=== PATIENT | male | born 1955 | race Caucasian/White ===

== ENCOUNTER → 2016-09-10 | Outpatient (CLI) | payer OTHER ==
--- NOTE | 2016-09-10 23:00 | CT ---
EXAMINATION TYPE: CT abdomen pelvis w con DATE OF EXAM: 09/10/2016 1:20 PM COMPARISON: NONE HISTORY: ventral hernia hernia per order and patient. CT DLP: 1697 mGycm, Automated Exposure Control for Dose Reduction was Utilized. CONTRAST: CT scan of the abdomen and pelvis is performed with oral and with IV Contrast, patient injected with 100 mL of Omnipaque 240. FINDINGS: LUNG BASES: A few scattered blebs or cysts are identified in both bases. Coronary artery calcificatio n is seen which is noted marker for coronary artery disease. LIVER/GB: No significant abnormality is appreciated. PANCREAS: No significant abnormality is seen. SPLEEN: Splenomegaly is present measuring 14.6 cm on long axis on coronal image 63. ADRENALS: No significant abnormality is seen. KIDNEYS: There is 8 mm calculus lower pole level left kidney on coronal image 51. There is additional smaller 4 mm calculus mid pole level left kidney on coronal image 59. There is cortical scarring pos teriorly mid pole level left kidney on axial image 33. There is 3 mm nonobstructing calculus in right kidney upper to mid pole level on coronal image 63. Th ere is exophytic 2.3 cm simple appearing cyst laterally mid pole level right kidney on coronal image 56. There is symmetric cortical medullary uptake and excretion from both kidneys. There are subcentimeter low dense lesions bilaterally too small to further characterize but presumed benign. BOWEL: Small hiatal hernia is present. The oral contrast reaches level of the splenic flexure. There is no suspicious small or large bowel dilatation identified. Appendix is felt within normal limits fr om posterior aspect of cecum. PROSTATE/SEMINAL VESICLES: No gross abnormality seen. LYMPH NODES: No greater than 1cm abdominal or pelvic lymph nodes are appreciated. OSSEOUS STRUCTURES: Mild multilevel spurring in the spine is present. Mild to moderate symmetric axia l joint space loss in both hip joints is felt present. OTHER: There is mild to moderate calcified atherosclerotic change of aorta and pelvic branch vessels. There is aneurysm measuring up to 3.0 cm in diameter on axial image 41. IMPRESSION: 1. No suspicious fat or bowel containing ventral wall hernia identified. 2. Splenomegaly is noted which may warrant further clinical workup. 3. Nonobstructing bilateral renal calculi noted. 4. Small focal 3.0 cm infrarenal abdominal aortic aneurysm noted. Consider annual imaging monitoring or surveillance.
== END | disposition home or self-care (01) ==
LOC: RADCTMAIN 12:50
PROVIDERS: ATTEND Surgery
DX: I71.4 Abdominal aortic aneurysm, without rupture (principal); R16.1 Splenomegaly, not elsewhere classified; N20.0 Calculus of kidney
CPT/HCPCS: 74177; Q9967

== ENCOUNTER 2019-01-22 06:53 | Inpatient (IN) | payer MEDICARE, OTHER ==
[2019-01-22] MEDS ORDERED: IPRATROPIUM-ALBUTEROL 3 ML NEB INHALATION STA (07:07)
[2019-01-22] MEDS ORDERED: methylPREDNISolone SOD SUCCI 125 MG/2 ML VIAL IV STA (07:07)
[2019-01-22] MEDS ORDERED: SODIUM CHLORIDE 0.9% 1,000 ML IV STA ×2 (07:07)
--- NOTE | 2019-01-22 07:10 | ED ---
SOB HPI <Grant Ramirez - Last Filed: 01/22/19 09:13> - General Source: patient, family, RN notes reviewed, old records reviewed Mode of arrival: ambulatory Limitations: no limitations <Kanwal Jorge - Last Filed: 01/22/19 09:25> - General Chief Complaint: Shortness of Breath Stated Complaint: SOB Time Seen by Provider: 01/22/19 07:02 - History of Present Illness Initial Comments: 63-year-old male presents minutes from today with progressive shortness of breath for the past 3 days. He reports that today he did start to have some chest heaviness. Patient states that he does have a history of hypertension but did not take his blood pressure medicines this morning. Patient has had no fevers or chills. Patient is a former smoker. 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 He reports he had a chemical stress test many years ago. Patient reports that his chest pain seemed to be worse with walking. (Kanwal Jorge) - Related Data Home Medications Medication Instructions Recorded Confirmed Atorvastatin [Lipitor] 20 mg PO HS 01/22/19 01/22/19 Clopidogrel Bisulfate [Plavix] 75 mg PO DAILY 01/22/19 01/22/19 Ergocalciferol (Vitamin D2) 50,000 unit PO SANTOS 01/22/19 01/22/19 [Drisdol] Etanercept [Enbrel] 25 mg SQ SUWE 01/22/19 01/22/19 Ferrous Sulfate [Feosol] 325 mg PO TID 01/22/19 01/22/19 Folic Acid 1 mg PO DAILY 01/22/19 01/22/19 Hydrocodone/Acetaminophen [[place] 1 tab PO Q6H PRN 01/22/19 01/22/19 10-325] Labetalol HCl [Trandate] 300 mg PO BID 01/22/19 01/22/19 Losartan Potassium [Cozaar] 100 mg PO DAILY 01/22/19 01/22/19 Meclizine [Antivert] 25 mg PO AC-TID PRN 01/22/19 01/22/19 Methotrexate 25mg/Ml 25 mg SQ SANTOS 01/22/19 01/22/19 amLODIPine [Norvasc] 10 mg PO DAILY 01/22/19 01/22/19 traZODone HCL 150 mg PO HS 01/22/19 01/22/19 Allergies Allergy/AdvReac Type Severity Reaction Status Date / Time epinephrine Allergy Unknown Verified 01/22/19 08:15 Review of Systems ROS Other: All systems not noted in ROS Statement are negative. <Grant Ramirez - Last Filed: 01/22/19 09:13> ROS Other: All systems not noted in ROS Statement are negative. <Kanwal Jorge - Last Filed: 01/22/19 09:25> ROS Statement: Those systems with pertinent positive or pertinent negative responses have been documented in the HPI. Past Medical History Past Medical History: COPD, Hypertension History of Any Multi-Drug Resistant Organisms: None Reported Past Surgical History: Hernia Repair Additional Past Surgical History / Comment(s): kidney stone, sleep apnea Past Psychological History: No Psychological Hx Reported Smoking Status: Former smoker Past Alcohol Use History: Occasional Past Drug Use History: None Reported <Kanwal Jorge - Last Filed: 01/22/19 09:25> General Exam Limitations: no limitations General appearance: alert, in no apparent distress Head exam: Present: atraumatic, normocephalic, normal inspection Eye exam: Present: normal appearance, PERRL, EOMI. Absent: scleral icterus, conjunctival injection, periorbital swelling ENT exam: Present: normal exam, mucous membranes moist Neck exam: Present: normal inspection Respiratory exam: Present: decreased breath sounds. Absent: normal lung sounds bilaterally, respiratory distress, wheezes, rales, rhonchi, stridor Cardiovascular Exam: Present: regular rate, normal rhythm, normal heart sounds. Absent: systolic murmur, diastolic murmur, rubs, gallop, clicks GI/Abdominal exam: Present: soft, normal bowel sounds. Absent: distended, tenderness, guarding, rebound, rigid Extremities exam: Present: normal inspection, full ROM, normal capillary refill. Absent: tenderness, pedal edema, joint swelling, calf tenderness Back exam: Present: normal inspection Neurological exam: Present: alert, oriented X3, CN II-XII intact Psychiatric exam: Present: normal affect Skin exam: Present: warm, dry, intact, normal color. Absent: rash <Kanwal Jorge - Last Filed: 01/22/19 09:25> - General Exam Comments Initial Comments: 63-year-old male. No distress. (Kanwal Jorge) Course <JamesGrant - Last Filed: 01/22/19 09:13> Vital Signs 01/22/19 01/22/19 01/22/19 06:56 07:16 07:27 Temperature 97.6 F Pulse Rate 111 H 109 H Respiratory 26 H 18 13 Rate Blood Pressure 209/133 O2 Sat by Pulse 96 Oximetry 01/22/19 01/22/19 01/22/19 07:40 07:41 07:51 Temperature Pulse Rate 109 H 108 H 110 H Respiratory 14 Rate Blood Pressure 197/145 O2 Sat by Pulse 95 Oximetry 01/22/19 01/22/19 08:00 08:20 Temperature Pulse Rate 105 H 101 H Respiratory 20 17 Rate Blood Pressure 191/115 201/140 O2 Sat by Pulse 97 Oximetry - Reevaluation(s) Reevaluation #1: 01/22/19 09:13 PA supervision: I proceeded a [id number] evaluation the patient he does demonstrate shortness of breath with right lower lobe rhonchi. X-ray shows evidence of a right lower lobe infiltrate. I did discuss case with patient and with Dr. Birch the patient will be admitted with cardiology consultation. (Grant Ramirez) Medical Decision Making - Lab Data Result diagrams: 01/22/19 07:56 01/22/19 07:56 <JamesGrant - Last Filed: 01/22/19 09:13> - Lab Data Result diagrams: 01/22/19 07:56 01/22/19 07:56 - Radiology Data Radiology results: report reviewed <Kanwal Jorge - Last Filed: 01/22/19 09:25> - Medical Decision Making 63-year-old male presents today with 3 days of progressing shortness of breath and 1 day of chest pain. Chest is worse walking. At this time Patient had a cardiac pulmonary workup. Had diminished lung sounds. Was given breathing treatments and Solu-Medrol. Does have improvement of symptoms. Patient chest x-ray shows evidence of right-sided pneumonia or possibly a fluid overload state. BNP is mildly elevated 4000. He has no significant peripheral edema this time. Patient has an elevated troponin 0.082. We'll put the Patient on heparin. Given aspirin and ED. Discussed the Patient will be admitted at this time for pneumonia and concerns for an STEMI. We'll consult cardiology. Patient and family were informed of all of her results. (Kanwal Jorge) - Lab Data Lab Results 01/22/19 01/22/19 01/22/19 Range/Units 07:56 07:56 07:56 WBC 13.6 H (3.8-10.6) k/uL RBC 4.93 (4.30-5.90) m/uL Hgb 14.6 (13.0-17.5) gm/dL Hct 41.7 (39.0-53.0) % MCV 84.6 (80.0-100.0) fL MCH 29.6 (25.0-35.0) pg MCHC 35.0 (31.0-37.0) g/dL RDW 13.7 (11.5-15.5) % Plt Count 266 (150-450) k/uL Neutrophils % 81 % Lymphocytes % 9 % Monocytes % 6 % Eosinophils % 1 % Basophils % 1 % Neutrophils # 10.9 H (1.3-7.7) k/uL Lymphocytes # 1.3 (1.0-4.8) k/uL Monocytes # 0.8 (0-1.0) k/uL Eosinophils # 0.1 (0-0.7) k/uL Basophils # 0.1 (0-0.2) k/uL PT (9.0-12.0) sec INR (<1.2) APTT (22.0-30.0) sec Sodium 139 (137-145) mmol/L Potassium 4.1 (3.5-5.1) mmol/L Chloride 105 (98-107) mmol/L Carbon Dioxide 22 (22-30) mmol/L Anion Gap 12 mmol/L BUN 16 (9-20) mg/dL Creatinine 0.84 (0.66-1.25) mg/dL Est GFR (CKD-EPI)AfAm >90 (>60 ml/min/1.73 sqM) Est GFR (CKD-EPI)NonAf >90 (>60 ml/min/1.73 sqM) Glucose 167 H (74-99) mg/dL Calcium 9.2 (8.4-10.2) mg/dL Magnesium 1.8 (1.6-2.3) mg/dL Total Bilirubin 1.1 (0.2-1.3) mg/dL AST 23 (17-59) U/L ALT 32 (21-72) U/L Alkaline Phosphatase 74 (38-126) U/L Troponin I (0.000-0.034) ng/mL NT-Pro-B Natriuret Pep 4990 pg/mL Total Protein 6.7 (6.3-8.2) g/dL Albumin 3.9 (3.5-5.0) g/dL 01/22/19 01/22/19 Range/Units 07:56 07:56 WBC (3.8-10.6) k/uL RBC (4.30-5.90) m/uL Hgb (13.0-17.5) gm/dL Hct (39.0-53.0) % MCV (80.0-100.0) fL MCH (25.0-35.0) pg MCHC (31.0-37.0) g/dL RDW (11.5-15.5) % Plt Count (150-450) k/uL Neutrophils % % Lymphocytes % % Monocytes % % Eosinophils % % Basophils % % Neutrophils # (1.3-7.7) k/uL Lymphocytes # (1.0-4.8) k/uL Monocytes # (0-1.0) k/uL Eosinophils # (0-0.7) k/uL Basophils # (0-0.2) k/uL PT 10.2 (9.0-12.0) sec INR 0.9 (<1.2) APTT 25.0 (22.0-30.0) sec Sodium (137-145) mmol/L Potassium (3.5-5.1) mmol/L Chloride (98-107) mmol/L Carbon Dioxide (22-30) mmol/L Anion Gap mmol/L BUN (9-20) mg/dL Creatinine (0.66-1.25) mg/dL Est GFR (CKD-EPI)AfAm (>60 ml/min/1.73 sqM) Est GFR (CKD-EPI)NonAf (>60 ml/min/1.73 sqM) Glucose (74-99) mg/dL Calcium (8.4-10.2) mg/dL Magnesium (1.6-2.3) mg/dL Total Bilirubin (0.2-1.3) mg/dL AST (17-59) U/L ALT (21-72) U/L Alkaline Phosphatase (38-126) U/L Troponin I 0.082 H* (0.000-0.034) ng/mL NT-Pro-B Natriuret Pep pg/mL Total Protein (6.3-8.2) g/dL Albumin (3.5-5.0) g/dL 01/22/19 07:37 EKG shows sinus tachycardia with occasional PVCs moderate voltage pressure for LVH. 2 of them really consider lateral ischemia. Abnormal EKG noted. Ventricular rate of 10 9 bpm. Pupils 180 ms. QRS duration is 74 ms. QT QTc is 374/503 ms. (Kanwal Jorge) - Radiology Data Right infrahilar opacities concerning for developing pneumonia although could represent confluent edema there is mild fluid overload with pulmonary vascular prominence throughout. (Kanwal Jorge) Disposition <Grant Ramirez - Last Filed: 01/22/19 09:13> Is patient prescribed a controlled substance at d/c from ED?: No Time of Disposition: 09:25 <Kanwal Jorge - Last Filed: 01/22/19 09:25> Clinical Impression: Pneumonia, NSTEMI (non-ST elevated myocardial infarction) Disposition: ADMITTED IP TO THIS HOSP Condition: Stable Referrals: Jono Snider MD [Primary Care Provider] - 1-2 days
[2019-01-22 08:18] LABS: Basophils # (A) 0.1 k/uL (0-0.2); Basophils % (A) 1 %; Eosinophils # (A) 0.1 k/uL (0-0.7); Eosinophils % (A) 1 %; HCT 41.7 % (39.0-53.0); HGB 14.6 gm/dL (13.0-17.5); Lymphocytes # (A) 1.3 k/uL (1.0-4.8); Lymphocytes % (A) 9 %; MCH 29.6 pg (25.0-35.0); MCV 84.6 fL (80.0-100.0); Mean Platelet Volume 8.5; Monocytes # (A) 0.8 k/uL (0-1.0); Monocytes % (A) 6 %; Neutrophils # (A) 10.9 k/uL (1.3-7.7); Neutrophils % (A) 81 %; Platelet Count 266 k/uL (150-450); RBC 4.93 m/uL (4.30-5.90); RDW 13.7 % (11.5-15.5); WBC 13.6 k/uL (3.8-10.6)
[2019-01-22] MEDS ORDERED: LABETALOL 5 MG/ML VIAL MDV IVP STA (08:19)
[2019-01-22] MEDS ORDERED: amLODIPine 10 MG TAB PO STA (08:22)
[2019-01-22] MEDS ORDERED: SPIRONOLACTONE 25 MG TAB PO STA (08:22)
[2019-01-22] MEDS ORDERED: LABETALOL 200 MG TAB PO STA (08:22)
--- NOTE | 2019-01-22 08:27 | XR ---
EXAMINATION TYPE: XR chest 2V DATE OF EXAM: 01/22/2019 COMPARISON: None HISTORY: Shortness of breath for one day TECHNIQUE: Frontal and lateral views of the chest are obtained. FINDINGS: Confluent right infrahilar opacity is present as well as mild pulmonary vascular prominenc e and left basilar subsegmental atelectasis as platelike near the costophrenic angle. Flattening of t he diaphragms on the lateral view represents underlying COPD. Cardiomediastinal silhouette is upper l imits of normal. Pleural reaction is seen at the lung bases without sizable pleural effusion or pneum othorax. Mild degenerative changes of the spine. IMPRESSION: Right infrahilar opacity is concerning for developing pneumonia although could represent confluent edema as there is mild fluid overload with pulmonary vascular prominence throughout.
[2019-01-22 08:28] LABS: ALT 32 U/L (21-72); AST 23 U/L (17-59); African American GFR (CKD) >90 (>60 ml/min/1.73 sqM); Albumin 3.9 g/dL (3.5-5.0); Alkaline Phosphatase 74 U/L (38-126); Anion Gap 12 mmol/L; Blood Urea Nitrogen 16 mg/dL (9-20); Calcium 9.2 mg/dL (8.4-10.2); Carbon Dioxide 22 mmol/L (22-30); Chloride 105 mmol/L (98-107); Glucose 167 mg/dL (74-99); Magnesium 1.8 mg/dL (1.6-2.3); Potassium 4.1 mmol/L (3.5-5.1); Sodium 139 mmol/L (137-145); Total Bilirubin 1.1 mg/dL (0.2-1.3); Total Protein 6.7 g/dL (6.3-8.2)
[2019-01-22 08:34] LABS: INR 0.9 (<1.2); Prothrombin Time 10.2 sec (9.0-12.0)
[2019-01-22] MEDS ORDERED: NITROGLYCERIN SL TABS 0.4 MG TAB SUBLINGUAL PRN (09:04)
[2019-01-22] MEDS ORDERED: HEPARIN SODIUM,PORCINE 5,000 UNIT/ML 1 ML VIAL IV ONE (09:04)
[2019-01-22] MEDS ORDERED: ASPIRIN 81 MG PO STA (09:04)
[2019-01-22] MEDS ORDERED: PNEUMONIA PROTOCOL UTILIZED 1 EACH MISC PO PRN (09:26)
[2019-01-22] MEDS ORDERED: AZITHROMYCIN 500 MG in SODIUM CHLORIDE 0.9% 250 ML IVPB STA (09:26)
[2019-01-22] MEDS ORDERED: IPRATROPIUM-ALBUTEROL 3 ML NEB INHALATION PRN (09:26)
[2019-01-22] MEDS ORDERED: CLOPIDOGREL 75 MG TAB PO SCH (12:00)
--- NOTE | 2019-01-22 12:12 | P.CRDCN ---
History of Present Illness Consult date: 01/22/19 History of present illness: This is a 63 old gentleman with history of hypertension and also previous TIA and also smoking history, comes to the hospital with complaints of increasing shortness of breath for the last several days but more so over the last 24 hours. Patient has been coughing. Denied any chest pain. No external fever or chills. He chest x-ray on admission showed evidence of possible pneumonia and also vascular congestion suggestive of CHF. His EKG showed sinus rhythm with a evidence of left ventricle hypertrophy with a diffuse ST-T abnormalities. Troponin was mildly elevated and BNP is elevated. Her clinical examination, patient does have some JVD and rales in the lungs and pictures is suggestive of moderate congestive heart failure. Concomitant pneumonia cannot be excluded. I will state with IV diuretics along with JEFF inhibitor and beta kleber. We'll also get an echocardiogram. His troponin is abnormal and non-STEMI cannot be ex cluded. We'll wait for the rest of the troponins. We'll also treat him with nitrates and aspirin. Patient is already on heparin Review of Systems As per the chart Past Medical History Past Medical History: COPD, CVA/TIA, Hyperlipidemia, Hypertension, Rheumatoid Arthritis (RA) Additional Past Medical History / Comment(s): TIA in 2005, vertigo, falls, vitamin D deficiency,. History of Any Multi-Drug Resistant Organisms: None Reported Past Surgical History: Adenoidectomy, Hernia Repair, Tonsillectomy Additional Past Surgical History / Comment(s): Open kidney stone extraction, prostate biopsy and TURP, ventral hernia repair with mesh, UVPPP, colonoscopy, R knee arthroscopy, bilateral cataract removal/lens implants. Past Anesthesia/Blood Transfusion Reactions: No Reported Reaction Additional Past Anesthesia/Blood Transfusion Reaction / Comment(s): Clausterphobia Smoking Status: Former smoker - Past Family History Mother Family Medical History: CVA/TIA, Hyperlipidemia, Hypertension, Osteoarthritis (OA) Father Additional Family Medical History / Comment(s): Castleman disease-overgrowth of cells in lymphnodes Medications and Allergies Home Medications Medication Instructions Recorded Confirmed Type Atorvastatin [Lipitor] 20 mg PO HS 01/22/19 01/22/19 History Clopidogrel Bisulfate [Plavix] 75 mg PO DAILY 01/22/19 01/22/19 History Ergocalciferol (Vitamin D2) 50,000 unit PO SANTOS 01/22/19 01/22/19 History [Drisdol] Etanercept [Enbrel] 25 mg SQ SUWE 01/22/19 01/22/19 History Ferrous Sulfate [Feosol] 325 mg PO TID 01/22/19 01/22/19 History Folic Acid 1 mg PO DAILY 01/22/19 01/22/19 History Hydrocodone/Acetaminophen [[place] 1 tab PO Q6H PRN 01/22/19 01/22/19 History 10-325] Labetalol HCl [Trandate] 300 mg PO BID 01/22/19 01/22/19 History Losartan Potassium [Cozaar] 100 mg PO DAILY 01/22/19 01/22/19 History Meclizine [Antivert] 25 mg PO AC-TID PRN 01/22/19 01/22/19 History Methotrexate 25mg/Ml 25 mg SQ SANTOS 01/22/19 01/22/19 History amLODIPine [Norvasc] 10 mg PO DAILY 01/22/19 01/22/19 History traZODone HCL 150 mg PO HS 01/22/19 01/22/19 History Allergies Allergy/AdvReac Type Severity Reaction Status Date / Time epinephrine Allergy Unknown Verified 01/22/19 08:15 Physical Exam Vitals: Vital Signs Temp Pulse Pulse Resp BP BP Pulse Ox 01/22/19 11:48 98.4 F 100 16 154/109 96 01/22/19 10:30 99 20 169/120 95 01/22/19 10:00 98 24 166/117 96 01/22/19 09:30 93 12 166/120 94 L 01/22/19 09:00 102 H 20 176/127 95 01/22/19 08:30 102 H 13 193/138 95 01/22/19 08:20 101 H 17 201/140 01/22/19 08:00 105 H 20 191/115 97 01/22/19 07:51 110 H 01/22/19 07:41 108 H 01/22/19 07:40 109 H 14 197/145 95 01/22/19 07:27 109 H 13 01/22/19 07:16 18 01/22/19 06:56 97.6 F 111 H 26 H 209/133 96 Intake and Output 09/25/19 09/26/19 09/26/19 22:59 06:59 14:59 Other: Weight 95.254 kg GENERAL EXAM: Patient is alert and oriented and appears to be in mild distress HEENT: Normocephalic. Normal reaction of pupils, equal size, normal range of extraocular motion. No erythema or exudates in the throat. NECK: No masses, no nuchal rigidity. CHEST: No chest wall deformity. LUNGS: Bilateral rales HEART: S1 and S2 normal with no audible mumurs or gallops. Regular rhythm, femorals equal on both sides.. ABDOMEN: No hepatosplenomegaly, normal bowel sounds, no guarding or rigidity. SKIN: No rashes CENTRAL NERVOUS SYSTEM: No focal deficits. EXTREMITIES: No cyanosis, clubbing or edema. Results 01/22/19 07:56 01/22/19 07:56 Cardiac Enzymes 01/22/19 01/22/19 Range/Units 07:56 07:56 AST 23 (17-59) U/L Troponin I 0.082 H* (0.000-0.034) ng/mL Coagulation 01/22/19 Range/Units 07:56 PT 10.2 (9.0-12.0) sec APTT 25.0 (22.0-30.0) sec CBC 01/22/19 Range/Units 07:56 WBC 13.6 H (3.8-10.6) k/uL RBC 4.93 (4.30-5.90) m/uL Hgb 14.6 (13.0-17.5) gm/dL Hct 41.7 (39.0-53.0) % Plt Count 266 (150-450) k/uL Comprehensive Metabolic Panel 01/22/19 Range/Units 07:56 Sodium 139 (137-145) mmol/L Potassium 4.1 (3.5-5.1) mmol/L Chloride 105 (98-107) mmol/L Carbon Dioxide 22 (22-30) mmol/L BUN 16 (9-20) mg/dL Creatinine 0.84 (0.66-1.25) mg/dL Glucose 167 H (74-99) mg/dL Calcium 9.2 (8.4-10.2) mg/dL AST 23 (17-59) U/L ALT 32 (21-72) U/L Alkaline Phosphatase 74 (38-126) U/L Total Protein 6.7 (6.3-8.2) g/dL Albumin 3.9 (3.5-5.0) g/dL Current Medications Generic Name Dose Route Start Last Admin Trade Name Freq PRN Reason Stop Dose Admin Albuterol/Ipratropium 3 ml 01/22/19 09:26 Duoneb 0.5 Mg-3 Mg/3 Ml Soln INHALATION RT-Q4H PRN shortness of breath Amlodipine Besylate 10 mg 01/23/19 09:00 Norvasc PO DAILY [facility] Aspirin 325 mg 01/23/19 09:00 Aspirin PO DAILY [facility] Atorvastatin Calcium 20 mg 01/22/19 21:00 Lipitor PO HS [facility] Azithromycin 500 mg 01/23/19 09:00 Zithromax PO DAILY [facility] Clopidogrel Bisulfate 75 mg 01/22/19 12:00 Plavix PO DAILY [facility] Furosemide 40 mg 01/22/19 12:15 Lasix IV Q12HR [facility] Sodium Chloride 1,000 mls @ 100 mls/hr 01/22/19 07:07 01/22/19 08:32 Saline 0.9% IV 01/22/19 17:06 100 mls/hr .Q10H STA Administration Heparin Sodium/Sodium Chloride 250 mls @ 10.002 mls/hr 01/22/19 09:15 25,000 unit/ Sodium Chloride IV .Q24H [facility] Protocol 10.5 UNITS/KG/HR Ceftriaxone Sodium 1 gm/ 50 mls @ 100 mls/hr 01/23/19 09:00 Sodium Chloride IVPB 01/26/19 09:01 Q24HR [facility] Labetalol HCl 300 mg 01/22/19 21:00 Trandate PO BID [facility] Losartan Potassium 100 mg 01/22/19 12:00 Cozaar PO DAILY [facility] Miscellaneous Information 1 each 01/22/19 09:26 Pneumonia Protocol Utilized PO ONCE PRN Per Protocol Nitroglycerin 0.4 mg 01/22/19 09:04 Nitrostat SUBLINGUAL Q5M PRN Chest Pain Spironolactone 25 mg 01/22/19 12:15 Aldactone PO DAILY [facility] Intake and Output 01/21/19 01/22/19 01/22/19 22:59 06:59 14:59 Other: Weight 95.254 kg 01/22/19 07:56 01/22/19 07:56 EKG Interpretations (text) Sinus rhythm with a left ventricle hypertrophy and PVCs. Assessment and Plan (1) Acute congestive heart failure Current Visit: Yes Status: Acute Code(s): I50.9 - HEART FAILURE, UNSPECIFIED SNOMED Code(s): 21110358 (2) NSTEMI (non-ST elevated myocardial infarction) Current Visit: Yes Status: Acute Code(s): I21.4 - NON-ST ELEVATION (NSTEMI) MYOCARDIAL INFARCTION SNOMED Code(s): 88579358 (3) Pneumonia Current Visit: Yes Status: Acute Code(s): J18.9 - PNEUMONIA, UNSPECIFIED ORGANISM SNOMED Code(s): 799319545 (4) Essential hypertension Current Visit: Yes Status: Acute Code(s): I10 - ESSENTIAL (PRIMARY) HYPERTENSION SNOMED Code(s): 12472018 (5) History of CVA (cerebrovascular accident) Current Visit: Yes Status: Acute Code(s): Z86.73 - PRSNL HX OF TIA (TIA), AND CEREB INFRC W/O RESID DEFICITS SNOMED Code(s): 398166080 Plan: I'll treated with IV Lasix and Aldactone. We'll continue with amlodipine, labetalol and also losartan for blood pressure control. Her LAD, nitrates. Patient is on heparin and Plavix. Echocardiogram will be done. Antibiotics to be continued. Further recommendations depend upon clinical course
[2019-01-22] MEDS ORDERED: FUROSEMIDE 10 MG/ML 4 ML VIAL IV SCH (12:15)
[2019-01-22] MEDS: LOSARTAN 50 MG TAB PO SCH (12:30)
[2019-01-22] MEDS: SPIRONOLACTONE 25 MG TAB PO SCH (12:30)
[2019-01-22] MEDS: HEPARIN SOD,PORK IN 0.45% NACL 25,000 UNIT in 0.45% NACL 1 250ML.BAG IV SCH (12:53)
[2019-01-22 13:53] LABS: Appearance,Urine Clear (Clear); Bilirubin,Urine Negative (Negative); Blood,Urine Negative (Negative); Color,Urine Light Yellow; Glucose,Urine (UA) 1+ (Negative); Ketones,Urine Negative (Negative); Leukocyte Esterase,Urine Negative (Negative); Nitrite,Urine Negative (Negative); Protein,Urine Negative (Negative); Urobilinogen,Urine <2.0 mg/dL (<2.0)
[2019-01-22] MEDS ORDERED: CARVEDILOL 3.125 MG TAB PO SCH (17:30)
--- NOTE | 2019-01-22 19:10 | P.HPIM ---
History of Present Illness H&P Date: 01/22/19 Chief Complaint: Shortness of breath History of presenting complaint: This is a pleasant [address] begum. Chronic stable medical conditions include hyperlipidemia, hypertension, rheumatoid arthritis COPD. For about 2 weeks patient is becoming increasingly short of breath. No edema no cough no fever no chills. Normally uses 2 or 3 pillows at night. Appetite has been fair. No bowel movements. No sputum production. Patient is felt to have CHF to started on IV Lasix. There is a question about pneumonia hence antibiotics were also started. Admitted for the same. Review of systems: GEN.: Tired EYES: None HEENT: None NECK: None RESPIRATORY: As above CARDIOVASCULAR: No chest pain GASTROINTESTINAL: None GENITOURINARY: None MUSCULOSKELETAL: None LYMPHATICS: None HEMATOLOGICAL: None PSYCHIATRY: None NEUROLOGICAL: None Social history: . Smoked for about 46 years, stopped in 2003,. 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 Physical examination: VITAL SIGNS: 97.6, 111, 26, 209, 133, 96% room air GENERAL: BMI 31.0, sitting up a bit tired. EYES: Pupils equal. Conjunctiva normal. HEENT: External appearance of nose and ears normal, oral cavity grossly normal. NECK: JVD possibly raised; masses not palpable. HEART: First and second heart sounds are normal; no edema. LUNGS: Respiratory rate increased, basal crackles. ABDOMEN: Soft, nontender, liver spleen not palpable, no masses palpable. PSYCH: Alert and oriented x3; mood and affect normal. NEUROLOGICAL: Cranial nerves grossly intact; no facial asymmetry, power and sensation grossly intact. LYMPHATICS: No lymph nodes palpable in the axilla and neck INVESTIGATIONS, reviewed in the clinical context: White count 13.6 hemoglobin 14.6 potassium 4.1 creatinine 0.84 Troponin 0.082, 0.078 ProBNP 4990 EKG tracing personally reviewed by me shows ST segment depression, PVC Chest x-ray film personally reviewed by me shows pulmonary edema and some cardiomegaly Assessment: -Acute congestive heart failure exacerbation, EF not known, in a patient with elevated BNP, some EKG changes and a troponin leak from the same. Symptoms have been going on for about 2 weeks has the value of troponin at this point is unclear, except from a prognostic standpoint -COPD in an ex-smoker -Clinically doubt pneumonia as patient has got no fever no chills, no sputum production. We'll check a pro calcitonin level. -Hyperlipidemia -Essential hypertension -Rheumatoid arthritis Plan: Patient is oriented to IV Lasix will increase the frequency. We'll check pro calcitonin level. Follow electrolytes closely. Check I's and O's closely. 2-D echocardiogram has been ordered. We'll also get bronchodilators. If pro calcitonin is negative, antibiotics will be discontinued. Care was discussed with the patient questions were answered Past Medical History Past Medical History: COPD, CVA/TIA, Hyperlipidemia, Hypertension, Rheumatoid Arthritis (RA) Additional Past Medical History / Comment(s): TIA in 2005, vertigo, falls, vitamin D deficiency,. History of Any Multi-Drug Resistant Organisms: None Reported Past Surgical History: Adenoidectomy, Hernia Repair, Tonsillectomy Additional Past Surgical History / Comment(s): Open kidney stone extraction, prostate biopsy and TURP, ventral hernia repair with mesh, UVPPP, colonoscopy, R knee arthroscopy, bilateral cataract removal/lens implants. Past Anesthesia/Blood Transfusion Reactions: No Reported Reaction Additional Past Anesthesia/Blood Transfusion Reaction / Comment(s): Clausterphobia Smoking Status: Former smoker - Past Family History Mother Family Medical History: CVA/TIA, Hyperlipidemia, Hypertension, Osteoarthritis (OA) Father Additional Family Medical History / Comment(s): Castleman disease-overgrowth of cells in lymphnodes Medications and Allergies Home Medications Medication Instructions Recorded Confirmed Type Atorvastatin [Lipitor] 20 mg PO HS 01/22/19 01/22/19 History Clopidogrel Bisulfate [Plavix] 75 mg PO Q48H 01/22/19 01/22/19 History Ergocalciferol (Vitamin D2) 50,000 unit PO SANTOS 01/22/19 01/22/19 History [Drisdol] Etanercept [Enbrel] 25 mg SQ SUWE 01/22/19 01/22/19 History Ferrous Sulfate [Feosol] 325 mg PO TID 01/22/19 01/22/19 History Folic Acid 1 mg PO DAILY 01/22/19 01/22/19 History Hydrocodone/Acetaminophen [[place] 1 tab PO Q6H PRN 01/22/19 01/22/19 History 10-325] Labetalol HCl [Trandate] 300 mg PO BID 01/22/19 01/22/19 History Losartan Potassium [Cozaar] 100 mg PO DAILY 01/22/19 01/22/19 History Meclizine [Antivert] 25 mg PO AC-TID PRN 01/22/19 01/22/19 History Methotrexate 25mg/Ml 25 mg SQ SANTOS 01/22/19 01/22/19 History amLODIPine [Norvasc] 10 mg PO DAILY 01/22/19 01/22/19 History traZODone HCL 150 mg PO HS 01/22/19 01/22/19 History Allergies Allergy/AdvReac Type Severity Reaction Status Date / Time epinephrine Allergy Unknown Verified 01/22/19 08:15 Physical Exam Vitals: Vital Signs Temp Pulse Pulse Resp BP BP Pulse Ox 01/22/19 16:14 104 H 01/22/19 16:06 100 01/22/19 16:00 16 01/22/19 15:47 97.6 F 100 16 153/103 96 01/22/19 12:00 16 01/22/19 11:48 98.4 F 100 16 154/109 96 01/22/19 10:50 98.4 F 99 16 169/120 96 01/22/19 10:30 99 20 169/120 95 01/22/19 10:00 98 24 166/117 96 01/22/19 09:30 93 12 166/120 94 L 01/22/19 09:00 102 H 20 176/127 95 01/22/19 08:30 102 H 13 193/138 95 01/22/19 08:20 101 H 17 201/140 01/22/19 08:00 105 H 20 191/115 97 01/22/19 07:51 110 H 01/22/19 07:41 108 H 01/22/19 07:40 109 H 14 197/145 95 01/22/19 07:27 109 H 13 01/22/19 07:16 18 01/22/19 06:56 97.6 F 111 H 26 H 209/133 96 Intake and Output 01/22/19 01/22/19 01/22/19 06:59 14:59 22:59 Intake Total 100 550 Balance 100 550 Intake: IV 450 Azithromycin 500 mg In 250 Sodium Chloride 0.9% 250 ml @ 250 mls/hr IVPB ONCE STA Rx#:[id number] Heparin Sod,Pork in 0.45% 80 NaCl 25,000 unit In 0.45 % NaCl 1 250ml.bag @ 10.5 UNITS/KG/HR 10.002 mls/ hr IV .Q24H IVNNIE Rx#: [id number] Sodium Chloride 0.9% 1, 120 000 ml @ 20 mls/hr IV . Q24H STA Rx#:[id number] Oral 100 100 Other: Voiding Method Urinal Toilet Urinal Weight 95.254 kg Results CBC & Chem 7: 01/22/19 07:56 01/22/19 07:56 Labs: Abnormal Lab Results - Last 24 Hours (Table) 01/22/19 01/22/19 01/22/19 Range/Units 07:56 07:56 07:56 WBC 13.6 H (3.8-10.6) k/uL Neutrophils # 10.9 H (1.3-7.7) k/uL Glucose 167 H (74-99) mg/dL Troponin I 0.082 H* (0.000-0.034) ng/mL Urine Glucose (UA) (Negative) 01/22/19 01/22/19 Range/Units 13:20 13:35 WBC (3.8-10.6) k/uL Neutrophils # (1.3-7.7) k/uL Glucose (74-99) mg/dL Troponin I 0.078 H* (0.000-0.034) ng/mL Urine Glucose (UA) 1+ H (Negative) Thrombosis Risk Factor Assmnt - Choose All That Apply Any of the Below Risk Factors Present?: Yes Each Factor Represents 1 point: Abnormal pulmonary function (COPD), Acute NM, Obesity (BMI >25), Serious lung disease incl. pneumonia (< 1month) Other Risk Factors: Yes Each Risk Factor Represents 2 Points: Age 61-74 years Other congenital or acquired thrombophilia - If yes, enter type in comment: No Thrombosis Risk Factor Assessment Total Risk Factor Score: 6 Thrombosis Risk Factor Assessment Level: High Risk
[2019-01-22] MEDS: IPRATROPIUM-ALBUTEROL 3 ML NEB INHALATION SCH (20:26)
[2019-01-22] MEDS: FUROSEMIDE 10 MG/ML 4 ML VIAL IV SCH ×2 (20:50→22:10)
[2019-01-22] MEDS: ATORVASTATIN 20 MG TAB PO SCH (20:51)
[2019-01-22] MEDS: LABETALOL 100 MG TAB PO SCH (20:51)
[2019-01-23 06:24] LABS: African American GFR (CKD) >90 (>60 ml/min/1.73 sqM); Anion Gap 10 mmol/L; Blood Urea Nitrogen 22 mg/dL (9-20); Calcium 9.5 mg/dL (8.4-10.2); Carbon Dioxide 25 mmol/L (22-30); Chloride 103 mmol/L (98-107); Cholesterol 195 mg/dL (<200); Glucose 150 mg/dL (74-99); HDL Cholesterol 45 mg/dL (40-60); LDL Cholesterol,Calculated 119 mg/dL (0-99); Potassium 3.8 mmol/L (3.5-5.1); Sodium 138 mmol/L (137-145); Triglycerides 154 mg/dL (<150)
[2019-01-23] MEDS: FUROSEMIDE 10 MG/ML 4 ML VIAL IV SCH ×3 (08:11→23:27)
[2019-01-23] MEDS: amLODIPine 10 MG TAB PO SCH (08:15)
[2019-01-23] MEDS: ASPIRIN 325 MG TAB PO SCH (08:15)
[2019-01-23] MEDS: HEPARIN SOD,PORK IN 0.45% NACL 25,000 UNIT in 0.45% NACL 1 250ML.BAG IV SCH ×2 (08:16→20:31)
[2019-01-23] MEDS: SPIRONOLACTONE 25 MG TAB PO SCH (08:16)
[2019-01-23] MEDS: LABETALOL 100 MG TAB PO SCH ×2 (08:16→20:29)
[2019-01-23] MEDS: LOSARTAN 50 MG TAB PO SCH (08:16)
[2019-01-23] MEDS: IPRATROPIUM-ALBUTEROL 3 ML NEB INHALATION SCH ×4 (08:44→20:12)
[2019-01-23] MEDS ORDERED: AZITHROMYCIN 500 MG TAB PO SCH (09:00)
--- NOTE | 2019-01-23 10:25 | ECHOF ---
Referral Reason:LV function MEASUREMENTS -------- HEIGHT: 175.3 cm WEIGHT: 95.3 kg BP: IVSd: 1.2 cm (0.6 - 1.1) LVIDd: 4.6 cm (3.9 - 5.3) LVPWd: 1.4 cm (0.6 - 1.1) IVSs: 1.7 cm LVIDs: 3.8 cm LVPWs: 1.2 cm LAESV Index (A-L): 32.45 ml/m Ao Diam: 3.6 cm (2.0 - 3.7) AV Cusp: 2.1 cm (1.5 - 2.6) LA Diam: 3.3 cm (2.7 - 3.8) MV EXCURSION: 15.965 mm (> 18.000) MV EF SLOPE: 263 mm/s (70 - 150) EPSS: 2.5 cm MV E Ace: 1.49 m/s MV DecT: 162 ms MV A Ace: 0.33 m/s MV E/A Ratio: 4.46 RAP: 15.00 mmHg RVSP: 35.68 mmHg TAPSE: 22.43 mm FINDINGS -------- Sinus rhythm. This was a technically good study. The left ventricular size is normal. There is mild concentric left ventricular hypertrophy. There is moderate global hypokinesis of LV . Overall left ventricular systolic function is moderate-mayda rely impaired with, an EF between 30 - 35 %. Restrictive LV filling pattern, consistent with eleva manjula LA pressure 75.72. Basal anterior LV wall motion is hypokinetic. Mid anterior LV wall motion is hypokinetic. Mid lateral LV wall motion is hypokinetic. Apical anterior LV wall motion is h ypokinetic. Apical lateral LV wall motion is hypokinetic. Apical septum LV wall motion is hypok inetic. The right ventricle is normal in size. The right ventricular systolic function is normal. LA is midly dilated 29-33ml/m2. The right atrial size is normal. The aortic valve is trileaflet, and appears structurally normal. No aortic stenosis or regurgitation. The mitral valve is normal. Severe mitral regurgitation is present. The tricuspid valve appears structurally normal. Mild tricuspid regurgitation present. There is no pulmonic regurgitation present. The aortic root size is normal. The inferior vena cava is mildly dilated. There is no pericardial effusion. CONCLUSIONS -------- 1. Sinus rhythm. 2. This was a technically good study. 3. The left ventricular size is normal. 4. There is mild concentric left ventricular hypertrophy. 5. There is moderate global hypokinesis of LV . 6. Overall left ventricular systolic function is moderate-severely impaired with, an EF between 30 - 35 %. 7. Restrictive LV filling pattern, consistent with elevated LA pressure 75.72. 8. Basal anterior LV wall motion is hypokinetic. 9. Mid anterior LV wall motion is hypokinetic. 10. Mid lateral LV wall motion is hypokinetic. 11. Apical anterior LV wall motion is hypokinetic. 12. Apical lateral LV wall motion is hypokinetic. 13. Apical septum LV wall motion is hypokinetic. 14. The right ventricle is normal in size. 15. LA is midly dilated 29-33ml/m2. 16. The aortic valve is trileaflet, and appears structurally normal. No aortic stenosis or regurgitat ion. 17. The mitral valve is normal. 18. Severe mitral regurgitation is present. 19. The tricuspid valve appears structurally normal. 20. Mild tricuspid regurgitation present. 21. There is no pulmonic regurgitation present. 22. The aortic root size is normal. 23. The inferior vena cava is mildly dilated. 24. There is no pericardial effusion. HEEL BLACKER: Yenni Emanuel RDCS
--- NOTE | 2019-01-23 11:27 | CDI ---
Documentation Clarification Form Date: 01/23/2019 11:06:12 AM From: Rosenda Mccarty RN CCDS Admit Date: 01/22/2019 9:13:00 AM Patient Name: Finn Kong Visit Number: [id number] Discharge Date: ATTENTION: The Clinical Documentation Specialists (CDI) and [facility] Coding Staff appreciate your assistance in clarifying documentation. Please respond to the clarification below the line at the bottom and electronically sign. The CDI & [facility] Coding staff will review the response and follow-up if needed. Please note: Queries are made part of the Legal Health Record. If you have any questions, please contact the author of this message via ITS. Dr. Fadi Birch Conflicting documentation has been found in the medical record: Your H & P 01/22/2019 Acute congestive heart failure exacerbation, EF not known, in a patient with elevated BNP, some EKG changes and a troponin leak from the same. Cardiology Consult 01/22/2019 NSTEMI History/Risk Factors: 63-year-old male presents to the ED with Progressive Shortness of Breath for the past three days. Medical history HTN, COPD Clinical Indicators: Troponins 0.82; 0.078; 0.070; BNP 4990; EKG Sinus Tachycardia with occasional premature ventricular complexes. Moderate voltage criteria for LVH, may be normal variant. T wave abnormality consider lateral ischemia. Echo 01/22/2019 Overall left ventricular systolic function is moderate- severely impaired with, an EF between 30- 35% Treatment: Cardiology Consult; Heparin IV x 1 and Heparin ivpb started on 01/22/2019 In your opinion, what is the most clinically appropriate diagnosis for this patient? * NSTEMI Type (please specify) * Troponin Leak * Other explanation of clinical findings * Unable to determine (no explanation for clinical findings) (Last Revision: July 2017) Acute non-ST elevation myocardial infarction MTDD
--- NOTE | 2019-01-23 11:41 | XR ---
EXAMINATION TYPE: XR chest 2V DATE OF EXAM: 01/23/2019 COMPARISON: 01/22/2019 INDICATION: Pneumonia TECHNIQUE: Frontal and lateral views of the chest are obtained. FINDINGS: The heart size is normal. The pulmonary vasculature is normal. Mild infiltrate is at the right base. This may has some improvement. Fluid level may be at the right costophrenic angle.. IMPRESSION: 1. Improving right lower lobe infiltrate. 2. Small right pleural effusion may be present.
[2019-01-23] MEDS ORDERED: LIDOCAINE 1% INJ 10MG/ML (20 ML MDV) ONE (13:52)
[2019-01-23] MEDS ORDERED: fentaNYL (PF) 50 MCG/ML 2 ML AMP ONE (13:52)
[2019-01-23] MEDS ORDERED: SODIUM CHLORIDE 0.9% 1,000 ML IV ONE (14:00)
[2019-01-23] MEDS ORDERED: MIDAZOLAM PF (FBP) 2 MG/2 ML VIAL IV ONE (14:00)
[2019-01-23] MEDS ORDERED: fentaNYL (PF) 50 MCG/ML 2 ML AMP IV ONE (14:00)
[2019-01-23] MEDS ORDERED: LIDOCAINE 1% INJ 10MG/ML (20 ML MDV) SQ ONE (14:03)
[2019-01-23] MEDS ORDERED: IOPAMIDOL-370 125ML BTL INJ ONE (14:31)
[2019-01-23] MEDS ORDERED: RX INFO: IV CONTRAST WAS GIVEN 1 EACH MISC MISCELLANE PRN (14:35)
[2019-01-23] MEDS ORDERED: ISOSORBIDE MONONITRATE ER 60 MG TAB.ER.24H PO STA (14:37)
--- NOTE | 2019-01-23 14:42 | P.CARDCATH ---
Date of Procedure: 01/23/19 Preoperative Diagnosis: Ischemic heart myopathy and non-STEMI Postoperative Diagnosis: Triple-vessel disease, elevated end-diastolic pressure Procedure(s) Performed: Left heart catheterization without left ventriculography Description of Procedure: HISTORY: This is a 63-year-old gentleman with history of hypercholesterolemia and smoking who was admitted to the hospital with complaints of increasing shortness of breath and also some chest pain for the last 3 weeks. His troponins were abnormal and had findings consistent with congestive heart failure. Echocardiogram was consistent with ischemic cardiomyopathy with a severe hypokinesis of the anteroapical wall. Patient is advised to have cardiac catheterization for definitive diagnosis. CONSENT:I have discussed the risks, benefits and alternative therapies for the above-mentioned procedure and for both sedation/analgesia as well as necessary blood product administration, if indicated, as they pertain to this patient. The patient has indicated understanding and acceptance of the risks and procedures discussed. PROCEDURE: Patient was brought to the lab in a fasting state. Patient was given some IV sedation. The right groin is infiltrated with lidocaine and right femoral artery was entered using Seldinger technique. A 6-Sammarinese catheter was left in place and selective coronary arteriography was performed. Patient tolerated the procedure well. Femoral angiogram was performed and Angio-Seal was applied for hemostasis. No immediate complications were noted and patient was transferred to [facility] in a stable condition Conscious Sedation: Versed 1mg Fentanyl 25 g Duration 15minutes HEMODYNAMICS: The aortic pressure is 160/70. Left ventricular end-diastolic pressure is 24. No gradient across the aortic valve SELECTIVE CORONARY ARTERIOGRAPHY: LEFT MAIN: Normal length and free of any critical lesions THE LEFT ANTERIOR DESCENDING CORONARY ARTERY: Moderate caliber vessel with a long lesion involving the proximal and mid portions with about 80-90% stenosis. There is a moderate caliber diagonal branch which has about 80% stenosis in midportion THE LEFT CIRCUMFLEX AND IS CORONARY ARTERY:. This is a good caliber vessel with moderate caliber first OM branch. There is about 60- 70% plaque in the mid circumflex after the origin of the first OM. There is a second OM that seemed to be totally occluded THE RIGHT CORONARY ARTERY:. This is a moderate caliber vessel with diffuse disease and ectasia. There is about 90% stenosis in the distal RCA and also about 80% stenosis of the PDA which seemed to show mild diffuse disease LEFT VENTRICULOGRAPHY: Not performed FINAL IMPRESSION:. Triple-vessel disease with a critical lesion in the proximal LAD, mid diagonal and also distal circumflex. It is moderate disease in the midcircumflex with a total occlusion of the second OM branch. LV function by echo is moderately to severely impaired with hypokinesis of the anteroapical and anterolateral segments PLAN: Maximum medical therapy. Revascularization most probably with a bypass surgery. Films were reviewed with the Dr. Caruso PROGNOSIS: Guarded
[2019-01-23] MEDS ORDERED: MD COMMUNICATION TO PHARMACY 1 EACH MISC PO ONE (15:24)
[2019-01-23 15:57] LABS: ALT 28 U/L (21-72); AST 20 U/L (17-59); African American GFR (CKD) >90 (>60 ml/min/1.73 sqM); Albumin 3.8 g/dL (3.5-5.0); Alkaline Phosphatase 66 U/L (38-126); Anion Gap 11 mmol/L; Blood Urea Nitrogen 22 mg/dL (9-20); Calcium 9.6 mg/dL (8.4-10.2); Carbon Dioxide 23 mmol/L (22-30); Chloride 104 mmol/L (98-107); Glucose 154 mg/dL (74-99); Potassium 3.8 mmol/L (3.5-5.1); Sodium 138 mmol/L (137-145); Total Bilirubin 0.7 mg/dL (0.2-1.3); Total Protein 6.6 g/dL (6.3-8.2)
[2019-01-23 16:17] LABS: Basophils # (A) 0.2 k/uL (0-0.2); Basophils % (A) 1 %; Eosinophils % (A) 0 %; HCT 41.8 % (39.0-53.0); HGB 13.8 gm/dL (13.0-17.5); Lymphocytes # (A) 1.5 k/uL (1.0-4.8); Lymphocytes % (A) 10 %; MCH 29.5 pg (25.0-35.0); MCHC 33.1 g/dL (31.0-37.0); Mean Platelet Volume 10.6; Monocytes # (A) 0.9 k/uL (0-1.0); Monocytes % (A) 7 %; Neutrophils # (A) 11.4 k/uL (1.3-7.7); Neutrophils % (A) 81 %; Platelet Count 274 k/uL (150-450); RDW 13.8 % (11.5-15.5); WBC 14.2 k/uL (3.8-10.6)
[2019-01-23 16:17] LABS: Prothrombin Time 10.9 sec (9.0-12.0)
[2019-01-23] MEDS ORDERED: HEPARIN SODIUM,PORCINE 5,000 UNIT/ML 1 ML VIAL IV PRN (16:40)
[2019-01-23] MEDS ORDERED: HEPARIN SOD,PORK IN 0.45% NACL 25,000 UNIT in 0.45% NACL 1 250ML.BAG IV SCH (16:45)
--- NOTE | 2019-01-23 16:55 | P.GSCN ---
<Yenni Mccain - Last Filed: 01/23/19 16:43> History of Present Illness Consult date: 01/23/19 Reason for Consult: Severe calcific triple-vessel coronary artery disease, surgical recommendations Requesting physician: Roseanna Bauer History of present illness: This is a 63-year-old gentleman who follows on an outpatient basis with Dr. Namita peoples. He has a previous medical history of hypertension, hyperlipidemia, TIA in 2007, rheumatoid arthritis on Enbrel and methotrexate, obstructive sleep apnea status post UPPP with residual occasional difficulty in swallowing, and previous tobacco dependence. He presented to [facility] emergency room with complaints of shortness of breath for the previous 2 weeks, significantly worse over the last 2 days with occasional heartburn type chest pain, associated with occasional diaphoresis. He denied any nausea, lightheadedness, dizziness, cough, fever, or any other symptoms. Chest x-ray completed in the emergency room demonstrated right-sided infrahilar opacity representing possible pneumonia versus pulmonary vascular congestion. EKG was completed demonstrating sinus tachycardia with anterolateral T-wave abnormalities. Troponins were elevated and patient was ruled in for non-STEMI. BNP was also elevated at 4990. He was admitted for evaluation and treatment with consultation placed to cardiology. Transthoracic echocardiogram was completed with moderate to severely impaired left ventricular function and ejection fraction 30-35%, anteroapical hypokinesis, and severe mitral regurgitation. He was initiated on IV Lasix and Aldactone with some improvement in his breathing. In addition he was started on Zithromax and ceftriaxone for possible pneumonia. Today he underwent heart catheterization which demonstrated proximal and mid LAD stenosis 80-90%, mid diagonal stenosis 80%, mid circumflex stenosis 60%, distal RCA stenosis 90%, and diffuse PDA disease 80%. Consultation was placed for Dr. Jennings from cardiothoracic surgery for recommendations regarding surgical revascularization. Review of Systems Review of systems was completed and was negative except as noted. - Cardiovascular Reports as per HPI, Reports chest pain, Reports decreased exercise tolerance, Reports dyspnea on exertion, Reports shortness of breath - Respiratory Reports as per HPI, Reports dyspnea, Reports sleep apnea, Reports snoring Past Medical History Past Medical History: Coronary Artery Disease (CAD), Heart Failure, COPD, CVA/TIA, Hyperlipidemia, Hypertension, Myocardial Infarction (NM), Rheumatoid Arthritis (RA) Additional Past Medical History / Comment(s): TIA in 2007, vertigo, falls, vitamin D deficiency, obstructive sleep apnea without CPAP use History of Any Multi-Drug Resistant Organisms: None Reported Past Surgical History: Adenoidectomy, Hernia Repair, Tonsillectomy Additional Past Surgical History / Comment(s): Open kidney stone extraction, prostate biopsy and TURP, ventral hernia repair with mesh, UVPPP, colonoscopy, R knee arthroscopy, bilateral cataract removal/lens implants. Past Anesthesia/Blood Transfusion Reactions: No Reported Reaction Additional Past Anesthesia/Blood Transfusion Reaction / Comm: Clausterphobia Past Psychological History: No Psychological Hx Reported Smoking Status: Former smoker Past Alcohol Use History: Occasional Past Drug Use History: None Reported - Past Family History Mother Family Medical History: CVA/TIA, Hyperlipidemia, Hypertension, Osteoarthritis (OA) Father Additional Family Medical History / Comment(s): Castleman disease-overgrowth of cells in lymphnodes Medications and Allergies Home Medications Medication Instructions Recorded Confirmed Type Atorvastatin [Lipitor] 20 mg PO HS 01/22/19 01/22/19 History Clopidogrel Bisulfate [Plavix] 75 mg PO Q48H 01/22/19 01/22/19 History Ergocalciferol (Vitamin D2) 50,000 unit PO SANTOS 01/22/19 01/22/19 History [Drisdol] Etanercept [Enbrel] 25 mg SQ SUWE 01/22/19 01/22/19 History Ferrous Sulfate [Feosol] 325 mg PO TID 01/22/19 01/22/19 History Folic Acid 1 mg PO DAILY 01/22/19 01/22/19 History Hydrocodone/Acetaminophen [[place] 1 tab PO Q6H PRN 01/22/19 01/22/19 History 10-325] Labetalol HCl [Trandate] 300 mg PO BID 01/22/19 01/22/19 History Losartan Potassium [Cozaar] 100 mg PO DAILY 01/22/19 01/22/19 History Meclizine [Antivert] 25 mg PO AC-TID PRN 01/22/19 01/22/19 History Methotrexate 25mg/Ml 25 mg SQ SANTOS 01/22/19 01/22/19 History amLODIPine [Norvasc] 10 mg PO DAILY 01/22/19 01/22/19 History traZODone HCL 150 mg PO HS 01/22/19 01/22/19 History Allergies Allergy/AdvReac Type Severity Reaction Status Date / Time epinephrine Allergy Unknown Verified 01/22/19 08:15 Surgical - Exam Vital Signs Temp Pulse Resp BP Pulse Ox 97.6 F 111 H 26 H 209/133 96 01/22/19 06:56 01/22/19 06:56 01/22/19 06:56 01/22/19 06:56 01/22/19 06:56 - General well developed, well nourished, no distress, no pain - Eyes PERRL, normal ocular movement - ENT no hearing loss, poor care home - Neck no masses, no bruits, trachea midline - Respiratory Lungs sounds diminished bilaterally. Respirations even, nonlabored. Currently on room air with oxygen saturation 95%. No chest wall deformities. No clubbing or cyanosis noted. - Cardiovascular S1, S2 present. Regular rate and rhythm, sinus rhythm on telemetry. Palpable peripheral pulses bilaterally. No edema present. No calf pain or tenderness noted. No varicosities noted. Negative Christ's test to left radial artery. Right femoral artery heart catheterization site without edema or drainage. - Abdomen Abdomen: soft, non tender, bowel sounds - Genitourinary Deferred - Rectum Deferred - Integumentary no rash, no growths - Neurologic normal coordination, normal sensation - Musculoskeletal normal posture - Psychiatric oriented to time, oriented to person, oriented to place, speech is normal, memory intact Results - Labs 01/23/19 05:28 01/23/19 05:48 Abnormal Lab Results - Last 24 Hours (Table) 01/22/19 01/23/19 01/23/19 Range/Units 19:20 05:28 05:48 WBC 14.2 H (3.8-10.6) k/uL Neutrophils # 11.4 H (1.3-7.7) k/uL APTT (22.0-30.0) sec BUN 22 H (9-20) mg/dL Glucose 150 H (74-99) mg/dL Troponin I 0.070 H* (0.000-0.034) ng/mL Triglycerides 154 H (<150) mg/dL LDL Cholesterol, Calc 119 H (0-99) mg/dL 01/23/19 01/23/19 Range/Units 05:48 05:48 WBC (3.8-10.6) k/uL Neutrophils # (1.3-7.7) k/uL APTT 33.3 H (22.0-30.0) sec BUN 22 H (9-20) mg/dL Glucose 154 H (74-99) mg/dL Troponin I (0.000-0.034) ng/mL Triglycerides (<150) mg/dL LDL Cholesterol, Calc (0-99) mg/dL Microbiology - Last 24 Hours (Table) 01/22/19 07:56 Blood Culture - Preliminary Blood No Growth after 24 hours Diabetes panel 01/23/19 01/23/19 Range/Units 05:48 05:48 Sodium 138 138 (137-145) mmol/L Potassium 3.8 3.8 (3.5-5.1) mmol/L Chloride 103 104 (98-107) mmol/L Carbon Dioxide 25 23 (22-30) mmol/L BUN 22 H 22 H (9-20) mg/dL Creatinine 0.96 1.00 (0.66-1.25) mg/dL Glucose 150 H 154 H (74-99) mg/dL Calcium 9.5 9.6 (8.4-10.2) mg/dL AST 20 (17-59) U/L ALT 28 (21-72) U/L Alkaline Phosphatase 66 (38-126) U/L Total Protein 6.6 (6.3-8.2) g/dL Albumin 3.8 (3.5-5.0) g/dL Triglycerides 154 H (<150) mg/dL HDL Cholesterol 45 (40-60) mg/dL Calcium panel 01/23/19 01/23/19 Range/Units 05:48 05:48 Calcium 9.5 9.6 (8.4-10.2) mg/dL Albumin 3.8 (3.5-5.0) g/dL Pituitary panel 01/23/19 01/23/19 Range/Units 05:48 05:48 Sodium 138 138 (137-145) mmol/L Potassium 3.8 3.8 (3.5-5.1) mmol/L Chloride 103 104 (98-107) mmol/L Carbon Dioxide 25 23 (22-30) mmol/L BUN 22 H 22 H (9-20) mg/dL Creatinine 0.96 1.00 (0.66-1.25) mg/dL Glucose 150 H 154 H (74-99) mg/dL Calcium 9.5 9.6 (8.4-10.2) mg/dL Adrenal panel 01/23/19 01/23/19 Range/Units 05:48 05:48 Sodium 138 138 (137-145) mmol/L Potassium 3.8 3.8 (3.5-5.1) mmol/L Chloride 103 104 (98-107) mmol/L Carbon Dioxide 25 23 (22-30) mmol/L BUN 22 H 22 H (9-20) mg/dL Creatinine 0.96 1.00 (0.66-1.25) mg/dL Glucose 150 H 154 H (74-99) mg/dL Calcium 9.5 9.6 (8.4-10.2) mg/dL Total Bilirubin 0.7 (0.2-1.3) mg/dL AST 20 (17-59) U/L ALT 28 (21-72) U/L Alkaline Phosphatase 66 (38-126) U/L Total Protein 6.6 (6.3-8.2) g/dL Albumin 3.8 (3.5-5.0) g/dL - Imaging Chest x-ray: report reviewed, image reviewed EKG: image reviewed Additional studies: Heart catheterization films reviewed Assessment and Plan Assessment: 1. Severe calcific triple-vessel coronary artery disease 2. Non-STEMI 3. Acute systolic heart failure, cardiomyopathy, EF 30-35% 4. Severe mitral regurgitation on transthoracic echocardiogram 5. Questionable pneumonia, positive leukocytosis but negative pro-calcitonin, afebrile, currently on Zithromax and ceftriaxone 6. Hypertension 7. Hyperlipidemia 8. TIA in 2007 without residual 9. Rheumatoid arthritis on Enbrel and methotrexate 10. Obstructive sleep apnea without CPAP use, status post UPPP with residual occasional difficulty in swallowing 11. Previous tobacco dependence 12. COPD Plan: The patient was seen and examined at the bedside. Chart/diagnostics were reviewed. The case was discussed in detail with Dr. Jennings. The usual perioperative course of coronary artery bypass graft surgery plus/minus mitral valve repair/replacement was discussed in detail with the patient and his family. Risks and benefits were reviewed, all questions were answered. We recommend continuing to maximize medical management with aspirin, statin, beta kleber, ARB, Lasix, Aldactone. Preoperative teaching was initiated, will c alculate STS risk score once testing is completed. Patient's last dose of Plavix was yesterday, 01/22/2019, will need to allow time for Plavix metabolism. Maximizing medical therapy to allow patient to recover from non-STEMI and acute heart failure would be optimal pre-surgically. Patient may need PAMELA to more accurately assess mitral valve regurgitation. This plan was also discussed extensively with the patient and his family and they're in complete agreement and understanding. Continued medical management of his comorbidities per primary care service and cardiology. More recommendations to follow. Thank you Dr. Bauer for this consult. We look forward to working with you in the care of your patient. Time with Patient: Greater than 30 <Manuel Jennings - Last Filed: 01/24/19 12:13> Surgical - Exam Vital Signs Temp Pulse Resp BP Pulse Ox 97.6 F 111 H 26 H 209/133 96 01/22/19 06:56 01/22/19 06:56 01/22/19 06:56 01/22/19 06:56 01/22/19 06:56 Results - Labs 01/24/19 02:28 01/24/19 02:28 Abnormal Lab Results - Last 24 Hours (Table) 01/23/19 01/23/19 01/24/19 Range/Units 05:28 05:48 02:28 WBC 14.2 H (3.8-10.6) k/uL Neutrophils # 11.4 H (1.3-7.7) k/uL APTT (22.0-30.0) sec BUN 22 H 31 H (9-20) mg/dL Glucose 154 H 121 H (74-99) mg/dL 01/24/19 01/24/19 Range/Units 02:28 08:54 WBC 11.7 H (3.8-10.6) k/uL Neutrophils # 8.4 H (1.3-7.7) k/uL APTT 30.3 H (22.0-30.0) sec BUN (9-20) mg/dL Glucose (74-99) mg/dL Microbiology - Last 24 Hours (Table) 01/22/19 07:56 Blood Culture - Preliminary Blood No Growth after 48 hours Diabetes panel 01/23/19 01/24/19 Range/Units 05:48 02:28 Sodium 138 137 (137-145) mmol/L Potassium 3.8 4.1 (3.5-5.1) mmol/L Chloride 104 101 (98-107) mmol/L Carbon Dioxide 23 26 (22-30) mmol/L BUN 22 H 31 H (9-20) mg/dL Creatinine 1.00 1.22 (0.66-1.25) mg/dL Glucose 154 H 121 H (74-99) mg/dL Calcium 9.6 9.5 (8.4-10.2) mg/dL AST 20 (17-59) U/L ALT 28 (21-72) U/L Alkaline Phosphatase 66 (38-126) U/L Total Protein 6.6 (6.3-8.2) g/dL Albumin 3.8 (3.5-5.0) g/dL Thyroid panel 01/23/19 Range/Units 05:48 TSH 1.860 (0.465-4.680) mIU/L Calcium panel 01/23/19 01/24/19 Range/Units 05:48 02:28 Calcium 9.6 9.5 (8.4-10.2) mg/dL Albumin 3.8 (3.5-5.0) g/dL Pituitary panel 01/23/19 01/24/19 Range/Units 05:48 02:28 Sodium 138 137 (137-145) mmol/L Potassium 3.8 4.1 (3.5-5.1) mmol/L Chloride 104 101 (98-107) mmol/L Carbon Dioxide 23 26 (22-30) mmol/L BUN 22 H 31 H (9-20) mg/dL Creatinine 1.00 1.22 (0.66-1.25) mg/dL Glucose 154 H 121 H (74-99) mg/dL Calcium 9.6 9.5 (8.4-10.2) mg/dL TSH 1.860 (0.465-4.680) mIU/L Adrenal panel 01/23/19 01/24/19 Range/Units 05:48 02:28 Sodium 138 137 (137-145) mmol/L Potassium 3.8 4.1 (3.5-5.1) mmol/L Chloride 104 101 (98-107) mmol/L Carbon Dioxide 23 26 (22-30) mmol/L BUN 22 H 31 H (9-20) mg/dL Creatinine 1.00 1.22 (0.66-1.25) mg/dL Glucose 154 H 121 H (74-99) mg/dL Calcium 9.6 9.5 (8.4-10.2) mg/dL Total Bilirubin 0.7 (0.2-1.3) mg/dL AST 20 (17-59) U/L ALT 28 (21-72) U/L Alkaline Phosphatase 66 (38-126) U/L Total Protein 6.6 (6.3-8.2) g/dL Albumin 3.8 (3.5-5.0) g/dL Assessment and Plan Assessment: Triple vessel CAD with CHF presentation and type II trop leak. Feeling better , on room air. No CP. Pre-op w/u in progress. Patient needs PAMELA to re-evaluate MV knowing that LA is mildly dilated and his symptoms are all new. Ideally needs to be at least 5 days off plavix and more importantly 10-14 days off Embrel and metotrexate in view of their effect on wound healing and post-op infection. Needs panoramic Xray and dental evaluation if MV Repair is in order. Consider D/C IV heparin to decrease the incidence of potential HIT in the coming several days especially if surgery would have to take place this admission. Manuel Jennings MD
--- NOTE | 2019-01-23 20:18 | US ---
EXAMINATION TYPE: US carotid duplex BILAT DATE OF EXAM: 01/23/2019 COMPARISON: NONE CLINICAL HISTORY: Pre-Op Cardiac Surgery. EXAM MEASUREMENTS: RIGHT: Peak Systolic Velocity (PSV) cm/sec ----- Right CCA: 62.4 ----- Right ICA: 68.2 ----- Right ECA: 77.2 ICA/CCA ratio: 1.1 RIGHT: End Diastole cm/sec ----- Right CCA: 17.3 ----- Right ICA: 14.4 ----- Right ECA: 9.5 LEFT: Peak Systolic Velocity (PSV) cm/sec ----- Left CCA: 55.4 ----- Left ICA: 52.1 ----- Left ECA: 47.6 ICA/CCA ratio: 0.9 LEFT: End Diastole cm/sec ----- Left CCA: 16.2 ----- Left ICA: 16.4 ----- Left ECA: 7.4 VERTEBRALS (direction of flow): Right Vertebral: Antegrade Left Vertebral: Antegrade Rhythm: Normal No significant stenosis seen There is antegrade flow in the vertebral arteries. The images and measurements suggest less than 25% stenosis in both internal carotid arteries. IMPRESSION: Criteria for Assigning % of Stenosis / Diameter reduction (Estimation based on the indirect measurements of the internal carotid artery velocities (ICA PSV). 1. Normal (no stenosis)=ICA PSV < 125 cm/s: ratio < 2.0: ICA EDV<40 cm/s. 2. Less than 50% stenosis=ICA PSV < 125 cm/s: ratio < 2.0: ICA EDV<40 cm/s. 3. 50 to 69% stenosis=ICA PSV of 125 to 230 cm/s: ration 2.0 ? 4.0: ICA EDV 40-100 cm/s. 4. Greater than 70% stenosis to near occlusion= ICA PSV > 230 cm/s: ratio > 4.0: ICA EDV > 100 cm/s. 5. Near occlusion= ICA PSV velocities may be low or undetectable: variable ratio and ICA EDV. 6. Total occlusion=unable to detect flow.
[2019-01-23] MEDS: ATORVASTATIN 20 MG TAB PO SCH (20:29)
[2019-01-23 20:32] LABS: Appearance,Urine Clear (Clear); Bilirubin,Urine Negative (Negative); Blood,Urine Negative (Negative); Color,Urine Light Yellow; Glucose,Urine (UA) Negative (Negative); Ketones,Urine Negative (Negative); Leukocyte Esterase,Urine Negative (Negative); Nitrite,Urine Negative (Negative); PH, Urine 5.5 (5.0-8.0); Protein,Urine Negative (Negative); Specific Gravity,Urine 1.014 (1.001-1.035); Urobilinogen,Urine <2.0 mg/dL (<2.0)
--- NOTE | 2019-01-23 22:06 | P.PN ---
Progress Note - Text Progress Note Date: 01/23/19 Chief Complaint: Shortness of breath Interval history: This is a pleasant [address] begum. Chronic stable medical conditions include hyperlipidemia, hypertension, rheumatoid arthritis COPD. For about 2 weeks patient is becoming increasingly short of breath. No edema no cough no fever no chills. Normally uses 2 or 3 pillows at night. Appetite has been fair. No bowel movements. No sputum production. Patient is felt to have CHF to started on IV Lasix. There is a question about pneumonia hence antibiotics were also started. Admitted for the same. Admitted with CHF exacerbation. Positive troponin. EKG changes. Today-diuresing well with IV Lasix. Patient is taking done for a cardiac cath later this afternoon. On triple-vessel disease. Cardiothoracic surgery was consulted. Review of systems: Was done for constitutional, cardiovascular, GI, pulmonary. relevant finding as above Active Medications Albuterol/Ipratropium (Duoneb 0.5 Mg-3 Mg/3 Ml Soln) 3 ml INHALATION RT-Q4H PRN PRN Reason: shortness of breath Last Admin: 01/22/19 16:05 Dose: 3 ml Documented by: Albuterol/Ipratropium (Duoneb 0.5 Mg-3 Mg/3 Ml Soln) 3 ml INHALATION RT-QID [facility] Last Admin: 01/23/19 20:12 Dose: 3 ml Documented by: Amlodipine Besylate (Norvasc) 10 mg PO DAILY [facility] Last Admin: 01/23/19 08:15 Dose: 10 mg Documented by: Aspirin (Aspirin) 325 mg PO DAILY [facility] Last Admin: 01/23/19 08:15 Dose: 325 mg Documented by: Atorvastatin Calcium (Lipitor) 20 mg PO HS [facility] Last Admin: 01/23/19 20:29 Dose: 20 mg Documented by: Furosemide (Lasix) 40 mg IV Q8HR [facility] Last Admin: 01/23/19 18:41 Dose: 40 mg Documented by: Heparin Sodium (Porcine) (Heparin) 0 unit IV PER PROTOCOL PRN; Protocol PRN Reason: Low PTT Heparin Sodium/Sodium Chloride (25,000 unit/ Sodium Chloride) 250 mls @ 11.484 mls/hr IV .[id number] [facility]; Protocol Last Admin: 01/23/19 20:31 Dose: 12 units/kg/hr, 11.484 mls/hr Documented by: Labetalol HCl (Trandate) 300 mg PO BID [facility] Last Admin: 01/23/19 20:29 Dose: 300 mg Documented by: Losartan Potassium (Cozaar) 100 mg PO DAILY [facility] Last Admin: 01/23/19 08:16 Dose: 100 mg Documented by: Miscellaneous Information (Pneumonia Protocol Utilized) 1 each PO ONCE PRN PRN Reason: Per Protocol Miscellaneous Information (Rx Info: Iv Contrast Was Given) 1 each MISCELLANE DAILY PRN PRN Reason: Per Protocol Stop: 01/25/19 14:35 Nitroglycerin (Nitrostat) 0.4 mg SUBLINGUAL Q5M PRN PRN Reason: Chest Pain Spironolactone (Aldactone) 25 mg PO DAILY [facility] Last Admin: 01/23/19 08:16 Dose: 25 mg Documented by: Physical examination: VITAL SIGNS: 98.2, 84, 18, 122/86, 95% room air GENERAL: Sitting up in bed, tired appearing. EYES: Pupils equal. Conjunctiva normal. HEENT: External appearance of nose and ears normal, oral cavity grossly normal. NECK: JVD possibly raised; masses not palpable. HEART: First and second heart sounds are normal; no edema. LUNGS: Respiratory rate increased, basal crackles. ABDOMEN: Soft, nontender, liver spleen not palpable, no masses palpable. PSYCH: Alert and oriented x3; mood and affect normal. INVESTIGATIONS, reviewed in the clinical context: White count 14.2 hemoglobin 13.8 potassium 3.8 creatinine 1 proBNP 5640 Admission labs 2-D echo-moderate global hypokinesia, EF 30-35% multiple wall motion abnormality, severe mitral regurgitation White count 13.6 hemoglobin 14.6 potassium 4.1 creatinine 0.84 Troponin 0.082, 0.078 ProBNP 4990 EKG tracing personally reviewed by me shows ST segment depression, PVC Chest x-ray film personally reviewed by me shows pulmonary edema and some cardiomegaly Assessment: -Acute congestive heart failure exacerbation, from systolic dysfunction EF 30- 35% -Severe mitral regurgitation, nontraumatic -COPD in an ex-smoker -Clinically doubt pneumonia as patient has got no fever no chills, no sputum production. pro calcitonin level is coming back as negative -Hyperlipidemia -Essential hypertension -Rheumatoid arthritis -Triple-vessel coronary artery disease per cardiac catheterization Plan: Cardiothoracic surgery was consulted today. Keep on IV Lasix. We'll DC the antibiotics. Follow electrolytes closely. Timing of patient's cardiac surgery based on clinical course.
[2019-01-24 03:09] LABS: Calcium 9.5 mg/dL (8.4-10.2); Potassium 4.1 mmol/L (3.5-5.1)
[2019-01-24 03:32] LABS: Basophils # (A) 0.1 k/uL (0-0.2); Basophils % (A) 1 %; Eosinophils # (A) 0.2 k/uL (0-0.7); Eosinophils % (A) 1 %; HCT 39.4 % (39.0-53.0); HGB 13.5 gm/dL (13.0-17.5); Lymphocytes # (A) 2.1 k/uL (1.0-4.8); Lymphocytes % (A) 18 %; MCH 29.3 pg (25.0-35.0); MCHC 34.2 g/dL (31.0-37.0); MCV 85.8 fL (80.0-100.0); Mean Platelet Volume 9.1; Monocytes # (A) 0.8 k/uL (0-1.0); Monocytes % (A) 7 %; Neutrophils # (A) 8.4 k/uL (1.3-7.7); Neutrophils % (A) 72 %; Platelet Count 269 k/uL (150-450); RBC 4.59 m/uL (4.30-5.90); RDW 13.8 % (11.5-15.5); WBC 11.7 k/uL (3.8-10.6)
[2019-01-24] MEDS: ASPIRIN 325 MG TAB PO SCH (07:56)
[2019-01-24] MEDS: LOSARTAN 50 MG TAB PO SCH (07:56)
[2019-01-24] MEDS: amLODIPine 10 MG TAB PO SCH (07:56)
[2019-01-24] MEDS: LABETALOL 100 MG TAB PO SCH ×2 (07:56→20:58)
[2019-01-24] MEDS: FUROSEMIDE 10 MG/ML 4 ML VIAL IV SCH (07:56)
[2019-01-24] MEDS: SPIRONOLACTONE 25 MG TAB PO SCH (07:57)
[2019-01-24] MEDS: IPRATROPIUM-ALBUTEROL 3 ML NEB INHALATION SCH ×4 (08:09→19:04)
[2019-01-24] MEDS ORDERED: CLOPIDOGREL 75 MG TAB PO SCH (09:00)
--- NOTE | 2019-01-24 10:21 | P.PN ---
<Yenni Mccain - Last Filed: 01/24/19 10:08> Subjective Progress Note Date: 01/24/19 Principal diagnosis: Severe calcific triple-vessel coronary artery disease, non-STEMI, acute systolic heart failure and cardiomyopathy with EF 30-35%, severe mitral regurgitation on transthoracic echocardiogram. Previous medical history of hypertension, hyperlipidemia, TIA in 2007 without residual deficits, rheumatoid arthritis on Enbrel and methotrexate, obstructive sleep apnea without CPAP use status post UP3 with residual occasional difficulty in swallowing, previous tobacco dependence, mild COPD with FEV1 68% of predicted. The patient is currently sitting up in bed on the cardiac stepdown unit in no acute distress. States his breathing has gotten significantly better. Denies any chest pain, pressure, burning in the last 24 hours. States he has ambulated in the hallway without difficulty. Remains on IV heparin per cardiology. No new questions at this time. Objective - Vital Signs Vital signs: Vital Signs Temp 97.6 F 01/24/19 07:26 Pulse 88 01/24/19 08:20 Resp 18 01/24/19 07:26 BP 140/91 01/24/19 07:26 Pulse Ox 94 L 01/24/19 07:26 Intake & Output 01/23/19 01/24/19 01/24/19 18:59 06:59 18:59 Intake Total 794.947 80.579 446.608 Output Total 1800 2400 Balance -1005.053 -2319.421 446.608 Weight 89 kg Intake: IV 75 Intake, IV Titration 159.947 80.579 86.608 Amount Heparin Sod,Pork in 0.45% 159.947 NaCl 25,000 unit In 0.45 % NaCl 1 250ml.bag @ 10.5 UNITS/KG/HR 10.002 mls/ hr IV .Q24H [facility] Rx#: [id number] Heparin Sod,Pork in 0.45% 80.579 86.608 NaCl 25,000 unit In 0.45 % NaCl 1 250ml.bag @ 12 UNITS/KG/HR 11.484 mls/hr IV .[id number] [facility] Rx#: [id number] Oral 560 360 Output: Urine 1800 2400 Other: Voiding Method Toilet Toilet Toilet Urinal Urinal Urinal # Voids 1 - Constitutional General appearance: Present: cooperative, no acute distress - Respiratory Details: Lungs sounds diminished bilaterally with coarse breath sounds in the right base. Respirations even, nonlabored. Currently on room air with oxygen saturation 94%. Able to achieve 3000 mL on his incentive spirometry. - Cardiovascular Details: S1, S2 present. Regular rate and rhythm, sinus rhythm on telemetry. Palpable peripheral pulses bilaterally. No edema present. No calf pain or tenderness noted. - Gastrointestinal Gastrointestinal Comment(s): Abdomen soft, nontender, nondistended. Active bowel sounds 4 quadrants. Tolerating diet. - Genitourinary Genitourinary Comment(s): Continues to void clear, yellow urine. - Integumentary Integumentary Comment(s): Skin is warm and dry with evidence of good perfusion. - Neurologic Neurologic: Present: CNII-XII intact - Musculoskeletal Musculoskeletal: Present: gait normal, strength equal bilaterally - Psychiatric Psychiatric: Present: A&O x's 3, appropriate affect, intact judgment & insight - Allied health notes Allied health notes reviewed: nursing - Labs CBC & Chem 7: 01/24/19 02:28 01/24/19 02:28 Labs: Abnormal Lab Results - Last 24 Hours (Table) 01/23/19 01/23/19 01/24/19 Range/Units 05:28 05:48 02:28 WBC 14.2 H (3.8-10.6) k/uL Neutrophils # 11.4 H (1.3-7.7) k/uL APTT (22.0-30.0) sec BUN 22 H 31 H (9-20) mg/dL Glucose 154 H 121 H (74-99) mg/dL 01/24/19 01/24/19 Range/Units 02:28 08:54 WBC 11.7 H (3.8-10.6) k/uL Neutrophils # 8.4 H (1.3-7.7) k/uL APTT 30.3 H (22.0-30.0) sec BUN (9-20) mg/dL Glucose (74-99) mg/dL Microbiology - Last 24 Hours (Table) 01/22/19 07:56 Blood Culture - Preliminary Blood No Growth after 48 hours - Imaging and Cardiology All preoperative testing will be reviewed with Dr. Jennings Assessment and Plan Assessment: 1. Severe calcific triple-vessel coronary artery disease 2. Non-STEMI 3. Acute systolic heart failure, cardiomyopathy, EF 30-35% 4. Severe mitral regurgitation on transthoracic echocardiogram 5. Hypertension 6. Hyperlipidemia 7. TIA in 2007 without residual 8. Rheumatoid arthritis on Enbrel and methotrexate 9. Obstructive sleep apnea without CPAP use, status post UPPP with residual occasional difficulty in swallowing 10. Previous tobacco dependence 11. COPD Plan: 1. Continue to maximize medical therapy with aspirin, statin, beta kleber, C ozaar, Lasix, Aldactone. 2. Continue to hold Plavix, Enbrel, methotrexate. 3. Increase activity, ambulate in hallway. 4. Patient will need PAMELA once he has been optimized to reassess mitral valve r egurgitation. 5. Will need dental clearance if mitral valve repair/replacement is planned. 6. STS risk score was calculated and discussed with the patient. 7. Continue to reinforce preoperative teaching. 8. Pulmonology consulted for preoperative surgical recommendations. 9. Continue medical management of other comorbidities per primary care, cardiology. 10. More recommendations to follow Time with Patient: Greater than 30 <Manuel Jennings - Last Filed: 01/24/19 12:08> Objective - Vital Signs Vital signs: Vital Signs Temp 97.6 F 01/24/19 07:26 Pulse 88 01/24/19 08:20 Resp 18 01/24/19 07:26 BP 140/91 01/24/19 07:26 Pulse Ox 94 L 01/24/19 07:26 Intake & Output 01/23/19 01/24/19 01/24/19 18:59 06:59 18:59 Intake Total 794.947 80.579 446.608 Output Total 1800 2400 Balance -1005.053 -2319.421 446.608 Weight 89 kg Intake: IV 75 Intake, IV Titration 159.947 80.579 86.608 Amount Heparin Sod,Pork in 0.45% 159.947 NaCl 25,000 unit In 0.45 % NaCl 1 250ml.bag @ 10.5 UNITS/KG/HR 10.002 mls/ hr IV .Q24H [facility] Rx#: [id number] Heparin Sod,Pork in 0.45% 80.579 86.608 NaCl 25,000 unit In 0.45 % NaCl 1 250ml.bag @ 12 UNITS/KG/HR 11.484 mls/hr IV .[id number] [facility] Rx#: [id number] Oral 560 360 Output: Urine 1800 2400 Other: Voiding Method Toilet Toilet Toilet Urinal Urinal Urinal # Voids 1 - Labs CBC & Chem 7: 01/24/19 02:28 01/24/19 02:28 Labs: Abnormal Lab Results - Last 24 Hours (Table) 01/23/19 01/23/19 01/24/19 Range/Units 05:28 05:48 02:28 WBC 14.2 H (3.8-10.6) k/uL Neutrophils # 11.4 H (1.3-7.7) k/uL APTT (22.0-30.0) sec BUN 22 H 31 H (9-20) mg/dL Glucose 154 H 121 H (74-99) mg/dL 01/24/19 01/24/19 Range/Units 02:28 08:54 WBC 11.7 H (3.8-10.6) k/uL Neutrophils # 8.4 H (1.3-7.7) k/uL APTT 30.3 H (22.0-30.0) sec BUN (9-20) mg/dL Glucose (74-99) mg/dL Microbiology - Last 24 Hours (Table) 01/22/19 07:56 Blood Culture - Preliminary Blood No Growth after 48 hours
[2019-01-24] MEDS ORDERED: MD COMMUNICATION TO PHARMACY 1 EACH MISC PO PRN (10:25)
[2019-01-24 11:32] LABS: Hepatitis A Antibody IgM Non-Reactive (Non-Reactive); Hepatitis C IgG Antibody Non-Reactive (Non-Reactive)
[2019-01-24 11:33] LABS: Hepatitis B Core IgM Non-Reactive (Non-Reactive); Hepatitis B Surface Antigen Non-Reactive (Non-Reactive)
--- NOTE | 2019-01-24 13:26 | CT ---
EXAMINATION TYPE: CT facial bones wo con DATE OF EXAM: 01/24/2019 COMPARISON: HISTORY: preop Panorex CT DLP: 466.3 mGycm Automated exposure control for dose reduction was used. TECHNIQUE: CT scan of the sinuses is performed without contrast, axial images are obtained, coronal r eformatted images are also reviewed. FINDINGS: The Panorex demonstrates multiple missing teeth and multiple dental amalgams. There is luce ncy between the dental amalgam and the remainder of the 2 on the 2 most posterior molars both upper a nd lower. No other acute bony lesion is seen. There is moderately severe facet arthropathy on the right at C4-5. Atlantoaxial relationships appear normal. No definite root abscess is seen. Visualized portions of the paranasal sinuses and mastoids are clear. Limited views intracranial structures are unremarkable. IMPRESSION: 1. POOR DENTITION. 2. DEGENERATIVE CHANGE, CERVICAL SPINE.
[2019-01-24] MEDS: FUROSEMIDE 20 MG TAB PO SCH (14:51)
[2019-01-24] MEDS: ISOSORBIDE MONONITRATE ER 30 MG TAB.ER.24H PO SCH (14:51)
--- NOTE | 2019-01-24 14:55 | P.CNPUL ---
History of Present Illness Consult date: 01/24/19 Requesting physician: Manuel Jennings Reason for consult: other (Post CABG ventilator/critical care management) Chief complaint: Shortness of breath and chest heaviness History of present illness: This is a very pleasant 63-year-old gentleman who follows with Dr. Snider as his primary care physician. He has a history of hypertension, hyperlipidemia, vertigo, rheumatoid arthritis, smoking history Paty obstructive sleep apnea status post U PPP P. He presented here to the emergency room on 01/22/2019 with a three-day history of shortness of breath and chest discomfort. He was found to have a non-ST segment elevation myocardial infarction and acute congestive heart failure. Echocardiogram revealed moderate to severely impaired left ventricular systolic function with ejection fraction 30-35%. Severe mitral regurgitation. Today he had undergone cardiac catheterization which revealed critical lesion in the proximal LAD, mid diagonal and also distal circumflex. Moderate disease in the mid circumflex of the total occlusion of the second OM branch. He was recommended bypass surgery. We are consulted for the same. FEV1 value 60% of predicted. Carotid Dopplers revealed no significant stenosis. A CT revealed poor dentition. Degenerative changes of the cervical spine. He is currently awake and alert in no acute distress. He denies any chest pain currently. No worsening shortness of breath, cough or congestion. Initial chest x-ray revealed a right infrahilar opacity concerning for developing pneumonia versus confluent edema and mild fluid overload. He remains on a he sergio drip. Review of Systems REVIEW OF SYSTEMS: CONSTITUTIONAL: Denies any recent significant weight loss or weight gain. EYES: Denies change in vision. EARS, NOSE, MOUTH, THROAT: Denies headaches, denies sore throat. CARDIOVASCULAR: Positive for chest pain, no palpitations or syncopal episodes. RESPIRATORY: Positive for shortness of breath, no cough, congestion or hem optysis. GASTROINTESTINAL: Denies change in appetite, denies abdominal pain GENITOURINARY: Denies hematuria, denies infections. MUSKULOSKELETAL: Denies pain, denies swelling. INTEGUMENTARY: Denies rash, denies eczema. NEUROLOGICAL: Denies recent memory loss, no recent seizure activity. PSYCHIATRIC: Denies anxiety, denies depression. HEMATOLOGIC/LYMPHATIC: Denies anemia, denies enlarged lymph nodes. Past Medical History Past Medical History: Coronary Artery Disease (CAD), Heart Failure, COPD, CVA/TIA, Hyperlipidemia, Hypertension, Myocardial Infarction ([place]), Rheumatoid Arthritis (RA) Additional Past Medical History / Comment(s): TIA in 2007, vertigo, falls, vitamin D deficiency, obstructive sleep apnea without CPAP use History of Any Multi-Drug Resistant Organisms: None Reported Past Surgical History: Adenoidectomy, Hernia Repair, Tonsillectomy Additional Past Surgical History / Comment(s): Open kidney stone extraction, prostate biopsy and TURP, ventral hernia repair with mesh, UVPPP, colonoscopy, R knee arthroscopy, bilateral cataract removal/lens implants. Past Anesthesia/Blood Transfusion Reactions: No Reported Reaction Additional Past Anesthesia/Blood Transfusion Reaction / Comment(s): Clausterphobia Past Psychological History: No Psychological Hx Reported Smoking Status: Former smoker Past Alcohol Use History: Occasional Past Drug Use History: None Reported - Past Family History Mother Family Medical History: CVA/TIA, Hyperlipidemia, Hypertension, Osteoarthritis (OA) Father Additional Family Medical History / Comment(s): Castleman disease-overgrowth of cells in lymphnodes Medications and Allergies Home Medications Medication Instructions Recorded Confirmed Type Atorvastatin [Lipitor] 20 mg PO HS 01/22/19 01/22/19 History Clopidogrel Bisulfate [Plavix] 75 mg PO Q48H 01/22/19 01/22/19 History Ergocalciferol (Vitamin D2) 50,000 unit PO SANTOS 01/22/19 01/22/19 History [Drisdol] Etanercept [Enbrel] 25 mg SQ SUWE 01/22/19 01/22/19 History Ferrous Sulfate [Feosol] 325 mg PO TID 01/22/19 01/22/19 History Folic Acid 1 mg PO DAILY 01/22/19 01/22/19 History Hydrocodone/Acetaminophen [[place] 1 tab PO Q6H PRN 01/22/19 01/22/19 History 10-325] Labetalol HCl [Trandate] 300 mg PO BID 01/22/19 01/22/19 History Losartan Potassium [Cozaar] 100 mg PO DAILY 01/22/19 01/22/19 History Meclizine [Antivert] 25 mg PO AC-TID PRN 01/22/19 01/22/19 History Methotrexate 25mg/Ml 25 mg SQ SANTOS 01/22/19 01/22/19 History amLODIPine [Norvasc] 10 mg PO DAILY 01/22/19 01/22/19 History traZODone HCL 150 mg PO HS 01/22/19 01/22/19 History Allergies Allergy/AdvReac Type Severity Reaction Status Date / Time epinephrine Allergy Unknown Verified 01/22/19 08:15 Physical Exam Vitals: Vital Signs Temp Pulse Pulse Resp BP Pulse Ox 01/24/19 12:00 97.7 F 83 18 128/89 97 01/24/19 08:20 88 01/24/19 08:11 84 01/24/19 07:26 97.6 F 86 18 140/91 94 L 01/24/19 04:56 98.0 F 80 15 114/71 95 01/23/19 23:25 97.8 F 76 15 119/80 93 L 01/23/19 20:25 90 01/23/19 20:22 86 16 134/91 98 01/23/19 20:13 92 98 01/23/19 18:20 85 127/63 01/23/19 17:20 75 16 124/86 92 L 01/23/19 16:20 83 138/96 01/23/19 16:00 83 18 01/23/19 15:50 82 136/94 01/23/19 15:20 80 135/92 01/23/19 15:05 75 126/86 01/23/19 14:50 75 124/87 Intake and Output 01/23/19 01/24/19 01/24/19 22:59 06:59 14:59 Intake Total 200 80.579 1101.608 Output Total 400 1999 1999 Balance -200 -1919.421 890.392 Intake: IV 295 Heparin Sod,Pork in 0.45% 135 NaCl 25,000 unit In 0.45 % NaCl 1 250ml.bag @ 10.5 UNITS/KG/HR 10.002 mls/ hr IV .Q24H [facility] Rx#: [id number] Sodium Chloride 0.9% 1, 160 000 ml @ 0 mls/hr IV [facility] Rx#:[id number] Intake, IV Titration 80.579 86.608 Amount Heparin Sod,Pork in 0.45% 80.579 86.608 NaCl 25,000 unit In 0.45 % NaCl 1 250ml.bag @ 12 UNITS/KG/HR 11.484 mls/hr IV .[id number] [facility] Rx#: [id number] Oral 200 720 Output: Urine 400 2000 1999 Other: Voiding Method Toilet Toilet Toilet Urinal Urinal Urinal # Voids 1 1 Weight 89 kg GENERAL EXAM: Alert, active, comfortable in no apparent distress. On room air. HEAD: Normocephalic. EYES: Normal reaction of pupils, equal size. NOSE: Clear with pink turbinates. THROAT: Poor dentition. No erythema or exudates. NECK: No masses, no JVD. CHEST: No chest wall deformity. LUNGS: Equal air entry with crackles in the posterior bases. CVS: S1 and S2 normal with no audible murmur, regular rhythm. ABDOMEN: No hepatosplenomegaly, normal bowel sounds, no guarding or rigidity. SPINE: No scoliosis or deformity SKIN: No rashes CENTRAL NERVOUS SYSTEM: No focal deficits, tone is normal in all 4 extremities. EXTREMITIES: There is no peripheral edema. No clubbing, no cyanosis. Peripheral pulses are intact. Results - Laboratory Findings CBC and BMP: 01/24/19 02:28 01/24/19 02:28 PT/INR, D-dimer PT 10.9 sec (9.0-12.0) 01/23/19 05:48 INR 1.0 (<1.2) 01/23/19 05:48 Abnormal lab findings: Abnormal Labs 01/22/19 01/22/19 01/22/19 07:56 07:56 07:56 WBC 13.6 H Neutrophils # 10.9 H APTT BUN Glucose 167 H Troponin I 0.082 H* Triglycerides LDL Cholesterol, Calc Urine Glucose (UA) 01/22/19 01/22/19 01/22/19 13:20 13:35 19:20 WBC Neutrophils # APTT BUN Glucose Troponin I 0.078 H* 0.070 H* Triglycerides LDL Cholesterol, Calc Urine Glucose (UA) 1+ H 01/23/19 01/23/19 01/23/19 05:28 05:48 05:48 WBC 14.2 H Neutrophils # 11.4 H APTT 33.3 H BUN 22 H Glucose 150 H Troponin I Triglycerides 154 H LDL Cholesterol, Calc 119 H Urine Glucose (UA) 01/23/19 01/24/19 01/24/19 05:48 02:28 02:28 WBC 11.7 H Neutrophils # 8.4 H APTT BUN 22 H 31 H Glucose 154 H 121 H Troponin I Triglycerides LDL Cholesterol, Calc Urine Glucose (UA) 01/24/19 08:54 WBC Neutrophils # APTT 30.3 H BUN Glucose Troponin I Triglycerides LDL Cholesterol, Calc Urine Glucose (UA) - Diagnostic Findings Chest x-ray: image reviewed Assessment and Plan Assessment: Impression: #1 Non-ST segment elevation myocardial infarction. #2 Acute systolic congestive heart failure with ejection fraction 30-35%. #3 Coronary artery disease with critical lesion the proximal LAD, mid diagonal and also distal circumflex. There is moderate disease in the mid circumflex and a total occlusion of the second OM branch. #4 hyperlipidemia. #5 Hypertension. #6 History of tobacco dependence. #7 Chronic obstructive pulmonary disease currently inactive and stable. FEV1 value 60% of predicted. #8 History of obstructive sleep apnea status post U P4. #9 Rheumatoid arthritis currently on Enbrel and methotrexate. #10 History of TURP. Plan: The patient was seen and evaluated by Dr. Roy. Chest x-ray and labs reviewed. FEV1 value 60% of predicted. Currently on DuoNeb inhalations. Educated regarding the importance of the incentive spirometer and cough and deep breathing exercises. Will await final confirmation of when the patient may have surgery. We'll continue to follow. I, the cosigning physician, performed a history & physical examination of the patient. Lungs sounds with faint crackles in the posterior bases. Maintaining good O2 saturations in the 90s on room air. I discussed the assessment and plan of care with my nurse practitioner, Viry Escobedo. I attest to the above note as dictated by her. Time with Patient: Greater than 30
--- NOTE | 2019-01-24 15:37 | PN ---
PROGRESS NOTE Mr. Kong is a 63-year-old male who presented with symptoms of progressive dyspnea and symptoms of PND and orthopnea. He had minimal elevation of troponin. His echocardiogram revealed segmental wall motion abnormality with ischemic cardiomyopathy and significant mitral regurgitation. He underwent cardiac catheterization and was found to have severe triple-vessel coronary artery disease. He is feeling well this morning. He is denying any chest pain. His breathing has been stable. He denies any dizziness or palpitations. He denies any nausea. He was evaluated by Dr. Jennings. He continues to be on labetalol 300 mg twice a day, IV heparin, losartan 100 mg daily, amlodipine 10 mg daily, aspirin once a day, and Lipitor 80 mg daily. PHYSICAL EXAMINATION: Blood pressure 128/80 with a heart rate in the 80s. LUNGS: Clear. HEART: S1, S2. Regular rate and rhythm. S1, S2. No S3, with a holosystolic murmur at the apex. No diastolic murmur. ABDOMEN: Soft, nontender. EXTREMITIES: No edema. Right groin hematoma. LAB DATA: Lab data revealed BUN and creatinine of 31 and 1.22. Potassium 4.1. His platelet count is 269. IMPRESSION: 1. Jkn-[id number]-elevation myocardial infarction with severe triple-vessel coronary artery disease and severe mitral regurgitation with severe ischemic cardiomyopathy. 2. Hypertension. 3. Hyperlipidemia. RECOMMENDATIONS: I will switch him to oral diuretic. Continue the intravenous heparin. Follow his blood pressure and renal function. He will be tentatively scheduled to undergo a transesophageal echocardiogram on Saturday to further evaluate his mitral valve and decide if he needs bypass in addition to the mitral valve repair. I have discussed with him the rationale behind that, and he is in full understanding and agreement. MMODL / IJN: [id number] /
--- NOTE | 2019-01-24 20:44 | P.PN ---
Progress Note - Text Progress Note Date: 01/24/19 Chief Complaint: Shortness of breath Interval history: This is a pleasant [address] begum. Chronic stable medical conditions include hyperlipidemia, hypertension, rheumatoid arthritis COPD. For about 2 weeks patient is becoming increasingly short of breath. No edema no cough no fever no chills. Normally uses 2 or 3 pillows at night. Appetite has been fair. No bowel movements. No sputum production. Patient is felt to have CHF to started on IV Lasix. There is a question about pneumonia hence antibiotics were also started. Admitted for the same. Admitted with CHF exacerbation. Positive troponin. EKG changes. Cardiac catheterization on January 23 showed triple-vessel disease. Today-sitting up in the bed. Breathing better. Family the bedside. No chest pain. Review of systems: Was done for constitutional, cardiovascular, GI, pulmonary. relevant finding as above Active Medications Albuterol/Ipratropium (Duoneb 0.5 Mg-3 Mg/3 Ml Soln) 3 ml INHALATION RT-Q4H PRN PRN Reason: shortness of breath Last Admin: 01/22/19 16:05 Dose: 3 ml Documented by: Albuterol/Ipratropium (Duoneb 0.5 Mg-3 Mg/3 Ml Soln) 3 ml INHALATION RT-QID [facility] Last Admin: 01/24/19 19:04 Dose: 3 ml Documented by: Amlodipine Besylate (Norvasc) 5 mg PO DAILY [facility] Aspirin (Aspirin) 81 mg PO DAILY [facility] Atorvastatin Calcium (Lipitor) 80 mg PO HS [facility] Furosemide (Lasix) 20 mg PO BID@0900,1600 [facility] Last Admin: 01/24/19 14:51 Dose: 20 mg Documented by: Heparin Sodium (Porcine) (Heparin) 0 unit IV PER PROTOCOL PRN; Protocol PRN Reason: Low PTT Last Admin: 01/24/19 09:48 Dose: 4,000 unit Documented by: Heparin Sodium/Sodium Chloride (25,000 unit/ Sodium Chloride) 250 mls @ 11.484 mls/hr IV .[id number] [facility]; Protocol Last Titration: 01/24/19 16:40 Dose: Infused Documented by: Isosorbide Mononitrate (Imdur) 30 mg PO DAILY [facility] Last Admin: 01/24/19 14:51 Dose: 30 mg Documented by: Labetalol HCl (Trandate) 300 mg PO BID [facility] Last Admin: 01/24/19 07:56 Dose: 300 mg Documented by: Losartan Potassium (Cozaar) 100 mg PO DAILY [facility] Last Admin: 01/24/19 07:56 Dose: 100 mg Documented by: Miscellaneous Information (Pneumonia Protocol Utilized) 1 each PO ONCE PRN PRN Reason: Per Protocol Miscellaneous Information (Rx Info: Iv Contrast Was Given) 1 each MISCELLANE DAILY PRN PRN Reason: Per Protocol Stop: 01/25/19 14:35 Miscellaneous Information ( Communication To Pharmacy) 1 each PO ONCE PRN PRN Reason: See Comments Mupirocin (Bactroban Oint) 1 applic NASAL BID [facility] Nitroglycerin (Nitrostat) 0.4 mg SUBLINGUAL Q5M PRN PRN Reason: Chest Pain Spironolactone (Aldactone) 25 mg PO DAILY [facility] Last Admin: 01/24/19 07:57 Dose: 25 mg Documented by: Physical examination: VITAL SIGNS: 98.4, 83, 16, 1 27 x 76, 91% room air GENERAL: Sitting up in bed, more comfortable. EYES: Pupils equal. Conjunctiva normal. HEENT: External appearance of nose and ears normal, oral cavity grossly normal. NECK: JVD possibly raised; masses not palpable. HEART: First and second heart sounds are normal; no edema. LUNGS: Respiratory rate increased, basal crackles. ABDOMEN: Soft, nontender, liver spleen not palpable, no masses palpable. PSYCH: Alert and oriented x3; mood and affect normal. INVESTIGATIONS, reviewed in the clinical context: White count 14.2 hemoglobin 13.8 potassium 3.8 creatinine 1 proBNP 5640 Cardiac cath iovbku-zogctg-mqkuxf disease Admission labs 2-D echo-moderate global hypokinesia, EF 30-35% multiple wall motion abnormality, severe mitral regurgitation White count 13.6 hemoglobin 14.6 potassium 4.1 creatinine 0.84 Troponin 0.082, 0.078 ProBNP 4990 EKG tracing personally reviewed by me shows ST segment depression, PVC Chest x-ray film personally reviewed by me shows pulmonary edema and some cardiomegaly Assessment: -Acute congestive heart failure exacerbation, from systolic dysfunction EF 30- 35%, improved -Severe mitral regurgitation, nontraumatic -COPD in an ex-smoker -Clinically doubt pneumonia as patient has got no fever no chills, no sputum production. pro calcitonin level is coming back as negative -Hyperlipidemia -Essential hypertension -Rheumatoid arthritis -Triple-vessel coronary artery disease per cardiac catheterization Plan: Patient is due for a PAMELA on Saturday morning to evaluate mitral regurgitation. Other medication due to passive continue. Follow with cardiology.
[2019-01-24] MEDS: ATORVASTATIN 20 MG TAB PO SCH (20:58)
[2019-01-24] MEDS: HEPARIN SOD,PORK IN 0.45% NACL 25,000 UNIT in 0.45% NACL 1 250ML.BAG IV SCH (23:00)
[2019-01-24] MEDS: MUPIROCIN 2% OINT 22 GM TUBE NASAL SCH (23:02)
[2019-01-25 06:13] LABS: Basophils # (A) 0.1 k/uL (0-0.2); Basophils % (A) 1 %; Eosinophils # (A) 0.4 k/uL (0-0.7); Eosinophils % (A) 4 %; HCT 37.8 % (39.0-53.0); HGB 12.9 gm/dL (13.0-17.5); Lymphocytes # (A) 1.5 k/uL (1.0-4.8); Lymphocytes % (A) 18 %; MCH 29.2 pg (25.0-35.0); MCHC 34.2 g/dL (31.0-37.0); MCV 85.5 fL (80.0-100.0); Monocytes # (A) 0.6 k/uL (0-1.0); Monocytes % (A) 7 %; Neutrophils # (A) 5.7 k/uL (1.3-7.7); Neutrophils % (A) 68 %; Platelet Count 246 k/uL (150-450); RBC 4.42 m/uL (4.30-5.90); RDW 13.6 % (11.5-15.5); WBC 8.3 k/uL (3.8-10.6)
[2019-01-25 06:25] LABS: Potassium 3.7 mmol/L (3.5-5.1)
[2019-01-25] MEDS: LOSARTAN 50 MG TAB PO SCH (07:23)
[2019-01-25] MEDS: SPIRONOLACTONE 25 MG TAB PO SCH (07:23)
[2019-01-25] MEDS: LABETALOL 100 MG TAB PO SCH ×2 (07:23→21:04)
[2019-01-25] MEDS: ISOSORBIDE MONONITRATE ER 30 MG TAB.ER.24H PO SCH (07:23)
[2019-01-25] MEDS: ASPIRIN 81 MG PO SCH (07:23)
[2019-01-25] MEDS: FUROSEMIDE 20 MG TAB PO SCH ×2 (07:23→16:01)
[2019-01-25] MEDS: MUPIROCIN 2% OINT 22 GM TUBE NASAL SCH ×2 (07:23→21:06)
[2019-01-25] MEDS: IPRATROPIUM-ALBUTEROL 3 ML NEB INHALATION SCH ×4 (07:50→19:33)
[2019-01-25] MEDS ORDERED: amLODIPine 5 MG TAB PO SCH (09:00)
--- NOTE | 2019-01-25 09:55 | P.PN ---
Subjective Progress Note Date: 01/25/19 This is a very pleasant 63-year-old gentleman who follows with Dr. Snider as his primary care physician. He has a history of hypertension, hyperlipidemia, vertigo, rheumatoid arthritis, smoking history Paty obstructive sleep apnea status post U PPP P. He presented here to the emergency room on 01/22/2019 with a three-day history of shortness of breath and chest discomfort. He was found to have a non-ST segment elevation myocardial infarction and acute congestive heart failure. Echocardiogram revealed moderate to severely impaired left ventricular systolic function with ejection fraction 30-35%. Severe mitral regurgitation. Today he had undergone cardiac catheterization which revealed critical lesion in the proximal LAD, mid diagonal and also distal circumflex. Moderate disease in the mid circumflex of the total occlusion of the second OM branch. He was recommended bypass surgery. We are consulted for the same. FEV1 value 60% of predicted. Carotid Dopplers revealed no significant stenosis. A CT revealed poor dentition. Degenerative changes of the cervical spine. He is currently awake and alert in no acute distress. He denies any chest pain currently. No worsening shortness of breath, cough or congestion. Initial chest x-ray revealed a right infrahilar opacity concerning for developing pneumonia versus confluent edema and mild fluid overload. He remains on a heparin drip. On 01/25/2019, the patient is stable. The patient is seeking cardiac surgery with bypass and valve replacement/repair. Will need a PAMELA. Otherwise is doing well. Creatinine is stable at 1.2. White cell count of 8.3. No other significant events overnight. Objective - Vital Signs Vital signs: Vital Signs Temp 98.4 F 01/25/19 08:00 Pulse 76 01/25/19 08:02 Resp 18 01/25/19 08:00 BP 109/64 01/25/19 08:52 Pulse Ox 93 L 01/25/19 08:00 Intake & Output 01/24/19 01/25/19 01/25/19 18:59 06:59 18:59 Intake Total 1544.421 Output Total 1999 Balance -455.579 Weight 90.7 kg Intake: IV 295 Heparin Sod,Pork in 0.45% 135 NaCl 25,000 unit In 0.45 % NaCl 1 250ml.bag @ 10.5 UNITS/KG/HR 10.002 mls/ hr IV .Q24H [facility] Rx#: [id number] Sodium Chloride 0.9% 1, 160 000 ml @ 0 mls/hr IV .K -[facility] Rx#:[id number] Intake, IV Titration 169.421 Amount Heparin Sod,Pork in 0.45% 169.421 NaCl 25,000 unit In 0.45 % NaCl 1 250ml.bag @ 12 UNITS/KG/HR 11.484 mls/hr IV .[id number] [facility] Rx#: [id number] Oral 1080 Output: Urine 2000 Other: Voiding Method Toilet Toilet Urinal Urinal - Exam GENERAL EXAM: Alert, active, comfortable in no apparent distress. On room air. HEAD: Normocephalic. EYES: Normal reaction of pupils, equal size. NOSE: Clear with pink turbinates. THROAT: Poor dentition. No erythema or exudates. NECK: No masses, no JVD. CHEST: No chest wall deformity. LUNGS: Equal air entry with crackles in the posterior bases. CVS: S1 and S2 normal with no audible murmur, regular rhythm. ABDOMEN: No hepatosplenomegaly, normal bowel sounds, no guarding or rigidity. SPINE: No scoliosis or deformity SKIN: No rashes CENTRAL NERVOUS SYSTEM: No focal deficits, tone is normal in all 4 extremities. EXTREMITIES: There is no peripheral edema. No clubbing, no cyanosi - Labs CBC & Chem 7: 01/25/19 05:31 01/25/19 05:31 Labs: Abnormal Lab Results - Last 24 Hours (Table) 01/24/19 01/24/19 01/25/19 Range/Units 15:30 22:25 05:31 Hgb 12.9 L (13.0-17.5) gm/dL Hct 37.8 L (39.0-53.0) % APTT 40.7 H 47.0 H (22.0-30.0) sec Sodium (137-145) mmol/L BUN (9-20) mg/dL Glucose (74-99) mg/dL 01/25/19 01/25/19 Range/Units 05:31 05:31 Hgb (13.0-17.5) gm/dL Hct (39.0-53.0) % APTT 54.7 H (22.0-30.0) sec Sodium 136 L (137-145) mmol/L BUN 24 H (9-20) mg/dL Glucose 133 H (74-99) mg/dL Microbiology - Last 24 Hours (Table) 01/24/19 09:43 Nasal Screen MRSA/MSSA - Preliminary Nasal Swab 01/22/19 07:56 Blood Culture - Preliminary Blood No Growth after 48 hours Assessment and Plan Plan: #1 Non-ST segment elevation myocardial infarction. #2 Acute systolic congestive heart failure with ejection fraction 30-35%. #3 Coronary artery disease with critical lesion the proximal LAD, mid diagonal and also distal circumflex. There is moderate disease in the mid circumflex and a total occlusion of the second OM branch. #4 hyperlipidemia. #5 Hypertension. #6 History of tobacco dependence. #7 Chronic obstructive pulmonary disease currently inactive and stable. FEV1 value 60% of predicted. #8 History of obstructive sleep apnea status post U P4. #9 Rheumatoid arthritis currently on Enbrel and methotrexate. #10 History of TURP. Plan Proceed with PAMELA. Pulmonary status is stable. We'll follow. Looking for cardiac surgery sometime early next week.
[2019-01-25] MEDS ORDERED: BENZOCAINE SPRAY 1 CAN TOPICAL PRN (10:44)
--- NOTE | 2019-01-25 11:57 | PN ---
PROGRESS NOTE Mr. Kong is a 63-year-old male who presented with non ST-segment elevation myocardial infarction. Symptoms of progressive dyspnea. He underwent a cardiac catheterization, was found to have severe triple-vessel disease and his echocardiogram revealed a severely impaired left ventricular systolic function with significant mitral regurgitation. He is doing quite well since yesterday. His breathing is stable. He has been ambulating without difficulty. He has no chest discomfort. No dizziness or palpitation. He continues to be on amlodipine 5 mg daily, aspirin once a day, atorvastatin 80 mg daily, furosemide 20 mg twice a day, IV heparin, isosorbide mononitrate 30 mg daily, labetalol 300 mg twice a day and Cozaar 100 mg daily with spironolactone 25 mg daily. PHYSICAL EXAMINATION: Blood pressure running in the one teens over 60 with a heart rate in the 70s. LUNGS: Clear. HEART: Regular rate and rhythm S1, S2. No S3 with a holosystolic murmur in the apex. No diastolic murmur. No rub. ABDOMEN: Soft, nontender. EXTREMITIES: No edema. IMPRESSION: 1. Severe ischemic cardiomyopathy with triple-vessel coronary artery disease. 2. Status post non-ST elevation myocardial infarction. 3. Mitral regurgitation. 4. Hypertension. RECOMMENDATION: Patient will proceed with transesophageal echocardiogram tomorrow. If there is significant persistent mitral regurgitation, then he will need mitral valve repair at the same time of his coronary artery bypass grafting. He will require dental evaluation probably tomorrow if valvular surgery is needed. He had his CT of the facial bones that showed poor dentition. I have discussed the finding as well as the risks and complication of the procedure with the patient and his and they are in full understanding and agreement. MMODL / IJN: [id number] /
--- NOTE | 2019-01-25 12:57 | P.PN ---
Subjective Progress Note Date: 01/25/19 Principal diagnosis: Severe calcific triple-vessel coronary artery disease, non-STEMI, acute systolic heart failure and cardiomyopathy with EF 30-35%, severe mitral regurgitation on transthoracic echocardiogram. Previous medical history of hypertension, hyperlipidemia, TIA in 2007 without residual deficits, rheumatoid arthritis on Enbrel and methotrexate, obstructive sleep apnea without CPAP use status post UP3 with residual occasional difficulty in swallowing, previous tobacco dependence, mild COPD with FEV1 68% of predicted. The patient is currently sitting up in bed on the cardiac stepdown unit in no acute distress. States his breathing has gotten significantly better. Denies any chest pain, pressure, burning in the last 24 hours. States he has ambulated in the hallway without difficulty. Remains on IV heparin per cardiology. No new questions at this time. at the bedside, updated with plan of care. Objective - Vital Signs Vital signs: Vital Signs Temp 97.7 F 01/25/19 12:00 Pulse 83 01/25/19 12:00 Resp 18 01/25/19 12:00 BP 118/79 01/25/19 12:00 Pulse Ox 93 L 01/25/19 12:00 Intake & Output 01/24/19 01/25/19 01/25/19 18:59 06:59 18:59 Intake Total 1544.421 680 Output Total 1999 Balance -455.579 680 Weight 90.7 kg Intake: IV 295 320 Heparin Sod,Pork in 0.45% 135 NaCl 25,000 unit In 0.45 % NaCl 1 250ml.bag @ 10.5 UNITS/KG/HR 10.002 mls/ hr IV .Q24H [facility] Rx#: [id number] Heparin Sod,Pork in 0.45% 160 NaCl 25,000 unit In 0.45 % NaCl 1 250ml.bag @ 12 UNITS/KG/HR 11.484 mls/hr IV .[id number] [facility] Rx#: [id number] Sodium Chloride 0.9% 1, 160 160 000 ml @ 0 mls/hr IV .STK [facility] Rx#:[id number] Intake, IV Titration 169.421 Amount Heparin Sod,Pork in 0.45% 169.421 NaCl 25,000 unit In 0.45 % NaCl 1 250ml.bag @ 12 UNITS/KG/HR 11.484 mls/hr IV .[id number] [facility] Rx#: [id number] Oral 1080 360 Output: Urine 1999 Other: Voiding Method Toilet Toilet Toilet Urinal Urinal Urinal - Constitutional General appearance: Present: cooperative, no acute distress - Respiratory Details: Lungs sounds diminished bilaterally. Respirations even, nonlabored. Currently on room air with oxygen saturation 93%. Able to achieve 3000 mL on his incentive spirometry. - Cardiovascular Details: S1, S2 present. Regular rate and rhythm, sinus rhythm on telemetry. Palpable peripheral pulses bilaterally. No edema present. No calf pain or tenderness noted. - Gastrointestinal Gastrointestinal Comment(s): Abdomen soft, nontender, nondistended. Active bowel sounds 4 quadrants. T olerating diet. - Genitourinary Genitourinary Comment(s): Continues to void clear, yellow urine. - Integumentary Integumentary Comment(s): Skin is warm and dry with evidence of good perfusion. - Neurologic Neurologic: Present: CNII-XII intact - Musculoskeletal Musculoskeletal: Present: gait normal, strength equal bilaterally - Psychiatric Psychiatric: Present: A&O x's 3, appropriate affect, intact judgment & insight - Allied health notes Allied health notes reviewed: nursing - Labs CBC & Chem 7: 01/25/19 05:31 01/25/19 05:31 Labs: Abnormal Lab Results - Last 24 Hours (Table) 01/24/19 01/24/19 01/25/19 Range/Units 15:30 22:25 05:31 Hgb 12.9 L (13.0-17.5) gm/dL Hct 37.8 L (39.0-53.0) % APTT 40.7 H 47.0 H (22.0-30.0) sec Sodium (137-145) mmol/L BUN (9-20) mg/dL Glucose (74-99) mg/dL 01/25/19 01/25/19 Range/Units 05:31 05:31 Hgb (13.0-17.5) gm/dL Hct (39.0-53.0) % APTT 54.7 H (22.0-30.0) sec Sodium 136 L (137-145) mmol/L BUN 24 H (9-20) mg/dL Glucose 133 H (74-99) mg/dL Microbiology - Last 24 Hours (Table) 01/22/19 07:56 Blood Culture - Preliminary Blood No Growth after 72 hours 01/24/19 09:43 Nasal Screen MRSA/MSSA - Preliminary Nasal Swab Assessment and Plan Assessment: 1. Severe calcific triple-vessel coronary artery disease 2. Non-STEMI 3. Acute systolic heart failure, cardiomyopathy, EF 30-35% 4. Severe mitral regurgitation on transthoracic echocardiogram 5. Hypertension 6. Hyperlipidemia 7. TIA in 2007 without residual 8. Rheumatoid arthritis on Enbrel and methotrexate 9. Obstructive sleep apnea without CPAP use, status post UPPP with residual occasional difficulty in swallowing 10. Previous tobacco dependence 11. Mild COPD with preoperative FEV1 68% Plan: 1. Continue to maximize medical therapy with aspirin, statin, beta kleebr, Cozaar, Lasix, Aldactone. 2. Continue to hold Plavix, Enbrel, methotrexate. 3. Increase activity, ambulate in hallway. 4. Patient will have PAMELA tomorrow morning to reassess mitral valve regurgitation. 5. Will need dental clearance if mitral valve repair/replacement is planned. Panorex completed. Dentist consulted for clearance. 6. STS risk score was calculated and discussed with the patient. 7. 5 meter walk test completed: #1 4.4 sec, #2 4.83 sec, #3 4.44 sec 8. Continue to reinforce preoperative teaching. 9. Pulmonology consulted for preoperative surgical recommendations. 10. Continue medical management of other comorbidities per primary care, cardiology. 11. More recommendations to follow Time with Patient: Greater than 30
[2019-01-25 13:23] LABS: HCT 36.7 % (39.0-53.0); HGB 12.7 gm/dL (13.0-17.5); MCH 28.9 pg (25.0-35.0); MCHC 34.7 g/dL (31.0-37.0); MCV 83.3 fL (80.0-100.0); Mean Platelet Volume 7.7; Platelet Count 264 k/uL (150-450); RDW 13.3 % (11.5-15.5); WBC 9.1 k/uL (3.8-10.6)
[2019-01-25] MEDS: HEPARIN SOD,PORK IN 0.45% NACL 25,000 UNIT in 0.45% NACL 1 250ML.BAG IV SCH ×2 (17:40→22:56)
[2019-01-25] MEDS: ATORVASTATIN 20 MG TAB PO SCH (21:04)
--- NOTE | 2019-01-25 21:10 | P.PN ---
Progress Note - Text Progress Note Date: 01/25/19 Chief Complaint: Shortness of breath Interval history: This is a pleasant [address] begum. Chronic stable medical conditions include hyperlipidemia, hypertension, rheumatoid arthritis COPD. For about 2 weeks patient is becoming increasingly short of breath. No edema no cough no fever no chills. Normally uses 2 or 3 pillows at night. Appetite has been fair. No bowel movements. No sputum production. Patient is felt to have CHF to started on IV Lasix. There is a question about pneumonia hence antibiotics were also started. Admitted for the same. Admitted with CHF exacerbation. Positive troponin. EKG changes. Cardiac catheterization on January 23 showed triple-vessel disease. Today-laying in bed. No chest pain. Up to the bathroom. No new issues. Pending PAMELA tomorrow Review of systems: Was done for constitutional, cardiovascular, GI, pulmonary. relevant finding as above Active Medications Albuterol/Ipratropium (Duoneb 0.5 Mg-3 Mg/3 Ml Soln) 3 ml INHALATION RT-Q4H PRN PRN Reason: shortness of breath Last Admin: 01/22/19 16:05 Dose: 3 ml Documented by: Albuterol/Ipratropium (Duoneb 0.5 Mg-3 Mg/3 Ml Soln) 3 ml INHALATION RT-QID [facility] Last Admin: 01/25/19 19:33 Dose: 3 ml Documented by: Aspirin (Aspirin) 81 mg PO DAILY [facility] Last Admin: 01/25/19 07:23 Dose: 81 mg Documented by: Atorvastatin Calcium (Lipitor) 80 mg PO HS [facility] Last Admin: 01/25/19 21:04 Dose: 80 mg Documented by: Benzocaine (Hurricaine [place]) 1 spray TOPICAL TID PRN PRN Reason: Skin Irritation Fentanyl Citrate (Sublimaze) 50 mcg IVP ONCE ONE Stop: 01/26/19 08:01 Furosemide (Lasix) 20 mg PO BID@0900,1600 [facility] Last Admin: 01/25/19 16:01 Dose: 20 mg Documented by: Heparin Sodium (Porcine) (Heparin) 0 unit IV PER PROTOCOL PRN; Protocol PRN Reason: Low PTT Last Admin: 01/24/19 09:48 Dose: 4,000 unit Documented by: Heparin Sodium/Sodium Chloride (25,000 unit/ Sodium Chloride) 250 mls @ 11.484 mls/hr IV .[id number] [facility]; Protocol Last Admin: 01/25/19 17:40 Dose: Not Given Documented by: Isosorbide Mononitrate (Imdur) 30 mg PO DAILY [facility] Last Admin: 01/25/19 07:23 Dose: 30 mg Documented by: Labetalol HCl (Trandate) 300 mg PO BID [facility] Last Admin: 01/25/19 21:04 Dose: 300 mg Documented by: Losartan Potassium (Cozaar) 100 mg PO DAILY [facility] Last Admin: 01/25/19 07:23 Dose: 100 mg Documented by: Midazolam HCl (Versed) 1 mg IV ONCE ONE Stop: 01/26/19 08:01 Miscellaneous Information (Pneumonia Protocol Utilized) 1 each PO ONCE PRN PRN Reason: Per Protocol Miscellaneous Information (Md Communication To Pharmacy) 1 each PO ONCE PRN PRN Reason: See Comments Mupirocin (Bactroban Oint) 1 applic NASAL BID [facility] Last Admin: 01/25/19 21:06 Dose: 1 applic Documented by: Nitroglycerin (Nitrostat) 0.4 mg SUBLINGUAL Q5M PRN PRN Reason: Chest Pain Spironolactone (Aldactone) 25 mg PO DAILY [facility] Last Admin: 01/25/19 07:23 Dose: 25 mg Documented by: Physical examination: VITAL SIGNS: 97.5, 63, 18, 134/81, 94% room air GENERAL: Laying in bed, comfortable. EYES: Pupils equal. Conjunctiva normal. HEENT: External appearance of nose and ears normal, oral cavity grossly normal. NECK: JVD possibly raised; masses not palpable. HEART: First and second heart sounds are normal; no edema. LUNGS: Respiratory rate increased, basal crackles. ABDOMEN: Soft, nontender, liver spleen not palpable, no masses palpable. PSYCH: Alert and oriented x3; mood and affect normal. INVESTIGATIONS, reviewed in the clinical context: White count 9.1 hemoglobin 12.7 bun 24 creatinine 1.20 Previous tests Cardiac cath [id number] disease Admission labs 2-D echo-moderate global hypokinesia, EF 30-35% multiple wall motion abnormality, severe mitral regurgitation White count 13.6 hemoglobin 14.6 potassium 4.1 creatinine 0.84 Troponin 0.082, 0.078 ProBNP 4990 EKG tracing personally reviewed by me shows ST segment depression, PVC Chest x-ray film personally reviewed by me shows pulmonary edema and some cardiomegaly Assessment: -Acute congestive heart failure exacerbation, from systolic dysfunction EF 30- 35%, improved -Severe mitral regurgitation, nonrheumatic -COPD in an ex-smoker -Clinically doubt pneumonia as patient has got no fever no chills, no sputum production. pro calcitonin level is coming back as negative -Hyperlipidemia -Essential hypertension -Rheumatoid arthritis -Triple-vessel coronary artery disease per cardiac catheterization Plan: Awaiting PAMELA tomorrow to determine need for surgery for mitral regurgitation along with CABG. Other medication treatment plan is to continue.
[2019-01-26 06:23] LABS: Basophils # (A) 0.1 k/uL (0-0.2); Basophils % (A) 1 %; Eosinophils # (A) 0.4 k/uL (0-0.7); Eosinophils % (A) 5 %; HCT 37.9 % (39.0-53.0); HGB 13.2 gm/dL (13.0-17.5); Lymphocytes # (A) 1.4 k/uL (1.0-4.8); Lymphocytes % (A) 17 %; MCHC 34.8 g/dL (31.0-37.0); MCV 83.2 fL (80.0-100.0); Mean Platelet Volume 7.7; Monocytes # (A) 0.6 k/uL (0-1.0); Monocytes % (A) 8 %; Neutrophils # (A) 5.5 k/uL (1.3-7.7); Neutrophils % (A) 68 %; Platelet Count 247 k/uL (150-450); RBC 4.55 m/uL (4.30-5.90); RDW 13.2 % (11.5-15.5); WBC 8.2 k/uL (3.8-10.6)
[2019-01-26 06:50] LABS: Calcium 9.1 mg/dL (8.4-10.2); Potassium 4.2 mmol/L (3.5-5.1)
[2019-01-26] MEDS ORDERED: fentaNYL (PF) 50 MCG/ML 2 ML AMP ONE (07:54)
[2019-01-26] MEDS ORDERED: fentaNYL (PF) 50 MCG/ML 5 ML AMP IVP ONE (08:00)
[2019-01-26] MEDS ORDERED: MIDAZOLAM PF (FBP) 2 MG/2 ML VIAL IV ONE ×3 (08:00→08:26)
[2019-01-26] MEDS ORDERED: BENZOCAINE SPRAY 1 CAN MUCOUS MEM ONE (08:14)
[2019-01-26] MEDS ORDERED: IV FLUID CONTINUATION 500 ML IV ONE (08:15)
[2019-01-26] MEDS ORDERED: fentaNYL (PF) 50 MCG/ML 2 ML AMP IV ONE (08:18)
[2019-01-26] MEDS: MIDAZOLAM PF (FBP) 2 MG/2 ML VIAL IV ONE ×2 (08:18→08:23)
[2019-01-26] MEDS: IPRATROPIUM-ALBUTEROL 3 ML NEB INHALATION SCH ×4 (08:52→20:29)
--- NOTE | 2019-01-26 08:57 | P.TEE ---
Indications for Procedure(s): Assessment of mitral regurgitation Date of Procedure: 01/26/19 Preoperative Diagnosis: Severe mitral regurgitation, ischemic cardio myopathy Postoperative Diagnosis: Moderate mitral regurgitation, ischemic cardio myopathy Description of Procedure(s): INDICATION: This is a 63-year-old gentleman who was admitted to the hospital with findings of congestive heart failure. Abnormal troponin and findings of ischemic cardiomyopathy on the echocardiogram. Transthoracic echocardiogram was suggestive of ischemic cardiomyopathy and also severe mitral regurgitation. A PAMELA examination is requested to further assess mitral regurgitation. CONSENT: Verbal consent was obtained from the patient PROCEDURE:. This 63-year-old gentleman was brought to the lab in a fasting state. He was prepped and draped in the usual fashion. The throat was sprayed with Hurricaine. Patient was given boluses of IV Versed to a total of 1.5 mg and 50 g of fentanyl for sedation. A lubricated Omni probe was then introduced into the oropharynx and was advanced into the esophagus without difficulty. Multiple views were obtained both from the esophagus and stomach. No immediate complications were noted. Color , pulsed and continuous-wave Doppler was performed. Saline contrast bubble injection was also performed. Patient tolerated the procedure well. No immediate complications FINDINGS:. The aortic valve is tricuspid with mild thickening of the leaflets. Good morning. There are 12 function is normal without any stenosis or regurgitation. The mitral valve structurally appeared normal with mild calcification of the annulus. There is central mitral regurgitation which appeared to be moderate. The PISA value was calculated 0.6 to 0.8. There is no reversal of flow into the pulmonary vein. The atrial appendage is free of a ny clot. Mild tricuspid valve regurgitation noted. Pulmonic valve appeared within normal. Interatrial septum appeared to be intact without any spontaneous shunt. Contrast saline bubble injections did not reveal any crossing of bubbles across interatrial septum. LV function appeared to be moderately impaired. Aorta showed moderate plaque IMPRESSION: #1. Moderate mitral regurgitation which appears to be between 2-3. Mild annular calcification #2. Mildly thickened aortic leaflets without any stenosis or regurgitation #3. Moderate to severely impaired LV function #4. Intact interatrial septum without evidence of PFO #5. No clot in the left atrial appendage. #6. Moderate plaque in the aorta PLAN: Aortic coronary bypass surgery with possible repair of mitral valve.
[2019-01-26] MEDS: LOSARTAN 50 MG TAB PO SCH (09:21)
[2019-01-26] MEDS: FUROSEMIDE 20 MG TAB PO SCH ×2 (09:21→19:51)
[2019-01-26] MEDS: SPIRONOLACTONE 25 MG TAB PO SCH (09:21)
[2019-01-26] MEDS: ISOSORBIDE MONONITRATE ER 30 MG TAB.ER.24H PO SCH (09:21)
[2019-01-26] MEDS: LABETALOL 100 MG TAB PO SCH ×2 (09:22→19:53)
[2019-01-26] MEDS: ASPIRIN 81 MG PO SCH (09:22)
--- NOTE | 2019-01-26 10:47 | P.PN ---
Subjective Progress Note Date: 01/26/19 Principal diagnosis: Severe calcific triple-vessel coronary artery disease, non-STEMI, acute systolic heart failure and cardiomyopathy with EF 30-35%, severe mitral regurgitation on transthoracic echocardiogram. Previous medical history of hypertension, hyperlipidemia, TIA in 2007 without residual deficits, rheumatoid arthritis on Enbrel and methotrexate, obstructive sleep apnea without CPAP use status post UP3 with residual occasional difficulty in swallowing, previous tobacco dependence, mild COPD with FEV1 68% of predicted. Patient is currently sitting up to the bedside edge on the cardiac stepdown unit. He is in no acute distress and denies any complaints of pain and also reports that his breathing is much improved since his admission. He underwent a transesophageal echocardiogram procedure performed by Dr. Bauer this morning. The PAMELA results demonstrated mild mitral valve annular calcification, moderate central mitral valve regurgitation, mild tricuspid valve regurgitation and a left ventricular function to be moderately impaired. It also demonstrated moderate plaque to his aorta. He remains on a heparin drip per protocol. Oxygen saturation is 97% on 2 L nasal cannula and he is achieving 2500 mL on his incentive spirometry. Preoperative teaching has been reinforced with the patient and his . Objective - Vital Signs Vital signs: Vital Signs Temp 98.4 F 01/26/19 04:00 Pulse 95 01/26/19 08:42 Resp 14 01/26/19 08:19 BP 154/95 01/26/19 08:42 Pulse Ox 93 L 01/26/19 08:42 Intake & Output 01/25/19 01/26/19 01/26/19 18:59 06:59 18:59 Intake Total 1530 50 Output Total 2000 Balance 1530 -2000 50 Weight 89.7 kg Intake: IV 320 50 Heparin Sod,Pork in 0.45% 160 NaCl 25,000 unit In 0.45 % NaCl 1 250ml.bag @ 12 UNITS/KG/HR 11.484 mls/hr IV .[id number] [facility] Rx#: [id number] Sodium Chloride 0.9% 1, 160 000 ml @ 0 mls/hr IV .STK -[facility] Rx#:[id number] Intake, IV Titration 250 Amount Heparin Sod,Pork in 0.45% 250 NaCl 25,000 unit In 0.45 % NaCl 1 250ml.bag @ 12 UNITS/KG/HR 11.484 mls/hr IV .[id number] [facility] Rx#: [id number] Oral 960 Output: Urine 1999 Other: Voiding Method Toilet Toilet Urinal Urinal # Voids 1 - Constitutional General appearance: Present: cooperative, no acute distress, obese - Respiratory Details: Lung sounds with few scattered crackles throughout. Respirations are symmetrical and nonlabored. Oxygen saturation is 97% on 2 L nasal cannula. Achieving 2500 mL on his incentive spirometry. - Cardiovascular Details: Regular rhythm and rate. S1 and S2 present, negative for S3, gallop or murmur. No edema present. Remote telemetry showing normal sinus rhythm heart rate 85. - Gastrointestinal Gastrointestinal Comment(s): Abdomen is soft, nontender and nondistended. Active bowel sounds present in all 4 abdominal quadrants. No guarding or rigidity. No organomegaly appreciated. - Genitourinary Genitourinary Comment(s): Voiding clear sima urine. - Integumentary Integumentary Comment(s): Skin is warm and dry. No clubbing or cyanosis is present. No rash or abnormal pigmentation is present. - Neurologic Neurologic Comment(s): No focal deficits. Neurologic: Present: CNII-XII intact - Musculoskeletal Musculoskeletal: Present: gait normal, strength equal bilaterally - Psychiatric Psychiatric: Present: A&O x's 3, appropriate affect, intact judgment & insight - Allied health notes Allied health notes reviewed: nursing - Labs CBC & Chem 7: 01/26/19 06:06 01/26/19 06:06 Labs: Abnormal Lab Results - Last 24 Hours (Table) 01/25/19 01/26/19 01/26/19 Range/Units 13:06 06:06 06:06 Hgb 12.7 L (13.0-17.5) gm/dL Hct 36.7 L 37.9 L (39.0-53.0) % APTT 55.3 H (22.0-30.0) sec BUN (9-20) mg/dL Glucose (74-99) mg/dL 01/26/19 Range/Units 06:06 Hgb (13.0-17.5) gm/dL Hct (39.0-53.0) % APTT (22.0-30.0) sec BUN 21 H (9-20) mg/dL Glucose 133 H (74-99) mg/dL Microbiology - Last 24 Hours (Table) 01/22/19 07:56 Blood Culture - Preliminary Blood No Growth after 96 hours 01/24/19 09:43 Nasal Screen MRSA/MSSA - Final Nasal Swab - Imaging and Cardiology PAMELA report reviewed. Assessment and Plan Assessment: 1. Severe calcific triple-vessel coronary artery disease 2. Non-STEMI 3. Acute systolic heart failure, cardiomyopathy, EF 30-35% 4. Moderate to severe mitral regurgitation on transthoracic echocardiogram and transesophageal echocardiogram 5. Hypertension 6. Hyperlipidemia 7. TIA in 2007 without residual 8. Rheumatoid arthritis on Enbrel and methotrexate, currently on hold 9. Obstructive sleep apnea without CPAP use, status post UPPP with residual occasional difficulty in swallowing 10. Remote history of tobacco dependence, quit in 2003 11. Mild COPD with preoperative FEV1 68% Plan: 1. Continue to maximize medical therapy with aspirin, statin, beta kleber, ARB, Lasix and Aldactone. 2. Continue to hold Plavix, Enbrel and methotrexate in anticipation for myocardial revascularization surgery. 3. Continue to encourage increase in activity. 4. Transesophageal echocardiogram was completed this morning, results were reviewed. We will obtain a computed tomography scan of his chest without co ntrast to assess his aorta, as his transesophageal echocardiogram showed moderate plaque to his aorta. 5. Awaiting dental clearance. 6. STS risk score has been calculated in discussed with the patient by Dr. Jennings. 7. Continue to reinforce preoperative tasting with the patient and his family. 8. Encourage use of his incentive spirometry every hour while awake. 9. Medical management and other comorbidities management per primary care service. 10. More recommendations to follow based on patient's clinical course. Time with Patient: Greater than 30
--- NOTE | 2019-01-26 11:23 | P.GSCN ---
History of Present Illness Consult date: 01/26/19 Reason for Consult: Pt presented with tooth #3 lost crown, and some missing teeth. Radiographically, there's a condensing Osteitis on D root of #30. No radiolucency present on apices of roots. Clinically, Pt is negative to percussion on all teeth, no swelling, or pain upon pressure in maxillary or mandibular vestibules. Teeth are asymptomatic, and only grade 1 mobility was felt on #18. Tooth #3 is missing a crown but it has no dental caries, nor is there any present on any other teeth. Pt stated he had his last hygiene appt a month ago, and nothing needs work. Pt is clear off dental infections, and is ok to proceed with heart procedure from the dental aspect. Thank you for your kind referral. Past Medical History Past Medical History: Coronary Artery Disease (CAD), Heart Failure, COPD, CVA/TIA, Hyperlipidemia, Hypertension, Myocardial Infarction (NC), Rheumatoid Arthritis (RA) Additional Past Medical History / Comment(s): TIA in 2007, vertigo, falls, vitamin D deficiency, obstructive sleep apnea without CPAP use History of Any Multi-Drug Resistant Organisms: None Reported Past Surgical History: Adenoidectomy, Hernia Repair, Tonsillectomy Additional Past Surgical History / Comment(s): Open kidney stone extraction, prostate biopsy and TURP, ventral hernia repair with mesh, UVPPP, colonoscopy, R knee arthroscopy, bilateral cataract removal/lens implants. Past Anesthesia/Blood Transfusion Reactions: No Reported Reaction Additional Past Anesthesia/Blood Transfusion Reaction / Comm: Clausterphobia Past Psychological History: No Psychological Hx Reported Smoking Status: Former smoker Past Alcohol Use History: Occasional Past Drug Use History: None Reported - Past Family History Mother Family Medical History: CVA/TIA, Hyperlipidemia, Hypertension, Osteoarthritis (OA) Father Additional Family Medical History / Comment(s): Castleman disease-overgrowth of cells in lymphnodes Medications and Allergies Home Medications Medication Instructions Recorded Confirmed Type Atorvastatin [Lipitor] 20 mg PO HS 01/22/19 01/22/19 History Clopidogrel Bisulfate [Plavix] 75 mg PO Q48H 01/22/19 01/22/19 History Ergocalciferol (Vitamin D2) 50,000 unit PO SANTOS 01/22/19 01/22/19 History [Drisdol] Etanercept [Enbrel] 25 mg SQ SUWE 01/22/19 01/22/19 History Ferrous Sulfate [Feosol] 325 mg PO TID 01/22/19 01/22/19 History Folic Acid 1 mg PO DAILY 01/22/19 01/22/19 History Hydrocodone/Acetaminophen [[place]o 1 tab PO Q6H PRN 01/22/19 01/22/19 History 10-325] Labetalol HCl [Trandate] 300 mg PO BID 01/22/19 01/22/19 History Losartan Potassium [Cozaar] 100 mg PO DAILY 01/22/19 01/22/19 History Meclizine [Antivert] 25 mg PO AC-TID PRN 01/22/19 01/22/19 History Methotrexate 25mg/Ml 25 mg SQ SANTOS 01/22/19 01/22/19 History amLODIPine [Norvasc] 10 mg PO DAILY 01/22/19 01/22/19 History traZODone HCL 150 mg PO HS 01/22/19 01/22/19 History Allergies Allergy/AdvReac Type Severity Reaction Status Date / Time epinephrine Allergy Unknown Verified 01/22/19 08:15 Surgical - Exam Vital Signs Temp Pulse Resp BP Pulse Ox 97.6 F 111 H 26 H 209/133 96 01/22/19 06:56 01/22/19 06:56 01/22/19 06:56 01/22/19 06:56 01/22/19 06:56 Results - Labs 01/26/19 06:06 01/26/19 06:06 Abnormal Lab Results - Last 24 Hours (Table) 01/25/19 01/26/19 01/26/19 Range/Units 13:06 06:06 06:06 Hgb 12.7 L (13.0-17.5) gm/dL Hct 36.7 L 37.9 L (39.0-53.0) % APTT 55.3 H (22.0-30.0) sec BUN (9-20) mg/dL Glucose (74-99) mg/dL 01/26/19 Range/Units 06:06 Hgb (13.0-17.5) gm/dL Hct (39.0-53.0) % APTT (22.0-30.0) sec BUN 21 H (9-20) mg/dL Glucose 133 H (74-99) mg/dL Microbiology - Last 24 Hours (Table) 01/22/19 07:56 Blood Culture - Preliminary Blood No Growth after 96 hours 01/24/19 09:43 Nasal Screen MRSA/MSSA - Final Nasal Swab Diabetes panel 01/26/19 Range/Units 06:06 Sodium 138 (137-145) mmol/L Potassium 4.2 (3.5-5.1) mmol/L Chloride 106 (98-107) mmol/L Carbon Dioxide 23 (22-30) mmol/L BUN 21 H (9-20) mg/dL Creatinine 1.08 (0.66-1.25) mg/dL Glucose 133 H (74-99) mg/dL Calcium 9.1 (8.4-10.2) mg/dL Calcium panel 01/26/19 Range/Units 06:06 Calcium 9.1 (8.4-10.2) mg/dL Pituitary panel 01/26/19 Range/Units 06:06 Sodium 138 (137-145) mmol/L Potassium 4.2 (3.5-5.1) mmol/L Chloride 106 (98-107) mmol/L Carbon Dioxide 23 (22-30) mmol/L BUN 21 H (9-20) mg/dL Creatinine 1.08 (0.66-1.25) mg/dL Glucose 133 H (74-99) mg/dL Calcium 9.1 (8.4-10.2) mg/dL Adrenal panel 01/26/19 Range/Units 06:06 Sodium 138 (137-145) mmol/L Potassium 4.2 (3.5-5.1) mmol/L Chloride 106 (98-107) mmol/L Carbon Dioxide 23 (22-30) mmol/L BUN 21 H (9-20) mg/dL Creatinine 1.08 (0.66-1.25) mg/dL Glucose 133 H (74-99) mg/dL Calcium 9.1 (8.4-10.2) mg/dL
--- NOTE | 2019-01-26 13:32 | P.PN ---
Subjective Progress Note Date: 01/26/19 Principal diagnosis: Non-ST elevated myocardial infarction, acute systolic CHF, multivessel CAD, moderate mitral regurgitation This is a very pleasant 63-year-old gentleman who follows with Dr. Snider as his primary care physician. He has a history of hypertension, hyperlipidemia, vertigo, rheumatoid arthritis, smoking history Paty obstructive sleep apnea status post U PPP P. He presented here to the emergency room on 01/22/2019 with a three-day history of shortness of breath and chest discomfort. He was found to have a non-ST segment elevation myocardial infarction and acute congestive heart failure. Echocardiogram revealed moderate to severely impaired left ventricular systolic function with ejection fraction 30-35%. Severe mitral regurgitation. Today he had undergone cardiac catheterization which revealed critical lesion in the proximal LAD, mid diagonal and also distal circumflex. Moderate disease in the mid circumflex of the total occlusion of the second OM branch. He was recommended bypass surgery. We are consulted for the same. FEV1 value 60% of predicted. Carotid Dopplers revealed no significant stenosis. A CT revealed poor dentition. Degenerative changes of the cervical spine. He is currently awake and alert in no acute distress. He denies any chest pain currently. No worsening shortness of breath, cough or congestion. Initial jessica st x-ray revealed a right infrahilar opacity concerning for developing pneumonia versus confluent edema and mild fluid overload. He remains on a heparin drip. On 01/25/2019, the patient is stable. The patient is seeking cardiac surgery with bypass and valve replacement/repair. Will need a PAMELA. Otherwise is doing well. Creatinine is stable at 1.2. White cell count of 8.3. No other significant events overnight. On 01/26/2019 patient seen in follow-up on selective care unit, he has just re turned from transesophageal echocardiogram, he is awake and alert, he denies any acute distress, currently on 2 L of oxygen with a pulse ox of 93%, he was found to have moderately severe mitral regurgitation, no evidence of PFO, no intracardiac thrombus, he is awaiting coronary artery bypass grafting with the possibility of mitral valve repair, his FEV1 is at 60%, his breathing is stable, lung sounds reveal some minimal basilar crackles, no rhonchi, wheezing, no significant cough or congestion, his inspiratory effort is [id number] on the incentive spirometry today, he denies any chest pain. Vital signs have been stable, no fever or chills. Objective - Vital Signs Vital signs: Vital Signs Temp 98.4 F 01/26/19 04:00 Pulse 86 01/26/19 11:58 Resp 14 01/26/19 08:19 BP 154/95 01/26/19 08:42 Pulse Ox 93 L 01/26/19 08:42 Intake & Output 01/25/19 01/26/19 01/26/19 18:59 06:59 18:59 Intake Total 1530 530 Output Total 1999 Balance 1530 -1999 530 Weight 89.7 kg Intake: IV 320 50 Heparin Sod,Pork in 0.45% 160 NaCl 25,000 unit In 0.45 % NaCl 1 250ml.bag @ 12 UNITS/KG/HR 11.484 mls/hr IV .[id number] [facility] Rx#: [id number] Sodium Chloride 0.9% 1, 160 000 ml @ 0 mls/hr IV .[facility] Rx#:[id number] Intake, IV Titration 250 Amount Heparin Sod,Pork in 0.45% 250 NaCl 25,000 unit In 0.45 % NaCl 1 250ml.bag @ 12 UNITS/KG/HR 11.484 mls/hr IV .[id number] [facility] Rx#: [id number] Oral 960 480 Output: Urine 2000 Other: Voiding Method Toilet Toilet Toilet Urinal Urinal Urinal # Voids 1 - Exam GENERAL EXAM: Alert, pleasant, 63-year-old white male, on 2 L of oxygen with a pulse ox of 93% comfortable in no apparent distress. HEAD: Normocephalic/atraumatic. EYES: Normal reaction of pupils, equal size. Conjunctiva pink, sclera white. NOSE: Clear with pink turbinates. THROAT: No erythema or exudates. NECK: No masses, no JVD, no thyroid enlargement, no adenopathy. CHEST: No chest wall deformity. Symmetrical expansion. LUNGS: Equal air entry with minimal crackles at bilateral posterior bases, wheeze, rhonchi or dullness. CVS: Regular rate and rhythm, normal S1 and S2, no gallops, no murmurs, no rubs ABDOMEN: Soft, nontender. No hepatosplenomegaly, normal bowel sounds, no guarding or rigidity. EXTREMITIES: No clubbing, no edema, no cyanosis, 2+ pulses and upper and lower extremities. MUSCULOSKELETAL: Muscle strength and tone normal. SPINE: No scoliosis or deformity SKIN: No rashes CENTRAL NERVOUS SYSTEM: Alert and oriented -3. No focal deficits, tone is normal in all 4 extremities. PSYCHIATRIC: Alert and oriented -3. Appropriate affect. Intact judgment and insight. - Labs CBC & Chem 7: 01/26/19 06:06 01/26/19 06:06 Labs: Abnormal Lab Results - Last 24 Hours (Table) 01/26/19 01/26/19 01/26/19 Range/Units 06:06 06:06 06:06 Hct 37.9 L (39.0-53.0) % APTT 55.3 H (22.0-30.0) sec BUN 21 H (9-20) mg/dL Glucose 133 H (74-99) mg/dL Microbiology - Last 24 Hours (Table) 01/22/19 07:56 Blood Culture - Preliminary Blood No Growth after 96 hours 01/24/19 09:43 Nasal Screen MRSA/MSSA - Final Nasal Swab Assessment and Plan Plan: Assessment: #1 Non-ST segment elevation myocardial infarction. #2 Acute systolic congestive heart failure with ejection fraction 30-35%. #3 Coronary artery disease with critical lesion the proximal LAD, mid diagonal and also distal circumflex. There is moderate disease in the mid circumflex and a total occlusion of the second OM branch. #4 hyperlipidemia. #5 Hypertension. #6 History of tobacco dependence. #7 Chronic obstructive pulmonary disease currently inactive and stable. FEV1 value 60% of predicted. #8 History of obstructive sleep apnea status post U P4. #9 Rheumatoid arthritis currently on Enbrel and methotrexate. #10 History of TURP. Plan: Patient remains stable from pulmonary perspective, no acute events overnight, no complaints of dyspnea, no compressive chest pain, vital signs are stable, pro- calcitonin has been low, suggesting no acute infectious process, cultures have been negative, no significant cough or sputum production, remains on oral Lasix. Possible surgery today is on of this week. I performed a history & physical examination of the patient and discussed their management with my nurse practitioner, Jannet Bower. I reviewed the nurse practitioner's note and agree with the documented findings and plan of care. Lung sounds are positive for minimal crackles at the posterior lower bases. The findings and the impression was discussed with the patient. I attest to the documentation by the nurse practitioner. Time with Patient: Less than 30
--- NOTE | 2019-01-26 14:22 | CT ---
EXAMINATION TYPE: CT chest wo con DATE OF EXAM: 01/26/2019 COMPARISON: 01/23/2019 HISTORY: 63 year-old male shortness of breath, Difficulty breathing. Assess aorta preop cardiac surge ry. TECHNIQUE: Contiguous axial scanning of the chest without IV contrast. Coronal and sagittal reconstru ctions performed. CT DLP: 532 mGycm Automated exposure control for dose reduction was used. FINDINGS: Heart normal size without pericardial effusion. Extensive coronary vessel calcifications are present. Mild aneurysm ascending aorta 4.1 cm with mild atherosclerotic calcifications throughout. Conventiona l arch vessel branching anatomy. Mild bilateral gynecomastia. Scattered nonenlarged and borderline prominent mediastinal lymph nodes measuring up to 9 mm. Some effie cified subcarinal lymph nodes and calcified right hilar lymph nodes suggest prior granulomatous disea se. Moderate centrilobular emphysema. Scattered subpleural patchy and groundglass densities are present b ilaterally and can be reassessed at follow-up as some areas have a more nodular configuration suggest s anterior left upper lobe measuring 1.1 cm and posterior right midlung measuring 2.3 x 1.0 cm. No pleural effusion. Tiny hiatal hernia. Visualized upper abdomen shows mild fatty infiltration of the liver and tiny calc ified granulomas in the spleen. Hypodense lesions right kidney measuring 2.9 cm suggestive of cysts. Nonobstructive 5 mm left renal c alculus. Bones: Endplate spondylosis mid to lower thoracic spine. IMPRESSION: 1. EXTENSIVE THREE-VESSEL CORONARY ARTERY CALCIFICATIONS. 2. MILD ANEURYSM ASCENDING AORTA AT 4.1 CM. MILD ATHEROSCLEROTIC CALCIFICATIONS THROUGHOUT. CONVENTIO NAL ARCH VESSEL BRANCHING ANATOMY. 3. COPD WITH MODERATE EMPHYSEMA. 4. SCATTERED SUBPLEURAL PATCHY AND GROUNDGLASS DENSITIES COULD REPRESENT SCARRING OR AN INFLAMMATORY PROCESS SUCH GLUE MAKER BONE. 5. A SIX-MONTH FOLLOW-UP CT IS RECOMMENDED TO REASSESS SOME OF THESE DENSITIES HAVE A MORE NODULAR CONFIGURATION MEASURING UP TO 1.1 CM. 6. TINY HILAR HERNIA, HEPATIC STEATOSIS, PRIOR GRANULOMATOUS DISEASE.
[2019-01-26] MEDS ORDERED: MD COMMUNICATION TO PHARMACY 1 EACH MISC PO ONE ×4 (16:31→16:36)
[2019-01-26] MEDS: MUPIROCIN 2% OINT 22 GM TUBE NASAL SCH ×2 (19:51→22:30)
[2019-01-26] MEDS: SODIUM CHLORIDE 0.9% 1,000 ML IV SCH (19:51)
[2019-01-26] MEDS: ATORVASTATIN 20 MG TAB PO SCH (19:53)
--- NOTE | 2019-01-26 20:29 | P.PN ---
Progress Note - Text Progress Note Date: 01/26/19 Chief Complaint: Shortness of breath Interval history: This is a pleasant [address] begum. Chronic stable medical conditions include hyperlipidemia, hypertension, rheumatoid arthritis COPD. For about 2 weeks patient is becoming increasingly short of breath. No edema no cough no fever no chills. Normally uses 2 or 3 pillows at night. Appetite has been fair. No bowel movements. No sputum production. Patient is felt to have CHF to started on IV Lasix. There is a question about pneumonia hence antibiotics were also started. Admitted for the same. Admitted with CHF exacerbation. Positive troponin. EKG changes. Cardiac catheterization on January 23 showed triple-vessel disease.PAMELA done showed severe MR Today-laying in bed. No chest pain. Up to the bathroom. No new issues. PAMELA done today showed severe MR. Review of systems: Was done for constitutional, cardiovascular, GI, pulmonary. relevant finding as above Active Medications Albuterol/Ipratropium (Duoneb 0.5 Mg-3 Mg/3 Ml Soln) 3 ml INHALATION RT-Q4H PRN PRN Reason: shortness of breath Last Admin: 01/22/19 16:05 Dose: 3 ml Documented by: Albuterol/Ipratropium (Duoneb 0.5 Mg-3 Mg/3 Ml Soln) 3 ml INHALATION RT-QID [facility] Last Admin: 01/26/19 16:29 Dose: 3 ml Documented by: Aspirin (Aspirin) 81 mg PO DAILY [facility] Last Admin: 01/26/19 09:22 Dose: 81 mg Documented by: Aspirin (Aspirin) 325 mg PO ONCE ONE Stop: 01/29/19 05:01 Atorvastatin Calcium (Lipitor) 80 mg PO HS [facility] Last Admin: 01/26/19 19:53 Dose: 80 mg Documented by: Atorvastatin Calcium (Lipitor) 10 mg PO ONCE ONE Stop: 01/29/19 05:01 Benzocaine (Hurricaine [place]) 1 spray TOPICAL TID PRN PRN Reason: Skin Irritation Calcium Chloride (Calcium Chloride) 1,000 mg IVP ONCE ONE Stop: 01/29/19 05:01 Chlorhexidine Gluconate (Peridex) 15 ml MUCOUS MEM ONCE ONE Stop: 01/29/19 05:01 Furosemide (Lasix) 20 mg PO BID@0900,1600 [facility] Last Admin: 01/26/19 19:51 Dose: Not Given Documented by: Heparin Sodium (Porcine) (Heparin) 0 unit IV PER PROTOCOL PRN; Protocol PRN Reason: Low PTT Last Admin: 01/24/19 09:48 Dose: 4,000 unit Documented by: Heparin Sodium (Porcine) (Heparin Sodium (1,000 Unit/Ml)) 10,000 unit IV ONCE ONE Stop: 01/29/19 05:01 Heparin Sodium (Porcine) (Heparin) 30,000 unit IV ONCE ONE Stop: 01/29/19 05:01 Heparin Sodium (Porcine) (Heparin) 30,000 unit IV ONCE ONE Stop: 01/29/19 05:01 Heparin Sodium (Porcine) (Heparin) 30,000 unit IV ONCE ONE Stop: 01/29/19 05:01 Heparin Sodium/Sodium Chloride (25,000 unit/ Sodium Chloride) 250 mls @ 11.484 mls/hr IV .[id number] VINNIE; Protocol Last Admin: 01/25/19 22:56 Dose: 20 units/kg/hr, 19.14 mls/hr Documented by: Sodium Chloride (Saline 0.9%) 1,000 mls @ 20 mls/hr IV .Q24H VINNIE Last Admin: 01/26/19 19:51 Dose: Not Given Documented by: Heparin Sodium (Porcine) 5,000 (unit/ Sodium Chloride) 501 mls @ 0 mls/hr IV ONCE ONE Stop: 01/29/19 05:01 Protamine Sulfate 250 mg/ IV (Solution) 25 mls @ 0 mls/hr IV ONCE ONE Stop: 01/29/19 05:01 Nitroglycerin/Dextrose 50 mg/ (IV Solution) 250 mls @ 1.5 mls/hr IV .Q24H VINNIE; Protocol Albumin Human 50 ml/ IV (Solution) 50 mls @ 100 mls/hr IVPB ONCE ONE Stop: 01/29/19 05:29 Albumin Human 50 ml/ IV (Solution) 50 mls @ 100 mls/hr IVPB ONCE ONE Stop: 01/29/19 05:29 Clevidipine 25 mg/ IV Solution 50 mls @ 2 mls/hr IV .Q24H VINNIE; Protocol Phenylephrine HCl 40 mg/ (Sodium Chloride) 254 mls @ 0 mls/hr IV .Q0M ONE; Protocol Stop: 01/29/19 05:01 Albumin Human 500 ml/ IV (Solution) 500 mls @ 250 mls/hr IVPB ONCE ONE Stop: 01/29/19 06:59 Albumin Human 500 ml/ IV (Solution) 500 mls @ 250 mls/hr IVPB ONCE ONE Stop: 01/29/19 06:59 Albumin Human 500 ml/ IV (Solution) 500 mls @ 250 mls/hr IVPB ONCE ONE Stop: 01/29/19 06:59 Albumin Human 500 ml/ IV (Solution) 500 mls @ 250 mls/hr IVPB ONCE ONE Stop: 01/29/19 06:59 Albumin Human 500 ml/ IV (Solution) 500 mls @ 250 mls/hr IVPB ONCE ONE Stop: 01/29/19 06:59 Albumin Human 500 ml/ IV (Solution) 500 mls @ 250 mls/hr IVPB ONCE ONE Stop: 01/29/19 06:59 Norepinephrine Bitartrate 4 mg (/ Sodium Chloride) 254 mls @ 0 mls/hr IV .Q0M VINNIE; Protocol Propofol 1,000 mg/ IV Solution 100 mls @ 0 mls/hr IV .Q0M PRN; Protocol PRN Reason: Per Protocol Cefazolin Sodium 3 gm/ Sodium (Chloride) 30 mls @ 60 mls/hr IVPB ONCE ONE Stop: 01/29/19 05:29 Cefazolin Sodium 1,000 mg/ (Sodium Chloride) 1,000 mls @ 999 mls/hr IRRIGATION ONCE ONE Stop: 01/29/19 06:00 Cefazolin Sodium 2,000 mg/ (Sodium Chloride) 30 mls @ 999 mls/hr IVPB ONCE ONE Stop: 01/29/19 05:01 Potassium Chloride 110 meq/Magnesium Sulfate 16 meq/Sodium Bicarbonate 40 ml/Lidocaine HCl 100 mg/ Dextrose /Water 1,109 mls @ 0 mls/hr IV .Q0M VINNIE Potassium Chloride 25 meq/Sodium Chloride 27 meq/Magnesium Sulfate 16 meq/Sodium Bicarbonate 40 ml/Lidocaine HCl 100 mg/ Dextrose /Water 1,077.3 mls @ 0 mls/hr IV .Q0M VINNIE; Protocol Papaverine HCl 360 mg/ Sodium (Chloride) 102 mls @ 0 mls/hr IV ONCE ONE Stop: 01/29/19 05:01 Tranexamic Acid 2,000 mg/ (Sodium Chloride) 200 mls @ 0 mls/hr IV .Q0M ONE; Protocol Stop: 01/29/19 05:01 Insulin Human Regular 100 unit (/ Sodium Chloride) 100 mls @ 0 mls/hr IV .Q0M [facility]; Protocol Isosorbide Mononitrate (Imdur) 30 mg PO DAILY [facility] Last Admin: 01/26/19 09:21 Dose: 30 mg Documented by: Labetalol HCl (Trandate) 300 mg PO BID [facility] Last Admin: 01/26/19 19:53 Dose: 300 mg Documented by: Losartan Potassium (Cozaar) 100 mg PO DAILY [facility] Stop: 01/27/19 06:00 Last Admin: 01/26/19 09:21 Dose: 100 mg Documented by: Magnesium Sulfate (Magnesium Sulfate Syg) 16.24 meq IV ONCE ONE Stop: 01/29/19 05:01 Mannitol (Osmitrol 25%) 12.5 gm IV ONCE ONE Stop: 01/29/19 05:01 Mannitol (Osmitrol 25%) 12.5 gm IV ONCE ONE Stop: 01/28/19 05:01 Metoprolol Tartrate (Lopressor) 12.5 mg PO ONCE ONE Stop: 01/29/19 05:01 Miscellaneous Information (Pneumonia Protocol Utilized) 1 each PO ONCE PRN PRN Reason: Per Protocol Miscellaneous Information (Md Communication To Pharmacy) 1 each PO ONCE PRN PRN Reason: See Comments Mupirocin (Bactroban Oint) 1 applic NASAL BID [facility] Last Admin: 01/26/19 19:51 Dose: Not Given Documented by: Nitroglycerin (Nitrostat) 0.4 mg SUBLINGUAL Q5M PRN PRN Reason: Chest Pain Nitroglycerin/Dextrose (Nitro Drip 25 Mg/250 Ml In D5w Pmx) 1 mg IV ONCE ONE Stop: 01/29/19 05:01 Protamine Sulfate (Protamine Sulfate) 250 mg IV ONCE ONE Stop: 01/29/19 05:01 Sodium Bicarbonate (Sodium Bicarb 8.4% Syr (1 Meq/Ml)) 50 ml IV ONCE ONE Stop: 01/29/19 05:01 Spironolactone (Aldactone) 25 mg PO DAILY [facility] Last Admin: 01/26/19 09:21 Dose: 25 mg Documented by: Physical examination: VITAL SIGNS: 98.4, 104, 16, 163/109, 96% room air GENERAL: Laying in bed, comfortable. EYES: Pupils equal. Conjunctiva normal. HEENT: External appearance of nose and ears normal, oral cavity grossly normal. NECK: JVD possibly raised; masses not palpable. HEART: First and second heart sounds are normal; no edema. LUNGS: Respiratory rate increased, basal crackles. ABDOMEN: Soft, nontender, liver spleen not palpable, no masses palpable. PSYCH: Alert and oriented x3; mood and affect normal. INVESTIGATIONS, reviewed in the clinical context: white count 8.2 hemoglobin 13.2 creatinine 1.08 Previous tests Cardiac cath [id number] disease Admission labs 2-D echo-moderate global hypokinesia, EF 30-35% multiple wall motion abnormality, severe mitral regurgitation White count 13.6 hemoglobin 14.6 potassium 4.1 creatinine 0.84 Troponin 0.082, 0.078 ProBNP 4990 EKG tracing personally reviewed by me shows ST segment depression, PVC Chest x-ray film personally reviewed by me shows pulmonary edema and some cardiomegaly Assessment: -Acute congestive heart failure exacerbation, from systolic dysfunction EF 30- 35%, improved -Severe mitral regurgitation, nonrheumatic -COPD in an ex-smoker -Clinically doubt pneumonia as patient has got no fever no chills, no sputum production. pro calcitonin level is coming back as negative -Hyperlipidemia -Essential hypertension -Rheumatoid arthritis -Triple-vessel coronary artery disease per cardiac catheterization Plan: PAMELA done today. Current medications to continue. Date for surgical be determined by CTS.patient otherwise comfortable.
[2019-01-26] MEDS: HEPARIN SOD,PORK IN 0.45% NACL 25,000 UNIT in 0.45% NACL 1 250ML.BAG IV SCH (22:28)
[2019-01-27] MEDS: IPRATROPIUM-ALBUTEROL 3 ML NEB INHALATION SCH ×4 (07:56→20:52)
[2019-01-27] MEDS: ISOSORBIDE MONONITRATE ER 30 MG TAB.ER.24H PO SCH (08:20)
[2019-01-27] MEDS: ASPIRIN 81 MG PO SCH (08:20)
[2019-01-27] MEDS: LABETALOL 100 MG TAB PO SCH ×2 (08:20→20:42)
[2019-01-27] MEDS: FUROSEMIDE 20 MG TAB PO SCH ×2 (08:20→20:54)
[2019-01-27] MEDS: SPIRONOLACTONE 25 MG TAB PO SCH (08:21)
[2019-01-27 08:47] LABS: Basophils # (A) 0.1 k/uL (0-0.2); Basophils % (A) 1 %; Eosinophils # (A) 0.4 k/uL (0-0.7); Eosinophils % (A) 5 %; HCT 39.1 % (39.0-53.0); HGB 13.1 gm/dL (13.0-17.5); Lymphocytes # (A) 1.2 k/uL (1.0-4.8); Lymphocytes % (A) 15 %; MCH 28.5 pg (25.0-35.0); MCHC 33.5 g/dL (31.0-37.0); MCV 85.2 fL (80.0-100.0); Mean Platelet Volume 8.8; Monocytes # (A) 0.6 k/uL (0-1.0); Monocytes % (A) 7 %; Neutrophils # (A) 5.8 k/uL (1.3-7.7); Neutrophils % (A) 70 %; Platelet Count 233 k/uL (150-450); RBC 4.59 m/uL (4.30-5.90); RDW 13.4 % (11.5-15.5); WBC 8.3 k/uL (3.8-10.6)
[2019-01-27 09:39] LABS: Albumin 3.7 g/dL (3.5-5.0); Calcium 9.9 mg/dL (8.4-10.2); Potassium 4.5 mmol/L (3.5-5.1); Total Bilirubin 0.6 mg/dL (0.2-1.3); Total Protein 6.4 g/dL (6.3-8.2)
--- NOTE | 2019-01-27 09:49 | P.PN ---
Subjective Progress Note Date: 01/27/19 Principal diagnosis: Severe calcific triple-vessel coronary artery disease, non-STEMI this admission with troponins as high as 0.082, acute systolic heart failure and cardiomyopathy with EF 30-35%, severe mitral regurgitation on transthoracic echocardiogram. Previous medical history of hypertension, hyperlipidemia, TIA in 2007 without residual deficits, rheumatoid arthritis on Enbrel and methotrexate, obstructive sleep apnea without CPAP use status post UP3 with residual occasional difficulty in swallowing, previous tobacco dependence, mild COPD with FEV1 68% of predicted. The patient is sitting up on the bedside edge. He is in no acute distress. Denies any complaints of pain or shortness of breath. Computed tomography scan of his chest without contrast was completed yesterday to evaluate aortic plaque. CT of his chest results demonstrate extensive three-vessel coronary artery calcifications, scattered subpleural patchy and groundglass densities, scattered nonenlarged borderline prominent mediastinal lymph nodes measuring up to 9 mm and mild aneurysm of his ascending aorta measuring 4.1 cm with mild sclerotic calcifications throughout. Preoperative teaching has been reinforced with the patient, which will also be reviewed with the patient's . He remains on a heparin drip per protocol. He is using his incentive spirometry and is achieving 2500 mL. Remote telemetry showing normal sinus rhythm heart rate 75. Objective - Vital Signs Vital signs: Vital Signs Temp 97.8 F 01/27/19 08:00 Pulse 80 01/27/19 08:07 Resp 16 01/27/19 08:00 BP 156/106 01/27/19 08:00 Pulse Ox 97 01/27/19 08:00 Intake & Output 01/26/19 01/27/19 01/27/19 18:59 06:59 18:59 Intake Total 898 240 Output Total 1999 Balance 898 -1999 240 Weight 88.5 kg Intake: IV 50 Intake, IV Titration 250 Amount Heparin Sod,Pork in 0.45% 250 NaCl 25,000 unit In 0.45 % NaCl 1 250ml.bag @ 12 UNITS/KG/HR 11.484 mls/hr IV .[id number] [facility] Rx#: [id number] Oral 598 240 Output: Urine 1999 Other: Voiding Method Toilet Toilet Urinal Urinal # Voids 1 1 - Constitutional General appearance: Present: cooperative, no acute distress, obese - Respiratory Details: Lungs sounds essentially clear throughout. No wheezing, rhonchi or crackles present. Respirations are symmetrical and nonlabored. Oxygen saturation is 97% on room air. Achieving 2500 mL on his incentive spirometry. - Cardiovascular Details: Regular rhythm and rate. S1 and S2 present, negative for S3, gallop or murmur. No edema present. - Gastrointestinal Gastrointestinal Comment(s): Abdomen is soft, nontender and nondistended. No guarding or rigidity. Active bowel sounds present all 4 abdominal quadrants. - Genitourinary Genitourinary Comment(s): Voiding clear yellow urine. - Integumentary Integumentary Comment(s): Skin is warm and dry. No clubbing or cyanosis is present. No rash or abnormal pigmentation is present. - Neurologic Neurologic Comment(s): No focal deficits. Neurologic: Present: CNII-XII intact - Musculoskeletal Musculoskeletal: Present: gait normal, strength equal bilaterally - Psychiatric Psychiatric: Present: A&O x's 3, appropriate affect, intact judgment & insight - Allied health notes Allied health notes reviewed: nursing - Labs CBC & Chem 7: 01/27/19 08:34 01/26/19 06:06 Labs: Microbiology - Last 24 Hours (Table) 01/22/19 07:56 Blood Culture - Preliminary Blood No Growth after 96 hours - Imaging and Cardiology CT scan - chest: report reviewed, image reviewed Assessment and Plan Assessment: 1. Severe calcific triple-vessel coronary artery disease 2. Non-STEMI 3. Acute systolic heart failure, cardiomyopathy, EF 30-35% 4. Moderate to severe mitral regurgitation on transthoracic echocardiogram and transesophageal echocardiogram 5. Hypertension 6. Hyperlipidemia 7. TIA in 2007 without residual 8. Rheumatoid arthritis on Enbrel and methotrexate, currently on hold 9. Obstructive sleep apnea without CPAP use, status post UPPP with residual occasional difficulty in swallowing 10. Remote history of tobacco dependence, quit in 2003 11. Mild COPD with preoperative FEV1 68% Plan: 1. Continue to maximize medical therapy with aspirin, statin, beta kleber, Lasix and Aldactone. 2. Continue to hold Plavix, Enbrel and methotrexate in anticipation for myocardial revascularization surgery. 3. Continue to encourage increase in activity. 4. Transesophageal echocardiogram was completed yesterday, results/films were reviewed by Dr. Brendan Walls. 5. He was seen by Dr. Ramos from dental yesterday and was cleared for cardiac surgery per the dental standpoint. 6. STS risk score has been calculated in discussed with the patient by Dr. Jennings. 7. Continue to reinforce preoperative tasting with the patient and his family. 8. Encourage use of his incentive spirometry every hour while awake. 9. Medical management and other comorbidities management per primary care service. 10. Continue heparin drip per protocol and management by cardiology. We will discontinue the heparin drip 2 hours prior to his open heart surgery. 11. More recommendations to follow based on patient's clinical course. Time with Patient: Greater than 30
[2019-01-27] MEDS: MUPIROCIN 2% OINT 22 GM TUBE NASAL SCH ×2 (12:05→20:43)
[2019-01-27] MEDS: amLODIPine 5 MG TAB PO SCH (12:17)
--- NOTE | 2019-01-27 13:03 | P.PN ---
Subjective Progress Note Date: 01/27/19 Principal diagnosis: Non-ST elevated myocardial infarction, acute systolic CHF, multivessel CAD, moderate mitral regurgitation This is a very pleasant 63-year-old gentleman who follows with Dr. Snider as his primary care physician. He has a history of hypertension, hyperlipidemia, vertigo, rheumatoid arthritis, smoking history Paty obstructive sleep apnea status post U PPP P. He presented here to the emergency room on 01/22/2019 with a three-day history of shortness of breath and chest discomfort. He was found to have a non-ST segment elevation myocardial infarction and acute congestive heart failure. Echocardiogram revealed moderate to severely impaired left ventricular systolic function with ejection fraction 30-35%. Severe mitral regurgitation. Today he had undergone cardiac catheterization which revealed critical lesion in the proximal LAD, mid diagonal and also distal circumflex. Moderate disease in the mid circumflex of the total occlusion of the second OM branch. He was recommended bypass surgery. We are consulted for the same. FEV1 value 60% of predicted. Carotid Dopplers revealed no significant stenosis. A CT revealed poor dentition. Degenerative changes of the cervical spine. He is currently awake and alert in no acute distress. He denies any chest pain currently. No worsening shortness of breath, cough or congestion. Initial jessica st x-ray revealed a right infrahilar opacity concerning for developing pneumonia versus confluent edema and mild fluid overload. He remains on a heparin drip. On 01/25/2019, the patient is stable. The patient is seeking cardiac surgery with bypass and valve replacement/repair. Will need a PAMELA. Otherwise is doing well. Creatinine is stable at 1.2. White cell count of 8.3. No other significant events overnight. On 01/26/2019 patient seen in follow-up on selective care unit, he has just re turned from transesophageal echocardiogram, he is awake and alert, he denies any acute distress, currently on 2 L of oxygen with a pulse ox of 93%, he was found to have moderately severe mitral regurgitation, no evidence of PFO, no intracardiac thrombus, he is awaiting coronary artery bypass grafting with the possibility of mitral valve repair, his FEV1 is at 60%, his breathing is stable, lung sounds reveal some minimal basilar crackles, no rhonchi, wheezing, no significant cough or congestion, his inspiratory effort is [id number] on the incentive spirometry today, he denies any chest pain. Vital signs have been stable, no fever or chills. On 01/27/2019 patient seen in follow-up on selective care unit, he is awake and alert, he is on room air, his pulse ox of 95%, denied any chest pain, he remains on heparin drip, he is awaiting his bypass surgery and mitral valve repair on by Dr. Jennings, no fever or chills, no acute events overnight, lung sounds are positive for some bibasilar crackles, he is working on incentive spirometer, he is achieving [address] chest has been reviewed showing some nonspecific patchy groundglass densities. Clinically remains stable. Objective - Vital Signs Vital signs: Vital Signs Temp 97.8 F 01/27/19 08:00 Pulse 74 01/27/19 12:00 Resp 16 01/27/19 12:00 BP 142/91 01/27/19 12:00 Pulse Ox 95 01/27/19 12:00 Intake & Output 01/26/19 01/27/19 01/27/19 18:59 06:59 18:59 Intake Total 898 480 Output Total 1999 Balance 898 -2000 480 Weight 88.5 kg Intake: IV 50 Intake, IV Titration 250 Amount Heparin Sod,Pork in 0.45% 250 NaCl 25,000 unit In 0.45 % NaCl 1 250ml.bag @ 12 UNITS/KG/HR 11.484 mls/hr IV .[id number] [facility] Rx#: [id number] Oral 598 480 Output: Urine 1999 Other: Voiding Method Toilet Toilet Toilet Urinal Urinal Urinal # Voids 1 1 - Exam GENERAL EXAM: Alert, pleasant, 63-year-old white male, on room air, with a pulse ox of 95% comfortable in no apparent distress. HEAD: Normocephalic/atraumatic. EYES: Normal reaction of pupils, equal size. Conjunctiva pink, sclera white. NOSE: Clear with pink turbinates. THROAT: No erythema or exudates. NECK: No masses, no JVD, no thyroid enlargement, no adenopathy. CHEST: No chest wall deformity. Symmetrical expansion. LUNGS: Equal air entry with minimal crackles at bilateral posterior bases, wheeze, rhonchi or dullness. CVS: Regular rate and rhythm, normal S1 and S2, no gallops, no murmurs, no rubs ABDOMEN: Soft, nontender. No hepatosplenomegaly, normal bowel sounds, no guarding or rigidity. EXTREMITIES: No clubbing, no edema, no cyanosis, 2+ pulses and upper and lower extremities. MUSCULOSKELETAL: Muscle strength and tone normal. SPINE: No scoliosis or deformity SKIN: No rashes CENTRAL NERVOUS SYSTEM: Alert and oriented -3. No focal deficits, tone is normal in all 4 extremities. PSYCHIATRIC: Alert and oriented -3. Appropriate affect. Intact judgment and insight. - Labs CBC & Chem 7: 01/27/19 08:34 01/27/19 08:34 Labs: Abnormal Lab Results - Last 24 Hours (Table) 01/27/19 Range/Units 08:34 Glucose 156 H (74-99) mg/dL Microbiology - Last 24 Hours (Table) 01/22/19 07:56 Blood Culture - Preliminary Blood No Growth after 120 hours Assessment and Plan Plan: Assessment: #1 Non-ST segment elevation myocardial infarction. #2 Acute systolic congestive heart failure with ejection fraction 30-35%. #3 Coronary artery disease with critical lesion the proximal LAD, mid diagonal and also distal circumflex. There is moderate disease in the mid circumflex and a total occlusion of the second OM branch. #4 hyperlipidemia. #5 Hypertension. #6 History of tobacco dependence. #7 Chronic obstructive pulmonary disease currently inactive and stable. FEV1 value 60% of predicted. #8 History of obstructive sleep apnea status post U P4. #9 Rheumatoid arthritis currently on Enbrel and methotrexate. #10 History of TURP. Plan: Patient remains stable, no active pulmonary issues, CT chest showed some nonspecific patchy groundglass densities. No evidence of active infection. We'll see the patient in follow-up on the day of surgery. I performed a history & physical examination of the patient and discussed their management with my nurse practitioner, Jannet Bower. I reviewed the nurse practitioner's note and agree with the documented findings and plan of care. Lung sounds are positive for minimal crackles at the posterior lower bases. The findings and the impression was discussed with the patient. I attest to the documentation by the nurse practitioner. Time with Patient: Less than 30
--- NOTE | 2019-01-27 15:53 | P.PN ---
Subjective Progress Note Date: 01/27/19 This a 63-year-old gentleman admitted to the hospital with a non-ST elevation myocardial infarction, systolic heart failure, was found to have multivessel coronary artery disease with significant mitral regurgitation for which the patient is scheduled to undergo surgery on . He was seen and examined today, feels well, denies any difficulty in breathing, no chest discomfort, no palpitations. Blood pressure 142/90 with a heart rate in the 70s, 95% on room air. White blood cell count 8.3, hemoglobin 13.1, platelet count 233. Sodium 138, potassium 4.5, BUN 19 and creatinine 1.1. Blood pressure 156/106, heart rate in the 70s, 97% on room air. We will give the patient and dose of Norvasc today. Objective - Vital Signs Vital signs: Vital Signs Temp 97.8 F 01/27/19 08:00 Pulse 76 01/27/19 13:15 Resp 16 01/27/19 12:00 BP 142/91 01/27/19 12:00 Pulse Ox 95 01/27/19 12:00 Intake & Output 01/26/19 01/27/19 01/27/19 18:59 06:59 18:59 Intake Total 898 480 Output Total 1999 Balance 898 -1999 480 Weight 88.5 kg Intake: IV 50 Intake, IV Titration 250 Amount Heparin Sod,Pork in 0.45% 250 NaCl 25,000 unit In 0.45 % NaCl 1 250ml.bag @ 12 UNITS/KG/HR 11.484 mls/hr IV .[id number] [facility] Rx#: [id number] Oral 598 480 Output: Urine 1999 Other: Voiding Method Toilet Toilet Toilet Urinal Urinal Urinal # Voids 1 1 1 # Bowel Movements 0 - Exam GENERAL EXAM: Alert, pleasant, 63-year-old white male, on room air, with a pulse ox of 95% comfortable in no apparent distress. HEAD: Normocephalic/atraumatic. EYES: Normal reaction of pupils, equal size. Conjunctiva pink, sclera white. NOSE: Clear with pink turbinates. THROAT: No erythema or exudates. NECK: No masses, no JVD, no thyroid enlargement, no adenopathy. CHEST: No chest wall deformity. Symmetrical expansion. LUNGS: Equal air entry with minimal crackles at bilateral posterior bases, wheeze, rhonchi or dullness. CVS: Regular rate and rhythm, normal S1 and S2, systolic murmur is heard ABDOMEN: Soft, nontender. No hepatosplenomegaly, normal bowel sounds, no guarding or rigidity. EXTREMITIES: No clubbing, no edema, no cyanosis, 2+ pulses and upper and lower extremities. MUSCULOSKELETAL: Muscle strength and tone normal. SPINE: No scoliosis or deformity SKIN: No rashes CENTRAL NERVOUS SYSTEM: Alert and oriented -3. No focal deficits, tone is normal in all 4 extremities. PSYCHIATRIC: Alert and oriented -3. Appropriate affect. Intact judgment and insight. - Labs CBC & Chem 7: 01/27/19 08:34 01/27/19 08:34 Labs: Abnormal Lab Results - Last 24 Hours (Table) 01/27/19 Range/Units 08:34 Glucose 156 H (74-99) mg/dL Microbiology - Last 24 Hours (Table) 01/22/19 07:56 Blood Culture - Preliminary Blood No Growth after 120 hours Assessment and Plan Plan: Assessment: #1 Non-ST segment elevation myocardial infarction. #2 Acute systolic congestive heart failure with ejection fraction 30-35%. #3 Coronary artery disease with critical lesion the proximal LAD, mid diagonal and also distal circumflex. There is moderate disease in the mid circumflex and a total occlusion of the second OM branch. #4 hyperlipidemia. #5 Hypertension. #6 History of tobacco dependence. #7 Chronic obstructive pulmonary disease currently inactive and stable. FEV1 value 60% of predicted. #8 History of obstructive sleep apnea status post U P4. #9 Rheumatoid arthritis currently on Enbrel and methotrexate. Plan We'll add Norvasc 5 mg daily to the patient's medication regime today. He is scheduled to undergo surgery on . We will continue to follow. DNP note has been reviewed, I agree with a documented findings and plan of care. Patient was seen and examined.
[2019-01-27] MEDS: HEPARIN SODIUM,PORCINE 5,000 UNIT/ML 1 ML VIAL SQ SCH ×2 (17:32→23:11)
[2019-01-27] MEDS: ATORVASTATIN 20 MG TAB PO SCH (20:41)
[2019-01-27] MEDS: SODIUM CHLORIDE 0.9% 1,000 ML IV SCH (20:43)
--- NOTE | 2019-01-27 21:44 | P.PN ---
Progress Note - Text Progress Note Date: 01/27/19 Chief Complaint: Shortness of breath Interval history: This is a pleasant [address] begum. Chronic stable medical conditions include hyperlipidemia, hypertension, rheumatoid arthritis COPD. For about 2 weeks patient is becoming increasingly short of breath. No edema no cough no fever no chills. Normally uses 2 or 3 pillows at night. Appetite has been fair. No bowel movements. No sputum production. Patient is felt to have CHF to started on IV Lasix. There is a question about pneumonia hence antibiotics were also started. Admitted for the same. Admitted with CHF exacerbation. Positive troponin. EKG changes. Cardiac catheterization on January 23 showed triple-vessel disease.PAMELA done showed severe MR Today-no new issues. No chest pain. Up to the bathroom. Awaiting coronary bypass Review of systems: Was done for constitutional, cardiovascular, GI, pulmonary. relevant finding as above Active Medications Albuterol/Ipratropium (Duoneb 0.5 Mg-3 Mg/3 Ml Soln) 3 ml INHALATION RT-Q4H PRN PRN Reason: shortness of breath Last Admin: 01/22/19 16:05 Dose: 3 ml Documented by: Albuterol/Ipratropium (Duoneb 0.5 Mg-3 Mg/3 Ml Soln) 3 ml INHALATION RT-QID [facility] Last Admin: 01/27/19 20:52 Dose: 3 ml Documented by: Amlodipine Besylate (Norvasc) 5 mg PO DAILY [facility] Last Admin: 01/27/19 12:17 Dose: 5 mg Documented by: Aspirin (Aspirin) 81 mg PO DAILY [facility] Last Admin: 01/27/19 08:20 Dose: 81 mg Documented by: Aspirin (Aspirin) 325 mg PO ONCE ONE Stop: 01/29/19 05:01 Atorvastatin Calcium (Lipitor) 80 mg PO HS [facility] Last Admin: 01/27/19 20:41 Dose: 80 mg Documented by: Atorvastatin Calcium (Lipitor) 10 mg PO ONCE ONE Stop: 01/29/19 05:01 Benzocaine (Hurricaine [place]) 1 spray TOPICAL TID PRN PRN Reason: Skin Irritation Calcium Chloride (Calcium Chloride) 1,000 mg IVP ONCE ONE Stop: 01/29/19 05:01 Chlorhexidine Gluconate (Peridex) 15 ml MUCOUS MEM ONCE ONE Stop: 01/29/19 05:01 Heparin Sodium (Porcine) (Heparin Sodium (1,000 Unit/Ml)) 10,000 unit IV ONCE ONE Stop: 01/29/19 05:01 Heparin Sodium (Porcine) (Heparin) 30,000 unit IV ONCE ONE Stop: 01/29/19 05:01 Heparin Sodium (Porcine) (Heparin) 30,000 unit IV ONCE ONE Stop: 01/29/19 05:01 Heparin Sodium (Porcine) (Heparin) 30,000 unit IV ONCE ONE Stop: 01/29/19 05:01 Heparin Sodium (Porcine) (Heparin) 5,000 unit SQ Q8HR [facility] Last Admin: 01/27/19 17:32 Dose: 5,000 unit Documented by: Sodium Chloride (Saline 0.9%) 1,000 mls @ 20 mls/hr IV .Q24H [facility] Last Admin: 01/27/19 20:43 Dose: 20 mls/hr Documented by: Heparin Sodium (Porcine) 5,000 (unit/ Sodium Chloride) 501 mls @ 0 mls/hr IV ONCE ONE Stop: 01/29/19 05:01 Protamine Sulfate 250 mg/ IV (Solution) 25 mls @ 0 mls/hr IV ONCE ONE Stop: 01/29/19 05:01 Nitroglycerin/Dextrose 50 mg/ (IV Solution) 250 mls @ 1.5 mls/hr IV .Q24H [facility]; Protocol Albumin Human 50 ml/ IV (Solution) 50 mls @ 100 mls/hr IVPB ONCE ONE Stop: 01/29/19 05:29 Albumin Human 50 ml/ IV (Solution) 50 mls @ 100 mls/hr IVPB ONCE ONE Stop: 01/29/19 05:29 Clevidipine 25 mg/ IV Solution 50 mls @ 2 mls/hr IV .Q24H [facility]; Protocol Phenylephrine HCl 40 mg/ (Sodium Chloride) 254 mls @ 0 mls/hr IV .Q0M ONE; Protocol Stop: 01/29/19 05:01 Albumin Human 500 ml/ IV (Solution) 500 mls @ 250 mls/hr IVPB ONCE ONE Stop: 01/29/19 06:59 Albumin Human 500 ml/ IV (Solution) 500 mls @ 250 mls/hr IVPB ONCE ONE Stop: 01/29/19 06:59 Albumin Human 500 ml/ IV (Solution) 500 mls @ 250 mls/hr IVPB ONCE ONE Stop: 01/29/19 06:59 Albumin Human 500 ml/ IV (Solution) 500 mls @ 250 mls/hr IVPB ONCE ONE Stop: 01/29/19 06:59 Albumin Human 500 ml/ IV (Solution) 500 mls @ 250 mls/hr IVPB ONCE ONE Stop: 01/29/19 06:59 Albumin Human 500 ml/ IV (Solution) 500 mls @ 250 mls/hr IVPB ONCE ONE Stop: 01/29/19 06:59 Norepinephrine Bitartrate 4 mg (/ Sodium Chloride) 254 mls @ 0 mls/hr IV .Q0M [facility]IE; Protocol Propofol 1,000 mg/ IV Solution 100 mls @ 0 mls/hr IV .Q0M PRN; Protocol PRN Reason: Per Protocol Cefazolin Sodium 3 gm/ Sodium (Chloride) 30 mls @ 60 mls/hr IVPB ONCE ONE Stop: 01/29/19 05:29 Cefazolin Sodium 1,000 mg/ (Sodium Chloride) 1,000 mls @ 999 mls/hr IRRIGATION ONCE ONE Stop: 01/29/19 06:00 Cefazolin Sodium 2,000 mg/ (Sodium Chloride) 30 mls @ 999 mls/hr IVPB ONCE ONE Stop: 01/29/19 05:01 Potassium Chloride 110 meq/Magnesium Sulfate 16 meq/Sodium Bicarbonate 40 ml/Lidocaine HCl 100 mg/ Dextrose /Water 1,109 mls @ 0 mls/hr IV .Q0M [facility] Potassium Chloride 25 meq/Sodium Chloride 27 meq/Magnesium Sulfate 16 meq/Sodium Bicarbonate 40 ml/Lidocaine HCl 100 mg/ Dextrose /Water 1,077.3 mls @ 0 mls/hr IV .Q0M [facility]; Protocol Papaverine HCl 360 mg/ Sodium (Chloride) 102 mls @ 0 mls/hr IV ONCE ONE Stop: 01/29/19 05:01 Tranexamic Acid 2,000 mg/ (Sodium Chloride) 200 mls @ 0 mls/hr IV .Q0M ONE; Protocol Stop: 01/29/19 05:01 Insulin Human Regular 100 unit (/ Sodium Chloride) 100 mls @ 0 mls/hr IV .Q0M [facility]; Protocol Isosorbide Mononitrate (Imdur) 30 mg PO DAILY [facility] Last Admin: 01/27/19 08:20 Dose: 30 mg Documented by: Labetalol HCl (Trandate) 300 mg PO BID [facility] Last Admin: 01/27/19 20:42 Dose: 300 mg Documented by: Magnesium Sulfate (Magnesium Sulfate Syg) 16.24 meq IV ONCE ONE Stop: 01/29/19 05:01 Mannitol (Osmitrol 25%) 12.5 gm IV ONCE ONE Stop: 01/29/19 05:01 Mannitol (Osmitrol 25%) 12.5 gm IV ONCE ONE Stop: 01/28/19 05:01 Metoprolol Tartrate (Lopressor) 12.5 mg PO ONCE ONE Stop: 01/29/19 05:01 Miscellaneous Information (Pneumonia Protocol Utilized) 1 each PO ONCE PRN PRN Reason: Per Protocol Miscellaneous Information (Md Communication To Pharmacy) 1 each PO ONCE PRN PRN Reason: See Comments Mupirocin (Bactroban Oint) 1 applic NASAL BID [facility] Last Admin: 01/27/19 20:43 Dose: 1 applic Documented by: Nitroglycerin (Nitrostat) 0.4 mg SUBLINGUAL Q5M PRN PRN Reason: Chest Pain Nitroglycerin/Dextrose (Nitro Drip 25 Mg/250 Ml In D5w Pmx) 1 mg IV ONCE ONE Stop: 01/29/19 05:01 Protamine Sulfate (Protamine Sulfate) 250 mg IV ONCE ONE Stop: 01/29/19 05:01 Sodium Bicarbonate (Sodium Bicarb 8.4% Syr (1 Meq/Ml)) 50 ml IV ONCE ONE Stop: 01/29/19 05:01 Physical examination: VITAL SIGNS: 97.8, 79, 16, 142/91, 95% room air GENERAL: Laying in bed, comfortable. EYES: Pupils equal. Conjunctiva normal. HEENT: External appearance of nose and ears normal, oral cavity grossly normal. NECK: JVD possibly raised; masses not palpable. HEART: First and second heart sounds are normal; no edema. LUNGS: Respiratory rate increased, basal crackles. ABDOMEN: Soft, nontender, liver spleen not palpable, no masses palpable. PSYCH: Alert and oriented x3; mood and affect normal. INVESTIGATIONS, reviewed in the clinical context: Hemoglobin 13.1 creatinine 1.14 Previous tests Cardiac cath gmvnei-tqalkt-[id number] disease Admission labs 2-D echo-moderate global hypokinesia, EF 30-35% multiple wall motion abnormality, severe mitral regurgitation White count 13.6 hemoglobin 14.6 potassium 4.1 creatinine 0.84 Troponin 0.082, 0.078 ProBNP 4990 EKG tracing personally reviewed by me shows ST segment depression, PVC Chest x-ray film personally reviewed by me shows pulmonary edema and some cardiomegaly Assessment: -Acute congestive heart failure exacerbation, from systolic dysfunction EF 30- 35%, improved -Severe mitral regurgitation, nonrheumatic -COPD in an ex-smoker -Clinically doubt pneumonia as patient has got no fever no chills, no sputum production. pro calcitonin level is coming back as negative -Hyperlipidemia -Essential hypertension -Rheumatoid arthritis -Triple-vessel coronary artery disease per cardiac catheterization, awaiting coronary bypass Plan: Continue current medication. Discussed with the patient. Awaiting coronary bypass.
[2019-01-28] MEDS ORDERED: MANNITOL 25% 12.5 GM/50 ML VIAL IV ONE (05:00)
[2019-01-28 07:07] LABS: Basophils # (A) 0.1 k/uL (0-0.2); Basophils % (A) 1 %; Eosinophils # (A) 0.5 k/uL (0-0.7); Eosinophils % (A) 5 %; HCT 40.9 % (39.0-53.0); HGB 13.5 gm/dL (13.0-17.5); Lymphocytes # (A) 1.3 k/uL (1.0-4.8); Lymphocytes % (A) 15 %; MCH 28.9 pg (25.0-35.0); MCV 87.6 fL (80.0-100.0); Mean Platelet Volume 8.4; Monocytes # (A) 0.7 k/uL (0-1.0); Monocytes % (A) 8 %; Neutrophils # (A) 6.2 k/uL (1.3-7.7); Neutrophils % (A) 69 %; Platelet Count 237 k/uL (150-450); RBC 4.67 m/uL (4.30-5.90); RDW 13.6 % (11.5-15.5)
[2019-01-28 07:28] LABS: Albumin 3.8 g/dL (3.5-5.0); Calcium 9.3 mg/dL (8.4-10.2); Potassium 4.4 mmol/L (3.5-5.1); Total Bilirubin 0.7 mg/dL (0.2-1.3); Total Protein 6.6 g/dL (6.3-8.2)
--- NOTE | 2019-01-28 07:38 | XR ---
EXAMINATION TYPE: XR chest 2V DATE OF EXAM: 01/28/2019 COMPARISON: 01/23/2019 HISTORY: Shortness of breath TECHNIQUE: Frontal and lateral views of the chest are obtained. FINDINGS: Scattered senescent parenchymal changes noted. Hyperinflation compatible with COPD. No evidence for infiltrate. No evidence for atelectasis. Heart size is stable. Mediastinal structures are stable and grossly unremarkable. No evidence for hilar prominence. Degenerative changes dorsal spine. IMPRESSION: 1. No evidence for acute pulmonary disease.
[2019-01-28] MEDS: IPRATROPIUM-ALBUTEROL 3 ML NEB INHALATION SCH ×4 (08:58→20:11)
[2019-01-28] MEDS: LABETALOL 100 MG TAB PO SCH ×2 (09:00→20:41)
[2019-01-28] MEDS: HEPARIN SODIUM,PORCINE 5,000 UNIT/ML 1 ML VIAL SQ SCH ×3 (09:00→22:56)
[2019-01-28] MEDS: amLODIPine 5 MG TAB PO SCH (09:01)
[2019-01-28] MEDS: ISOSORBIDE MONONITRATE ER 30 MG TAB.ER.24H PO SCH (09:01)
[2019-01-28] MEDS: MUPIROCIN 2% OINT 22 GM TUBE NASAL SCH ×2 (09:01→20:41)
[2019-01-28] MEDS: ASPIRIN 81 MG PO SCH (09:01)
[2019-01-28] MEDS: SODIUM CHLORIDE 0.9% 1,000 ML IV SCH ×2 (09:05→20:42)
--- NOTE | 2019-01-28 15:10 | P.VSCSTY ---
Greater Saphenous Vein Mapping This is bilateral lower extremity greater saphenous vein mapping. Date of service: 01/23/2019 Vein quality and ultrasound appearance: We see no intraluminal thrombus or wall changes. Vein size groin right : 10.6 x 7.9 groin left: 7.1 x 5.4 High thigh right: 4.6 x 5.1 high thigh left: 5.4 x 4.1 Mid thigh right: 4.3 x 2.9 mid thigh left: 4.5 x 3.5 Above-knee right: 4.8 x 3.3 above- knee left: 5.1 x 3.1 Below knee right: 4.1 x 2.8 below-knee left: 4.8 x 2.8 Mid calf right: 2.7 x 2.6 mid calf left: 3.0 x 2.1 Ankle right: 4.6 x 2.7 ankle left: 4.7 x 2.6 Impression: Usable bilateral greater saphenous vein.
--- NOTE | 2019-01-28 15:43 | P.PN ---
Subjective Progress Note Date: 01/28/19 This a 63-year-old gentleman admitted to the hospital with a non-ST elevation myocardial infarction, systolic heart failure, was found to have multivessel coronary artery disease with significant mitral regurgitation for which the patient is scheduled to undergo surgery on . He was seen and examined today, feels well, denies any difficulty in breathing, no chest discomfort, no palpitations. Blood pressure 142/90 with a heart rate in the 70s, 95% on room air. White blood cell count 8.3, hemoglobin 13.1, platelet count 233. Sodium 138, potassium 4.5, BUN 19 and creatinine 1.1. Blood pressure 156/106, heart rate in the 70s, 97% on room air. We will give the patient and dose of Norvasc today. 01/28/2019 Patient seen and examined this morning, overall doing well, anticipating surgery tomorrow. Heparin has been discontinued. Objective - Vital Signs Vital signs: Vital Signs Temp 98.1 F 01/28/19 12:00 Pulse 76 01/28/19 13:02 Resp 16 01/28/19 12:00 BP 122/82 01/28/19 12:00 Pulse Ox 95 01/28/19 12:00 Intake & Output 01/27/19 01/28/19 01/28/19 18:59 06:59 18:59 Intake Total 720 240 960 Balance 720 240 960 Weight 87.8 kg 87.8 kg Intake: Oral 720 240 960 Other: Voiding Method Toilet Toilet Urinal # Voids 1 # Bowel Movements 0 - Exam GENERAL EXAM: Alert, pleasant, 63-year-old white male, on room air, with a pulse ox of 95% comfortable in no apparent distress. HEAD: Normocephalic/atraumatic. EYES: Normal reaction of pupils, equal size. Conjunctiva pink, sclera white. NOSE: Clear with pink turbinates. THROAT: No erythema or exudates. NECK: No masses, no JVD, no thyroid enlargement, no adenopathy. CHEST: No chest wall deformity. Symmetrical expansion. LUNGS: Equal air entry with minimal crackles at bilateral posterior bases, wheeze, rhonchi or dullness. CVS: Regular rate and rhythm, normal S1 and S2, systolic murmur is heard ABDOMEN: Soft, nontender. No hepatosplenomegaly, normal bowel sounds, no guarding or rigidity. EXTREMITIES: No clubbing, no edema, no cyanosis, 2+ pulses and upper and lower extremities. MUSCULOSKELETAL: Muscle strength and tone normal. SPINE: No scoliosis or deformity SKIN: No rashes CENTRAL NERVOUS SYSTEM: Alert and oriented -3. No focal deficits, tone is normal in all 4 extremities. PSYCHIATRIC: Alert and oriented -3. Appropriate affect. Intact judgment and insight. - Labs CBC & Chem 7: 01/28/19 06:14 01/28/19 06:14 Labs: Abnormal Lab Results - Last 24 Hours (Table) 01/28/19 01/28/19 Range/Units 06:14 06:14 BUN 23 H (9-20) mg/dL Glucose 117 H (74-99) mg/dL Crossmatch See Detail Microbiology - Last 24 Hours (Table) 01/22/19 07:56 Blood Culture - Final Blood No Growth after 144 hours 01/27/19 21:00 Gram Stain - Preliminary Sputum Sputum Culture - Preliminary Assessment and Plan Plan: Assessment: #1 Non-ST segment elevation myocardial infarction. #2 Acute systolic congestive heart failure with ejection fraction 30-35%. #3 Coronary artery disease with critical lesion the proximal LAD, mid diagonal and also distal circumflex. There is moderate disease in the mid circumflex and a total occlusion of the second OM branch. #4 hyperlipidemia. #5 Hypertension. #6 History of tobacco dependence. #7 Chronic obstructive pulmonary disease currently inactive and stable. FEV1 value 60% of predicted. #8 History of obstructive sleep apnea status post U P4. #9 Rheumatoid arthritis currently on Enbrel and methotrexate. Plan Patient is scheduled to undergo surgery tomorrow. We will continue to follow. DNP note has been reviewed, I agree with a documented findings and plan of care. Patient was seen and examined.
--- NOTE | 2019-01-28 15:45 | P.PN ---
Subjective Progress Note Date: 01/28/19 Principal diagnosis: Severe calcific triple-vessel coronary artery disease, non-STEMI this admission with troponins as high as 0.082, acute systolic heart failure and cardiomyopathy with EF 30-35%, severe mitral regurgitation on transthoracic echocardiogram. Previous medical history of hypertension, hyperlipidemia, TIA in 2007 without residual deficits, rheumatoid arthritis on Enbrel and methotrexate, obstructive sleep apnea without CPAP use status post UP3 with residual occasional difficulty in swallowing, previous tobacco dependence, mild COPD with FEV1 68% of predicted. The patient is sitting up in his bed on the cardiac stepdown unit. He is in no acute distress. Currently denies any complaints of pain or shortness of breath. Preoperative teaching reinforced with the patient, questions answered to the best of my ability. He is achieving 3000 mL on his incentive spirometry, and his oxygen saturations are 95% on room air. He is afebrile. He is scheduled for myocardial revascularization surgery with mitral valve repair/replacement tomorrow , 01/29/2019 to be performed by Dr. Manuel Jennings. Lab results this morning show a WBC count 9.0, hemoglobin 13.5, leaflets 237, BUN 23, creatinine 1.18. Objective - Vital Signs Vital signs: Vital Signs Temp 98 F 01/28/19 08:00 Pulse 76 01/28/19 09:08 Resp 18 01/28/19 08:00 BP 154/95 01/28/19 08:00 Pulse Ox 95 01/28/19 08:00 Intake & Output 01/27/19 01/28/19 01/28/19 18:59 06:59 18:59 Intake Total 720 240 480 Balance 720 240 480 Weight 87.8 kg Intake: Oral 720 240 480 Other: Voiding Method Toilet Toilet Urinal # Voids 1 # Bowel Movements 0 - Constitutional General appearance: Present: cooperative, no acute distress, obese - Respiratory Details: Lungs sounds essentially clear throughout, few scattered crackles to his bilateral bases. Respirations are symmetrical and nonlabored. Oxygen saturation are 95% on room air. Achieving 3000 mL on his incentive spirometry. - Cardiovascular Details: Regular rhythm and rate. S1 and S2 present, negative for S3, gallop or murmur. No edema present. - Gastrointestinal Gastrointestinal Comment(s): Abdomen soft, nontender and nondistended. Active bowel sounds present abdominal quadrants. No guarding or rigidity. No organomegaly appreciated. - Genitourinary Genitourinary Comment(s): Voiding clear sima urine. - Integumentary Integumentary Comment(s): Skin is warm and dry. No clubbing or cyanosis is present. No rash or abnormal pigmentation is present. - Neurologic Neurologic Comment(s): No focal deficits. Neurologic: Present: CNII-XII intact - Musculoskeletal Musculoskeletal: Present: gait normal, strength equal bilaterally - Psychiatric Psychiatric: Present: A&O x's 3, appropriate affect, intact judgment & insight - Allied health notes Allied health notes reviewed: nursing - Labs CBC & Chem 7: 01/28/19 06:14 01/28/19 06:14 Labs: Abnormal Lab Results - Last 24 Hours (Table) 01/28/19 Range/Units 06:14 BUN 23 H (9-20) mg/dL Glucose 117 H (74-99) mg/dL Microbiology - Last 24 Hours (Table) 01/27/19 21:00 Gram Stain - Preliminary Sputum Sputum Culture - Preliminary 01/22/19 07:56 Blood Culture - Preliminary Blood No Growth after 120 hours - Imaging and Cardiology Chest x-ray: report reviewed, image reviewed Assessment and Plan Assessment: 1. Severe calcific triple-vessel coronary artery disease 2. Non-STEMI 3. Acute systolic heart failure, cardiomyopathy, EF 30-35% 4. Moderate to severe mitral regurgitation on transthoracic echocardiogram and transesophageal echocardiogram 5. Hypertension 6. Hyperlipidemia 7. TIA in 2007 without residual 8. Rheumatoid arthritis on Enbrel and methotrexate, currently on hold 9. Obstructive sleep apnea without CPAP use, status post UPPP with residual occasional difficulty in swallowing 10. Remote history of tobacco dependence, quit in 2003 11. Mild COPD with preoperative FEV1 68% Plan: 1. Continue to maximize medical therapy with aspirin, statin, beta kleber and Aldactone. 2. Continue to hold Plavix, Enbrel and methotrexate in anticipation for myocardial revascularization surgery. 3. Continue to encourage increase in activity. 4. He is scheduled for myocardial vascularization surgery with RIVERO, endoscopic left radial artery harvest, endoscopic vein harvest with mitral valve repair/replacement for tomorrow 01/29/2019 to be performed by Dr. Manuel Jennings. 5. STS risk score has been calculated in discussed with the patient by Dr. Jennings. 6. Continue to reinforce preoperative tasting with the patient and his family. 7. Encourage use of his incentive spirometry every hour while awake. 8. Medical management and other comorbidities management per primary care service. 9. Nothing by mouth after midnight. 10. More recommendations to follow based on patient's clinical course. Time with Patient: Greater than 30
[2019-01-28] MEDS: ATORVASTATIN 20 MG TAB PO SCH (20:42)
--- NOTE | 2019-01-28 21:35 | P.PN ---
Progress Note - Text Progress Note Date: 01/28/19 Chief Complaint: Shortness of breath Interval history: This is a pleasant [address] begum. Chronic stable medical conditions include hyperlipidemia, hypertension, rheumatoid arthritis COPD. For about 2 weeks patient is becoming increasingly short of breath. No edema no cough no fever no chills. Normally uses 2 or 3 pillows at night. Appetite has been fair. No bowel movements. No sputum production. Patient is felt to have CHF to started on IV Lasix. There is a question about pneumonia hence antibiotics were also started. Admitted for the same. Admitted with CHF exacerbation. Positive troponin. EKG changes. Cardiac catheterization on January 23 showed triple-vessel disease.PAMELA done showed severe MR Today-laying in bed. Stable. No new issues. Awaiting bypass. Review of systems: Was done for constitutional, cardiovascular, GI, pulmonary. relevant finding as above Active Medications Albuterol/Ipratropium (Duoneb 0.5 Mg-3 Mg/3 Ml Soln) 3 ml INHALATION RT-Q4H PRN PRN Reason: shortness of breath Last Admin: 01/22/19 16:05 Dose: 3 ml Documented by: Albuterol/Ipratropium (Duoneb 0.5 Mg-3 Mg/3 Ml Soln) 3 ml INHALATION RT-QID [facility] Last Admin: 01/28/19 20:11 Dose: 3 ml Documented by: Amlodipine Besylate (Norvasc) 5 mg PO DAILY [facility] Last Admin: 01/28/19 09:01 Dose: 5 mg Documented by: Aspirin (Aspirin) 81 mg PO DAILY [facility] Last Admin: 01/28/19 09:01 Dose: 81 mg Documented by: Aspirin (Aspirin) 325 mg PO ONCE ONE Stop: 01/29/19 05:01 Atorvastatin Calcium (Lipitor) 80 mg PO HS [facility] Last Admin: 01/28/19 20:42 Dose: 80 mg Documented by: Atorvastatin Calcium (Lipitor) 10 mg PO ONCE ONE Stop: 01/29/19 05:01 Benzocaine (Hurricaine [place]) 1 spray TOPICAL TID PRN PRN Reason: Skin Irritation Calcium Chloride (Calcium Chloride) 1,000 mg IVP ONCE ONE Stop: 01/29/19 05:01 Chlorhexidine Gluconate (Peridex) 15 ml MUCOUS MEM ONCE ONE Stop: 01/29/19 05:01 Heparin Sodium (Porcine) (Heparin Sodium (1,000 Unit/Ml)) 10,000 unit IV ONCE ONE Stop: 01/29/19 05:01 Heparin Sodium (Porcine) (Heparin) 30,000 unit IV ONCE ONE Stop: 01/29/19 05:01 Heparin Sodium (Porcine) (Heparin) 30,000 unit IV ONCE ONE Stop: 01/29/19 05:01 Heparin Sodium (Porcine) (Heparin) 30,000 unit IV ONCE ONE Stop: 01/29/19 05:01 Heparin Sodium (Porcine) (Heparin) 5,000 unit SQ Q8HR VINNIE Last Admin: 01/28/19 16:26 Dose: 5,000 unit Documented by: Sodium Chloride (Saline 0.9%) 1,000 mls @ 20 mls/hr IV .Q24H VINNIE Last Admin: 01/28/19 20:42 Dose: 20 mls/hr Documented by: Heparin Sodium (Porcine) 5,000 (unit/ Sodium Chloride) 501 mls @ 0 mls/hr IV ONCE ONE Stop: 01/29/19 05:01 Protamine Sulfate 250 mg/ IV (Solution) 25 mls @ 0 mls/hr IV ONCE ONE Stop: 01/29/19 05:01 Nitroglycerin/Dextrose 50 mg/ (IV Solution) 250 mls @ 1.5 mls/hr IV .Q24H VINNIE; Protocol Albumin Human 50 ml/ IV (Solution) 50 mls @ 100 mls/hr IVPB ONCE ONE Stop: 01/29/19 05:29 Albumin Human 50 ml/ IV (Solution) 50 mls @ 100 mls/hr IVPB ONCE ONE Stop: 01/29/19 05:29 Clevidipine 25 mg/ IV Solution 50 mls @ 2 mls/hr IV .Q24H VINNIE; Protocol Phenylephrine HCl 40 mg/ (Sodium Chloride) 254 mls @ 0 mls/hr IV .Q0M ONE; Protocol Stop: 01/29/19 05:01 Albumin Human 500 ml/ IV (Solution) 500 mls @ 250 mls/hr IVPB ONCE ONE Stop: 01/29/19 06:59 Albumin Human 500 ml/ IV (Solution) 500 mls @ 250 mls/hr IVPB ONCE ONE Stop: 01/29/19 06:59 Albumin Human 500 ml/ IV (Solution) 500 mls @ 250 mls/hr IVPB ONCE ONE Stop: 01/29/19 06:59 Albumin Human 500 ml/ IV (Solution) 500 mls @ 250 mls/hr IVPB ONCE ONE Stop: 01/29/19 06:59 Albumin Human 500 ml/ IV (Solution) 500 mls @ 250 mls/hr IVPB ONCE ONE Stop: 01/29/19 06:59 Albumin Human 500 ml/ IV (Solution) 500 mls @ 250 mls/hr IVPB ONCE ONE Stop: 01/29/19 06:59 Norepinephrine Bitartrate 4 mg (/ Sodium Chloride) 254 mls @ 0 mls/hr IV .Q0M VINNIE; Protocol Propofol 1,000 mg/ IV Solution 100 mls @ 0 mls/hr IV .Q0M PRN; Protocol PRN Reason: Per Protocol Cefazolin Sodium 2 gm/ Sodium (Chloride) 30 mls @ 60 mls/hr IVPB ONCE ONE Stop: 01/29/19 05:29 Cefazolin Sodium 1,000 mg/ (Sodium Chloride) 1,000 mls @ 999 mls/hr IRRIGATION ONCE ONE Stop: 01/29/19 06:00 Cefazolin Sodium 2,000 mg/ (Sodium Chloride) 30 mls @ 999 mls/hr IVPB ONCE ONE Stop: 01/29/19 05:01 Potassium Chloride 110 meq/Magnesium Sulfate 16 meq/Sodium Bicarbonate 40 ml/Lidocaine HCl 100 mg/ Dextrose /Water 1,109 mls @ 0 mls/hr IV .Q0M VINNIE Potassium Chloride 25 meq/Sodium Chloride 27 meq/Magnesium Sulfate 16 meq/Sodium Bicarbonate 40 ml/Lidocaine HCl 100 mg/ Dextrose /Water 1,077.3 mls @ 0 mls/hr IV .Q0M VINNIE; Protocol Papaverine HCl 360 mg/ Sodium (Chloride) 102 mls @ 0 mls/hr IV ONCE ONE Stop: 01/29/19 05:01 Tranexamic Acid 2,000 mg/ (Sodium Chloride) 200 mls @ 0 mls/hr IV .Q0M ONE; Protocol Stop: 01/29/19 05:01 Insulin Human Regular 100 unit (/ Sodium Chloride) 100 mls @ 0 mls/hr IV .Q0M VINNIE; Protocol Isosorbide Mononitrate (Imdur) 30 mg PO DAILY VINNIE Last Admin: 01/28/19 09:01 Dose: 30 mg Documented by: Labetalol HCl (Trandate) 300 mg PO BID [facility] Last Admin: 01/28/19 20:41 Dose: 300 mg Documented by: Magnesium Sulfate (Magnesium Sulfate Syg) 16.24 meq IV ONCE ONE Stop: 01/29/19 05:01 Mannitol (Osmitrol 25%) 12.5 gm IV ONCE ONE Stop: 01/29/19 05:01 Mannitol (Osmitrol 25%) 12.5 gm IV ONCE ONE Stop: 01/29/19 05:01 Metoprolol Tartrate (Lopressor) 12.5 mg PO ONCE ONE Stop: 01/29/19 05:01 Miscellaneous Information (Pneumonia Protocol Utilized) 1 each PO ONCE PRN PRN Reason: Per Protocol Miscellaneous Information (Md Communication To Pharmacy) 1 each PO ONCE PRN PRN Reason: See Comments Mupirocin (Bactroban Oint) 1 applic NASAL BID [facility] Last Admin: 01/28/19 20:41 Dose: 1 applic Documented by: Nitroglycerin (Nitrostat) 0.4 mg SUBLINGUAL Q5M PRN PRN Reason: Chest Pain Nitroglycerin/Dextrose (Nitro Drip 25 Mg/250 Ml In D5w Pmx) 1 mg IV ONCE ONE Stop: 01/29/19 05:01 Protamine Sulfate (Protamine Sulfate) 250 mg IV ONCE ONE Stop: 01/29/19 05:01 Sodium Bicarbonate (Sodium Bicarb 8.4% Syr (1 Meq/Ml)) 50 ml IV ONCE ONE Stop: 01/29/19 05:01 Physical examination: VITAL SIGNS: 98.1, 76, 18, 134/92, 98% room air GENERAL: Laying in bed, comfortable. EYES: Pupils equal. Conjunctiva normal. HEENT: External appearance of nose and ears normal, oral cavity grossly normal. NECK: JVD possibly raised; masses not palpable. HEART: First and second heart sounds are normal; no edema. LUNGS: Respiratory rate increased, basal crackles. ABDOMEN: Soft, nontender, liver spleen not palpable, no masses palpable. PSYCH: Alert and oriented x3; mood and affect normal. INVESTIGATIONS, reviewed in the clinical context: Hemoglobin 13.5 platelets 237 creatinine 1.18 Previous tests Cardiac cath ladnpf-mmsvot-lfrojs disease Admission labs 2-D echo-moderate global hypokinesia, EF 30-35% multiple wall motion abnormality, severe mitral regurgitation White count 13.6 hemoglobin 14.6 potassium 4.1 creatinine 0.84 Troponin 0.082, 0.078 ProBNP 4990 EKG tracing personally reviewed by me shows ST segment depression, PVC Chest x-ray film personally reviewed by me shows pulmonary edema and some cardiomegaly Assessment: -Acute congestive heart failure exacerbation, from systolic dysfunction EF 30- 35%, improved -Severe mitral regurgitation, nonrheumatic -COPD in an ex-smoker -Clinically doubt pneumonia as patient has got no fever no chills, no sputum production. pro calcitonin level is coming back as negative -Hyperlipidemia -Essential hypertension -Rheumatoid arthritis -Triple-vessel coronary artery disease per cardiac catheterization, awaiting coronary bypass Plan: Awaiting Samm bypass. Tomorrow. Continue current medication due to plan.
[2019-01-29] MEDS ORDERED: METOPROLOL TARTRATE 12.5 MG TAB PO ONE ×2 (05:00→21:00)
[2019-01-29] MEDS ORDERED: MAGNESIUM SULFATE SYG 4.06 MEQ/ML SYRINGE IV ONE (05:00)
[2019-01-29] MEDS ORDERED: ALBUMIN HUMAN 25% 50 ML in EMPTY BAG 1 BAG IVPB ONE (05:00)
[2019-01-29] MEDS ORDERED: PHENYLEPHRINE 40 MG in SODIUM CHLORIDE 0.9% 250 ML IV ONE (05:00)
[2019-01-29] MEDS ORDERED: NOREPINEPHRINE 4 MG in SODIUM CHLORIDE 0.9% 250 ML IV SCH (05:00)
[2019-01-29] MEDS ORDERED: PAPAVERINE 360 MG in SODIUM CHLORIDE 0.9% 90 ML IV ONE (05:00)
[2019-01-29] MEDS ORDERED: TRANEXAMIC ACID 2,000 MG in SODIUM CHLORIDE 0.9% 80 ML IV ONE (05:00)
[2019-01-29] MEDS ORDERED: SODIUM BICARB 8.4% 50 ML SYR (1 MEQ/ML) IV ONE (05:00)
[2019-01-29] MEDS ORDERED: DEXTROSE 5% IN WATER 1,000 ML with POTASSIUM CHLORIDE 25 MEQ, SODIUM CHLORIDE 2.5MEQ/ML... IV SCH ×6 (05:00)
[2019-01-29] MEDS ORDERED: ceFAZolin 1,000 MG in SODIUM CHLORIDE 0.9% IRRIGATIO 1,000 ML IRRIGATION ONE (05:00)
[2019-01-29] MEDS ORDERED: ALBUMIN HUMAN 5% 500 ML in EMPTY BAG 1 BAG IVPB ONE ×6 (05:00)
[2019-01-29] MEDS ORDERED: ATORVASTATIN 10 MG TAB PO ONE (05:00)
[2019-01-29] MEDS ORDERED: NITROGLYCERIN-D5W PMX 25 MG/250 ML BTL IV ONE (05:00)
[2019-01-29] MEDS ORDERED: MANNITOL 25% 12.5 GM/50 ML VIAL IV ONE ×2 (05:00)
[2019-01-29] MEDS ORDERED: HEPARIN SODIUM 1,000 UN/ML (10ML VL) IV ONE (05:00)
[2019-01-29] MEDS ORDERED: PROTAMINE SULFATE 10 MG/ML 25 ML VIAL IV ONE ×2 (05:00→07:29)
[2019-01-29] MEDS ORDERED: ceFAZolin 2 GM in SODIUM CHLORIDE 0.9% 30 ML IVPB ONE (05:00)
[2019-01-29] MEDS ORDERED: CHLORHEXIDINE GLUCONATE 15 ML CUP MUCOUS MEM ONE (05:00)
[2019-01-29] MEDS ORDERED: CALCIUM CHLORIDE 100 MG/ML 10 ML SYRINGE IVP ONE (05:00)
[2019-01-29] MEDS ORDERED: ASPIRIN 325 MG TAB PO ONE ×2 (05:00→21:00)
[2019-01-29] MEDS ORDERED: ceFAZolin 2,000 MG in SODIUM CHLORIDE 0.9% 30 ML IVPB ONE (05:00)
[2019-01-29] MEDS ORDERED: DEXTROSE 5% IN WATER 1,000 ML with POTASSIUM CHLORIDE 110 MEQ, MAGNESIUM SULFATE 16 MEQ... IV SCH ×5 (05:00)
[2019-01-29] MEDS ORDERED: PROPOFOL 1,000 MG in EMPTY BAG 1 BAG IV PRN (05:00)
[2019-01-29] MEDS ORDERED: PROTAMINE SULFATE 250 MG in EMPTY BAG 1 BAG IV ONE (05:00)
[2019-01-29] MEDS ORDERED: HEPARIN SODIUM,PORCINE 5,000 UNIT in SODIUM CHLORIDE 0.9% 500 ML 500 ML IV ONE (05:00)
[2019-01-29] MEDS ORDERED: LACTATED RINGERS 900 ML IV ONE (06:30)
[2019-01-29] MEDS ORDERED: NITROGLYCERIN-D5W PMX 50 MG/250 ML BOTTLE IV ONE (07:29)
[2019-01-29] MEDS ORDERED: SUCCINYLCHOLINE CHLORIDE 100 MG/5 ML SYR IV ONE (07:29)
[2019-01-29] MEDS ORDERED: SUFentanil 50 MCG/ML 2ML AMP ONE (07:29)
[2019-01-29] MEDS ORDERED: MAGNESIUM SULFATE 4 MEQ/ML 10ML VIAL ONE (07:29)
[2019-01-29] MEDS ORDERED: PROPOFOL 10 MG/ML 20 ML VIAL IV ONE (07:29)
[2019-01-29] MEDS ORDERED: ELECTROLYTE-R (PH 7.4) 1,000 ML IV.SOLN IV ONE (07:29)
[2019-01-29] MEDS ORDERED: LIDOCAINE 2% SYG (PF) 100 MG/5 ML ONE (07:29)
[2019-01-29] MEDS ORDERED: SODIUM CHLORIDE 0.9% IRRIG 1,000 ML BTL IRRIGATION ONE (07:29)
[2019-01-29] MEDS ORDERED: fentaNYL (PF) 50 MCG/ML 50 ML VIAL ONE (07:29)
[2019-01-29] MEDS ORDERED: HEPARIN SODIUM,PORCINE 10,000 UNIT/ML 1 ML VIAL ONE (07:29)
[2019-01-29] MEDS ORDERED: MIDAZOLAM 2 MG/2 ML VIAL ONE (07:29)
[2019-01-29] MEDS ORDERED: VECURONIUM 10 MG VIAL IV ONE (07:29)
[2019-01-29] MEDS ORDERED: INSULIN REGULAR 100 UNIT/ML VIAL ONE (07:29)
[2019-01-29] MEDS ORDERED: SODIUM CHLORIDE 0.9% 250 ML BAG ONE (07:29)
[2019-01-29] MEDS ORDERED: TRANEXAMIC ACID 1,000 MG/10 ML VIAL ONE (07:29)
[2019-01-29 08:38] LABS: ABG Base Excess -0.7 mmol/L; ABG Glucose Whole Blood 128 mg/dL (75-99); ABG HCO3 25 mmol/L (21-25); ABG Hematocrit 40 % (34.0-46.0); ABG Ionized Calcium 4.9 mg/dL (4.5-5.3); ABG Lactic Acid Whole Blood 0.5 mmol/L (0.5-1.6); ABG PCO2 42 mmHg (35-45); ABG PH 7.37 (7.35-7.45); ABG PO2 124 mmHg (83-108); ABG Potassium Whole Blood 4.4 mmol/L (3.4-4.5); ABG Sodium Whole Blood 138 mmol/L (135-146); ABG TCO2 26 mmol/L (19-24)
[2019-01-29] MEDS: IPRATROPIUM-ALBUTEROL 3 ML NEB INHALATION SCH ×6 (10:12→20:35)
[2019-01-29 11:11] LABS: ABG Base Excess -2.3 mmol/L; ABG Glucose Whole Blood 129 mg/dL (75-99); ABG HCO3 24 mmol/L (21-25); ABG Hematocrit 38 % (34.0-46.0); ABG Ionized Calcium 4.9 mg/dL (4.5-5.3); ABG Lactic Acid Whole Blood 0.5 mmol/L (0.5-1.6); ABG PCO2 46 mmHg (35-45); ABG PH 7.33 (7.35-7.45); ABG PO2 132 mmHg (83-108); ABG Potassium Whole Blood 4.8 mmol/L (3.4-4.5); ABG Sodium Whole Blood 137 mmol/L (135-146); ABG TCO2 25 mmol/L (19-24)
[2019-01-29 11:56] LABS: ABG Base Excess -3.5 mmol/L; ABG Glucose Whole Blood 125 mg/dL (75-99); ABG HCO3 22 mmol/L (21-25); ABG Hematocrit 32 % (34.0-46.0); ABG Ionized Calcium 4.3 mg/dL (4.5-5.3); ABG Lactic Acid Whole Blood 0.4 mmol/L (0.5-1.6); ABG PCO2 41 mmHg (35-45); ABG PH 7.34 (7.35-7.45); ABG Potassium Whole Blood 4.8 mmol/L (3.4-4.5); ABG Sodium Whole Blood 133 mmol/L (135-146); ABG TCO2 23 mmol/L (19-24)
[2019-01-29 12:44] LABS: ABG Base Excess -2.9 mmol/L; ABG Glucose Whole Blood 209 mg/dL (75-99); ABG HCO3 23 mmol/L (21-25); ABG Hematocrit 34 % (34.0-46.0); ABG Ionized Calcium 4.5 mg/dL (4.5-5.3); ABG Lactic Acid Whole Blood 0.7 mmol/L (0.5-1.6); ABG PCO2 46 mmHg (35-45); ABG PH 7.32 (7.35-7.45); ABG PO2 217 mmHg (83-108); ABG Sodium Whole Blood 131 mmol/L (135-146); ABG TCO2 25 mmol/L (19-24)
[2019-01-29 13:06] LABS: ABG Base Excess -3.2 mmol/L; ABG Glucose Whole Blood 225 mg/dL (75-99); ABG HCO3 23 mmol/L (21-25); ABG Hematocrit 32 % (34.0-46.0); ABG Ionized Calcium 4.5 mg/dL (4.5-5.3); ABG Lactic Acid Whole Blood 0.9 mmol/L (0.5-1.6); ABG Oxygen Saturation 99.8 % (94-97); ABG PCO2 43 mmHg (35-45); ABG PH 7.33 (7.35-7.45); ABG PO2 200 mmHg (83-108); ABG Sodium Whole Blood 132 mmol/L (135-146); ABG TCO2 24 mmol/L (19-24)
[2019-01-29 13:27] LABS: ABG Base Excess -1.7 mmol/L; ABG Glucose Whole Blood 217 mg/dL (75-99); ABG HCO3 24 mmol/L (21-25); ABG Hematocrit 33 % (34.0-46.0); ABG Ionized Calcium 4.4 mg/dL (4.5-5.3); ABG Lactic Acid Whole Blood 1.2 mmol/L (0.5-1.6); ABG PCO2 41 mmHg (35-45); ABG PH 7.37 (7.35-7.45); ABG PO2 361 mmHg (83-108); ABG Potassium Whole Blood 5.5 mmol/L (3.4-4.5); ABG Sodium Whole Blood 133 mmol/L (135-146); ABG TCO2 25 mmol/L (19-24)
[2019-01-29 13:36] LABS: ABG PO2 >420 mmHg (83-108)
[2019-01-29 13:37] LABS: ABG Potassium Whole Blood 6.4 mmol/L (3.4-4.5)
[2019-01-29 14:08] LABS: ABG Base Excess -2.7 mmol/L; ABG Glucose Whole Blood 142 mg/dL (75-99); ABG HCO3 23 mmol/L (21-25); ABG Hematocrit 31 % (34.0-46.0); ABG Ionized Calcium 4.5 mg/dL (4.5-5.3); ABG Lactic Acid Whole Blood 1.3 mmol/L (0.5-1.6); ABG PCO2 45 mmHg (35-45); ABG PH 7.33 (7.35-7.45); ABG PO2 286 mmHg (83-108); ABG Potassium Whole Blood 4.8 mmol/L (3.4-4.5); ABG Sodium Whole Blood 136 mmol/L (135-146); ABG TCO2 25 mmol/L (19-24)
[2019-01-29 15:35] LABS: ABG Base Excess -0.7 mmol/L; ABG Glucose Whole Blood 79 mg/dL (75-99); ABG HCO3 26 mmol/L (21-25); ABG Hematocrit 34 % (34.0-46.0); ABG Ionized Calcium 4.7 mg/dL (4.5-5.3); ABG Lactic Acid Whole Blood 0.8 mmol/L (0.5-1.6); ABG Oxygen Saturation 99.3 % (94-97); ABG PCO2 51 mmHg (35-45); ABG PH 7.31 (7.35-7.45); ABG PO2 152 mmHg (83-108); ABG Potassium Whole Blood 4.3 mmol/L (3.4-4.5); ABG Sodium Whole Blood 139 mmol/L (135-146); ABG TCO2 28 mmol/L (19-24)
[2019-01-29] MEDS: NITROGLYCERIN-D5W PMX 50 MG in DEXTROSE/WATER 1 250ML.BAG IV SCH (16:15)
[2019-01-29] MEDS: CLEVIDIPINE BUTYRATE 25 MG in EMPTY BAG 1 BAG IV SCH ×3 (16:15→21:10)
[2019-01-29 16:22] LABS: Glucose,Whole Blood 83 mg/dL (75-99)
[2019-01-29] MEDS ORDERED: AMIODARONE 300 MG in DEXTROSE 5% IN WATER 250 ML IV PRN ×2 (16:28)
[2019-01-29] MEDS ORDERED: BENZOCAINE/MENTHOL LOZENG 1 EACH LOZENGE MUCOUS MEM PRN (16:28)
[2019-01-29] MEDS ORDERED: PROPOFOL 1,000 MG in EMPTY BAG 1 BAG IV SCH (16:28)
[2019-01-29] MEDS ORDERED: Potassium Replacement Protocol 1 EACH MISC MISCELLANE PRN (16:28)
[2019-01-29] MEDS ORDERED: AMIODARONE 360 MG in DEXTROSE 5% IN WATER 200 ML IV PRN ×2 (16:28)
[2019-01-29] MEDS ORDERED: ONDANSETRON 4 MG/2 ML VIAL IVP PRN (16:28)
[2019-01-29] MEDS ORDERED: Magnesium Replacement Protocol 1 EACH MISC MISCELLANE PRN (16:28)
[2019-01-29] MEDS ORDERED: Phosphorus Replacement Protoco 1 EACH MISC MISCELLANE PRN (16:28)
[2019-01-29 16:44] LABS: Ionized Calcium 5.1 mg/dL (4.5-5.3)
[2019-01-29 16:45] LABS: Basophils # (A) 0.3 k/uL (0-0.2); Basophils % (A) 2 %; Eosinophils # (A) 0.3 k/uL (0-0.7); Eosinophils % (A) 2 %; HCT 34.6 % (39.0-53.0); HGB 11.1 gm/dL (13.0-17.5); Lymphocytes # (A) 0.7 k/uL (1.0-4.8); Lymphocytes % (A) 4 %; MCH 28.6 pg (25.0-35.0); MCHC 32.2 g/dL (31.0-37.0); MCV 88.9 fL (80.0-100.0); Mean Platelet Volume 8.4; Monocytes # (A) 0.9 k/uL (0-1.0); Monocytes % (A) 5 %; Neutrophils # (A) 14.3 k/uL (1.3-7.7); Neutrophils % (A) 87 %; Platelet Count 176 k/uL (150-450); RBC 3.89 m/uL (4.30-5.90); RDW 13.6 % (11.5-15.5); WBC 16.5 k/uL (3.8-10.6)
[2019-01-29] MEDS: MILRINONE-D5W PMX 20 MG in DEXTROSE/WATER 1 100ML.BAG IV SCH (16:45)
[2019-01-29 16:46] LABS: ABG Base Excess -0.2 mmol/L; ABG HCO3 27 mmol/L (21-25); ABG Oxygen Saturation 98.9 % (94-97); ABG PCO2 58 mmHg (35-45); ABG PH 7.27 (7.35-7.45); ABG PO2 172 mmHg (83-108); ABG TCO2 28 mmol/L (19-24)
[2019-01-29 16:49] LABS: Allen Test Performed? no
[2019-01-29 16:55] LABS: Albumin 2.7 g/dL (3.5-5.0); Calcium 8.2 mg/dL (8.4-10.2); Magnesium 3.1 mg/dL (1.6-2.3); Partial Thromboplastin Time 32.2 sec (22.0-30.0); Potassium 4.1 mmol/L (3.5-5.1); Prothrombin Time 10.8 sec (9.0-12.0); Total Bilirubin 0.5 mg/dL (0.2-1.3); Total Protein 4.8 g/dL (6.3-8.2)
[2019-01-29] MEDS ORDERED: CALCIUM GLUCONATE 2 GM in SODIUM CHLORIDE 0.9% 100 ML IVPB PRN (17:00)
[2019-01-29] MEDS: LACTATED RINGERS 1,000 ML IV SCH (17:36)
[2019-01-29] MEDS: ACETAMINOPHEN IV (For NPO) 1,000 MG in EMPTY BAG 1 BAG IVPB SCH ×2 (17:39→23:31)
[2019-01-29 18:20] LABS: Glucose,Whole Blood 129 mg/dL (75-99)
[2019-01-29] MEDS: INSULIN REGULAR 100 UNIT in SODIUM CHLORIDE 0.9% 100 ML IV SCH (18:30)
--- NOTE | 2019-01-29 18:35 | XR ---
History: ITS.REASON XR Reason: Post Operative Cardiac Surgery Exam: XR CXR 1 VIEW Comparison: 01/28/2019 FINDINGS: Endotracheal tube is now present 4.5 cm above the jarett. Nasogastric tube tip proximal stomach. Right IJ flow-directed, [place], catheter seen at the area of the pulmonary outflow tract. Interval median sternotomy with note of atrial septal closure device, bilateral chest tubes and mediastinal drains now seen. No evidence of pneumothorax or pleural effusion. Patchy area of possible atelectasis or developing infiltrate at the right base. IMPRESSION: Endotracheal tube is now present 4.5 cm above the jarett. Nasogastric tube tip proximal stomach. Right IJ flow-directed, [place], catheter seen at the area of the pulmonary outflow tract. May correlate with waveforms as warranted. Interval median sternotomy with note of atrial septal closure device, bilateral chest tubes and mediastinal drains now seen. No evidence of pneumothorax or pleural effusion. Patchy area of possible atelectasis or developing infiltrate at the right base.
[2019-01-29 19:25] LABS: Glucose,Whole Blood 152 mg/dL (75-99)
[2019-01-29 19:50] LABS: Basophils # (A) 0.2 k/uL (0-0.2); Basophils % (A) 1 %; Eosinophils # (A) 0.3 k/uL (0-0.7); Eosinophils % (A) 1 %; HCT 37.9 % (39.0-53.0); HGB 12.6 gm/dL (13.0-17.5); Lymphocytes # (A) 0.6 k/uL (1.0-4.8); Lymphocytes % (A) 2 %; MCH 29.4 pg (25.0-35.0); MCHC 33.1 g/dL (31.0-37.0); MCV 88.8 fL (80.0-100.0); Monocytes # (A) 1.1 k/uL (0-1.0); Monocytes % (A) 4 %; Neutrophils # (A) 23.2 k/uL (1.3-7.7); Neutrophils % (A) 91 %; Platelet Count 224 k/uL (150-450); RBC 4.27 m/uL (4.30-5.90); RDW 13.5 % (11.5-15.5); WBC 25.6 k/uL (3.8-10.6)
[2019-01-29] MEDS: PIPERACILLIN-TAZOBACTAM 3.375 GM in SODIUM CHLORIDE 0.9% 100 ML IVPB SCH (19:56)
[2019-01-29 20:26] LABS: Glucose,Whole Blood 173 mg/dL (75-99)
[2019-01-29 20:43] LABS: Calcium 8.5 mg/dL (8.4-10.2); Magnesium 2.5 mg/dL (1.6-2.3); Phosphorus 3.8 mg/dL (2.5-4.5)
[2019-01-29] MEDS ORDERED: DEXMEDETOMIDINE/0.9% NACL(PMX) 400 MCG in EMPTY BAG 1 BAG IV SCH (20:52)
[2019-01-29] MEDS ORDERED: METOPROLOL TARTRATE 25 MG TAB PO ONE (21:00)
[2019-01-29] MEDS ORDERED: CLOPIDOGREL 75 MG TAB PO ONE (21:00)
--- NOTE | 2019-01-29 22:34 | OP ---
OPERATIVE REPORT DATE OF SURGERY: 01/29/2019. SURGEON: Dr. Manuel Jennings. ASSISTANTS: 1. NATALIE Boston. 2. LIANNA Russo. PREOPERATIVE DIAGNOSES: 1. Triple-vessel coronary artery disease. 2. Moderate left ventricular dysfunction. 3. Moderate mitral valve regurgitation. 4. Rheumatoid arthritis, on immunosuppressant. 5. Chronic Plavix use for transient ischemic attack. 6. Hypertension. 7. Hyperlipidemia. 8. Obstructive sleep apnea. 9. [id number] myocardial infarction. POSTOPERATIVE DIAGNOSES: 1. Diffuse Triple-vessel coronary artery disease. 2. Moderate left ventricular dysfunction. 3. Mild mitral valve regurgitation. 4. Rheumatoid arthritis, on immunosuppressant. 5. Chronic Plavix use for transient ischemic attack. 6. Hypertension. 7. Hyperlipidemia. 8. Obstructive sleep apnea. 9. [id number]-[id number] myocardial infarction. PROCEDURES: 1. Quadruple coronary artery bypass grafting using the left internal mammary artery to the left anterior descending artery, the left radial artery from the aorta to the first obtuse marginal artery, reverse saphenous vein graft from the aorta to the second obtuse marginal artery, reverse saphenous vein graft from the aorta to the posterior descending artery. 2. Exclusion of the left atrial appendage using a 45 mm AtriClip. 3. Endoscopic harvesting of left greater saphenous vein. 4. Endoscopic harvesting of the left radial artery. 5. Intraoperative graft flow measurements using the Intelliostim system. 6. Intraoperative transesophageal echocardiogram and epiaortic scanning. INDICATION FOR SURGERY: The patient is a 63-year-old gentleman with the above risk factors who presented with a 2-week history of basically progressive shortness of breath and lower extremity swellings. He had very mild elevation of troponin on admission. Patient was optimized and also was taken to the finishing lab technician, where diffuse triple-vessel disease was identified. His 2D echo initially showed severe mitral valve regurgitation. The echo was repeated with a transesophageal route 4 days later after several days of diuresis and that showed moderate mitral valve regurgitation that was functional. The ejection fraction was estimated at around 35%. The patient was on methotrexate and Enbrel for rheumatoid arthritis as well as Plavix, and all these medications were stopped as soon as we had the surgical consult and decision to operate taken. Plan today is to proceed with coronary artery bypass grafting and to check the mitral valve one more time with PAMELA before finalizing the valve part. The STS risk was discussed with him and his family. They understood the risks and agreed to proceed. DESCRIPTION OF THE PROCEDURE: With the patient in supine position, right internal jugular [place]ayito catheter and right radial arterial line were placed. His PA pressure was 40/20 and his cardiac index was 2.6 before starting surgery. Subsequently general endotracheal anesthesia was induced uneventfully. A Ruiz catheter was inserted. The chest, abdomen and both lower extremities were prepped and draped using ChloraPrep. Ioban was used to cover the skin. The patient received 2 grams of cefazolin intravenously. Transesophageal echocardiogram at this point showed moderate left ventricular dysfunction and essentially trivial mitral valve regurgitation. The mean arterial pressure was increased pharmacologically to around 95, and despite that the mitral valve regurgitation was at most trivial to mild. With that, and after discussing it with the patient's referring guide visitor Dr. Caruso, decision was made not to perform any mitral valve act. Midline sternotomy was performed and the bone was poorly vascularized. The protruding xiphoid bone was excised. No bone wax was used. The left hemisternum was elevated and the left internal mammary artery was harvested in a somewhat skeletonized fashion. The patient was given 5000 units of heparin. The mammary artery was clipped before its bifurcation and transected. It had an excellent pulsatile flow in it and was around 2 mm in diameter. In the same setting, the left radial artery was initially exposed at the wrist and a clamping trial revealed preserved pulsatile signal in the left index oxygen saturation probe, and with that the left radial artery was harvested endoscopically and the forearm incision was subsequently closed over a drain. Also in the same setting, the left greater saphenous vein was harvested endoscopically from groin to above ankle level after administration of 2500 units of heparin. The leg incision was closed over a drain. The right pleura had a breach in it and we inserted a right pleural Duy drain 19- Iraqi and the same for the left pleural cavity. Mediastinal fat was transected between 2 ties and epiaortic scanning revealed concentric intimal thickening but no protruding atheroma in the ascending aorta. Pericardium was opened in an inverted T-fashion and a pericardial cradle was created. Findings included a short, mildly dilated aorta and a normal-sized heart. However, there was visible and palpable diffuse calcific coronary artery disease. After systemic heparinization, after placement of respective pledgeted pursestrings, aortic cannulation with a 21-Iraqi Soft flow cannula and venous cannulation via the right atrial appendage with a dual-stage cannula was performed. Antegrade as well as retrograde cardioplegia catheters were placed. All the conduits were prepared at this point. The radial artery was prepared by incising the fascia all along its volar aspect and clipping all its branches. It was of good quality, around 3 mm in diameter. The vein was prepared also by clipping all its branches and tying them, and it was around 4 mm in diameter, of normal thickness. Cardiopulmonary bypass was initiated and patient's temperature was allowed to drift down to 34 degrees Celsius. We spent quite a bit of time at this point with the heart empty and beating looking at the targets and deciding where to bypass and what to bypass. The reason for that was again the diffuse calcific disease. Eventually we selected spots with non-calcified anterior wall, and all the spots were between calcified plaques. Aorta was clamped, and during aortic clamping myocardial protection was achieved with an initial dose of 1 L of antegrade cold blood cardioplegia followed by 500 mL of retrograde cold blood cardioplegia. All subsequent doses were given retrograde at 15- minute intervals. The first distal anastomosis was between a segment of reverse saphenous vein graft and the mid aspect of the posterior descending artery which was around 1.5 mm in diameter, thickened, using Prolene 7-0 in continuous fashion. The second distal anastomosis was between another segment of reverse saphenous vein graft and the second obtuse marginal artery which was around 1.5 mm in diameter in an area where it was thin-walled and a bit friable using Prolene 7-0 in continuous fashion. I placed a 1 mm shunt here to better define the edges of the vessel, and that was removed before completing the anastomosis. The third distal anastomosis was between the left radial artery and the first obtuse marginal artery which was diffusely diseased. It was picked up distally before it went into myocardial, and at that level it was around 1.7 mm in diameter with some thickening, using Prolene 7-0 in continuous fashion. The fourth and last distal anastomosis were between the left internal mammary artery that passed into a groove in the left pleuropericardial fat and anastomosed to the mid to distal aspect of the left anterior descending artery which was opened between 2 plaques and was around 1.7 mm in diameter using Prolene 7-0 in continuous fashion. The mammary pedicle was affixed to the epicardium with Prolene 6-0 sutures x2. Satisfied with the distal anastomosis, attention was moved at performing the 3 proximal anastomoses. Three buttons of 4 mm each were punched out of the ascending aorta and the proximal anastomoses were completed using Prolene 7-0 for the radial artery, Prolene 6-0 for the vein. The patient was given lidocaine and magnesium and de-airing maneuvers were followed before unclamping the aorta. He regained spontaneous sinus rhythm. I applied Floseal to all distal anastomoses. Two monopolar atrial pacing wires were affixed to the respective pursestrings on the right atrium. No ventricular pacing wires were placed. After around 15 to 20 minutes of reperfusion, we were able to wean off cardiopulmonary bypass without the need of any inotropic support. The PAMELA showed improved left ventricular function, albeit some dysfunction, but the cardiac index was consistently above 2.5. PA pressure was around 30 to 35 systolic and 18 to 20 diastolic. There was trivial mitral valve regurgitation. We performed graft flow measurement before giving protamine. The parameters were excellent despite the obvious bad disease. The vein graft to the posterior descending artery had a flow of 92 mL/minute, pulsatility index of 1.4, and diastolic filling of 68%, showing excellent graft. The flow into the vein graft to the second obtuse marginal artery was 27 mL/minute, pulsatility index of 2, and diastolic filling of 72%, also showing an excellent graft. The third graft to be measured was a radial artery to the first obtuse marginal artery, and the flow was 32 mL/minute, pulsatility index of 2.3, diastolic filling of 70%, also showing an excellent graft. The flow into the mammary artery to the left anterior descending artery was 100 mL/minute, pulsatility index of 1.4, and diastolic filling of 76%, showing an excellent graft. With that, test-dose and full-dose protamine was given. Decannulation followed. Two 19-[place]ra[place] Duy drains were placed substernally. Pericardial fat was approximated over the heart and the graft. After ensuring adequate hemostasis and hemodynamics and after correct sponge, instrument and needle counts, the sternum was closed using 5 [id number] pineal cables after interposing Fibrillar between the sternal edges. Thorough irrigation with cefazolin followed. The rest of the closure proceeded in layers. The patient was transferred to the ICU on low-dose nitroglycerin. I elected to start low-dose Primacor despite good numbers for support. He required no blood bank products but received 430 mL of Cell Saver blood. MMMEENU / ANUM: [id number] / MTDD
[2019-01-29 22:58] LABS: Glucose,Whole Blood 163 mg/dL (75-99)
[2019-01-29 23:05] LABS: ABG Base Excess -2.3 mmol/L; ABG HCO3 24 mmol/L (21-25); ABG Oxygen Saturation 93.6 % (94-97); ABG PCO2 44 mmHg (35-45); ABG PH 7.34 (7.35-7.45); ABG PO2 69 mmHg (83-108); ABG TCO2 25 mmol/L (19-24); Allen Test Performed? Yes
[2019-01-29] MEDS: KETOROLAC 30 MG/ML 1 ML VIAL IVP SCH (23:21)
[2019-01-29] MEDS: HEPARIN SODIUM,PORCINE 5,000 UNIT/ML 1 ML VIAL SQ SCH (23:23)
[2019-01-30 00:37] LABS: Glucose,Whole Blood 159 mg/dL (75-99)
[2019-01-30] MEDS: ALBUMIN HUMAN 5% 250 ML in EMPTY BAG 1 BAG IVPB PRN ×3 (01:15→02:25)
[2019-01-30] MEDS: CHLORHEXIDINE GLUCONATE 15 ML CUP MUCOUS MEM SCH ×2 (02:30→09:05)
[2019-01-30] MEDS: MILRINONE-D5W PMX 20 MG in DEXTROSE/WATER 1 100ML.BAG IV SCH (02:49)
[2019-01-30] MEDS ORDERED: HYDROcodone/APAP 5-325MG 1 EACH TAB PO PRN (03:11)
[2019-01-30 03:18] LABS: Glucose,Whole Blood 119 mg/dL (75-99)
[2019-01-30 04:14] LABS: Glucose,Whole Blood 116 mg/dL (75-99)
[2019-01-30] MEDS: PIPERACILLIN-TAZOBACTAM 3.375 GM in SODIUM CHLORIDE 0.9% 100 ML IVPB SCH (04:26)
[2019-01-30 04:29] LABS: Albumin 3.3 g/dL (3.5-5.0); Calcium 8.4 mg/dL (8.4-10.2); Magnesium 2.4 mg/dL (1.6-2.3); Potassium 4.8 mmol/L (3.5-5.1); Total Bilirubin 0.6 mg/dL (0.2-1.3); Total Protein 5.4 g/dL (6.3-8.2)
[2019-01-30 04:41] LABS: Basophils # (A) 0.1 k/uL (0-0.2); Basophils % (A) 1 %; Eosinophils % (A) 0 %; HGB 10.3 gm/dL (13.0-17.5); Lymphocytes # (A) 0.5 k/uL (1.0-4.8); Lymphocytes % (A) 3 %; MCH 28.6 pg (25.0-35.0); MCHC 32.2 g/dL (31.0-37.0); MCV 88.9 fL (80.0-100.0); Mean Platelet Volume 9.3; Monocytes # (A) 0.7 k/uL (0-1.0); Monocytes % (A) 4 %; Neutrophils # (A) 14.8 k/uL (1.3-7.7); Neutrophils % (A) 91 %; Platelet Count 172 k/uL (150-450); RDW 13.5 % (11.5-15.5); WBC 16.2 k/uL (3.8-10.6)
[2019-01-30 05:31] LABS: Glucose,Whole Blood 124 mg/dL (75-99)
[2019-01-30] MEDS: KETOROLAC 30 MG/ML 1 ML VIAL IVP SCH (06:37)
[2019-01-30 07:19] LABS: Glucose,Whole Blood 128 mg/dL (75-99)
[2019-01-30 07:20] LABS: ABG Base Excess -3.4 mmol/L; ABG HCO3 22 mmol/L (21-25); ABG Oxygen Saturation 97.3 % (94-97); ABG PCO2 38 mmHg (35-45); ABG PH 7.37 (7.35-7.45); ABG PO2 86 mmHg (83-108); ABG TCO2 23 mmol/L (19-24); Allen Test Performed? Yes
[2019-01-30] MEDS: IPRATROPIUM-ALBUTEROL 3 ML NEB INHALATION SCH ×4 (07:26→19:34)
--- NOTE | 2019-01-30 08:19 | XR ---
EXAMINATION TYPE: XR chest 1V portable DATE OF EXAM: 01/30/2019 COMPARISON: 01/29/2019 HISTORY: Status post cardiac surgery TECHNIQUE: Single frontal view of the chest is obtained. FINDINGS: Right [place] catheter from an internal jugular approach, enteric tube, and endotracheal tube are again seen. Mediastinal drain is also noted. Post CABG changes of the chest are present. Bi lateral thoracostomy tubes are seen with no residual pneumothorax. Trace pleural effusions are seen w ith bibasilar atelectasis. No interstitial pulmonary edema. Minimal pulmonary vascular congestion. IMPRESSION: Mild pulmonary vascular congestion, trace pleural effusions, and bibasilar atelectasis s tatus post cardiac surgery. Stable lines and tubes.
[2019-01-30 08:28] LABS: Glucose,Whole Blood 126 mg/dL (75-99)
[2019-01-30] MEDS: NITROGLYCERIN-D5W PMX 50 MG in DEXTROSE/WATER 1 250ML.BAG IV SCH (08:32)
--- NOTE | 2019-01-30 08:38 | PN ---
PROGRESS NOTE Finn Kong is a 63-year-old gentleman who underwent aortocoronary bypass surgery yesterday with RIVERO to LAD, a free radial artery graft to the first obtuse marginal, a vein graft to the second obtuse marginal and another vein graft to the PDA branch. He also had exclusion of left atrial appendage. Apparently, mitral regurgitation was not significant and therefore a mitral valve was not repaired. The patient is hemodynamically stable on a small dose of Primacor. He is still intubated, weaning efforts yesterday were unsuccessful. EKG revealed J-point prominence in precordial leads I and aVL. PHYSICAL EXAMINATION: Physical exam revealed blood pressure 118/70, pulse rate is 70 per minute, sinus. There is an S1, S2 heard normally. Pericardial rub is audible. Lungs reveal ventilator assisted breath sounds. Abdomen and lower extremity exam is unchanged. Patient is neurological intact. He will have a troponin level just to make sure those EKG changes are not related to any myocardial injury of significance. Plan is to continue all his other medications and weaning efforts are already in progress. Patient is maintaining sinus rhythm, making decent urine output. Laboratory data are acceptable. The creatinine is about 1.4. We will continue to follow him closely. MMODL / IJN: [id number] /
[2019-01-30] MEDS: HEPARIN SODIUM,PORCINE 5,000 UNIT/ML 1 ML VIAL SQ SCH ×2 (08:39→16:42)
[2019-01-30] MEDS: ASPIRIN 325 MG TAB PO SCH (08:40)
[2019-01-30] MEDS: ATORVASTATIN 40 MG TAB PO SCH (08:40)
[2019-01-30] MEDS: CLOPIDOGREL 75 MG TAB PO SCH (08:40)
[2019-01-30] MEDS ORDERED: FUROSEMIDE 10 MG/ML 4 ML VIAL IV STA (08:50)
[2019-01-30] MEDS: HYDROcodone/APAP 5-325MG 1 EACH TAB PO PRN ×4 (08:54→21:27)
[2019-01-30] MEDS ORDERED: METOPROLOL TARTRATE 12.5 MG TAB PO SCH (09:00)
[2019-01-30] MEDS ORDERED: BISACODYL 10 MG SUPP RECTAL PRN (09:00)
[2019-01-30] MEDS ORDERED: PANTOPRAZOLE 40 MG/10 ML VIAL IVP SCH (09:00)
[2019-01-30] MEDS ORDERED: MAGNESIUM HYDROXIDE 2,400 MG/10 ML CUP PO PRN (09:00)
[2019-01-30 09:33] LABS: ABG Base Excess -3.6 mmol/L; ABG HCO3 21 mmol/L (21-25); ABG PCO2 35 mmHg (35-45); ABG PO2 82 mmHg (83-108); ABG TCO2 22 mmol/L (19-24); Allen Test Performed? Yes
[2019-01-30 09:44] LABS: Glucose,Whole Blood 146 mg/dL (75-99)
[2019-01-30] MEDS ORDERED: METOPROLOL TARTRATE 12.5 MG TAB PO STA (09:55)
[2019-01-30 10:10] LABS: Glucose,Whole Blood 128 mg/dL (75-99)
[2019-01-30] MEDS: amLODIPine 5 MG TAB PO SCH (10:18)
[2019-01-30] MEDS: CEFEPIME 1 GM in SODIUM CHLORIDE 0.9% 50 ML IVPB SCH ×2 (10:18→21:12)
[2019-01-30] MEDS ORDERED: LORazepam 2 MG/ML INJ IV STA (10:40)
[2019-01-30] MEDS ORDERED: ALPRAZolam 0.25 MG TAB PO PRN (10:41)
[2019-01-30 10:50] LABS: ABG Base Excess -2.7 mmol/L; ABG HCO3 22 mmol/L (21-25); ABG PCO2 35 mmHg (35-45); ABG PO2 98 mmHg (83-108); ABG TCO2 23 mmol/L (19-24); Allen Test Performed? Yes
[2019-01-30 11:41] LABS: Glucose,Whole Blood 126 mg/dL (75-99)
--- NOTE | 2019-01-30 11:43 | ECHOF ---
Referral Reason:limited echo assess LV function MEASUREMENTS -------- HEIGHT: 175.3 cm WEIGHT: 91.2 kg BP: 116/62 FINDINGS -------- Sinus rhythm. Echo done 01/22/19 : Limited Study for LV Function, Pt had CABG 01/29/19. Overall left ventricular systolic function is low-normal with, an EF between 50 - 55 %. There is no pericardial effusion. CONCLUSIONS -------- 1. Sinus rhythm. 2. Echo done 01/22/19 : Limited Study for LV Function, Pt had CABG 01/29/19. 3. Overall left ventricular systolic function is low-normal with, an EF between 50 - 55 %. 4. There is no pericardial effusion. TEST ENGINEER NUC[employer] EQUIPMENT: Zoie Brown RDCS
--- NOTE | 2019-01-30 12:17 | P.PN ---
Subjective Progress Note Date: 01/30/19 Principal diagnosis: Severe calcific triple-vessel coronary artery disease, non-STEMI this admission with troponins as high as 0.082, acute systolic heart failure and cardiomyopathy with EF 30-35%, severe mitral regurgitation on transthoracic echocardiogram, preoperative tracheal bronchitis with culture showing Serratia marcescens. Previous medical history of hypertension, hyperlipidemia, TIA in 2007 without residual deficits, rheumatoid arthritis on Enbrel and methotrexate immunosuppressants, obstructive sleep apnea without CPAP use status post UP3 with residual occasional difficulty in swallowing, previous tobacco dependence, mild COPD with FEV1 68% of predicted. POD #1 coronary artery bypass grafting using the left internal mammary artery to the left anterior descending coronary artery, the left radial artery from the aorta to the first obtuse marginal coronary artery, a reverse greater saphenous vein graft from the aorta to the second obtuse marginal coronary artery, and a reverse greater saphenous vein graft from the aorta to the posterior descending coronary artery. Exclusion of the left atrial appendage using a 45 mm Atriclip. Endoscopic harvesting of the left greater saphenous vein, endoscopic harvesting of the left radial artery, intraoperative graft flow measurement using the [employer] system, intraoperative transesophageal echocardiogram and epi-aortic scanning. postoperative acute blood loss anemia. Preoperative tracheobronchitis with positive sputum culture for Serratia marcescens. The patient is in bed in the intensive care unit. He is in no acute distress. He remains intubated with mechanical ventilator support and is sedated on propofol drip at 20 mcg/kg/m. Opens his eyes easily with verbal stimuli and is moving all 4 extremities and following simple verbal commands appropriately. He is currently hemodynamically stable, and continues on Primacor drip at 0.2 mcg/kg/m. Right IJ Cordis with [place] catheter is in place with current hemodynamic readings as follows, cardiac output 5.7, cardiac index 2.8, PA pressures 27/18, and CVP of 9 mmHg. Oxygen saturations on current mechanical ventilator settings are 97%. Current mechanical ventilator settings are as follows, AC 16, TV 550, FiO2 50% with a PEEP of 8.mediastinal, left and right pleural chest tubes remain in place to low continuous wall suction at -20 cm H2O. No air leak is present. They are draining thin serosanguineous drainage. Right pleural chest tube put out 70 mL of thin serosanguineous drainage since surgery, mediastinal chest tubes put out 350 mL output since surgery. And left pleural chest tube put out 170 mL output since surgery. The patient had a preoperative sputum culture completed which showed positive for Serratia marcescens, he is currently on antibiotic treatments managed by pulmonary medicine. The patient is afebrile. Ruiz catheter remains in place for accurate I&O and is draining clear yellow urine. Twelve-lead EKG was completed this morning and demonstrated some ST elevation in leads V2 and V3. Objective - Vital Signs Vital signs: Vital Signs Temp 97.6 F 01/30/19 08:00 Pulse 90 01/30/19 09:30 Resp 16 01/30/19 09:30 BP 105/77 01/30/19 08:30 Pulse Ox 96 01/30/19 09:30 Intake & Output 01/29/19 01/30/19 01/30/19 18:59 06:59 18:59 Intake Total 139.5 1463.052 339.735 Output Total 2027 1136 159 Balance -1887.5 327.052 180.735 Weight 91.4 kg Intake: IV 133 1236.5 216.5 ACETAMINOPHEN IV (For NPO 100 ) 1,000 mg In Empty Bag 1 bag @ 400 mls/hr IVPB Q6HR [facility] Rx#:[id number] CO/CI 320 50 Lactated Ringers 1,000 ml 100 600 140 @ 20 mls/hr IV .Q24H [facility] Rx#:[id number] Nitroglycerin-D5w Pmx 50 16.5 1.5 mg In Dextrose/Water 1 250ml.bag @ 5 MCG/MIN 1.5 mls/hr IV .Q24H [facility] Rx#: [id number] Piperacillin-Tazobactam 3 200 25 .375 gm In Sodium Chloride 0.9% 100 ml @ 25 mls/hr IVPB Q8H [facility] Rx#: [id number] Intake, IV Titration 6.5 226.552 63.235 Amount Clevidipine Butyrate 25 6.5 108.935 mg In Empty Bag 1 bag @ 1 MG/HR 2 mls/hr IV .Q24H [facility] Rx#:[id number] Dexmedetomidine/0.9% NaCl 4.620 (Pmx) 400 mcg In Empty Bag 1 bag @ Titrate IV . Q0M [facility] Rx#:[id number] Insulin Regular 100 unit 15.641 9.142 In Sodium Chloride 0.9% 100 ml @ Titrate IV .Q0M [facility] Rx#:[id number] Milrinone-D5w Pmx 20 mg 52.608 In Dextrose/Water 1 100ml .bag @ 0.2 MCG/KG/MIN 5. 226 mls/hr IV .Q19H9M [facility] Rx#:[id number] Propofol 1,000 mg In 44.748 54.002 Empty Bag 1 bag @ Titrate IV .Q0M PRN Rx#: [id number] Propofol 1,000 mg In 0.091 Empty Bag 1 bag @ Titrate IV .Q0M [facility] Rx#: [id number] Other 60 Output: Chest Tube Drainage 330 331 27 Chest Tube Bilateral 140 260 20 Mediastinal Chest Tube Left Lateral 140 35 4 Chest Chest Tube Right Lateral 50 36 3 Chest Drainage 22 30 12 Left Arm 2 15 2 Left Calf 20 15 10 Urine 1275 775 120 Estimated Blood Loss 400 Other: Voiding Method Indwelling Catheter Indwelling Catheter # Bowel Movements 0 ABP, PAP, CO, CI - Last Documented Arterial Blood Pressure 143/77 Pulmonary Artery Pressure 31/22 Cardiac Output 5.1 Cardiac Index 2.5 - Constitutional Constitutional Comment(s): Remians sedated with propofol drip at 20 mcg/kg/min. Following simple verbal commands appropriately, moving all 4 extremities with verbal stimuli appropriately. General appearance: Present: cooperative, no acute distress, obese - Respiratory Details: lungs sounds are essentially clear throughout, diminished to his bilateral bases. No wheezes, rhonchi or crackles appreciated. Respirations are symmetrical and nonlabored with mechanical ventilator support. Oxygen saturations are 97% on current mechanical ventilator settings. Mediastinal, left and right pleural chest tubes remain in place to low continuous wall suction -20 cm H2O. No air leak is present. Draining thin serosanguineous drainage. - Cardiovascular Details: regular rhythm and rate. S1 and S2 present, negative for S3, gallop or murmur. Pericardial rub appreciated. Sternum is stable. Heart hugger is in place. Atrial epicardial pacemaker wires are in place andconnected the backup bedside pacemaker generator with a AAI of 50. Right radial arterial line in place and functioning. Knee high GUILLE hose and sequential compression devices in place was bilateral lower extremities. - Gastrointestinal Gastrointestinal Comment(s): abdomen soft, nontender and nondistended. Active bowel sounds present all 4 abdominal quadrants. No guarding or rigidity. No organomegaly appreciated. OG tube in place to low intermittent wall suction. - Genitourinary Genitourinary Comment(s): Ruiz catheter for accurate I&O. Draining clear yellow urine. - Integumentary Integumentary Comment(s): skin is warm and dry. No clubbing or cyanosis is present. Midline sternal incision is clean, dry and approximated. Midline sternal dressing is clean, dry and intact. Left radial artery harvest site incisions are clean, dry and approximated. No drainage or redness is present. Dressing is clean dry and intact to his left radial harvest sites. Left forearm SPENCER drain in place rating scant thin serosanguineous drainage. Left lower extremity EVH harvest sites are clean, dry and approximated. No drainage or redness is present. SPENCER drain in place draining scant thin serosanguineous drainage. - Neurologic Neurologic Comment(s): sedated on propofol drip at 20 mcg/kg/m. Neurologic: Present: CNII-XII intact - Musculoskeletal Musculoskeletal: Present: generalized weakness, strength equal bilaterally - Psychiatric Psychiatric Comment(s): Remains sedated on propofol drip at 20 mcg/kg/m. Moving all 4 extremities appropriately with verbal stimuli. Shaking his head yes and no appropriately to yes and no questions. - Allied health notes Allied health notes reviewed: nursing - Labs CBC & Chem 7: 01/30/19 04:00 01/30/19 04:00 Labs: Abnormal Lab Results - Last 24 Hours (Table) 01/28/19 01/29/19 01/29/19 Range/Units 06:14 08:40 11:14 WBC (3.8-10.6) k/uL RBC (4.30-5.90) m/uL Hgb (13.0-17.5) gm/dL Hct (39.0-53.0) % Neutrophils # (1.3-7.7) k/uL Lymphocytes # (1.0-4.8) k/uL Monocytes # (0-1.0) k/uL Basophils # (0-0.2) k/uL APTT (22.0-30.0) sec ABG pH 7.33 L (7.35-7.45) ABG pCO2 46 H (35-45) mmHg ABG pO2 124 H 132 H (83-108) mmHg ABG HCO3 (21-25) mmol/L ABG Total CO2 26 H 25 H (19-24) mmol/L ABG O2 Saturation 99.0 H 99.0 H (94-97) % ABG Hematocrit (34.0-46.0) % ABG Sodium (135-146) mmol/L ABG Potassium 4.8 H (3.4-4.5) mmol/L ABG Ionized Calcium (4.5-5.3) mg/dL ABG Glucose 128 H 129 H (75-99) mg/dL ABG Lactic Acid (0.5-1.6) mmol/L Hemoglobin 12.9 L 12.3 L (13.0-17.5) gm/dL Sodium (137-145) mmol/L Carbon Dioxide (22-30) mmol/L BUN (9-20) mg/dL Creatinine (0.66-1.25) mg/dL Glucose (74-99) mg/dL POC Glucose (mg/dL) (75-99) mg/dL Calcium (8.4-10.2) mg/dL Magnesium (1.6-2.3) mg/dL Troponin I (0.000-0.034) ng/mL Total Protein (6.3-8.2) g/dL Albumin (3.5-5.0) g/dL Arterial Blood Potassium 4.8 H (3.4-4.5) mmol/L Arterial Blood Glucose 128 H 129 H (75-99) mg/dL Crossmatch See Detail 01/29/19 01/29/19 01/29/19 Range/Units 11:59 12:47 13:09 WBC (3.8-10.6) k/uL RBC (4.30-5.90) m/uL Hgb (13.0-17.5) gm/dL Hct (39.0-53.0) % Neutrophils # (1.3-7.7) k/uL Lymphocytes # (1.0-4.8) k/uL Monocytes # (0-1.0) k/uL Basophils # (0-0.2) k/uL APTT (22.0-30.0) sec ABG pH 7.34 L 7.32 L 7.33 L (7.35-7.45) ABG pCO2 46 H (35-45) mmHg ABG pO2 >420 H 217 H 200 H (83-108) mmHg ABG HCO3 (21-25) mmol/L ABG Total CO2 25 H (19-24) mmol/L ABG O2 Saturation 100.0 H 100.0 H 99.8 H (94-97) % ABG Hematocrit 32 L 32 L (34.0-46.0) % ABG Sodium 133 L 131 L 132 L (135-146) mmol/L ABG Potassium 4.8 H 6.4 H* 6.0 H (3.4-4.5) mmol/L ABG Ionized Calcium 4.3 L (4.5-5.3) mg/dL ABG Glucose 125 H 209 H 225 H (75-99) mg/dL ABG Lactic Acid 0.4 L (0.5-1.6) mmol/L Hemoglobin 10.4 L 11.0 L 10.5 L (13.0-17.5) gm/dL Sodium (137-145) mmol/L Carbon Dioxide (22-30) mmol/L BUN (9-20) mg/dL Creatinine (0.66-1.25) mg/dL Glucose (74-99) mg/dL POC Glucose (mg/dL) (75-99) mg/dL Calcium (8.4-10.2) mg/dL Magnesium (1.6-2.3) mg/dL Troponin I (0.000-0.034) ng/mL Total Protein (6.3-8.2) g/dL Albumin (3.5-5.0) g/dL Arterial Blood Potassium 4.8 H 6.4 H* 6.0 H (3.4-4.5) mmol/L Arterial Blood Glucose 125 H 209 H 225 H (75-99) mg/dL Crossmatch 01/29/19 01/29/19 01/29/19 Range/Units 13:30 14:11 15:38 WBC (3.8-10.6) k/uL RBC (4.30-5.90) m/uL Hgb (13.0-17.5) gm/dL Hct (39.0-53.0) % Neutrophils # (1.3-7.7) k/uL Lymphocytes # (1.0-4.8) k/uL Monocytes # (0-1.0) k/uL Basophils # (0-0.2) k/uL APTT (22.0-30.0) sec ABG pH 7.33 L 7.31 L (7.35-7.45) ABG pCO2 51 H (35-45) mmHg ABG pO2 361 H 286 H 152 H (83-108) mmHg ABG HCO3 26 H (21-25) mmol/L ABG Total CO2 25 H 25 H 28 H (19-24) mmol/L ABG O2 Saturation 100.0 H 100.0 H 99.3 H (94-97) % ABG Hematocrit 33 L 31 L (34.0-46.0) % ABG Sodium 133 L (135-146) mmol/L ABG Potassium 5.5 H 4.8 H (3.4-4.5) mmol/L ABG Ionized Calcium 4.4 L (4.5-5.3) mg/dL ABG Glucose 217 H 142 H (75-99) mg/dL ABG Lactic Acid (0.5-1.6) mmol/L Hemoglobin 10.7 L 10.2 L 11.1 L (13.0-17.5) gm/dL Sodium (137-145) mmol/L Carbon Dioxide (22-30) mmol/L BUN (9-20) mg/dL Creatinine (0.66-1.25) mg/dL Glucose (74-99) mg/dL POC Glucose (mg/dL) (75-99) mg/dL Calcium (8.4-10.2) mg/dL Magnesium (1.6-2.3) mg/dL Troponin I (0.000-0.034) ng/mL Total Protein (6.3-8.2) g/dL Albumin (3.5-5.0) g/dL Arterial Blood Potassium 5.5 H 4.8 H (3.4-4.5) mmol/L Arterial Blood Glucose 217 H 142 H (75-99) mg/dL Crossmatch 01/29/19 01/29/19 01/29/19 Range/Units 16:15 16:15 16:15 WBC 16.5 H (3.8-10.6) k/uL RBC 3.89 L (4.30-5.90) m/uL Hgb 11.1 L (13.0-17.5) gm/dL Hct 34.6 L (39.0-53.0) % Neutrophils # 14.3 H (1.3-7.7) k/uL Lymphocytes # 0.7 L (1.0-4.8) k/uL Monocytes # (0-1.0) k/uL Basophils # 0.3 H (0-0.2) k/uL APTT 32.2 H (22.0-30.0) sec ABG pH (7.35-7.45) ABG pCO2 (35-45) mmHg ABG pO2 (83-108) mmHg ABG HCO3 (21-25) mmol/L ABG Total CO2 (19-24) mmol/L ABG O2 Saturation (94-97) % ABG Hematocrit (34.0-46.0) % ABG Sodium (135-146) mmol/L ABG Potassium (3.4-4.5) mmol/L ABG Ionized Calcium (4.5-5.3) mg/dL ABG Glucose (75-99) mg/dL ABG Lactic Acid (0.5-1.6) mmol/L Hemoglobin (13.0-17.5) gm/dL Sodium (137-145) mmol/L Carbon Dioxide (22-30) mmol/L BUN 21 H (9-20) mg/dL Creatinine (0.66-1.25) mg/dL Glucose (74-99) mg/dL POC Glucose (mg/dL) (75-99) mg/dL Calcium 8.2 L (8.4-10.2) mg/dL Magnesium 3.1 H (1.6-2.3) mg/dL Troponin I (0.000-0.034) ng/mL Total Protein 4.8 L (6.3-8.2) g/dL Albumin 2.7 L (3.5-5.0) g/dL Arterial Blood Potassium (3.4-4.5) mmol/L Arterial Blood Glucose (75-99) mg/dL Crossmatch 01/29/19 01/29/19 01/29/19 Range/Units 16:45 18:05 19:15 WBC 25.6 H (3.8-10.6) k/uL RBC 4.27 L (4.30-5.90) m/uL Hgb 12.6 L (13.0-17.5) gm/dL Hct 37.9 L (39.0-53.0) % Neutrophils # 23.2 H (1.3-7.7) k/uL Lymphocytes # 0.6 L (1.0-4.8) k/uL Monocytes # 1.1 H (0-1.0) k/uL Basophils # (0-0.2) k/uL APTT (22.0-30.0) sec ABG pH 7.27 L (7.35-7.45) ABG pCO2 58 H (35-45) mmHg ABG pO2 172 H (83-108) mmHg ABG HCO3 27 H (21-25) mmol/L ABG Total CO2 28 H (19-24) mmol/L ABG O2 Saturation 98.9 H (94-97) % ABG Hematocrit (34.0-46.0) % ABG Sodium (135-146) mmol/L ABG Potassium (3.4-4.5) mmol/L ABG Ionized Calcium (4.5-5.3) mg/dL ABG Glucose (75-99) mg/dL ABG Lactic Acid (0.5-1.6) mmol/L Hemoglobin (13.0-17.5) gm/dL Sodium (137-145) mmol/L Carbon Dioxide (22-30) mmol/L BUN (9-20) mg/dL Creatinine (0.66-1.25) mg/dL Glucose (74-99) mg/dL POC Glucose (mg/dL) 129 H (75-99) mg/dL Calcium (8.4-10.2) mg/dL Magnesium (1.6-2.3) mg/dL Troponin I (0.000-0.034) ng/mL Total Protein (6.3-8.2) g/dL Albumin (3.5-5.0) g/dL Arterial Blood Potassium (3.4-4.5) mmol/L Arterial Blood Glucose (75-99) mg/dL Crossmatch 01/29/19 01/29/19 01/29/19 Range/Units 19:22 20:22 20:28 WBC (3.8-10.6) k/uL RBC (4.30-5.90) m/uL Hgb (13.0-17.5) gm/dL Hct (39.0-53.0) % Neutrophils # (1.3-7.7) k/uL Lymphocytes # (1.0-4.8) k/uL Monocytes # (0-1.0) k/uL Basophils # (0-0.2) k/uL APTT (22.0-30.0) sec ABG pH (7.35-7.45) ABG pCO2 (35-45) mmHg ABG pO2 (83-108) mmHg ABG HCO3 (21-25) mmol/L ABG Total CO2 (19-24) mmol/L ABG O2 Saturation (94-97) % ABG Hematocrit (34.0-46.0) % ABG Sodium (135-146) mmol/L ABG Potassium (3.4-4.5) mmol/L ABG Ionized Calcium (4.5-5.3) mg/dL ABG Glucose (75-99) mg/dL ABG Lactic Acid (0.5-1.6) mmol/L Hemoglobin (13.0-17.5) gm/dL Sodium 136 L (137-145) mmol/L Carbon Dioxide (22-30) mmol/L BUN 21 H (9-20) mg/dL Creatinine (0.66-1.25) mg/dL Glucose 182 H (74-99) mg/dL POC Glucose (mg/dL) 152 H 173 H (75-99) mg/dL Calcium (8.4-10.2) mg/dL Magnesium 2.5 H (1.6-2.3) mg/dL Troponin I (0.000-0.034) ng/mL Total Protein (6.3-8.2) g/dL Albumin (3.5-5.0) g/dL Arterial Blood Potassium (3.4-4.5) mmol/L Arterial Blood Glucose (75-99) mg/dL Crossmatch 01/29/19 01/29/19 01/30/19 Range/Units 22:53 23:00 00:12 WBC (3.8-10.6) k/uL RBC (4.30-5.90) m/uL Hgb (13.0-17.5) gm/dL Hct (39.0-53.0) % Neutrophils # (1.3-7.7) k/uL Lymphocytes # (1.0-4.8) k/uL Monocytes # (0-1.0) k/uL Basophils # (0-0.2) k/uL APTT (22.0-30.0) sec ABG pH 7.34 L (7.35-7.45) ABG pCO2 (35-45) mmHg ABG pO2 69 L (83-108) mmHg ABG HCO3 (21-25) mmol/L ABG Total CO2 25 H (19-24) mmol/L ABG O2 Saturation 93.6 L (94-97) % ABG Hematocrit (34.0-46.0) % ABG Sodium (135-146) mmol/L ABG Potassium (3.4-4.5) mmol/L ABG Ionized Calcium (4.5-5.3) mg/dL ABG Glucose (75-99) mg/dL ABG Lactic Acid (0.5-1.6) mmol/L Hemoglobin (13.0-17.5) gm/dL Sodium (137-145) mmol/L Carbon Dioxide (22-30) mmol/L BUN (9-20) mg/dL Creatinine (0.66-1.25) mg/dL Glucose (74-99) mg/dL POC Glucose (mg/dL) 163 H 159 H (75-99) mg/dL Calcium (8.4-10.2) mg/dL Magnesium (1.6-2.3) mg/dL Troponin I (0.000-0.034) ng/mL Total Protein (6.3-8.2) g/dL Albumin (3.5-5.0) g/dL Arterial Blood Potassium (3.4-4.5) mmol/L Arterial Blood Glucose (75-99) mg/dL Crossmatch 01/30/19 01/30/19 01/30/19 Range/Units 03:12 04:00 04:00 WBC 16.2 H (3.8-10.6) k/uL RBC 3.60 L (4.30-5.90) m/uL Hgb 10.3 L (13.0-17.5) gm/dL Hct 32.0 L (39.0-53.0) % Neutrophils # 14.8 H (1.3-7.7) k/uL Lymphocytes # 0.5 L (1.0-4.8) k/uL Monocytes # (0-1.0) k/uL Basophils # (0-0.2) k/uL APTT (22.0-30.0) sec ABG pH (7.35-7.45) ABG pCO2 (35-45) mmHg ABG pO2 (83-108) mmHg ABG HCO3 (21-25) mmol/L ABG Total CO2 (19-24) mmol/L ABG O2 Saturation (94-97) % ABG Hematocrit (34.0-46.0) % ABG Sodium (135-146) mmol/L ABG Potassium (3.4-4.5) mmol/L ABG Ionized Calcium (4.5-5.3) mg/dL ABG Glucose (75-99) mg/dL ABG Lactic Acid (0.5-1.6) mmol/L Hemoglobin (13.0-17.5) gm/dL Sodium (137-145) mmol/L Carbon Dioxide 21 L (22-30) mmol/L BUN 24 H (9-20) mg/dL Creatinine 1.42 H (0.66-1.25) mg/dL Glucose 112 H (74-99) mg/dL POC Glucose (mg/dL) 119 H (75-99) mg/dL Calcium (8.4-10.2) mg/dL Magnesium 2.4 H (1.6-2.3) mg/dL Troponin I (0.000-0.034) ng/mL Total Protein 5.4 L (6.3-8.2) g/dL Albumin 3.3 L (3.5-5.0) g/dL Arterial Blood Potassium (3.4-4.5) mmol/L Arterial Blood Glucose (75-99) mg/dL Crossmatch 01/30/19 01/30/19 01/30/19 Range/Units 04:10 05:16 06:52 WBC (3.8-10.6) k/uL RBC (4.30-5.90) m/uL Hgb (13.0-17.5) gm/dL Hct (39.0-53.0) % Neutrophils # (1.3-7.7) k/uL Lymphocytes # (1.0-4.8) k/uL Monocytes # (0-1.0) k/uL Basophils # (0-0.2) k/uL APTT (22.0-30.0) sec ABG pH (7.35-7.45) ABG pCO2 (35-45) mmHg ABG pO2 (83-108) mmHg ABG HCO3 (21-25) mmol/L ABG Total CO2 (19-24) mmol/L ABG O2 Saturation (94-97) % ABG Hematocrit (34.0-46.0) % ABG Sodium (135-146) mmol/L ABG Potassium (3.4-4.5) mmol/L ABG Ionized Calcium (4.5-5.3) mg/dL ABG Glucose (75-99) mg/dL ABG Lactic Acid (0.5-1.6) mmol/L Hemoglobin (13.0-17.5) gm/dL Sodium (137-145) mmol/L Carbon Dioxide (22-30) mmol/L BUN (9-20) mg/dL Creatinine (0.66-1.25) mg/dL Glucose (74-99) mg/dL POC Glucose (mg/dL) 116 H 124 H (75-99) mg/dL Calcium (8.4-10.2) mg/dL Magnesium (1.6-2.3) mg/dL Troponin I 2.640 H* (0.000-0.034) ng/mL Total Protein (6.3-8.2) g/dL Albumin (3.5-5.0) g/dL Arterial Blood Potassium (3.4-4.5) mmol/L Arterial Blood Glucose (75-99) mg/dL Crossmatch 01/30/19 01/30/19 01/30/19 Range/Units 07:05 07:18 08:26 WBC (3.8-10.6) k/uL RBC (4.30-5.90) m/uL Hgb (13.0-17.5) gm/dL Hct (39.0-53.0) % Neutrophils # (1.3-7.7) k/uL Lymphocytes # (1.0-4.8) k/uL Monocytes # (0-1.0) k/uL Basophils # (0-0.2) k/uL APTT (22.0-30.0) sec ABG pH (7.35-7.45) ABG pCO2 (35-45) mmHg ABG pO2 (83-108) mmHg ABG HCO3 (21-25) mmol/L ABG Total CO2 (19-24) mmol/L ABG O2 Saturation 97.3 H (94-97) % ABG Hematocrit (34.0-46.0) % ABG Sodium (135-146) mmol/L ABG Potassium (3.4-4.5) mmol/L ABG Ionized Calcium (4.5-5.3) mg/dL ABG Glucose (75-99) mg/dL ABG Lactic Acid (0.5-1.6) mmol/L Hemoglobin (13.0-17.5) gm/dL Sodium (137-145) mmol/L Carbon Dioxide (22-30) mmol/L BUN (9-20) mg/dL Creatinine (0.66-1.25) mg/dL Glucose (74-99) mg/dL POC Glucose (mg/dL) 128 H 126 H (75-99) mg/dL Calcium (8.4-10.2) mg/dL Magnesium (1.6-2.3) mg/dL Troponin I (0.000-0.034) ng/mL Total Protein (6.3-8.2) g/dL Albumin (3.5-5.0) g/dL Arterial Blood Potassium (3.4-4.5) mmol/L Arterial Blood Glucose (75-99) mg/dL Crossmatch 01/30/19 01/30/19 Range/Units 09:17 09:32 WBC (3.8-10.6) k/uL RBC (4.30-5.90) m/uL Hgb (13.0-17.5) gm/dL Hct (39.0-53.0) % Neutrophils # (1.3-7.7) k/uL Lymphocytes # (1.0-4.8) k/uL Monocytes # (0-1.0) k/uL Basophils # (0-0.2) k/uL APTT (22.0-30.0) sec ABG pH (7.35-7.45) ABG pCO2 (35-45) mmHg ABG pO2 82 L (83-108) mmHg ABG HCO3 (21-25) mmol/L ABG Total CO2 (19-24) mmol/L ABG O2 Saturation (94-97) % ABG Hematocrit (34.0-46.0) % ABG Sodium (135-146) mmol/L ABG Potassium (3.4-4.5) mmol/L ABG Ionized Calcium (4.5-5.3) mg/dL ABG Glucose (75-99) mg/dL ABG Lactic Acid (0.5-1.6) mmol/L Hemoglobin (13.0-17.5) gm/dL Sodium (137-145) mmol/L Carbon Dioxide (22-30) mmol/L BUN (9-20) mg/dL Creatinine (0.66-1.25) mg/dL Glucose (74-99) mg/dL POC Glucose (mg/dL) 146 H (75-99) mg/dL Calcium (8.4-10.2) mg/dL Magnesium (1.6-2.3) mg/dL Troponin I (0.000-0.034) ng/mL Total Protein (6.3-8.2) g/dL Albumin (3.5-5.0) g/dL Arterial Blood Potassium (3.4-4.5) mmol/L Arterial Blood Glucose (75-99) mg/dL Crossmatch Microbiology - Last 24 Hours (Table) 01/27/19 21:00 Gram Stain - Final Sputum Sputum Culture - Final Serratia marcescens - Imaging and Cardiology Chest x-ray: report reviewed, image reviewed Assessment and Plan Assessment: 1. Severe calcific triple-vessel coronary artery disease, status post quadruple coronary artery bypass grafting surgery 2. Non-STEMI 3. Acute systolic heart failure, cardiomyopathy, EF 30-35% 4. Moderate to severe mitral regurgitation on transthoracic echocardiogram and transesophageal echocardiogram 5. Hypertension 6. Hyperlipidemia 7. TIA in 2007 without residual 8. Rheumatoid arthritis on Enbrel and methotrexate, currently on hold 9. Obstructive sleep apnea without CPAP use, status post UPPP with residual occasional difficulty in swallowing 10. Remote history of tobacco dependence, quit in 2003 11. Mild COPD with preoperative FEV1 68% 12. Preoperative tracheobronchitis with positive sputum culture showing Serratia marcescens Plan: 1. Continue to maximize medical therapy with aspirin, Plavix, statin, beta kleber and Norvasc. We will increase his metoprolol tartrate 25 mg by mouth twice a day. 2. Continue to hold Enbrel and methotrexate. 3. Encourage increase in activity. Physical therapy, occupational therapy and cardiac rehabilitation following. 4. Wean to extubate. Mechanical ventilator management, bronchodilators and antibiotic management per pulmonary critical care service. 5. We will obtain a stat limited 2-D echocardiogram to assess LV function. 6. We will send a troponin due to his ST elevation in leads V2 and V3. 7. continue GI and DVT prophylaxis. 8. Medical management, Insulin management and other comorbidities management per primary care service. 9. Once the patient is extubated encourage use of his incentive spirometry every hour while awake.. 10. His home medication of ferrous sulfate 325 mg by mouth twice a day was restarted. We will add vitamin C 500 mg by mouth daily at noon. 11. keep Primacor drip infusing at 0.2 mcg/kg/m. 12. Discontinue nitroglycerin drip. 13. Lasix 40 mg IV 1 now. 14. Keep Ruiz catheter, right IJ Cordis and [place] catheter, right radial arterial line and chest tubes in place today. 15. More recommendations to follow based on patient's clinical course. Time with Patient: Greater than 30
--- NOTE | 2019-01-30 12:27 | P.PN ---
Subjective Progress Note Date: 01/30/19 Principal diagnosis: Status post CABG, postoperative day #1. Patient was reevaluated today on 01/30/2019, patient is postoperative day #1, had CABG, RIVERO to LAD, left radial artery from aorta to the first obtuse marginal coronary artery, a reverse greater saphenous vein graft from the aorta to the second obtuse marginal coronary artery and reverse greater saphenous vein graft from the aorta to the posterior descending coronary artery. Patient was on mechanical ventilation overnight, I have seen him this morning, he was doing well on CPAP, hence proceeded to extubating the patient. Shortly after extubation, patient was noted to have more shortness of breath, O2 flow was increased to 6 L, and his O2 saturation was marginal. Patient was noted to be diaphoretic, hence I recommended BiPAP. He was placed on BiPAP of 12 EPAP of 6 and FiO2 will be titrated accordingly to keep O2 saturation above 92%. Chest x- ray showed mild pulmonary vascular congestion trace of pleural effusions and bibasilar atelectasis. No evidence of pneumonia. His sputum which was ordered couple of days ago is back positive for Serratia marcescens, hence I will start the patient on cefepime today. Labs today were reviewed CPAP ABG showed a pO2 of 98 pCO2 of 55 pH of 7.40. WBC count is 16.2 hemoglobin is 10.3. Electrolytes were normal however his renal functioning is up with a creatinine of 1.42. Chest x-ray was also reviewed Objective - Vital Signs Vital signs: Vital Signs Temp 97.6 F 01/30/19 08:00 Pulse 88 01/30/19 11:27 Resp 18 01/30/19 11:00 BP 138/81 01/30/19 11:00 Pulse Ox 94 L 01/30/19 11:00 Intake & Output 01/29/19 01/30/19 01/30/19 18:59 06:59 18:59 Intake Total 139.5 1463.052 442.694 Output Total 2026 1136 630 Balance -1887.5 327.052 -187.306 Weight 91.4 kg 91.4 kg Intake: IV 133 1236.5 316.5 ACETAMINOPHEN IV (For NPO 100 ) 1,000 mg In Empty Bag 1 bag @ 400 mls/hr IVPB Q6HR [facility] Rx#:[id number] CO/CI 320 50 Lactated Ringers 1,000 ml 100 600 240 @ 20 mls/hr IV .Q24H [facility] Rx#:[id number] Nitroglycerin-D5w Pmx 50 16.5 1.5 mg In Dextrose/Water 1 250ml.bag @ 5 MCG/MIN 1.5 mls/hr IV .Q24H [facility] Rx#: [id number] Piperacillin-Tazobactam 3 200 25 .375 gm In Sodium Chloride 0.9% 100 ml @ 25 mls/hr IVPB Q8H [facility] Rx#: [id number] Intake, IV Titration 6.5 226.552 66.194 Amount Clevidipine Butyrate 25 6.5 108.935 0.667 mg In Empty Bag 1 bag @ 1 MG/HR 2 mls/hr IV .Q24H [facility] Rx#:[id number] Dexmedetomidine/0.9% NaCl 4.620 (Pmx) 400 mcg In Empty Bag 1 bag @ Titrate IV . Q0M [facility] Rx#:[id number] Insulin Regular 100 unit 15.641 11.434 In Sodium Chloride 0.9% 100 ml @ Titrate IV .Q0M [facility] Rx#:[id number] Milrinone-D5w Pmx 20 mg 52.608 In Dextrose/Water 1 100ml .bag @ 0.2 MCG/KG/MIN 5. 226 mls/hr IV .Q19H9M [facility] Rx#:[id number] Propofol 1,000 mg In 44.748 54.002 Empty Bag 1 bag @ Titrate IV .Q0M PRN Rx#: [id number] Propofol 1,000 mg In 0.091 Empty Bag 1 bag @ Titrate IV .Q0M [facility] Rx#: [id number] Other 60 Output: Chest Tube Drainage 330 331 48 Chest Tube Bilateral 140 260 40 Mediastinal Chest Tube Left Lateral 140 35 4 Chest Chest Tube Right Lateral 50 36 4 Chest Drainage 22 30 12 Left Arm 2 15 2 Left Calf 20 15 10 Urine 1275 775 570 Estimated Blood Loss 400 Other: Voiding Method Indwelling Catheter Indwelling Catheter Indwelling Catheter # Bowel Movements 0 ABP, PAP, CO, CI - Last Documented Arterial Blood Pressure 136/78 Pulmonary Artery Pressure 24/15 Cardiac Output 5.1 Cardiac Index 2.5 - Exam Physical Exam: Revealed a 63-year-old white male on mechanical ventilation, in no distress. Head: Atraumatic, normocephalic. Endotracheal tube and orogastric tube are intact. HEENT:[Neck is supple.] [No neck masses.] [No thyromegaly.] [No JVD.] Chest: [Symmetrical chest expansion, minimal fine crackles at the bases, no rhonchi and no wheezes.] Cardiac Exam: [Normal S1 and S2, no S3 gallop, no murmur.] Abdomen: [Soft, nontender, no megaly, no rebound, no guarding, normal bowel sounds.] Extremities: [No clubbing, no edema, no cyanosis.] Neurological Exam: [No focal neurologic deficit.] Patient is off sedation, follows simple instructions, on mechanical ventilation. Skin: No rashes. Lymphatics: No lymphadenopathy. Psychiatric: Normal mood and normal affect. - Labs CBC & Chem 7: 01/30/19 04:00 01/30/19 04:00 Labs: Abnormal Lab Results - Last 24 Hours (Table) 01/28/19 01/29/19 01/29/19 Range/Units 06:14 08:40 11:14 WBC (3.8-10.6) k/uL RBC (4.30-5.90) m/uL Hgb (13.0-17.5) gm/dL Hct (39.0-53.0) % Neutrophils # (1.3-7.7) k/uL Lymphocytes # (1.0-4.8) k/uL Monocytes # (0-1.0) k/uL Basophils # (0-0.2) k/uL APTT (22.0-30.0) sec ABG pH 7.33 L (7.35-7.45) ABG pCO2 46 H (35-45) mmHg ABG pO2 124 H 132 H (83-108) mmHg ABG HCO3 (21-25) mmol/L ABG Total CO2 26 H 25 H (19-24) mmol/L ABG O2 Saturation 99.0 H 99.0 H (94-97) % ABG Hematocrit (34.0-46.0) % ABG Sodium (135-146) mmol/L ABG Potassium 4.8 H (3.4-4.5) mmol/L ABG Ionized Calcium (4.5-5.3) mg/dL ABG Glucose 128 H 129 H (75-99) mg/dL ABG Lactic Acid (0.5-1.6) mmol/L Hemoglobin 12.9 L 12.3 L (13.0-17.5) gm/dL Sodium (137-145) mmol/L Carbon Dioxide (22-30) mmol/L BUN (9-20) mg/dL Creatinine (0.66-1.25) mg/dL Glucose (74-99) mg/dL POC Glucose (mg/dL) (75-99) mg/dL Calcium (8.4-10.2) mg/dL Magnesium (1.6-2.3) mg/dL Troponin I (0.000-0.034) ng/mL Total Protein (6.3-8.2) g/dL Albumin (3.5-5.0) g/dL Arterial Blood Potassium 4.8 H (3.4-4.5) mmol/L Arterial Blood Glucose 128 H 129 H (75-99) mg/dL Crossmatch See Detail 01/29/19 01/29/19 01/29/19 Range/Units 11:59 12:47 13:09 WBC (3.8-10.6) k/uL RBC (4.30-5.90) m/uL Hgb (13.0-17.5) gm/dL Hct (39.0-53.0) % Neutrophils # (1.3-7.7) k/uL Lymphocytes # (1.0-4.8) k/uL Monocytes # (0-1.0) k/uL Basophils # (0-0.2) k/uL APTT (22.0-30.0) sec ABG pH 7.34 L 7.32 L 7.33 L (7.35-7.45) ABG pCO2 46 H (35-45) mmHg ABG pO2 >420 H 217 H 200 H (83-108) mmHg ABG HCO3 (21-25) mmol/L ABG Total CO2 25 H (19-24) mmol/L ABG O2 Saturation 100.0 H 100.0 H 99.8 H (94-97) % ABG Hematocrit 32 L 32 L (34.0-46.0) % ABG Sodium 133 L 131 L 132 L (135-146) mmol/L ABG Potassium 4.8 H 6.4 H* 6.0 H (3.4-4.5) mmol/L ABG Ionized Calcium 4.3 L (4.5-5.3) mg/dL ABG Glucose 125 H 209 H 225 H (75-99) mg/dL ABG Lactic Acid 0.4 L (0.5-1.6) mmol/L Hemoglobin 10.4 L 11.0 L 10.5 L (13.0-17.5) gm/dL Sodium (137-145) mmol/L Carbon Dioxide (22-30) mmol/L BUN (9-20) mg/dL Creatinine (0.66-1.25) mg/dL Glucose (74-99) mg/dL POC Glucose (mg/dL) (75-99) mg/dL Calcium (8.4-10.2) mg/dL Magnesium (1.6-2.3) mg/dL Troponin I (0.000-0.034) ng/mL Total Protein (6.3-8.2) g/dL Albumin (3.5-5.0) g/dL Arterial Blood Potassium 4.8 H 6.4 H* 6.0 H (3.4-4.5) mmol/L Arterial Blood Glucose 125 H 209 H 225 H (75-99) mg/dL Crossmatch 01/29/19 01/29/19 01/29/19 Range/Units 13:30 14:11 15:38 WBC (3.8-10.6) k/uL RBC (4.30-5.90) m/uL Hgb (13.0-17.5) gm/dL Hct (39.0-53.0) % Neutrophils # (1.3-7.7) k/uL Lymphocytes # (1.0-4.8) k/uL Monocytes # (0-1.0) k/uL Basophils # (0-0.2) k/uL APTT (22.0-30.0) sec ABG pH 7.33 L 7.31 L (7.35-7.45) ABG pCO2 51 H (35-45) mmHg ABG pO2 361 H 286 H 152 H (83-108) mmHg ABG HCO3 26 H (21-25) mmol/L ABG Total CO2 25 H 25 H 28 H (19-24) mmol/L ABG O2 Saturation 100.0 H 100.0 H 99.3 H (94-97) % ABG Hematocrit 33 L 31 L (34.0-46.0) % ABG Sodium 133 L (135-146) mmol/L ABG Potassium 5.5 H 4.8 H (3.4-4.5) mmol/L ABG Ionized Calcium 4.4 L (4.5-5.3) mg/dL ABG Glucose 217 H 142 H (75-99) mg/dL ABG Lactic Acid (0.5-1.6) mmol/L Hemoglobin 10.7 L 10.2 L 11.1 L (13.0-17.5) gm/dL Sodium (137-145) mmol/L Carbon Dioxide (22-30) mmol/L BUN (9-20) mg/dL Creatinine (0.66-1.25) mg/dL Glucose (74-99) mg/dL POC Glucose (mg/dL) (75-99) mg/dL Calcium (8.4-10.2) mg/dL Magnesium (1.6-2.3) mg/dL Troponin I (0.000-0.034) ng/mL Total Protein (6.3-8.2) g/dL Albumin (3.5-5.0) g/dL Arterial Blood Potassium 5.5 H 4.8 H (3.4-4.5) mmol/L Arterial Blood Glucose 217 H 142 H (75-99) mg/dL Crossmatch 01/29/19 01/29/19 01/29/19 Range/Units 16:15 16:15 16:15 WBC 16.5 H (3.8-10.6) k/uL RBC 3.89 L (4.30-5.90) m/uL Hgb 11.1 L (13.0-17.5) gm/dL Hct 34.6 L (39.0-53.0) % Neutrophils # 14.3 H (1.3-7.7) k/uL Lymphocytes # 0.7 L (1.0-4.8) k/uL Monocytes # (0-1.0) k/uL Basophils # 0.3 H (0-0.2) k/uL APTT 32.2 H (22.0-30.0) sec ABG pH (7.35-7.45) ABG pCO2 (35-45) mmHg ABG pO2 (83-108) mmHg ABG HCO3 (21-25) mmol/L ABG Total CO2 (19-24) mmol/L ABG O2 Saturation (94-97) % ABG Hematocrit (34.0-46.0) % ABG Sodium (135-146) mmol/L ABG Potassium (3.4-4.5) mmol/L ABG Ionized Calcium (4.5-5.3) mg/dL ABG Glucose (75-99) mg/dL ABG Lactic Acid (0.5-1.6) mmol/L Hemoglobin (13.0-17.5) gm/dL Sodium (137-145) mmol/L Carbon Dioxide (22-30) mmol/L BUN 21 H (9-20) mg/dL Creatinine (0.66-1.25) mg/dL Glucose (74-99) mg/dL POC Glucose (mg/dL) (75-99) mg/dL Calcium 8.2 L (8.4-10.2) mg/dL Magnesium 3.1 H (1.6-2.3) mg/dL Troponin I (0.000-0.034) ng/mL Total Protein 4.8 L (6.3-8.2) g/dL Albumin 2.7 L (3.5-5.0) g/dL Arterial Blood Potassium (3.4-4.5) mmol/L Arterial Blood Glucose (75-99) mg/dL Crossmatch 01/29/19 01/29/19 01/29/19 Range/Units 16:45 18:05 19:15 WBC 25.6 H (3.8-10.6) k/uL RBC 4.27 L (4.30-5.90) m/uL Hgb 12.6 L (13.0-17.5) gm/dL Hct 37.9 L (39.0-53.0) % Neutrophils # 23.2 H (1.3-7.7) k/uL Lymphocytes # 0.6 L (1.0-4.8) k/uL Monocytes # 1.1 H (0-1.0) k/uL Basophils # (0-0.2) k/uL APTT (22.0-30.0) sec ABG pH 7.27 L (7.35-7.45) ABG pCO2 58 H (35-45) mmHg ABG pO2 172 H (83-108) mmHg ABG HCO3 27 H (21-25) mmol/L ABG Total CO2 28 H (19-24) mmol/L ABG O2 Saturation 98.9 H (94-97) % ABG Hematocrit (34.0-46.0) % ABG Sodium (135-146) mmol/L ABG Potassium (3.4-4.5) mmol/L ABG Ionized Calcium (4.5-5.3) mg/dL ABG Glucose (75-99) mg/dL ABG Lactic Acid (0.5-1.6) mmol/L Hemoglobin (13.0-17.5) gm/dL Sodium (137-145) mmol/L Carbon Dioxide (22-30) mmol/L BUN (9-20) mg/dL Creatinine (0.66-1.25) mg/dL Glucose (74-99) mg/dL POC Glucose (mg/dL) 129 H (75-99) mg/dL Calcium (8.4-10.2) mg/dL Magnesium (1.6-2.3) mg/dL Troponin I (0.000-0.034) ng/mL Total Protein (6.3-8.2) g/dL Albumin (3.5-5.0) g/dL Arterial Blood Potassium (3.4-4.5) mmol/L Arterial Blood Glucose (75-99) mg/dL Crossmatch 01/29/19 01/29/19 01/29/19 Range/Units 19:22 20:22 20:28 WBC (3.8-10.6) k/uL RBC (4.30-5.90) m/uL Hgb (13.0-17.5) gm/dL Hct (39.0-53.0) % Neutrophils # (1.3-7.7) k/uL Lymphocytes # (1.0-4.8) k/uL Monocytes # (0-1.0) k/uL Basophils # (0-0.2) k/uL APTT (22.0-30.0) sec ABG pH (7.35-7.45) ABG pCO2 (35-45) mmHg ABG pO2 (83-108) mmHg ABG HCO3 (21-25) mmol/L ABG Total CO2 (19-24) mmol/L ABG O2 Saturation (94-97) % ABG Hematocrit (34.0-46.0) % ABG Sodium (135-146) mmol/L ABG Potassium (3.4-4.5) mmol/L ABG Ionized Calcium (4.5-5.3) mg/dL ABG Glucose (75-99) mg/dL ABG Lactic Acid (0.5-1.6) mmol/L Hemoglobin (13.0-17.5) gm/dL Sodium 136 L (137-145) mmol/L Carbon Dioxide (22-30) mmol/L BUN 21 H (9-20) mg/dL Creatinine (0.66-1.25) mg/dL Glucose 182 H (74-99) mg/dL POC Glucose (mg/dL) 152 H 173 H (75-99) mg/dL Calcium (8.4-10.2) mg/dL Magnesium 2.5 H (1.6-2.3) mg/dL Troponin I (0.000-0.034) ng/mL Total Protein (6.3-8.2) g/dL Albumin (3.5-5.0) g/dL Arterial Blood Potassium (3.4-4.5) mmol/L Arterial Blood Glucose (75-99) mg/dL Crossmatch 01/29/19 01/29/19 01/30/19 Range/Units 22:53 23:00 00:12 WBC (3.8-10.6) k/uL RBC (4.30-5.90) m/uL Hgb (13.0-17.5) gm/dL Hct (39.0-53.0) % Neutrophils # (1.3-7.7) k/uL Lymphocytes # (1.0-4.8) k/uL Monocytes # (0-1.0) k/uL Basophils # (0-0.2) k/uL APTT (22.0-30.0) sec ABG pH 7.34 L (7.35-7.45) ABG pCO2 (35-45) mmHg ABG pO2 69 L (83-108) mmHg ABG HCO3 (21-25) mmol/L ABG Total CO2 25 H (19-24) mmol/L ABG O2 Saturation 93.6 L (94-97) % ABG Hematocrit (34.0-46.0) % ABG Sodium (135-146) mmol/L ABG Potassium (3.4-4.5) mmol/L ABG Ionized Calcium (4.5-5.3) mg/dL ABG Glucose (75-99) mg/dL ABG Lactic Acid (0.5-1.6) mmol/L Hemoglobin (13.0-17.5) gm/dL Sodium (137-145) mmol/L Carbon Dioxide (22-30) mmol/L BUN (9-20) mg/dL Creatinine (0.66-1.25) mg/dL Glucose (74-99) mg/dL POC Glucose (mg/dL) 163 H 159 H (75-99) mg/dL Calcium (8.4-10.2) mg/dL Magnesium (1.6-2.3) mg/dL Troponin I (0.000-0.034) ng/mL Total Protein (6.3-8.2) g/dL Albumin (3.5-5.0) g/dL Arterial Blood Potassium (3.4-4.5) mmol/L Arterial Blood Glucose (75-99) mg/dL Crossmatch 01/30/19 01/30/19 01/30/19 Range/Units 03:12 04:00 04:00 WBC 16.2 H (3.8-10.6) k/uL RBC 3.60 L (4.30-5.90) m/uL Hgb 10.3 L (13.0-17.5) gm/dL Hct 32.0 L (39.0-53.0) % Neutrophils # 14.8 H (1.3-7.7) k/uL Lymphocytes # 0.5 L (1.0-4.8) k/uL Monocytes # (0-1.0) k/uL Basophils # (0-0.2) k/uL APTT (22.0-30.0) sec ABG pH (7.35-7.45) ABG pCO2 (35-45) mmHg ABG pO2 (83-108) mmHg ABG HCO3 (21-25) mmol/L ABG Total CO2 (19-24) mmol/L ABG O2 Saturation (94-97) % ABG Hematocrit (34.0-46.0) % ABG Sodium (135-146) mmol/L ABG Potassium (3.4-4.5) mmol/L ABG Ionized Calcium (4.5-5.3) mg/dL ABG Glucose (75-99) mg/dL ABG Lactic Acid (0.5-1.6) mmol/L Hemoglobin (13.0-17.5) gm/dL Sodium (137-145) mmol/L Carbon Dioxide 21 L (22-30) mmol/L BUN 24 H (9-20) mg/dL Creatinine 1.42 H (0.66-1.25) mg/dL Glucose 112 H (74-99) mg/dL POC Glucose (mg/dL) 119 H (75-99) mg/dL Calcium (8.4-10.2) mg/dL Magnesium 2.4 H (1.6-2.3) mg/dL Troponin I (0.000-0.034) ng/mL Total Protein 5.4 L (6.3-8.2) g/dL Albumin 3.3 L (3.5-5.0) g/dL Arterial Blood Potassium (3.4-4.5) mmol/L Arterial Blood Glucose (75-99) mg/dL Crossmatch 01/30/19 01/30/19 01/30/19 Range/Units 04:10 05:16 06:52 WBC (3.8-10.6) k/uL RBC (4.30-5.90) m/uL Hgb (13.0-17.5) gm/dL Hct (39.0-53.0) % Neutrophils # (1.3-7.7) k/uL Lymphocytes # (1.0-4.8) k/uL Monocytes # (0-1.0) k/uL Basophils # (0-0.2) k/uL APTT (22.0-30.0) sec ABG pH (7.35-7.45) ABG pCO2 (35-45) mmHg ABG pO2 (83-108) mmHg ABG HCO3 (21-25) mmol/L ABG Total CO2 (19-24) mmol/L ABG O2 Saturation (94-97) % ABG Hematocrit (34.0-46.0) % ABG Sodium (135-146) mmol/L ABG Potassium (3.4-4.5) mmol/L ABG Ionized Calcium (4.5-5.3) mg/dL ABG Glucose (75-99) mg/dL ABG Lactic Acid (0.5-1.6) mmol/L Hemoglobin (13.0-17.5) gm/dL Sodium (137-145) mmol/L Carbon Dioxide (22-30) mmol/L BUN (9-20) mg/dL Creatinine (0.66-1.25) mg/dL Glucose (74-99) mg/dL POC Glucose (mg/dL) 116 H 124 H (75-99) mg/dL Calcium (8.4-10.2) mg/dL Magnesium (1.6-2.3) mg/dL Troponin I 2.640 H* (0.000-0.034) ng/mL Total Protein (6.3-8.2) g/dL Albumin (3.5-5.0) g/dL Arterial Blood Potassium (3.4-4.5) mmol/L Arterial Blood Glucose (75-99) mg/dL Crossmatch 01/30/19 01/30/19 01/30/19 Range/Units 07:05 07:18 08:26 WBC (3.8-10.6) k/uL RBC (4.30-5.90) m/uL Hgb (13.0-17.5) gm/dL Hct (39.0-53.0) % Neutrophils # (1.3-7.7) k/uL Lymphocytes # (1.0-4.8) k/uL Monocytes # (0-1.0) k/uL Basophils # (0-0.2) k/uL APTT (22.0-30.0) sec ABG pH (7.35-7.45) ABG pCO2 (35-45) mmHg ABG pO2 (83-108) mmHg ABG HCO3 (21-25) mmol/L ABG Total CO2 (19-24) mmol/L ABG O2 Saturation 97.3 H (94-97) % ABG Hematocrit (34.0-46.0) % ABG Sodium (135-146) mmol/L ABG Potassium (3.4-4.5) mmol/L ABG Ionized Calcium (4.5-5.3) mg/dL ABG Glucose (75-99) mg/dL ABG Lactic Acid (0.5-1.6) mmol/L Hemoglobin (13.0-17.5) gm/dL Sodium (137-145) mmol/L Carbon Dioxide (22-30) mmol/L BUN (9-20) mg/dL Creatinine (0.66-1.25) mg/dL Glucose (74-99) mg/dL POC Glucose (mg/dL) 128 H 126 H (75-99) mg/dL Calcium (8.4-10.2) mg/dL Magnesium (1.6-2.3) mg/dL Troponin I (0.000-0.034) ng/mL Total Protein (6.3-8.2) g/dL Albumin (3.5-5.0) g/dL Arterial Blood Potassium (3.4-4.5) mmol/L Arterial Blood Glucose (75-99) mg/dL Crossmatch 01/30/19 01/30/19 01/30/19 Range/Units 09:17 09:32 10:08 WBC (3.8-10.6) k/uL RBC (4.30-5.90) m/uL Hgb (13.0-17.5) gm/dL Hct (39.0-53.0) % Neutrophils # (1.3-7.7) k/uL Lymphocytes # (1.0-4.8) k/uL Monocytes # (0-1.0) k/uL Basophils # (0-0.2) k/uL APTT (22.0-30.0) sec ABG pH (7.35-7.45) ABG pCO2 (35-45) mmHg ABG pO2 82 L (83-108) mmHg ABG HCO3 (21-25) mmol/L ABG Total CO2 (19-24) mmol/L ABG O2 Saturation (94-97) % ABG Hematocrit (34.0-46.0) % ABG Sodium (135-146) mmol/L ABG Potassium (3.4-4.5) mmol/L ABG Ionized Calcium (4.5-5.3) mg/dL ABG Glucose (75-99) mg/dL ABG Lactic Acid (0.5-1.6) mmol/L Hemoglobin (13.0-17.5) gm/dL Sodium (137-145) mmol/L Carbon Dioxide (22-30) mmol/L BUN (9-20) mg/dL Creatinine (0.66-1.25) mg/dL Glucose (74-99) mg/dL POC Glucose (mg/dL) 146 H 128 H (75-99) mg/dL Calcium (8.4-10.2) mg/dL Magnesium (1.6-2.3) mg/dL Troponin I (0.000-0.034) ng/mL Total Protein (6.3-8.2) g/dL Albumin (3.5-5.0) g/dL Arterial Blood Potassium (3.4-4.5) mmol/L Arterial Blood Glucose (75-99) mg/dL Crossmatch 01/30/19 01/30/19 Range/Units 10:48 11:16 WBC (3.8-10.6) k/uL RBC (4.30-5.90) m/uL Hgb (13.0-17.5) gm/dL Hct (39.0-53.0) % Neutrophils # (1.3-7.7) k/uL Lymphocytes # (1.0-4.8) k/uL Monocytes # (0-1.0) k/uL Basophils # (0-0.2) k/uL APTT (22.0-30.0) sec ABG pH (7.35-7.45) ABG pCO2 (35-45) mmHg ABG pO2 (83-108) mmHg ABG HCO3 (21-25) mmol/L ABG Total CO2 (19-24) mmol/L ABG O2 Saturation 98.0 H (94-97) % ABG Hematocrit (34.0-46.0) % ABG Sodium (135-146) mmol/L ABG Potassium (3.4-4.5) mmol/L ABG Ionized Calcium (4.5-5.3) mg/dL ABG Glucose (75-99) mg/dL ABG Lactic Acid (0.5-1.6) mmol/L Hemoglobin (13.0-17.5) gm/dL Sodium (137-145) mmol/L Carbon Dioxide (22-30) mmol/L BUN (9-20) mg/dL Creatinine (0.66-1.25) mg/dL Glucose (74-99) mg/dL POC Glucose (mg/dL) 126 H (75-99) mg/dL Calcium (8.4-10.2) mg/dL Magnesium (1.6-2.3) mg/dL Troponin I (0.000-0.034) ng/mL Total Protein (6.3-8.2) g/dL Albumin (3.5-5.0) g/dL Arterial Blood Potassium (3.4-4.5) mmol/L Arterial Blood Glucose (75-99) mg/dL Crossmatch Microbiology - Last 24 Hours (Table) 01/27/19 21:00 Gram Stain - Final Sputum Sputum Culture - Final Serratia marcescens Assessment and Plan Assessment: Impression: 1 severe triple-vessel coronary artery disease, status post quadruple coronary artery bypass grafting surgery postoperative day #1. 2 non-ST elevation myocardial infarction 3 moderate to severe mitral regurgitation 4 ischemic cardiomyopathy and LV dysfunction with ejection fraction of 30-35% 5 hypertension 6 history of rheumatoid arthritis been treated with Enbrel and methotrexate. 7 history of obstructive sleep apnea syndrome 8 remote tobacco dependence quit in 2003 9 mild COPD FEV1 is 68% preoperatively. 10 Serratia marcescens tracheobronchitis based on the positive culture of the sputum, no evidence of pneumonia. Recommendation: Continue present treatment plan including aspirin and Plavix statin beta blockers. Continue to hold immunosuppressive therapy. Continue cefepime for his Serratia marcescens tracheobronchitis Will wean and extubate after reviewing his CPAP ABG. Continue GI and DVT prophylaxis Insulin for diabetes Incentive spirometry post extubation. Patient will remain in the ICU even if extubated today, and will use BiPAP as needed. We'll continue to follow, prognosis remains guarded. Critical care time is 35 minutes. Time with Patient: Greater than 30
[2019-01-30] MEDS: CLEVIDIPINE BUTYRATE 25 MG in EMPTY BAG 1 BAG IV SCH ×5 (12:29→22:16)
[2019-01-30 12:30] LABS: Glucose,Whole Blood 123 mg/dL (75-99)
[2019-01-30] MEDS: ASCORBIC ACID 500 MG TAB PO SCH (12:58)
[2019-01-30 14:04] LABS: Glucose,Whole Blood 124 mg/dL (75-99)
[2019-01-30 14:16] LABS: Glucose,Whole Blood 130 mg/dL (75-99)
[2019-01-30 16:07] LABS: Glucose,Whole Blood 150 mg/dL (75-99)
[2019-01-30] MEDS: LACTATED RINGERS 1,000 ML IV SCH (16:24)
[2019-01-30 16:30] LABS: Glucose,Whole Blood 126 mg/dL (75-99)
[2019-01-30] MEDS: FERROUS SULFATE 325 MG TAB PO SCH (16:59)
[2019-01-30] MEDS: hydrALAZINE HCL 25 MG TAB PO SCH ×2 (16:59→21:30)
[2019-01-30 17:44] LABS: Glucose,Whole Blood 125 mg/dL (75-99)
[2019-01-30 18:15] LABS: Glucose,Whole Blood 123 mg/dL (75-99)
[2019-01-30 19:15] LABS: Glucose,Whole Blood 121 mg/dL (75-99)
[2019-01-30] MEDS ORDERED: MILRINONE-D5W PMX 20 MG in DEXTROSE/WATER 1 100ML.BAG IV SCH (19:30)
[2019-01-30] MEDS: DEXTROSE 5% IN WATER 100 ML with AMIODARONE 150 MG IV PRN ×4 (20:36→23:11)
[2019-01-30] MEDS ORDERED: METOPROLOL TARTRATE 25 MG TAB PO SCH (21:00)
[2019-01-30 21:05] LABS: Glucose,Whole Blood 136 mg/dL (75-99)
[2019-01-30] MEDS: SENNOSIDES-DOCUSATE SODIUM 1 EACH TAB PO SCH (21:17)
[2019-01-30] MEDS: INSULIN REGULAR 100 UNIT in SODIUM CHLORIDE 0.9% 100 ML IV SCH (21:19)
[2019-01-30 22:04] LABS: Glucose,Whole Blood 171 mg/dL (75-99)
--- NOTE | 2019-01-30 22:17 | P.PN ---
Progress Note - Text Progress Note Date: 01/30/19 Interval history: This is a pleasant [address] begum. Chronic stable medical conditi ons include hyperlipidemia, hypertension, rheumatoid arthritis COPD. For about 2 weeks patient is becoming increasingly short of breath. No edema no cough no fever no chills. Normally uses 2 or 3 pillows at night. Appetite has been fair. No bowel movements. No sputum production. Patient is felt to have CHF to started on IV Lasix. There is a question about pneumonia hence antibiotics were also started. Admitted for the same. Admitted with CHF exacerbation. Positive troponin. EKG changes. Cardiac catheterization on January 23 showed triple-vessel disease.PAMELA done showed severe MR. On January 29 underwent coronary bypass. Today-in the ICU. Has 2 funerals and 2 mediastinal chest tubes. Sitting upon a chair. Tired. Underwent into atrial fibrillation. Put on IV amiodarone. Also Cleviprex drip. Earlier was milrinone drip. Review of systems: Was done for constitutional, cardiovascular, GI, pulmonary. relevant finding as above Active Medications Hydrocodone Bitart/Acetaminophen (Drasco 5-325) 2 each PO Q4HR PRN PRN Reason: Severe Pain Last Admin: 01/30/19 21:27 Dose: 2 each Documented by: Hydrocodone Bitart/Acetaminophen (Drasco 5-325) 1 each PO Q4HR PRN PRN Reason: Moderate Pain Albuterol/Ipratropium (Duoneb 0.5 Mg-3 Mg/3 Ml Soln) 3 ml INHALATION RT-Q2H PRN PRN Reason: Shortness Of Breath Or Wheezing Albuterol/Ipratropium (Duoneb 0.5 Mg-3 Mg/3 Ml Soln) 3 ml INHALATION RT-QID [facility] Last Admin: 01/30/19 19:34 Dose: 3 ml Documented by: Alprazolam (Xanax) 0.25 mg PO TID PRN PRN Reason: Anxiety Amlodipine Besylate (Norvasc) 5 mg PO DAILY [facility] Last Admin: 01/30/19 10:18 Dose: 5 mg Documented by: Ascorbic Acid (Vitamin C) 500 mg PO 1200 [facility] Last Admin: 01/30/19 12:58 Dose: 500 mg Documented by: Aspirin (Aspirin) 325 mg PO DAILY [facility] Last Admin: 01/30/19 08:40 Dose: 325 mg Documented by: Atorvastatin Calcium (Lipitor) 40 mg PO DAILY [facility] Last Admin: 01/30/19 08:40 Dose: 40 mg Documented by: Benzocaine/Menthol (Cepacol Lozenge) 1 each MUCOUS MEM Q2H PRN PRN Reason: Sore Throat Bisacodyl (Dulcolax) 10 mg RECTAL DAILY PRN PRN Reason: Constipation Clopidogrel Bisulfate (Plavix) 75 mg PO DAILY [facility] Last Admin: 01/30/19 08:40 Dose: 75 mg Documented by: Ferrous Sulfate (Feosol) 325 mg PO BID-W/MEALS [facility] Last Admin: 01/30/19 16:59 Dose: 325 mg Documented by: Heparin Sodium (Porcine) (Heparin) 5,000 unit SQ Q8HR [facility] Last Admin: 01/30/19 16:42 Dose: 5,000 unit Documented by: Hydralazine HCl (Apresoline) 25 mg PO TID [facility] Last Admin: 01/30/19 21:30 Dose: 25 mg Documented by: Clevidipine 25 mg/ IV Solution 50 mls @ 2 mls/hr IV .Q24H [facility]; Protocol Last Admin: 01/30/19 18:56 Dose: 8 mg/hr, 16 mls/hr Documented by: Insulin Human Regular 100 unit (/ Sodium Chloride) 100 mls @ 0 mls/hr IV .Q0M [facility]; Protocol Last Titration: 01/30/19 22:06 Dose: 3.5 units/hr, 3.5 mls/hr Documented by: Amiodarone HCl 150 mg/ (Dextrose/Water) 103 mls @ 618 mls/hr IV .Q10M PRN; Protocol PRN Reason: A.FIB/FLUTTER Last Admin: 01/30/19 21:38 Dose: 618 mls/hr Documented by: Amiodarone HCl 360 mg/ (Dextrose/Water) 200 mls @ 33.333 mls/hr IV .Q6H PRN; Protocol PRN Reason: A.FIB/FLUTTER Last Admin: 01/30/19 20:44 Dose: 1 mg/min, 33.333 mls/hr Documented by: Amiodarone HCl 300 mg/ (Dextrose/Water) 250 mls @ 25 mls/hr IV .Q10H PRN; Protocol PRN Reason: A.FIB/FLUTTER Albumin Human 250 ml/ IV (Solution) 250 mls @ 250 mls/hr IVPB Q1HR PRN PRN Reason: For Volume Stop: 01/31/19 16:29 Last Admin: 01/30/19 02:25 Dose: 250 mls/hr Documented by: Lactated Ringer's (Lactated Ringers) 1,000 mls @ 20 mls/hr IV .Q24H [facility] Last Admin: 01/30/19 16:24 Dose: 20 mls/hr Documented by: Cefepime HCl 1 gm/ Sodium (Chloride) 50 mls @ 100 mls/hr IVPB Q12HR [facility] Last Admin: 01/30/19 21:12 Dose: 100 mls/hr Documented by: Magnesium Hydroxide (Milk Of Magnesia) 2,400 mg PO BID PRN PRN Reason: Constipation Metoprolol Tartrate (Lopressor) 25 mg PO BID [facility] Last Admin: 01/30/19 18:52 Dose: 25 mg Documented by: Miscellaneous Information (Potassium Per Protocol) 1 each MISCELLANE DAILY PRN; Protocol PRN Reason: Per Protocol Miscellaneous Information (Magnesium Per Protocol) 1 each MISCELLANE DAILY PRN; Protocol PRN Reason: Per Protocol Miscellaneous Information (Phosphorus Per Protocol) 1 each MISCELLANE DAILY PRN; Protocol PRN Reason: Per Protocol Ondansetron HCl (Zofran) 4 mg IVP Q6HR PRN PRN Reason: Nausea And Vomiting Pantoprazole Sodium (Protonix) 40 mg PO AC-BRKFST [facility] Senna/Docusate Sodium (Senokot-S) 2 each PO HS [facility] Last Admin: 01/30/19 21:17 Dose: 2 each Documented by: Sodium Chloride (Saline Flush) 10 ml IV BID [facility] Last Admin: 01/30/19 21:17 Dose: 10 ml Documented by: Physical examination: VITAL SIGNS: 79, 14, 120/57, 95% on nasal cannula GENERAL: Sitting upon a chair, tired EYES: Pupils equal. Conjunctiva pale HEENT: External appearance of nose and ears normal, oral cavity dry. NECK: JVD unable to assess; masses not palpable. HEART: First and second heart sounds are normal; no edema. LUNGS: Respiratory rate increased, decreased breath sounds ABDOMEN: Soft, nontender, liver spleen not palpable, no masses palpable. PSYCH: Alert and oriented x3; mood and affect tired INVESTIGATIONS, reviewed in the clinical context: White count 16.2 hemoglobin 10.3 platelets 172 bun 24 creatinine 1.4 to Previous tests Cardiac cath hkddpi-ohfxpq-mmeefl disease Admission labs 2-D echo-moderate global hypokinesia, EF 30-35% multiple wall motion abnormality, severe mitral regurgitation White count 13.6 hemoglobin 14.6 potassium 4.1 creatinine 0.84 Troponin 0.082, 0.078 ProBNP 4990 EKG tracing personally reviewed by me shows ST segment depression, PVC Chest x-ray film personally reviewed by me shows pulmonary edema and some cardiomegaly Assessment: -Status post coronary bypass -Acute congestive heart failure exacerbation, from systolic dysfunction EF 30- 35%, improved -Severe mitral regurgitation, nonrheumatic -COPD in an ex-smoker -Clinically doubt pneumonia as patient has got no fever no chills, no sputum production. pro calcitonin level is coming back as negative -Hyperlipidemia -Essential hypertension -Rheumatoid arthritis -Coronary artery disease -New onset atrial fibrillation Plan: Continue current medication treatment plan. Including IV amiodarone drip related. Patient rather tired. In the ICU. Follow closely. Thank you Dr. colindres
[2019-01-30 23:00] LABS: Glucose,Whole Blood 194 mg/dL (75-99)
[2019-01-30 23:30] LABS: ABG Base Excess -5.4 mmol/L; ABG HCO3 19 mmol/L (21-25); ABG Oxygen Saturation 92.6 % (94-97); ABG PCO2 26 mmHg (35-45); ABG PH 7.45 (7.35-7.45); ABG TCO2 19 mmol/L (19-24); Allen Test Performed? Yes
[2019-01-30] MEDS: IPRATROPIUM-ALBUTEROL 3 ML NEB INHALATION PRN (23:35)
[2019-01-31 00:03] LABS: Glucose,Whole Blood 182 mg/dL (75-99)
[2019-01-31] MEDS: HEPARIN SODIUM,PORCINE 5,000 UNIT/ML 1 ML VIAL SQ SCH ×4 (00:16→23:14)
[2019-01-31 01:11] LABS: Glucose,Whole Blood 154 mg/dL (75-99)
[2019-01-31 02:09] LABS: Glucose,Whole Blood 135 mg/dL (75-99)
[2019-01-31] MEDS: HYDROcodone/APAP 5-325MG 1 EACH TAB PO PRN ×2 (02:14→06:16)
[2019-01-31] MEDS: CLEVIDIPINE BUTYRATE 25 MG in EMPTY BAG 1 BAG IV SCH ×3 (02:14→08:39)
[2019-01-31] MEDS: IPRATROPIUM-ALBUTEROL 3 ML NEB INHALATION PRN (03:21)
[2019-01-31 03:22] LABS: Glucose,Whole Blood 130 mg/dL (75-99)
[2019-01-31 04:08] LABS: Glucose,Whole Blood 119 mg/dL (75-99)
[2019-01-31 04:29] LABS: Basophils % (A) 0 %; Eosinophils % (A) 0 %; HCT 31.7 % (39.0-53.0); HGB 10.6 gm/dL (13.0-17.5); Lymphocytes # (A) 1.1 k/uL (1.0-4.8); Lymphocytes % (A) 6 %; MCH 29.3 pg (25.0-35.0); MCHC 33.4 g/dL (31.0-37.0); MCV 87.8 fL (80.0-100.0); Mean Platelet Volume 8.7; Monocytes # (A) 1.4 k/uL (0-1.0); Monocytes % (A) 7 %; Neutrophils # (A) 17.5 k/uL (1.3-7.7); Neutrophils % (A) 86 %; Platelet Count 180 k/uL (150-450); RBC 3.61 m/uL (4.30-5.90); RDW 13.5 % (11.5-15.5); WBC 20.4 k/uL (3.8-10.6)
[2019-01-31 04:37] LABS: Ionized Calcium 5.1 mg/dL (4.5-5.3)
[2019-01-31 04:45] LABS: Albumin 3.4 g/dL (3.5-5.0); Potassium 4.2 mmol/L (3.5-5.1); Total Bilirubin 0.6 mg/dL (0.2-1.3); Total Protein 5.8 g/dL (6.3-8.2)
--- NOTE | 2019-01-31 06:18 | XR ---
EXAMINATION TYPE: XR chest 1V portable DATE OF EXAM: 01/31/2019 HISTORY: Post Operative Cardiac Surgery. REFERENCE: Previous study dated 01/30/2019. FINDINGS: The patient has been extubated. A [place] catheter remains in place via a right internal jugular approach. Its tip appears to be in the pulmonary outflow tract. Bilateral pleural drains juan in in place. There is bibasilar airspace disease. There are small, bilateral effusions. The heart is mildly enlarg ed. IMPRESSION: CONTINUING POSTOPERATIVE CHANGE.
[2019-01-31 06:25] LABS: Glucose,Whole Blood 144 mg/dL (75-99)
[2019-01-31 08:06] LABS: Glucose,Whole Blood 139 mg/dL (75-99)
[2019-01-31] MEDS: IPRATROPIUM-ALBUTEROL 3 ML NEB INHALATION SCH ×4 (08:20→19:24)
[2019-01-31] MEDS ORDERED: KETOROLAC 30 MG/ML 1 ML VIAL IVP STA (08:40)
[2019-01-31] MEDS: CLOPIDOGREL 75 MG TAB PO SCH (08:51)
[2019-01-31] MEDS: PANTOPRAZOLE 40 MG TABLET PO SCH (08:51)
[2019-01-31] MEDS: ASPIRIN 325 MG TAB PO SCH (08:51)
[2019-01-31] MEDS: FERROUS SULFATE 325 MG TAB PO SCH ×2 (08:51→17:47)
[2019-01-31] MEDS: ATORVASTATIN 40 MG TAB PO SCH (08:52)
[2019-01-31] MEDS: amLODIPine 5 MG TAB PO SCH (08:52)
[2019-01-31] MEDS: hydrALAZINE HCL 25 MG TAB PO SCH ×3 (08:52→20:40)
[2019-01-31] MEDS: AMIODARONE 200 MG TAB PO SCH ×2 (08:52→20:39)
[2019-01-31] MEDS: METOPROLOL TARTRATE 50 MG TAB PO SCH ×2 (08:52→20:39)
[2019-01-31] MEDS: CEFEPIME 1 GM in SODIUM CHLORIDE 0.9% 50 ML IVPB SCH ×2 (09:59→20:39)
--- NOTE | 2019-01-31 10:03 | P.PN ---
Subjective Progress Note Date: 01/31/19 Principal diagnosis: Severe calcific triple-vessel coronary artery disease, non-STEMI this admission with troponins as high as 0.082, acute systolic heart failure and cardiomyopathy with EF 30-35%, severe mitral regurgitation on transthoracic echocardiogram, preoperative tracheal bronchitis with culture showing Serratia marcescens. Previous medical history of hypertension, hyperlipidemia, TIA in 2007 without residual deficits, rheumatoid arthritis on Enbrel and methotrexate immunosuppressants, obstructive sleep apnea without CPAP use status post UP3 with residual occasional difficulty in swallowing, previous tobacco dependence, mild COPD with FEV1 68% of predicted. POD #2 coronary artery bypass grafting using the left internal mammary artery to the left anterior descending coronary artery, the left radial artery from the aorta to the first obtuse marginal coronary artery, a reverse greater saphenous vein graft from the aorta to the second obtuse marginal coronary artery, and a reverse greater saphenous vein graft from the aorta to the posterior descending coronary artery. Exclusion of the left atrial appendage using a 45 mm Atriclip. Endoscopic harvesting of the left greater saphenous vein, endoscopic harvesting of the left radial artery, intraoperative graft flow measurement using the Via optronics system, intraoperative transesophageal echocardiogram and epi-aortic scanning. postoperative acute blood loss anemia, an expected outcome due to cardiopulmonar y bypass and hemodilution. Preoperative tracheobronchitis with positive sputum culture for Serratia marcescens. Postoperative paroxysmal atrial fibrillation, an unexpected outcome. The patient is in bed in the intensive care unit. He is in no acute distress, although he is having periods of anxiousness and restlessness. He is currently rating his pain 10 out of 10 on the pain scale 2 his chest tube insertion sites. He remains on BiPAP support with settings of 12/6 and rate of 10 with FiO2 of 50%. Current oxygen saturations on the BiPAP support 92%. The patient went into atrial fibrillation with RVR last evening and was started on amiodarone drip per protocol. This morning his bedside telemetry continues to soak atrial fibrillation with a heart rate of 85. Currently he is on Cleviprex drip at 10 mg per hour for some hypertension. He has his mediastinal and left and right pleural chest tubes in place to low continuous wall suction -20 cm H2O. No air leak is present. His chest tubes are draining thin serosanguineous drainage. Mediastinal chest tubes drained 70 mL output in the last 8 hours, 200 mL output in the last 24 hours. Right pleural chest tube drained 30 mL output in the last 24 hours, and his left pleural chest tube drained 20 mL output in the last 24 hours. His antibiotic was switched to cefepime 1 g IV piggyback every 12 hours for a positive preoperative sputum culture for Serratia marcescens. He remains afebrile in the last 24 hours. His labs this morning show a WBC count of 20.4, hemoglobin 10.6, hematocrit 31.7, platelets 180, BUN 31 and creatinine 1.23. Right IJ Cordis with [place] catheter remains in place, current hemodynamics show a cardiac output of 6.4, cardiac index 3.2, PA pressures 36/20 and a CVP of 12 mmHg. The patient is oriented 3, and moves all 4 extremities appropriately. Objective - Vital Signs Vital signs: Vital Signs Temp 98.2 F 01/31/19 04:00 Pulse 82 01/31/19 05:30 Resp 19 01/31/19 05:30 BP 125/78 01/30/19 15:00 Pulse Ox 95 01/31/19 05:30 Intake & Output 01/30/19 01/31/19 01/31/19 18:59 06:59 18:59 Intake Total 911.525 769.783 Output Total 1051 667 Balance -139.475 102.783 Weight 91.4 kg 95.3 kg Intake: IV 616.5 600 CO/CI 110 140 Cefepime 1 gm In Sodium 50 100 Chloride 0.9% 50 ml @ 100 mls/hr IVPB Q12HR [facility] Rx #:[id number] Lactated Ringers 1,000 ml 430 360 @ 20 mls/hr IV .Q24H [facility] Rx#:[id number] Nitroglycerin-D5w Pmx 50 1.5 mg In Dextrose/Water 1 250ml.bag @ 5 MCG/MIN 1.5 mls/hr IV .Q24H [facility] Rx#: [id number] Piperacillin-Tazobactam 3 25 .375 gm In Sodium Chloride 0.9% 100 ml @ 25 mls/hr IVPB Q8H [facility] Rx#: [id number] Intake, IV Titration 235.025 169.783 Amount Clevidipine Butyrate 25 153.865 133.600 mg In Empty Bag 1 bag @ 1 MG/HR 2 mls/hr IV .Q24H [facility] Rx#:[id number] Insulin Regular 100 unit 27.067 36.183 In Sodium Chloride 0.9% 100 ml @ Titrate IV .Q0M [facility] Rx#:[id number] Propofol 1,000 mg In 54.002 Empty Bag 1 bag @ Titrate IV .Q0M [facility] Rx#: [id number] Propofol 1,000 mg In 0.091 Empty Bag 1 bag @ Titrate IV .Q0M [facility] Rx#: [id number] Other 60 Output: Chest Tube Drainage 116 145 Chest Tube Bilateral 90 100 Mediastinal Chest Tube Left Lateral 16 23 Chest Chest Tube Right Lateral 10 22 Chest Drainage 27 12 Left Arm 7 4 Left Calf 20 8 Urine 908 510 Other: Voiding Method Indwelling Catheter Indwelling Catheter # Bowel Movements 0 ABP, PAP, CO, CI - Last Documented Arterial Blood Pressure 121/60 Pulmonary Artery Pressure 33/16 Cardiac Output 6.3 Cardiac Index 3.1 - Constitutional Constitutional Comment(s): Episodes of restlessness and anxiousness. General appearance: Present: cooperative, no acute distress, obese - Respiratory Details: Lungs essentially clear to his bilateral upper lobes, diminished to his bilateral bases. No wheezes, rhonchi or crackles appreciated. Respirations are symmetrical and nonlabored with BiPAP support. Current BiPAP settings are 12/6, rate of 10 with 50% FiO2. Oxygen saturations 92% on BiPAP support. Mediastinal, left and right pleural chest tubes remain in place to low continuous wall suction -20 cm H2O. No air leak is present. Draining thin serosanguineous drainage. - Cardiovascular Details: Irregular rhythm with controlled rate. S1 and S2 present, negative for S3, ga llop or murmur. Sternum is stable. Bedside telemetry showing atrial fibrillation heart rate 85. Right IJ Cordis with [place] catheter in place with current cardiac output 6.4, cardiac index 3.2, PA pressures 36/20, CVP 12 mmHg. No edema present. Heart hugger is in place and he is demonstrating appropriate use. Knee-high GUILLE hose and sequential compression devices in place to his bilateral lower extremities. Atrial epicardial pacemaker wires in place and grounded. - Gastrointestinal Gastrointestinal Comment(s): Abdomen is soft, nontender and nondistended. Active bowel sounds present all 4 abdominal quadrants. No guarding or rigidity. No organomegaly appreciated. - Genitourinary Genitourinary Comment(s): Ruiz catheter for accurate I&O. Draining clear sima urine. 500 mL output in the last 8 hours. - Integumentary Integumentary Comment(s): Skin is warm and dry. No clubbing or cyanosis is present. No rash or abnormal pigmentation is present. Midline sternal incision is clean, dry and approximated. No drainage or redness is present. Left arm radial artery harvest sites are clean, dry and approximated. No drainage or redness is present. Left lower extremity EVH sites are clean, dry and approximated. No drainage or redness is present. SPENCER drains in place to his left arm and left lower extremity with scant serosanguineous drainage. - Neurologic Neurologic Comment(s): No focal deficits. Neurologic: Present: CNII-XII intact - Musculoskeletal Musculoskeletal: Present: generalized weakness, strength equal bilaterally - Psychiatric Psychiatric: Present: A&O x's 3, appropriate affect, intact judgment & insight - Allied health notes Allied health notes reviewed: nursing - Labs CBC & Chem 7: 01/31/19 04:15 01/31/19 04:15 Labs: Abnormal Lab Results - Last 24 Hours (Table) 01/30/19 01/30/19 01/30/19 Range/Units 06:52 08:26 09:17 WBC (3.8-10.6) k/uL RBC (4.30-5.90) m/uL Hgb (13.0-17.5) gm/dL Hct (39.0-53.0) % Neutrophils # (1.3-7.7) k/uL Monocytes # (0-1.0) k/uL ABG pCO2 (35-45) mmHg ABG pO2 (83-108) mmHg ABG HCO3 (21-25) mmol/L ABG O2 Saturation (94-97) % Carbon Dioxide (22-30) mmol/L BUN (9-20) mg/dL Glucose (74-99) mg/dL POC Glucose (mg/dL) 126 H 146 H (75-99) mg/dL Troponin I 2.640 H* (0.000-0.034) ng/mL Total Protein (6.3-8.2) g/dL Albumin (3.5-5.0) g/dL 01/30/19 01/30/19 01/30/19 Range/Units 09:32 10:08 10:48 WBC (3.8-10.6) k/uL RBC (4.30-5.90) m/uL Hgb (13.0-17.5) gm/dL Hct (39.0-53.0) % Neutrophils # (1.3-7.7) k/uL Monocytes # (0-1.0) k/uL ABG pCO2 (35-45) mmHg ABG pO2 82 L (83-108) mmHg ABG HCO3 (21-25) mmol/L ABG O2 Saturation 98.0 H (94-97) % Carbon Dioxide (22-30) mmol/L BUN (9-20) mg/dL Glucose (74-99) mg/dL POC Glucose (mg/dL) 128 H (75-99) mg/dL Troponin I (0.000-0.034) ng/mL Total Protein (6.3-8.2) g/dL Albumin (3.5-5.0) g/dL 01/30/19 01/30/19 01/30/19 Range/Units 11:16 12:27 13:26 WBC (3.8-10.6) k/uL RBC (4.30-5.90) m/uL Hgb (13.0-17.5) gm/dL Hct (39.0-53.0) % Neutrophils # (1.3-7.7) k/uL Monocytes # (0-1.0) k/uL ABG pCO2 (35-45) mmHg ABG pO2 (83-108) mmHg ABG HCO3 (21-25) mmol/L ABG O2 Saturation (94-97) % Carbon Dioxide (22-30) mmol/L BUN (9-20) mg/dL Glucose (74-99) mg/dL POC Glucose (mg/dL) 126 H 123 H 124 H (75-99) mg/dL Troponin I (0.000-0.034) ng/mL Total Protein (6.3-8.2) g/dL Albumin (3.5-5.0) g/dL 01/30/19 01/30/19 01/30/19 Range/Units 14:13 15:28 16:28 WBC (3.8-10.6) k/uL RBC (4.30-5.90) m/uL Hgb (13.0-17.5) gm/dL Hct (39.0-53.0) % Neutrophils # (1.3-7.7) k/uL Monocytes # (0-1.0) k/uL ABG pCO2 (35-45) mmHg ABG pO2 (83-108) mmHg ABG HCO3 (21-25) mmol/L ABG O2 Saturation (94-97) % Carbon Dioxide (22-30) mmol/L BUN (9-20) mg/dL Glucose (74-99) mg/dL POC Glucose (mg/dL) 130 H 150 H 126 H (75-99) mg/dL Troponin I (0.000-0.034) ng/mL Total Protein (6.3-8.2) g/dL Albumin (3.5-5.0) g/dL 01/30/19 01/30/19 01/30/19 Range/Units 17:18 18:12 18:49 WBC (3.8-10.6) k/uL RBC (4.30-5.90) m/uL Hgb (13.0-17.5) gm/dL Hct (39.0-53.0) % Neutrophils # (1.3-7.7) k/uL Monocytes # (0-1.0) k/uL ABG pCO2 (35-45) mmHg ABG pO2 (83-108) mmHg ABG HCO3 (21-25) mmol/L ABG O2 Saturation (94-97) % Carbon Dioxide (22-30) mmol/L BUN (9-20) mg/dL Glucose (74-99) mg/dL POC Glucose (mg/dL) 125 H 123 H 121 H (75-99) mg/dL Troponin I (0.000-0.034) ng/mL Total Protein (6.3-8.2) g/dL Albumin (3.5-5.0) g/dL 01/30/19 01/30/19 01/30/19 Range/Units 21:03 22:02 22:57 WBC (3.8-10.6) k/uL RBC (4.30-5.90) m/uL Hgb (13.0-17.5) gm/dL Hct (39.0-53.0) % Neutrophils # (1.3-7.7) k/uL Monocytes # (0-1.0) k/uL ABG pCO2 (35-45) mmHg ABG pO2 (83-108) mmHg ABG HCO3 (21-25) mmol/L ABG O2 Saturation (94-97) % Carbon Dioxide (22-30) mmol/L BUN (9-20) mg/dL Glucose (74-99) mg/dL POC Glucose (mg/dL) 136 H 171 H 194 H (75-99) mg/dL Troponin I (0.000-0.034) ng/mL Total Protein (6.3-8.2) g/dL Albumin (3.5-5.0) g/dL 01/30/19 01/31/19 01/31/19 Range/Units 23:27 00:00 01:08 WBC (3.8-10.6) k/uL RBC (4.30-5.90) m/uL Hgb (13.0-17.5) gm/dL Hct (39.0-53.0) % Neutrophils # (1.3-7.7) k/uL Monocytes # (0-1.0) k/uL ABG pCO2 26 L (35-45) mmHg ABG pO2 59 L* (83-108) mmHg ABG HCO3 19 L (21-25) mmol/L ABG O2 Saturation 92.6 L (94-97) % Carbon Dioxide (22-30) mmol/L BUN (9-20) mg/dL Glucose (74-99) mg/dL POC Glucose (mg/dL) 182 H 154 H (75-99) mg/dL Troponin I (0.000-0.034) ng/mL Total Protein (6.3-8.2) g/dL Albumin (3.5-5.0) g/dL 01/31/19 01/31/19 01/31/19 Range/Units 02:07 03:19 04:05 WBC (3.8-10.6) k/uL RBC (4.30-5.90) m/uL Hgb (13.0-17.5) gm/dL Hct (39.0-53.0) % Neutrophils # (1.3-7.7) k/uL Monocytes # (0-1.0) k/uL ABG pCO2 (35-45) mmHg ABG pO2 (83-108) mmHg ABG HCO3 (21-25) mmol/L ABG O2 Saturation (94-97) % Carbon Dioxide (22-30) mmol/L BUN (9-20) mg/dL Glucose (74-99) mg/dL POC Glucose (mg/dL) 135 H 130 H 119 H (75-99) mg/dL Troponin I (0.000-0.034) ng/mL Total Protein (6.3-8.2) g/dL Albumin (3.5-5.0) g/dL 01/31/19 01/31/19 01/31/19 Range/Units 04:15 04:15 06:23 WBC 20.4 H (3.8-10.6) k/uL RBC 3.61 L (4.30-5.90) m/uL Hgb 10.6 L (13.0-17.5) gm/dL Hct 31.7 L (39.0-53.0) % Neutrophils # 17.5 H (1.3-7.7) k/uL Monocytes # 1.4 H (0-1.0) k/uL ABG pCO2 (35-45) mmHg ABG pO2 (83-108) mmHg ABG HCO3 (21-25) mmol/L ABG O2 Saturation (94-97) % Carbon Dioxide 21 L (22-30) mmol/L BUN 31 H (9-20) mg/dL Glucose 128 H (74-99) mg/dL POC Glucose (mg/dL) 144 H (75-99) mg/dL Troponin I (0.000-0.034) ng/mL Total Protein 5.8 L (6.3-8.2) g/dL Albumin 3.4 L (3.5-5.0) g/dL Microbiology - Last 24 Hours (Table) 01/30/19 18:15 Gram Stain - Preliminary Sputum Sputum Culture - Preliminary 01/27/19 21:00 Gram Stain - Final Sputum Sputum Culture - Final Serratia marcescens - Imaging and Cardiology Chest x-ray: report reviewed, image reviewed Assessment and Plan Assessment: 1. Severe calcific triple-vessel coronary artery disease, status post quadruple coronary artery bypass grafting surgery 2. Non-STEMI 3. Acute systolic heart failure, cardiomyopathy, EF 30-35% 4. Moderate to severe mitral regurgitation on transthoracic echocardiogram and transesophageal echocardiogram 5. Hypertension 6. Hyperlipidemia 7. TIA in 2007 without residual 8. Rheumatoid arthritis on Enbrel and methotrexate, currently on hold 9. Obstructive sleep apnea without CPAP use, status post UPPP with residual occasional difficulty in swallowing 10. Remote history of tobacco dependence, quit in 2003 11. Mild COPD with preoperative FEV1 68% 12. Preoperative tracheobronchitis with positive sputum culture showing Serratia marcescens 13. Postoperative acute blood loss anemia, an expected outcome 14. Postoperative paroxysmal atrial fibrillation, an unexpected outcome Plan: 1. Continue to maximize medical therapy with aspirin, Plavix, statin, beta kleber and Norvasc. We will increase his metoprolol tartrate 50 mg by mouth twice a day. 2. Continue to hold Enbrel and methotrexate. 3. Encourage increase in activity. Physical therapy, occupational therapy and cardiac rehabilitation following. 4. Bronchodilators and antibiotic management per pulmonary critical care serv ice. Wean BiPAP/oxygen as tolerated. 5. Toradol 15 milligrams IVP 1 now and we will start him on Toradol 15 mg every 6 hours. 6. Encourage use of his incentive spirometry every hour while awake. 7. continue GI and DVT prophylaxis. 8. Medical management, Insulin management and other comorbidities management per primary care service. 9. We will discontinue his mediastinal and right pleural chest tubes. Keep left pleural chest tube in place today to low continuous wall suction -20 cm H2O. 10. He was started on amiodarone 400 mg by mouth twice a day for atrial fibrillation prophylaxis. Discontinue IV amiodarone. 11. No diuresis today. 12. Remove [place] catheter, keep right IJ Cordis in place to continue CVP monitoring. Keep radial arterial line in place, weaned Cleviprex drip as tolerated to keep his mean arterial pressure between 75 and 80. 13. Discontinue Ruiz catheter and left arm SPENCER drain and his left leg SPENCER drain. 14. More recommendations to follow based on patient's clinical course. Time with Patient: Greater than 30
[2019-01-31 10:43] LABS: Glucose,Whole Blood 143 mg/dL (75-99)
--- NOTE | 2019-01-31 10:48 | PN ---
PROGRESS NOTE Mr. Kong is status post aortocoronary bypass surgery. His echo yesterday revealed significant improvement in LV function. However, is still on BiPAP. He is having some respiratory issues being with some hypoxemia and CO2 retention. However, he is making progress slowly. Vitals are stable. The pacemaker seems to be firing, sensing is noted. This is an atrial lead. S1, S2 heard normally. Short systolic murmur noted. Lungs reveal diminished air entry. Abdomen and lower extremity exam unchanged. Cardiac-duke, same medications, no changes and continue respiratory management and hopefully he will be able to come off the BiPAP slowly. Incentive spirometry and pulmonary toilet are advised. Prognosis remains guarded. MMODL / IJN: [id number] /
[2019-01-31] MEDS: ASCORBIC ACID 500 MG TAB PO SCH (11:46)
[2019-01-31] MEDS: KETOROLAC 30 MG/ML 1 ML VIAL IVP SCH ×3 (12:16→23:15)
[2019-01-31 12:53] LABS: Glucose,Whole Blood 104 mg/dL (75-99)
--- NOTE | 2019-01-31 13:54 | P.PN ---
Subjective Progress Note Date: 01/31/19 Principal diagnosis: Status post CABG, postoperative day #2 Patient was reevaluated today on 01/30/2019, patient is postoperative day #1, had CABG, RIVERO to LAD, left radial artery from aorta to the first obtuse marginal coronary artery, a reverse greater saphenous vein graft from the aorta to the second obtuse marginal coronary artery and reverse greater saphenous vein graft from the aorta to the posterior descending coronary artery. Patient was on mechanical ventilation overnight, I have seen him this morning, he was doing well on CPAP, hence proceeded to extubating the patient. Shortly after extubation, patient was noted to have more shortness of breath, O2 flow was i ncreased to 6 L, and his O2 saturation was marginal. Patient was noted to be diaphoretic, hence I recommended BiPAP. He was placed on BiPAP of 12 EPAP of 6 and FiO2 will be titrated accordingly to keep O2 saturation above 92%. Chest x- ray showed mild pulmonary vascular congestion trace of pleural effusions and bibasilar atelectasis. No evidence of pneumonia. His sputum which was ordered couple of days ago is back positive for Serratia marcescens, hence I will start the patient on cefepime today. Labs today were reviewed CPAP ABG showed a pO2 of 98 pCO2 of 55 pH of 7.40. WBC count is 16.2 hemoglobin is 10.3. Electrolytes were normal however his renal functioning is up with a creatinine of 1.42. Chest x-ray was also reviewed Reevaluated today on 01/31/2019, patient is postoperative day #2. Remains in the intensive care unit, patient is feeling better, however still unable to get him off BiPAP, desaturates easily on nasal cannula, hence we'll try a high flow nasal cannula or possibly Airvo with high flow. Patient had episodes of anxiousness and restlessness. Placed on Xanax yesterday. His BiPAP settings are 12/6 and FiO2 is 50%. O2 saturation is 92%. Patient had atrial fibrillation with RVR last night started on amiodarone drip. Continues to have atrial fibrillation but rate is controlled at 85. He is also on clevidipine for hypertension presently at 10 mg per hour. Continues to have left and right pleural chest few in place. Remains on cefepime for his tracheobronchitis related to Serratia marcescens. Patient does have leukocytosis with WBC count of 20.4 hemoglobin is 10.6. Cardiac output today is 6.4 with a cardiac index of 3.2. CVP is 12. Chest x-ray showed mild interstitial edema Objective - Vital Signs Vital signs: Vital Signs Temp 96.8 F L 01/31/19 12:00 Pulse 66 01/31/19 12:00 Resp 13 01/31/19 12:00 BP 125/78 01/30/19 15:00 Pulse Ox 98 01/31/19 12:46 Intake & Output 01/30/19 01/31/19 01/31/19 18:59 06:59 18:59 Intake Total 911.525 769.783 616.192 Output Total 1051 667 294 Balance -139.475 102.783 322.192 Weight 91.4 kg 95.3 kg Intake: IV 616.5 600 280 CO/CI 110 140 50 Cefepime 1 gm In Sodium 50 100 50 Chloride 0.9% 50 ml @ 100 mls/hr IVPB Q12HR [facility] Rx #:[id number] Lactated Ringers 1,000 ml 430 360 180 @ 20 mls/hr IV .Q24H [facility] Rx#:[id number] Nitroglycerin-D5w Pmx 50 1.5 mg In Dextrose/Water 1 250ml.bag @ 5 MCG/MIN 1.5 mls/hr IV .Q24H [facility] Rx#: [id number] Piperacillin-Tazobactam 3 25 .375 gm In Sodium Chloride 0.9% 100 ml @ 25 mls/hr IVPB Q8H [facility] Rx#: [id number] Intake, IV Titration 235.025 169.783 336.192 Amount Amiodarone 300 mg In 235.417 Dextrose 5% in Water 250 ml @ 0.5 MG/MIN 25 mls/hr IV .Q10H PRN Rx#: [id number] Clevidipine Butyrate 25 153.865 133.600 80.800 mg In Empty Bag 1 bag @ 1 MG/HR 2 mls/hr IV .Q24H [facility] Rx#:[id number] Insulin Regular 100 unit 27.067 36.183 19.975 In Sodium Chloride 0.9% 100 ml @ Titrate IV .Q0M [facility] Rx#:[id number] Propofol 1,000 mg In 54.002 Empty Bag 1 bag @ Titrate IV .Q0M PRN Rx#: [id number] Propofol 1,000 mg In 0.091 Empty Bag 1 bag @ Titrate IV .Q0M [facility] Rx#: [id number] Other 60 Output: Chest Tube Drainage 116 145 144 Chest Tube Bilateral 90 100 60 Mediastinal Chest Tube Left Lateral 16 23 44 Chest Chest Tube Right Lateral 10 22 40 Chest Drainage 27 12 Left Arm 7 4 Left Calf 20 8 Urine 908 510 150 Other: Voiding Method Indwelling Catheter Indwelling Catheter Indwelling Catheter # Bowel Movements 0 ABP, PAP, CO, CI - Last Documented Arterial Blood Pressure 129/70 Pulmonary Artery Pressure 33/13 Cardiac Output 6.4 Cardiac Index 3.2 - Exam Physical Exam: Revealed a 63-year-old white male on BiPAP, in no distress. Head: Atraumatic, normocephalic. HEENT:[Neck is supple.] [No neck masses.] [No thyromegaly.] [No JVD.] Chest: [Symmetrical chest expansion, minimal fine crackles at the bases, no rhonchi and no wheezes.] Cardiac Exam: [Normal S1 and S2, no S3 gallop, no murmur.] Abdomen: [Soft, nontender, no megaly, no rebound, no guarding, normal bowel sounds.] Extremities: [No clubbing, no edema, no cyanosis.] Neurological Exam: Alert and oriented 3, no gross focal neurologic deficits. Skin: No rashes. Lymphatics: No lymphadenopathy. Psychiatric: Normal mood and normal affect. Normal mental status examination - Labs CBC & Chem 7: 01/31/19 04:15 01/31/19 04:15 Labs: Abnormal Lab Results - Last 24 Hours (Table) 01/30/19 01/30/19 01/30/19 Range/Units 13:26 14:13 15:28 WBC (3.8-10.6) k/uL RBC (4.30-5.90) m/uL Hgb (13.0-17.5) gm/dL Hct (39.0-53.0) % Neutrophils # (1.3-7.7) k/uL Monocytes # (0-1.0) k/uL ABG pCO2 (35-45) mmHg ABG pO2 (83-108) mmHg ABG HCO3 (21-25) mmol/L ABG O2 Saturation (94-97) % Carbon Dioxide (22-30) mmol/L BUN (9-20) mg/dL Glucose (74-99) mg/dL POC Glucose (mg/dL) 124 H 130 H 150 H (75-99) mg/dL Total Protein (6.3-8.2) g/dL Albumin (3.5-5.0) g/dL 01/30/19 01/30/19 01/30/19 Range/Units 16:28 17:18 18:12 WBC (3.8-10.6) k/uL RBC (4.30-5.90) m/uL Hgb (13.0-17.5) gm/dL Hct (39.0-53.0) % Neutrophils # (1.3-7.7) k/uL Monocytes # (0-1.0) k/uL ABG pCO2 (35-45) mmHg ABG pO2 (83-108) mmHg ABG HCO3 (21-25) mmol/L ABG O2 Saturation (94-97) % Carbon Dioxide (22-30) mmol/L BUN (9-20) mg/dL Glucose (74-99) mg/dL POC Glucose (mg/dL) 126 H 125 H 123 H (75-99) mg/dL Total Protein (6.3-8.2) g/dL Albumin (3.5-5.0) g/dL 01/30/19 01/30/19 01/30/19 Range/Units 18:49 21:03 22:02 WBC (3.8-10.6) k/uL RBC (4.30-5.90) m/uL Hgb (13.0-17.5) gm/dL Hct (39.0-53.0) % Neutrophils # (1.3-7.7) k/uL Monocytes # (0-1.0) k/uL ABG pCO2 (35-45) mmHg ABG pO2 (83-108) mmHg ABG HCO3 (21-25) mmol/L ABG O2 Saturation (94-97) % Carbon Dioxide (22-30) mmol/L BUN (9-20) mg/dL Glucose (74-99) mg/dL POC Glucose (mg/dL) 121 H 136 H 171 H (75-99) mg/dL Total Protein (6.3-8.2) g/dL Albumin (3.5-5.0) g/dL 01/30/19 01/30/19 01/31/19 Range/Units 22:57 23:27 00:00 WBC (3.8-10.6) k/uL RBC (4.30-5.90) m/uL Hgb (13.0-17.5) gm/dL Hct (39.0-53.0) % Neutrophils # (1.3-7.7) k/uL Monocytes # (0-1.0) k/uL ABG pCO2 26 L (35-45) mmHg ABG pO2 59 L* (83-108) mmHg ABG HCO3 19 L (21-25) mmol/L ABG O2 Saturation 92.6 L (94-97) % Carbon Dioxide (22-30) mmol/L BUN (9-20) mg/dL Glucose (74-99) mg/dL POC Glucose (mg/dL) 194 H 182 H (75-99) mg/dL Total Protein (6.3-8.2) g/dL Albumin (3.5-5.0) g/dL 01/31/19 01/31/19 01/31/19 Range/Units 01:08 02:07 03:19 WBC (3.8-10.6) k/uL RBC (4.30-5.90) m/uL Hgb (13.0-17.5) gm/dL Hct (39.0-53.0) % Neutrophils # (1.3-7.7) k/uL Monocytes # (0-1.0) k/uL ABG pCO2 (35-45) mmHg ABG pO2 (83-108) mmHg ABG HCO3 (21-25) mmol/L ABG O2 Saturation (94-97) % Carbon Dioxide (22-30) mmol/L BUN (9-20) mg/dL Glucose (74-99) mg/dL POC Glucose (mg/dL) 154 H 135 H 130 H (75-99) mg/dL Total Protein (6.3-8.2) g/dL Albumin (3.5-5.0) g/dL 01/31/19 01/31/19 01/31/19 Range/Units 04:05 04:15 04:15 WBC 20.4 H (3.8-10.6) k/uL RBC 3.61 L (4.30-5.90) m/uL Hgb 10.6 L (13.0-17.5) gm/dL Hct 31.7 L (39.0-53.0) % Neutrophils # 17.5 H (1.3-7.7) k/uL Monocytes # 1.4 H (0-1.0) k/uL ABG pCO2 (35-45) mmHg ABG pO2 (83-108) mmHg ABG HCO3 (21-25) mmol/L ABG O2 Saturation (94-97) % Carbon Dioxide 21 L (22-30) mmol/L BUN 31 H (9-20) mg/dL Glucose 128 H (74-99) mg/dL POC Glucose (mg/dL) 119 H (75-99) mg/dL Total Protein 5.8 L (6.3-8.2) g/dL Albumin 3.4 L (3.5-5.0) g/dL 01/31/19 01/31/19 01/31/19 Range/Units 06:23 08:01 10:39 WBC (3.8-10.6) k/uL RBC (4.30-5.90) m/uL Hgb (13.0-17.5) gm/dL Hct (39.0-53.0) % Neutrophils # (1.3-7.7) k/uL Monocytes # (0-1.0) k/uL ABG pCO2 (35-45) mmHg ABG pO2 (83-108) mmHg ABG HCO3 (21-25) mmol/L ABG O2 Saturation (94-97) % Carbon Dioxide (22-30) mmol/L BUN (9-20) mg/dL Glucose (74-99) mg/dL POC Glucose (mg/dL) 144 H 139 H 143 H (75-99) mg/dL Total Protein (6.3-8.2) g/dL Albumin (3.5-5.0) g/dL 01/31/19 Range/Units 12:39 WBC (3.8-10.6) k/uL RBC (4.30-5.90) m/uL Hgb (13.0-17.5) gm/dL Hct (39.0-53.0) % Neutrophils # (1.3-7.7) k/uL Monocytes # (0-1.0) k/uL ABG pCO2 (35-45) mmHg ABG pO2 (83-108) mmHg ABG HCO3 (21-25) mmol/L ABG O2 Saturation (94-97) % Carbon Dioxide (22-30) mmol/L BUN (9-20) mg/dL Glucose (74-99) mg/dL POC Glucose (mg/dL) 104 H (75-99) mg/dL Total Protein (6.3-8.2) g/dL Albumin (3.5-5.0) g/dL Microbiology - Last 24 Hours (Table) 01/30/19 18:15 Gram Stain - Preliminary Sputum Sputum Culture - Preliminary Assessment and Plan Assessment: Impression: 1 severe triple-vessel coronary artery disease, status post quadruple coronary artery bypass grafting surgery postoperative day #2 2 non-ST elevation myocardial infarction 3 moderate to severe mitral regurgitation 4 ischemic cardiomyopathy and LV dysfunction with ejection fraction of 30-35% 5 hypertension 6 history of rheumatoid arthritis been treated with Enbrel and methotrexate. 7 history of obstructive sleep apnea syndrome 8 remote tobacco dependence quit in 2003 9 mild COPD FEV1 is 68% preoperatively. 10 Serratia marcescens tracheobronchitis based on the positive culture of the sputum, no evidence of pneumonia. Recommendation: Continue present treatment plan including aspirin and Plavix statin beta blockers. Continue to hold immunosuppressive therapy. Continue cefepime for his Serratia marcescens tracheobronchitis Will wean and extubate after reviewing his CPAP ABG. Continue GI and DVT prophylaxis Insulin for diabetes Incentive spirometry post extubation. Continue BiPAP, transition gradually to a nasal cannula as tolerates. We'll continue to monitor in the ICU. Time with Patient: Less than 30
[2019-01-31 14:07] LABS: Glucose,Whole Blood 127 mg/dL (75-99)
[2019-01-31 15:06] LABS: Glucose,Whole Blood 115 mg/dL (75-99)
[2019-01-31] MEDS ORDERED: TAMSULOSIN 0.4 MG CAP.ER.24H PO STA (15:37)
[2019-01-31] MEDS: ACETAMINOPHEN TAB 500 MG TAB PO PRN ×2 (15:46→20:40)
--- NOTE | 2019-01-31 16:36 | P.PN ---
Progress Note - Text Progress Note Date: 01/31/19 Interval history: This is a pleasant [address] begum. Chronic stable medical conditi ons include hyperlipidemia, hypertension, rheumatoid arthritis COPD. For about 2 weeks patient is becoming increasingly short of breath. No edema no cough no fever no chills. Normally uses 2 or 3 pillows at night. Appetite has been fair. No bowel movements. No sputum production. Patient is felt to have CHF to started on IV Lasix. There is a question about pneumonia hence antibiotics were also started. Admitted for the same. Admitted with CHF exacerbation. Positive troponin. EKG changes. Cardiac catheterization on January 23 showed triple-vessel disease.PAMELA done showed severe MR. On January 29 underwent coronary bypass. Today-in the ICU. Sitting up in a chair. Cleviprex as above. Stopped this morning. Also admitted on IV stopped this morning. Switched to by mouth. Insulin drip is running. Remains in atrial fibrillation. Chest tubes were removed except the left pleural chest tube. Was on BiPAP earlier today. Did tolerate a liquid diet. Review of systems: Was done for constitutional, cardiovascular, GI, pulmonary. relevant finding as above Active Medications Acetaminophen (Tylenol Tab) 1,000 mg PO Q6HR PRN PRN Reason: Fever and/ or Mild Pain Last Admin: 01/31/19 15:46 Dose: 1,000 mg Documented by: Albuterol/Ipratropium (Duoneb 0.5 Mg-3 Mg/3 Ml Soln) 3 ml INHALATION RT-Q2H PRN PRN Reason: Shortness Of Breath Or Wheezing Last Admin: 01/31/19 03:21 Dose: 3 ml Documented by: Albuterol/Ipratropium (Duoneb 0.5 Mg-3 Mg/3 Ml Soln) 3 ml INHALATION RT-QID [facility] Last Admin: 01/31/19 15:29 Dose: 3 ml Documented by: Alprazolam (Xanax) 0.25 mg PO TID PRN PRN Reason: Anxiety Last Admin: 01/31/19 08:52 Dose: 0.25 mg Documented by: Amiodarone HCl (Cordarone) 400 mg PO BID [facility] Last Admin: 01/31/19 08:52 Dose: 400 mg Documented by: Amlodipine Besylate (Norvasc) 5 mg PO DAILY [facility] Last Admin: 01/31/19 08:52 Dose: 5 mg Documented by: Ascorbic Acid (Vitamin C) 500 mg PO 1200 [facility] Last Admin: 01/31/19 11:46 Dose: 500 mg Documented by: Aspirin (Aspirin) 325 mg PO DAILY [facility] Last Admin: 01/31/19 08:51 Dose: 325 mg Documented by: Atorvastatin Calcium (Lipitor) 40 mg PO DAILY [facility] Last Admin: 01/31/19 08:52 Dose: 40 mg Documented by: Benzocaine/Menthol (Cepacol Lozenge) 1 each MUCOUS MEM Q2H PRN PRN Reason: Sore Throat Bisacodyl (Dulcolax) 10 mg RECTAL DAILY PRN PRN Reason: Constipation Clopidogrel Bisulfate (Plavix) 75 mg PO DAILY [facility] Last Admin: 01/31/19 08:51 Dose: 75 mg Documented by: Ferrous Sulfate (Feosol) 325 mg PO BID-W/MEALS [facility] Last Admin: 01/31/19 08:51 Dose: 325 mg Documented by: Heparin Sodium (Porcine) (Heparin) 5,000 unit SQ Q8HR [facility] Last Admin: 01/31/19 16:01 Dose: 5,000 unit Documented by: Hydralazine HCl (Apresoline) 25 mg PO TID [facility] Last Admin: 01/31/19 16:01 Dose: 25 mg Documented by: Clevidipine 25 mg/ IV Solution 50 mls @ 2 mls/hr IV .Q24H [facility]; Protocol Last Titration: 01/31/19 10:04 Dose: 0 mg/hr, 0 mls/hr Documented by: Insulin Human Regular 100 unit (/ Sodium Chloride) 100 mls @ 0 mls/hr IV .Q0M [facility]; Protocol Last Titration: 01/31/19 15:07 Dose: 2.5 units/hr, 2.5 mls/hr Documented by: Lactated Ringer's (Lactated Ringers) 1,000 mls @ 20 mls/hr IV .Q24H [facility] Last Admin: 01/30/19 16:24 Dose: 20 mls/hr Documented by: Cefepime HCl 1 gm/ Sodium (Chloride) 50 mls @ 100 mls/hr IVPB Q12HR [facility] Last Admin: 01/31/19 09:59 Dose: 100 mls/hr Documented by: Ketorolac Tromethamine (Toradol) 15 mg IVP Q6HR [facility] Stop: 02/04/19 10:04 Last Admin: 01/31/19 12:16 Dose: 15 mg Documented by: Magnesium Hydroxide (Milk Of Magnesia) 2,400 mg PO BID PRN PRN Reason: Constipation Metoprolol Tartrate (Lopressor) 50 mg PO BID [facility] Last Admin: 01/31/19 08:52 Dose: 50 mg Documented by: Miscellaneous Information (Potassium Per Protocol) 1 each MISCELLANE DAILY PRN; Protocol PRN Reason: Per Protocol Miscellaneous Information (Magnesium Per Protocol) 1 each MISCELLANE DAILY PRN; Protocol PRN Reason: Per Protocol Miscellaneous Information (Phosphorus Per Protocol) 1 each MISCELLANE DAILY PRN; Protocol PRN Reason: Per Protocol Ondansetron HCl (Zofran) 4 mg IVP Q6HR PRN PRN Reason: Nausea And Vomiting Pantoprazole Sodium (Protonix) 40 mg PO AC-BRKFST [facility] Last Admin: 01/31/19 08:51 Dose: 40 mg Documented by: Senna/Docusate Sodium (Senokot-S) 2 each PO HS [facility] Last Admin: 01/30/19 21:17 Dose: 2 each Documented by: Sodium Chloride (Saline Flush) 10 ml IV BID [facility] Last Admin: 01/31/19 08:55 Dose: 10 ml Documented by: Physical examination: VITAL SIGNS: 96.8, 66, 13, 129/70, 98% on nasal cannula GENERAL: Sitting upon a chair, tired EYES: Pupils equal. Conjunctiva pale HEENT: External appearance of nose and ears normal, oral cavity dry. NECK: JVD unable to assess; masses not palpable. HEART: First and second heart sounds are normal; no edema. LUNGS: Respiratory rate increased, decreased breath sounds ABDOMEN: Soft, nontender, liver spleen not palpable, no masses palpable. PSYCH: Alert and oriented x3; mood and affect tired INVESTIGATIONS, reviewed in the clinical context: White count 16.2 hemoglobin 10.3 platelets 172 bun 24 creatinine 1.4 to Previous tests Cardiac cath kfonic-lmnhwb-snnjwa disease Admission labs 2-D echo-moderate global hypokinesia, EF 30-35% multiple wall motion abnormality, severe mitral regurgitation White count 13.6 hemoglobin 14.6 potassium 4.1 creatinine 0.84 Troponin 0.082, 0.078 ProBNP 4990 EKG tracing personally reviewed by shows ST segment depression, PVC Chest x-ray film personally reviewed by me shows pulmonary edema and some cardi omegaly Assessment: -Status post coronary bypass -Acute congestive heart failure exacerbation, from systolic dysfunction EF 30- 35%, improved -Severe mitral regurgitation, nonrheumatic -COPD in an ex-smoker -Clinically doubt pneumonia as patient has got no fever no chills, no sputum production. pro calcitonin level is coming back as negative -Hyperlipidemia -Essential hypertension -Rheumatoid arthritis -Coronary artery disease -Persistent atrial fibrillation Plan: Continue current medication treatment plan. Care was discussed with the patient. On insulin drip. Patient is sent to use the IS Thank you Dr. colindres
[2019-01-31 17:12] LABS: Glucose,Whole Blood 108 mg/dL (75-99)
[2019-01-31] MEDS ORDERED: FUROSEMIDE 10 MG/ML 2 ML VIAL IV ONE (17:37)
[2019-01-31] MEDS: LACTATED RINGERS 1,000 ML IV SCH (17:52)
[2019-01-31 18:04] LABS: Glucose,Whole Blood 151 mg/dL (75-99)
[2019-01-31 19:12] LABS: Glucose,Whole Blood 139 mg/dL (75-99)
[2019-01-31 20:17] LABS: Glucose,Whole Blood 131 mg/dL (75-99)
[2019-01-31] MEDS: SENNOSIDES-DOCUSATE SODIUM 1 EACH TAB PO SCH (20:39)
[2019-01-31 21:05] LABS: Glucose,Whole Blood 159 mg/dL (75-99)
[2019-01-31 21:58] LABS: Glucose,Whole Blood 143 mg/dL (75-99)
[2019-01-31 22:04] LABS: Appearance,Urine Clear (Clear); Bacteria,Urine Rare /hpf; Bilirubin,Urine Negative (Negative); Blood,Urine Small (Negative); Color,Urine Yellow; Glucose,Urine (UA) Negative (Negative); Hyaline Casts,Urine 19 /lpf (0-2); Ketones,Urine Trace (Negative); Leukocyte Esterase,Urine Negative (Negative); Mucus,Urine Rare /hpf; Nitrite,Urine Negative (Negative); Protein,Urine Trace (Negative); RBC,Urine 33 /hpf (0-5); Squamous Epithelial Cell,Urine <1 /hpf (0-4); Urobilinogen,Urine <2.0 mg/dL (<2.0)
[2019-01-31 23:26] LABS: Glucose,Whole Blood 128 mg/dL (75-99)
[2019-02-01 01:34] LABS: Glucose,Whole Blood 112 mg/dL (75-99)
[2019-02-01] MEDS: ACETAMINOPHEN TAB 500 MG TAB PO PRN (03:01)
[2019-02-01 03:05] LABS: Glucose,Whole Blood 113 mg/dL (75-99)
[2019-02-01 04:22] LABS: Basophils % (A) 0 %; Eosinophils # (A) 0.2 k/uL (0-0.7); Eosinophils % (A) 1 %; HCT 29.5 % (39.0-53.0); HGB 9.8 gm/dL (13.0-17.5); Lymphocytes # (A) 1.1 k/uL (1.0-4.8); Lymphocytes % (A) 7 %; MCH 29.5 pg (25.0-35.0); MCHC 33.2 g/dL (31.0-37.0); MCV 88.7 fL (80.0-100.0); Mean Platelet Volume 8.7; Monocytes # (A) 0.9 k/uL (0-1.0); Monocytes % (A) 6 %; Neutrophils # (A) 12.4 k/uL (1.3-7.7); Neutrophils % (A) 84 %; Platelet Count 164 k/uL (150-450); RBC 3.33 m/uL (4.30-5.90); RDW 13.6 % (11.5-15.5); WBC 14.8 k/uL (3.8-10.6)
[2019-02-01 04:33] LABS: Calcium 8.9 mg/dL (8.4-10.2); Potassium 4.2 mmol/L (3.5-5.1); Total Bilirubin 0.7 mg/dL (0.2-1.3); Total Protein 5.4 g/dL (6.3-8.2)
[2019-02-01 05:07] LABS: Glucose,Whole Blood 125 mg/dL (75-99)
[2019-02-01] MEDS: amLODIPine 5 MG TAB PO SCH (06:05)
[2019-02-01] MEDS: PANTOPRAZOLE 40 MG TABLET PO SCH ×2 (06:46→17:51)
[2019-02-01] MEDS: FERROUS SULFATE 325 MG TAB PO SCH ×2 (06:46→17:51)
[2019-02-01] MEDS: CLEVIDIPINE BUTYRATE 25 MG in EMPTY BAG 1 BAG IV SCH ×2 (06:55→22:25)
[2019-02-01 07:05] LABS: Glucose,Whole Blood 185 mg/dL (75-99)
--- NOTE | 2019-02-01 07:07 | XR ---
EXAMINATION TYPE: XR chest 1V portable DATE OF EXAM: 02/01/2019 HISTORY: Postoperative CABG. REFERENCE: Previous study dated 01/31/2019. FINDINGS: There is a right internal jugular catheter is been removed. A left pleural drain remains in place. The patient's right pleural drain is no longer clearly evident. The heart is enlarged. There are bilateral effusions. There is bibasilar airspace disease. IMPRESSION: SLIGHT WORSENING IN THE APPEARANCE OF THE CHEST COMPARED TO PREVIOUS.
[2019-02-01] MEDS ORDERED: HYDROcodone/APAP 5-325MG 1 EACH TAB PO PRN (07:43)
[2019-02-01] MEDS: HYDROcodone/APAP 5-325MG 1 EACH TAB PO PRN ×3 (07:53→19:04)
[2019-02-01] MEDS: ASPIRIN 325 MG TAB PO SCH (08:01)
[2019-02-01] MEDS: AMIODARONE 200 MG TAB PO SCH ×2 (08:01→20:42)
[2019-02-01] MEDS: ATORVASTATIN 40 MG TAB PO SCH (08:01)
[2019-02-01] MEDS: CEFEPIME 1 GM in SODIUM CHLORIDE 0.9% 50 ML IVPB SCH ×2 (08:02→20:44)
[2019-02-01] MEDS: CLOPIDOGREL 75 MG TAB PO SCH (08:02)
[2019-02-01] MEDS: HEPARIN SODIUM,PORCINE 5,000 UNIT/ML 1 ML VIAL SQ SCH ×3 (08:02→23:22)
[2019-02-01] MEDS: hydrALAZINE HCL 25 MG TAB PO SCH ×3 (08:02→23:21)
[2019-02-01] MEDS: INSULIN REGULAR 100 UNIT in SODIUM CHLORIDE 0.9% 100 ML IV SCH (08:05)
[2019-02-01 08:13] LABS: Glucose,Whole Blood 173 mg/dL (75-99)
[2019-02-01] MEDS ORDERED: METOCLOPRAMIDE 5 MG/ML 2 ML VIAL IVP SCH (08:15)
[2019-02-01] MEDS: IPRATROPIUM-ALBUTEROL 3 ML NEB INHALATION SCH ×4 (08:16→20:02)
[2019-02-01] MEDS ORDERED: METOPROLOL TARTRATE 25 MG TAB PO SCH (09:00)
[2019-02-01 09:19] LABS: Glucose,Whole Blood 187 mg/dL (75-99)
--- NOTE | 2019-02-01 10:05 | P.PN ---
Subjective Progress Note Date: 02/01/19 Principal diagnosis: Severe calcific triple-vessel coronary artery disease, non-STEMI this admission with troponins as high as 0.082, acute systolic heart failure and cardiomyopathy with EF 30-35%, severe mitral regurgitation on transthoracic echocardiogram, preoperative tracheal bronchitis with culture showing Serratia marcescens. Previous medical history of hypertension, hyperlipidemia, TIA in 2007 without residual deficits, rheumatoid arthritis on Enbrel and methotrexate immunosuppressants, obstructive sleep apnea without CPAP use status post UP3 with residual occasional difficulty in swallowing, previous tobacco dependence, mild COPD with FEV1 68% of predicted. POD #3 coronary artery bypass grafting using the left internal mammary artery to the left anterior descending coronary artery, the left radial artery from the aorta to the first obtuse marginal coronary artery, a reverse greater saphenous vein graft from the aorta to the second obtuse marginal coronary artery, and a reverse greater saphenous vein graft from the aorta to the posterior descending coronary artery. Exclusion of the left atrial appendage using a 45 mm Atriclip. Endoscopic harvesting of the left greater saphenous vein, endoscopic harvesting of the left radial artery, intraoperative graft flow measurement using the EagerPanda system, intraoperative transesophageal echocardiogram and epi-aortic scanning. postoperative acute blood loss anemia, an expected outcome due to cardiopulmonar y bypass and hemodilution. Preoperative tracheobronchitis with positive sputum culture for Serratia marcescens. Postoperative paroxysmal atrial fibrillation, an unexpected outcome. The patient is sitting up to the bedside chair in the intensive care unit. He is in no acute distress. He is complaining of surgical type pain to his left chest tube insertion site rating his pain at this time 10 out of 10 on the pain scale. He also complaining of pain with taking a deep breath. Oxygen saturati ons are 94% on 10 L high flow nasal cannula. He is achieving 500-750 mL on his incentive spirometry. Right IJ cordis remains in place with continuous CVP monitoring, current CVP pressure is 9 mmHg. Right radial arterial line remains in place with current blood pressure 136/67. He remains on Cleviprex drip at 4 mg per hour. Bedside telemetry continues to show atrial fibrillation with heart rate 87 BPM. He is alert and oriented 3. Afebrile on the last 24 hours. Labs this morning show a WBC count of 14.8, hemoglobin 9.8, hematocrit 29.5, platelets 164, BUN 39 and creatinine 1.44. The patient's mediastinal and right pleural chest tubes were discontinued yesterday. His left pleural chest tube remains in place to low continuous wall suction -20 cm H2O. 130 mL output in the last 8 hours, 340 mL output in the last 24 hours. The patient's Ruiz catheter was discontinued yesterday, he had some urinary retention and subsequently his Ruiz catheter was replaced. He was started on Flomax 0.4 mg by mouth daily. Objective - Vital Signs Vital signs: Vital Signs Temp 97.5 F L 02/01/19 08:00 Pulse 79 02/01/19 08:29 Resp 20 02/01/19 08:00 BP 137/92 02/01/19 08:00 Pulse Ox 93 L 02/01/19 08:00 Intake & Output 01/31/19 02/01/19 02/01/19 18:59 06:59 18:59 Intake Total 1354.467 512.608 54.992 Output Total 374 1055 100 Balance 980.467 -542.392 -45.008 Weight 93.3 kg Intake: IV 460 490 30 CO/CI 50 Cefepime 1 gm In Sodium 50 100 Chloride 0.9% 50 ml @ 100 mls/hr IVPB Q12HR VINNIE Rx #:[id number] Lactated Ringers 1,000 ml 360 390 30 @ 20 mls/hr IV .Q24H VINNIE Rx#:[id number] Intake, IV Titration 344.467 22.608 24.992 Amount Amiodarone 300 mg In 235.417 Dextrose 5% in Water 250 ml @ 0.5 MG/MIN 25 mls/hr IV .Q10H PRN Rx#: [id number] Clevidipine Butyrate 25 80.800 0.133 15.667 mg In Empty Bag 1 bag @ 1 MG/HR 2 mls/hr IV .Q24H VINNIE Rx#:[id number] Insulin Regular 100 unit 28.250 22.475 9.325 In Sodium Chloride 0.9% 100 ml @ Titrate IV .Q0M VINNIE Rx#:[id number] Oral 550 Output: Chest Tube Drainage 214 270 50 Chest Tube Bilateral 60 Mediastinal Chest Tube Left Lateral 114 270 50 Chest Chest Tube Right Lateral 40 Chest Drainage 10 Left Calf 10 Urine 150 785 50 Other: Voiding Method Indwelling Catheter Indwelling Catheter # Bowel Movements 0 ABP, PAP, CO, CI - Last Documented Arterial Blood Pressure 143/70 Pulmonary Artery Pressure 33/13 Cardiac Output 6.4 Cardiac Index 3.2 - Constitutional Constitutional Comment(s): Complaining of surgical type pain 10 out of 10 to his left chest tube insertion site. General appearance: Present: cooperative, no acute distress, obese - Respiratory Details: Lung sounds essentially clear throughout, few scattered crackles to his left l ower lobe and diminished to his bilateral lower lobe. No wheezes or rhonchi appreciated. Respirations are symmetrical and nonlabored. Left pleural chest tube remains in place to low continuous wall suction -20 cm H2O. No air leak is present. Draining thin serosanguineous drainage. Oxygen saturation is 94% on 10 L high flow nasal cannula. Achieving 500-750 mL on his incentive spirometry. - Cardiovascular Details: iregular rhythm and controlled rate. S1 and S2 present, negative for S3, gallop or murmur. Sternum is stable. Bedside telemetry showing atrial fibrillation heart rate 87. Atrial epicardial pacemaker wires in place and grounded. Knee- high GUILLE hose and sequential compression devices in place was bilateral lower extremities. Right IJ Cordis in place and functioning, current CVP pressure 9 mmHg. Right radial arterial line in place and functioning. Remains on Cleviprex drip at 4 mg per hour. Heart hugger is in place and he is demonstrating appropriate use. - Gastrointestinal Gastrointestinal Comment(s): Abdomen is soft, nontender and nondistended. Hypoactive bowel sounds present al l 4 abdominal quadrants. No guarding or rigidity. No organomegaly appreciated. Tolerating oral intake. - Genitourinary Genitourinary Comment(s): Ruiz catheter for accurate I&O and urinary retention. Draining clear sima urine. - Integumentary Integumentary Comment(s): Skin is warm and dry. No clubbing or cyanosis is present. Midline sternal incision is clean, dry and approximated. No drainage or redness present. Left arm radial harvest site clean, dry and approximated. No drainage or redness is present. Left lower extremity EVH sites clean, dry and approximated. No drainage or redness is present. - Neurologic Neurologic Comment(s): No focal deficits. Neurologic: Present: CNII-XII intact - Musculoskeletal Musculoskeletal: Present: generalized weakness, strength equal bilaterally - Psychiatric Psychiatric: Present: A&O x's 3, appropriate affect, intact judgment & insight - Allied health notes Allied health notes reviewed: nursing - Labs CBC & Chem 7: 02/01/19 03:55 02/01/19 03:55 Labs: Abnormal Lab Results - Last 24 Hours (Table) 01/31/19 01/31/19 01/31/19 Range/Units 10:39 12:39 13:53 WBC (3.8-10.6) k/uL RBC (4.30-5.90) m/uL Hgb (13.0-17.5) gm/dL Hct (39.0-53.0) % Neutrophils # (1.3-7.7) k/uL Carbon Dioxide (22-30) mmol/L BUN (9-20) mg/dL Creatinine (0.66-1.25) mg/dL Glucose (74-99) mg/dL POC Glucose (mg/dL) 143 H 104 H 127 H (75-99) mg/dL Total Protein (6.3-8.2) g/dL Albumin (3.5-5.0) g/dL Urine Protein (Negative) Urine Ketones (Negative) Urine Blood (Negative) Urine RBC (0-5) /hpf Urine Bacteria (None) /hpf Hyaline Casts (0-2) /lpf Urine Mucus (None) /hpf 01/31/19 01/31/19 01/31/19 Range/Units 15:03 16:56 18:01 WBC (3.8-10.6) k/uL RBC (4.30-5.90) m/uL Hgb (13.0-17.5) gm/dL Hct (39.0-53.0) % Neutrophils # (1.3-7.7) k/uL Carbon Dioxide (22-30) mmol/L BUN (9-20) mg/dL Creatinine (0.66-1.25) mg/dL Glucose (74-99) mg/dL POC Glucose (mg/dL) 115 H 108 H 151 H (75-99) mg/dL Total Protein (6.3-8.2) g/dL Albumin (3.5-5.0) g/dL Urine Protein (Negative) Urine Ketones (Negative) Urine Blood (Negative) Urine RBC (0-5) /hpf Urine Bacteria (None) /hpf Hyaline Casts (0-2) /lpf Urine Mucus (None) /hpf 01/31/19 01/31/19 01/31/19 Range/Units 19:08 20:02 21:02 WBC (3.8-10.6) k/uL RBC (4.30-5.90) m/uL Hgb (13.0-17.5) gm/dL Hct (39.0-53.0) % Neutrophils # (1.3-7.7) k/uL Carbon Dioxide (22-30) mmol/L BUN (9-20) mg/dL Creatinine (0.66-1.25) mg/dL Glucose (74-99) mg/dL POC Glucose (mg/dL) 139 H 131 H 159 H (75-99) mg/dL Total Protein (6.3-8.2) g/dL Albumin (3.5-5.0) g/dL Urine Protein (Negative) Urine Ketones (Negative) Urine Blood (Negative) Urine RBC (0-5) /hpf Urine Bacteria (None) /hpf Hyaline Casts (0-2) /lpf Urine Mucus (None) /hpf 01/31/19 01/31/19 01/31/19 Range/Units 21:30 21:56 23:01 WBC (3.8-10.6) k/uL RBC (4.30-5.90) m/uL Hgb (13.0-17.5) gm/dL Hct (39.0-53.0) % Neutrophils # (1.3-7.7) k/uL Carbon Dioxide (22-30) mmol/L BUN (9-20) mg/dL Creatinine (0.66-1.25) mg/dL Glucose (74-99) mg/dL POC Glucose (mg/dL) 143 H 128 H (75-99) mg/dL Total Protein (6.3-8.2) g/dL Albumin (3.5-5.0) g/dL Urine Protein Trace H (Negative) Urine Ketones Trace H (Negative) Urine Blood Small H (Negative) Urine RBC 33 H (0-5) /hpf Urine Bacteria Rare H (None) /hpf Hyaline Casts 19 H (0-2) /lpf Urine Mucus Rare H (None) /hpf 02/01/19 02/01/19 02/01/19 Range/Units 01:31 03:02 03:55 WBC 14.8 H (3.8-10.6) k/uL RBC 3.33 L (4.30-5.90) m/uL Hgb 9.8 L (13.0-17.5) gm/dL Hct 29.5 L (39.0-53.0) % Neutrophils # 12.4 H (1.3-7.7) k/uL Carbon Dioxide (22-30) mmol/L BUN (9-20) mg/dL Creatinine (0.66-1.25) mg/dL Glucose (74-99) mg/dL POC Glucose (mg/dL) 112 H 113 H (75-99) mg/dL Total Protein (6.3-8.2) g/dL Albumin (3.5-5.0) g/dL Urine Protein (Negative) Urine Ketones (Negative) Urine Blood (Negative) Urine RBC (0-5) /hpf Urine Bacteria (None) /hpf Hyaline Casts (0-2) /lpf Urine Mucus (None) /hpf 02/01/19 02/01/19 02/01/19 Range/Units 03:55 05:03 07:02 WBC (3.8-10.6) k/uL RBC (4.30-5.90) m/uL Hgb (13.0-17.5) gm/dL Hct (39.0-53.0) % Neutrophils # (1.3-7.7) k/uL Carbon Dioxide 20 L (22-30) mmol/L BUN 39 H (9-20) mg/dL Creatinine 1.44 H (0.66-1.25) mg/dL Glucose 123 H (74-99) mg/dL POC Glucose (mg/dL) 125 H 185 H (75-99) mg/dL Total Protein 5.4 L (6.3-8.2) g/dL Albumin 3.0 L (3.5-5.0) g/dL Urine Protein (Negative) Urine Ketones (Negative) Urine Blood (Negative) Urine RBC (0-5) /hpf Urine Bacteria (None) /hpf Hyaline Casts (0-2) /lpf Urine Mucus (None) /hpf 02/01/19 Range/Units 08:00 WBC (3.8-10.6) k/uL RBC (4.30-5.90) m/uL Hgb (13.0-17.5) gm/dL Hct (39.0-53.0) % Neutrophils # (1.3-7.7) k/uL Carbon Dioxide (22-30) mmol/L BUN (9-20) mg/dL Creatinine (0.66-1.25) mg/dL Glucose (74-99) mg/dL POC Glucose (mg/dL) 173 H (75-99) mg/dL Total Protein (6.3-8.2) g/dL Albumin (3.5-5.0) g/dL Urine Protein (Negative) Urine Ketones (Negative) Urine Blood (Negative) Urine RBC (0-5) /hpf Urine Bacteria (None) /hpf Hyaline Casts (0-2) /lpf Urine Mucus (None) /hpf - Imaging and Cardiology Chest x-ray: report reviewed, image reviewed Assessment and Plan Assessment: 1. Severe calcific triple-vessel coronary artery disease, status post quadruple coronary artery bypass grafting surgery 2. Non-STEMI 3. Acute systolic heart failure, cardiomyopathy, EF 30-35% 4. Moderate to severe mitral regurgitation on transthoracic echocardiogram and transesophageal echocardiogram 5. Hypertension 6. Hyperlipidemia 7. TIA in 2007 without residual 8. Rheumatoid arthritis on Enbrel and methotrexate, currently on hold 9. Obstructive sleep apnea without CPAP use, status post UPPP with residual occasional difficulty in swallowing 10. Remote history of tobacco dependence, quit in 2003 11. Mild COPD with preoperative FEV1 68% 12. Preoperative tracheobronchitis with positive sputum culture showing Serratia marcescens 13. Postoperative acute blood loss anemia, an expected outcome 14. Postoperative paroxysmal atrial fibrillation, an unexpected outcome Plan: 1. Continue to maximize medical therapy with aspirin, Plavix, statin, beta kleber and Norvasc. We will give 1 extra dose of metoprolol tartrate 25 mg by mouth 1 now as the patient remains in atrial fibrillation with heart rate in the high 80s. 2. Continue to hold Enbrel and methotrexate. 3. Encourage increase in activity. Physical therapy, occupational therapy and cardiac rehabilitation following. 4. Bronchodilators and antibiotic management per pulmonary critical care service. Wean oxygen as tolerated. 5. Continue pain management per current when necessary orders. Discontinue Toradol as his BUN and creatinine are slightly elevated today. Start [place] 1 to 2 tablets by mouth every 6 hours when necessary pain. 6. Encourage use of his incentive spirometry every hour while awake. 7. continue GI and DVT prophylaxis. 8. Medical management, Insulin management and other comorbidities management per primary care service. 9. Keep right IJ Cordis in place to continue CVP monitoring. 10. Continue amiodarone 400 mg by mouth twice a day for atrial fibrillation prophylaxis. 11. No diuresis today. BUN 39 creatinine 1.44 today. 12. Keep Ruiz catheter in place for accurate I&O and urinary retention. Continue Flomax 0.4 mg by mouth daily. 13. Wean Cleviprex drip as tolerated. 14. More recommendations to follow based on patient's clinical course. Time with Patient: Greater than 30
[2019-02-01 10:12] LABS: Glucose,Whole Blood 242 mg/dL (75-99)
[2019-02-01 11:07] LABS: Glucose,Whole Blood 218 mg/dL (75-99)
[2019-02-01 11:58] LABS: Glucose,Whole Blood 183 mg/dL (75-99)
[2019-02-01] MEDS: ASCORBIC ACID 500 MG TAB PO SCH (12:11)
--- NOTE | 2019-02-01 12:57 | P.PN ---
Subjective Progress Note Date: 02/01/19 Principal diagnosis: Status post CABG, postoperative day #3 Patient was reevaluated today on 01/30/2019, patient is postoperative day #1, had CABG, RIVERO to LAD, left radial artery from aorta to the first obtuse marginal coronary artery, a reverse greater saphenous vein graft from the aorta to the second obtuse marginal coronary artery and reverse greater saphenous vein graft from the aorta to the posterior descending coronary artery. Patient was on mechanical ventilation overnight, I have seen him this morning, he was doing well on CPAP, hence proceeded to extubating the patient. Shortly after extubation, patient was noted to have more shortness of breath, O2 flow was i ncreased to 6 L, and his O2 saturation was marginal. Patient was noted to be diaphoretic, hence I recommended BiPAP. He was placed on BiPAP of 12 EPAP of 6 and FiO2 will be titrated accordingly to keep O2 saturation above 92%. Chest x- ray showed mild pulmonary vascular congestion trace of pleural effusions and bibasilar atelectasis. No evidence of pneumonia. His sputum which was ordered couple of days ago is back positive for Serratia marcescens, hence I will start the patient on cefepime today. Labs today were reviewed CPAP ABG showed a pO2 of 98 pCO2 of 55 pH of 7.40. WBC count is 16.2 hemoglobin is 10.3. Electrolytes were normal however his renal functioning is up with a creatinine of 1.42. Chest x-ray was also reviewed Reevaluated today on 01/31/2019, patient is postoperative day #2. Remains in the intensive care unit, patient is feeling better, however still unable to get him off BiPAP, desaturates easily on nasal cannula, hence we'll try a high flow nasal cannula or possibly Airvo with high flow. Patient had episodes of anxiousness and restlessness. Placed on Xanax yesterday. His BiPAP settings are 12/6 and FiO2 is 50%. O2 saturation is 92%. Patient had atrial fibrillation with RVR last night started on amiodarone drip. Continues to have atrial fibrillation but rate is controlled at 85. He is also on clevidipine for hypertension presently at 10 mg per hour. Continues to have left and right pleural chest few in place. Remains on cefepime for his tracheobronchitis related to Serratia marcescens. Patient does have leukocytosis with WBC count of 20.4 hemoglobin is 10.6. Cardiac output today is 6.4 with a cardiac index of 3.2. CVP is 12. Chest x-ray showed mild interstitial edema Reevaluated today on 02/01/2019,patient remains in the ICU, sitting up at a bedside chair, he is on nasal cannula, in no distress, transitioned from BiPAP to 10 L high flow nasal cannula. Patient seems to be doing much better, however he is doing poorly with incentive spirometry. He is on clevidipine drip at 4 mg per hour for elevated blood pressure.patient is in atrial fibrillation at a controlled rate of 87. He is alert oriented, denies being short of breath. Renal functioning remains borderline. His mediastinal and right-sided chest tube removed yesterday. Continues to have a left-sided pleural chest tube. Had 340 mL output in the last 24 hours. His Ruiz catheter had to be placed back in because he couldn't urinate. Now on Flomax.chest x-ray was reviewed showed mostly atelectasis at the right base, and small pleural effusions Objective - Vital Signs Vital signs: Vital Signs Temp 97.5 F L 02/01/19 12:00 Pulse 67 02/01/19 12:23 Resp 21 02/01/19 12:00 BP 142/74 02/01/19 09:00 Pulse Ox 95 02/01/19 12:00 Intake & Output 01/31/19 02/01/19 02/01/19 18:59 06:59 18:59 Intake Total 1354.467 512.608 224.183 Output Total 374 1055 290 Balance 980.467 -542.392 -65.817 Weight 93.3 kg Intake: IV 460 490 120 CO/CI 50 Cefepime 1 gm In Sodium 50 100 Chloride 0.9% 50 ml @ 100 mls/hr IVPB Q12HR VINNIE Rx #:[id number] Lactated Ringers 1,000 ml 360 390 120 @ 20 mls/hr IV .Q24H VINNIE Rx#:[id number] Intake, IV Titration 344.467 22.608 104.183 Amount Amiodarone 300 mg In 235.417 Dextrose 5% in Water 250 ml @ 0.5 MG/MIN 25 mls/hr IV .Q10H PRN Rx#: [id number] Cefepime 1 gm In Sodium 50 Chloride 0.9% 50 ml @ 100 mls/hr IVPB Q12HR VINNIE Rx #:[id number] Clevidipine Butyrate 25 80.800 0.133 18.867 mg In Empty Bag 1 bag @ 1 MG/HR 2 mls/hr IV .Q24H VINNIE Rx#:[id number] Insulin Regular 100 unit 28.250 22.475 35.316 In Sodium Chloride 0.9% 100 ml @ Titrate IV .Q0M VINNIE Rx#:[id number] Oral 550 Output: Chest Tube Drainage 214 270 80 Chest Tube Bilateral 60 Mediastinal Chest Tube Left Lateral 114 270 80 Chest Chest Tube Right Lateral 40 Chest Drainage 10 Left Calf 10 Urine 150 785 210 Other: Voiding Method Indwelling Catheter Indwelling Catheter Indwelling Catheter # Bowel Movements 0 ABP, PAP, CO, CI - Last Documented Arterial Blood Pressure 132/67 Pulmonary Artery Pressure 33/13 Cardiac Output 6.4 Cardiac Index 3.2 - Exam Physical Exam: Revealed a 63-year-old white male on high flow nasal cannula in no distress. Head: Atraumatic, normocephalic. HEENT:[Neck is supple.] [No neck masses.] [No thyromegaly.] [No JVD.] Chest: [Symmetrical chest expansion, minimal fine crackles at the bases, no rhonchi and no wheezes.] Cardiac Exam: [Normal S1 and S2, no S3 gallop, no murmur.] Abdomen: [Soft, nontender, no megaly, no rebound, no guarding, normal bowel sounds.] Extremities: [No clubbing, no edema, no cyanosis.] Neurological Exam: Alert and oriented 3, no gross focal neurologic deficits. Skin: No rashes. Lymphatics: No lymphadenopathy. Psychiatric: Normal mood and normal affect. Normal mental status examination - Labs CBC & Chem 7: 02/01/19 03:55 02/01/19 03:55 Labs: Abnormal Lab Results - Last 24 Hours (Table) 01/31/19 01/31/19 01/31/19 Range/Units 12:39 13:53 15:03 WBC (3.8-10.6) k/uL RBC (4.30-5.90) m/uL Hgb (13.0-17.5) gm/dL Hct (39.0-53.0) % Neutrophils # (1.3-7.7) k/uL Carbon Dioxide (22-30) mmol/L BUN (9-20) mg/dL Creatinine (0.66-1.25) mg/dL Glucose (74-99) mg/dL POC Glucose (mg/dL) 104 H 127 H 115 H (75-99) mg/dL Total Protein (6.3-8.2) g/dL Albumin (3.5-5.0) g/dL Urine Protein (Negative) Urine Ketones (Negative) Urine Blood (Negative) Urine RBC (0-5) /hpf Urine Bacteria (None) /hpf Hyaline Casts (0-2) /lpf Urine Mucus (None) /hpf 01/31/19 01/31/19 01/31/19 Range/Units 16:56 18:01 19:08 WBC (3.8-10.6) k/uL RBC (4.30-5.90) m/uL Hgb (13.0-17.5) gm/dL Hct (39.0-53.0) % Neutrophils # (1.3-7.7) k/uL Carbon Dioxide (22-30) mmol/L BUN (9-20) mg/dL Creatinine (0.66-1.25) mg/dL Glucose (74-99) mg/dL POC Glucose (mg/dL) 108 H 151 H 139 H (75-99) mg/dL Total Protein (6.3-8.2) g/dL Albumin (3.5-5.0) g/dL Urine Protein (Negative) Urine Ketones (Negative) Urine Blood (Negative) Urine RBC (0-5) /hpf Urine Bacteria (None) /hpf Hyaline Casts (0-2) /lpf Urine Mucus (None) /hpf 01/31/19 01/31/19 01/31/19 Range/Units 20:02 21:02 21:30 WBC (3.8-10.6) k/uL RBC (4.30-5.90) m/uL Hgb (13.0-17.5) gm/dL Hct (39.0-53.0) % Neutrophils # (1.3-7.7) k/uL Carbon Dioxide (22-30) mmol/L BUN (9-20) mg/dL Creatinine (0.66-1.25) mg/dL Glucose (74-99) mg/dL POC Glucose (mg/dL) 131 H 159 H (75-99) mg/dL Total Protein (6.3-8.2) g/dL Albumin (3.5-5.0) g/dL Urine Protein Trace H (Negative) Urine Ketones Trace H (Negative) Urine Blood Small H (Negative) Urine RBC 33 H (0-5) /hpf Urine Bacteria Rare H (None) /hpf Hyaline Casts 19 H (0-2) /lpf Urine Mucus Rare H (None) /hpf 01/31/19 01/31/19 02/01/19 Range/Units 21:56 23:01 01:31 WBC (3.8-10.6) k/uL RBC (4.30-5.90) m/uL Hgb (13.0-17.5) gm/dL Hct (39.0-53.0) % Neutrophils # (1.3-7.7) k/uL Carbon Dioxide (22-30) mmol/L BUN (9-20) mg/dL Creatinine (0.66-1.25) mg/dL Glucose (74-99) mg/dL POC Glucose (mg/dL) 143 H 128 H 112 H (75-99) mg/dL Total Protein (6.3-8.2) g/dL Albumin (3.5-5.0) g/dL Urine Protein (Negative) Urine Ketones (Negative) Urine Blood (Negative) Urine RBC (0-5) /hpf Urine Bacteria (None) /hpf Hyaline Casts (0-2) /lpf Urine Mucus (None) /hpf 02/01/19 02/01/19 02/01/19 Range/Units 03:02 03:55 03:55 WBC 14.8 H (3.8-10.6) k/uL RBC 3.33 L (4.30-5.90) m/uL Hgb 9.8 L (13.0-17.5) gm/dL Hct 29.5 L (39.0-53.0) % Neutrophils # 12.4 H (1.3-7.7) k/uL Carbon Dioxide 20 L (22-30) mmol/L BUN 39 H (9-20) mg/dL Creatinine 1.44 H (0.66-1.25) mg/dL Glucose 123 H (74-99) mg/dL POC Glucose (mg/dL) 113 H (75-99) mg/dL Total Protein 5.4 L (6.3-8.2) g/dL Albumin 3.0 L (3.5-5.0) g/dL Urine Protein (Negative) Urine Ketones (Negative) Urine Blood (Negative) Urine RBC (0-5) /hpf Urine Bacteria (None) /hpf Hyaline Casts (0-2) /lpf Urine Mucus (None) /hpf 02/01/19 02/01/19 02/01/19 Range/Units 05:03 07:02 08:00 WBC (3.8-10.6) k/uL RBC (4.30-5.90) m/uL Hgb (13.0-17.5) gm/dL Hct (39.0-53.0) % Neutrophils # (1.3-7.7) k/uL Carbon Dioxide (22-30) mmol/L BUN (9-20) mg/dL Creatinine (0.66-1.25) mg/dL Glucose (74-99) mg/dL POC Glucose (mg/dL) 125 H 185 H 173 H (75-99) mg/dL Total Protein (6.3-8.2) g/dL Albumin (3.5-5.0) g/dL Urine Protein (Negative) Urine Ketones (Negative) Urine Blood (Negative) Urine RBC (0-5) /hpf Urine Bacteria (None) /hpf Hyaline Casts (0-2) /lpf Urine Mucus (None) /hpf 02/01/19 02/01/19 02/01/19 Range/Units 09:03 10:09 11:03 WBC (3.8-10.6) k/uL RBC (4.30-5.90) m/uL Hgb (13.0-17.5) gm/dL Hct (39.0-53.0) % Neutrophils # (1.3-7.7) k/uL Carbon Dioxide (22-30) mmol/L BUN (9-20) mg/dL Creatinine (0.66-1.25) mg/dL Glucose (74-99) mg/dL POC Glucose (mg/dL) 187 H 242 H 218 H (75-99) mg/dL Total Protein (6.3-8.2) g/dL Albumin (3.5-5.0) g/dL Urine Protein (Negative) Urine Ketones (Negative) Urine Blood (Negative) Urine RBC (0-5) /hpf Urine Bacteria (None) /hpf Hyaline Casts (0-2) /lpf Urine Mucus (None) /hpf 02/01/19 Range/Units 11:55 WBC (3.8-10.6) k/uL RBC (4.30-5.90) m/uL Hgb (13.0-17.5) gm/dL Hct (39.0-53.0) % Neutrophils # (1.3-7.7) k/uL Carbon Dioxide (22-30) mmol/L BUN (9-20) mg/dL Creatinine (0.66-1.25) mg/dL Glucose (74-99) mg/dL POC Glucose (mg/dL) 183 H (75-99) mg/dL Total Protein (6.3-8.2) g/dL Albumin (3.5-5.0) g/dL Urine Protein (Negative) Urine Ketones (Negative) Urine Blood (Negative) Urine RBC (0-5) /hpf Urine Bacteria (None) /hpf Hyaline Casts (0-2) /lpf Urine Mucus (None) /hpf Assessment and Plan Assessment: Impression: 1 severe triple-vessel coronary artery disease, status post quadruple coronary artery bypass grafting surgery postoperative day #3 2 non-ST elevation myocardial infarction 3 moderate to severe mitral regurgitation 4 ischemic cardiomyopathy and LV dysfunction with ejection fraction of 30-35% 5 hypertension 6 history of rheumatoid arthritis been treated with Enbrel and methotrexate. 7 history of obstructive sleep apnea syndrome 8 remote tobacco dependence quit in 2003 9 mild COPD FEV1 is 68% preoperatively. 10 Serratia marcescens tracheobronchitis based on the positive culture of the sputum, no evidence of pneumonia. Recommendation: Continue present treatment plan including aspirin and Plavix statin beta blockers. Continue to hold immunosuppressive therapy. Continue cefepime for his Serratia marcescens tracheobronchitis continue high flow nasal cannula. Continue GI and DVT prophylaxis Insulin for diabetes Incentive spirometry , encourage to use more frequently and more effort continue to monitor in the ICU, will continue to follow. Time with Patient: Less than 30
[2019-02-01 13:08] LABS: Glucose,Whole Blood 176 mg/dL (75-99)
[2019-02-01 13:54] LABS: HCT 30.6 % (39.0-53.0); HGB 10.2 gm/dL (13.0-17.5); MCHC 33.4 g/dL (31.0-37.0); MCV 89.7 fL (80.0-100.0); Mean Platelet Volume 9.2; Platelet Count 196 k/uL (150-450); RBC 3.41 m/uL (4.30-5.90); RDW 13.7 % (11.5-15.5); WBC 17.4 k/uL (3.8-10.6)
[2019-02-01 14:13] LABS: Glucose,Whole Blood 150 mg/dL (75-99)
[2019-02-01 15:21] LABS: Glucose,Whole Blood 149 mg/dL (75-99)
[2019-02-01] MEDS: LACTATED RINGERS 1,000 ML IV SCH (15:48)
[2019-02-01 16:25] LABS: Glucose,Whole Blood 164 mg/dL (75-99)
--- NOTE | 2019-02-01 16:59 | P.PN ---
Progress Note - Text Progress Note Date: 02/01/19 Interval history: This is a pleasant [address] begum. Chronic stable medical conditi ons include hyperlipidemia, hypertension, rheumatoid arthritis COPD. For about 2 weeks patient is becoming increasingly short of breath. No edema no cough no fever no chills. Normally uses 2 or 3 pillows at night. Appetite has been fair. No bowel movements. No sputum production. Patient is felt to have CHF to started on IV Lasix. There is a question about pneumonia hence antibiotics were also started. Admitted for the same. Admitted with CHF exacerbation. Positive troponin. EKG changes. Cardiac catheterization on January 23 showed triple-vessel disease.PAMELA done showed severe MR. On January 29 underwent coronary bypass. Today-earlier pain has been present. Was given pain medications. Also given IV Lasix. Chest tubes in place. Decreased appetite. Review of systems: Was done for constitutional, cardiovascular, GI, pulmonary. relevant finding as above Active Medications Hydrocodone Bitart/Acetaminophen (Caruthers 5-325) 1 each PO Q6HR PRN PRN Reason: Pain Scale 1 to 5 Hydrocodone Bitart/Acetaminophen (Caruthers 5-325) 2 each PO Q6HR PRN PRN Reason: Pain Scale 6 to 10 Last Admin: 02/01/19 13:46 Dose: 2 each Documented by: Albuterol/Ipratropium (Duoneb 0.5 Mg-3 Mg/3 Ml Soln) 3 ml INHALATION RT-Q2H PRN PRN Reason: Shortness Of Breath Or Wheezing Last Admin: 01/31/19 03:21 Dose: 3 ml Documented by: Albuterol/Ipratropium (Duoneb 0.5 Mg-3 Mg/3 Ml Soln) 3 ml INHALATION RT-QID [facility] Last Admin: 02/01/19 12:23 Dose: 3 ml Documented by: Alprazolam (Xanax) 0.25 mg PO TID PRN PRN Reason: Anxiety Last Admin: 01/31/19 08:52 Dose: 0.25 mg Documented by: Amiodarone HCl (Cordarone) 400 mg PO BID [facility] Last Admin: 02/01/19 08:01 Dose: 400 mg Documented by: Amlodipine Besylate (Norvasc) 5 mg PO DAILY [facility] Last Admin: 02/01/19 06:05 Dose: 5 mg Documented by: Ascorbic Acid (Vitamin C) 500 mg PO 1200 [facility] Last Admin: 02/01/19 12:11 Dose: 500 mg Documented by: Aspirin (Aspirin) 325 mg PO DAILY [facility] Last Admin: 02/01/19 08:01 Dose: 325 mg Documented by: Atorvastatin Calcium (Lipitor) 40 mg PO DAILY [facility] Last Admin: 02/01/19 08:01 Dose: 40 mg Documented by: Benzocaine/Menthol (Cepacol Lozenge) 1 each MUCOUS MEM Q2H PRN PRN Reason: Sore Throat Bisacodyl (Dulcolax) 10 mg RECTAL DAILY PRN PRN Reason: Constipation Clopidogrel Bisulfate (Plavix) 75 mg PO DAILY [facility] Last Admin: 02/01/19 08:02 Dose: 75 mg Documented by: Ferrous Sulfate (Feosol) 325 mg PO BID-W/MEALS [facility] Last Admin: 02/01/19 06:46 Dose: 325 mg Documented by: Heparin Sodium (Porcine) (Heparin) 5,000 unit SQ Q8HR [facility] Last Admin: 02/01/19 16:13 Dose: 5,000 unit Documented by: Hydralazine HCl (Apresoline) 25 mg PO TID [facility] Last Admin: 02/01/19 16:12 Dose: 25 mg Documented by: Clevidipine 25 mg/ IV Solution 50 mls @ 2 mls/hr IV .Q24H [facility]; Protocol Last Titration: 02/01/19 09:14 Dose: 0 mg/hr, 0 mls/hr Documented by: Insulin Human Regular 100 unit (/ Sodium Chloride) 100 mls @ 0 mls/hr IV .Q0M [facility]; Protocol Last Titration: 02/01/19 16:23 Dose: 6 units/hr, 6 mls/hr Documented by: Lactated Ringer's (Lactated Ringers) 1,000 mls @ 20 mls/hr IV .Q24H [facility] Last Admin: 02/01/19 15:48 Dose: Not Given Documented by: Cefepime HCl 1 gm/ Sodium (Chloride) 50 mls @ 100 mls/hr IVPB Q12HR [facility] Last Admin: 02/01/19 08:02 Dose: 100 mls/hr Documented by: Magnesium Hydroxide (Milk Of Magnesia) 2,400 mg PO BID PRN PRN Reason: Constipation Metoprolol Tartrate (Lopressor) 50 mg PO BID VINNIE Miscellaneous Information (Potassium Per Protocol) 1 each MISCELLANE DAILY PRN; Protocol PRN Reason: Per Protocol Miscellaneous Information (Magnesium Per Protocol) 1 each MISCELLANE DAILY PRN; Protocol PRN Reason: Per Protocol Miscellaneous Information (Phosphorus Per Protocol) 1 each MISCELLANE DAILY PRN; Protocol PRN Reason: Per Protocol Ondansetron HCl (Zofran) 4 mg IVP Q6HR PRN PRN Reason: Nausea And Vomiting Pantoprazole Sodium (Protonix) 40 mg PO AC-BID VINNIE Senna/Docusate Sodium (Senokot-S) 2 each PO HS VINNIE Last Admin: 01/31/19 20:39 Dose: 2 each Documented by: Sodium Chloride (Saline Flush) 10 ml IV BID VINNIE Last Admin: 02/01/19 09:58 Dose: 10 ml Documented by: Physical examination: VITAL SIGNS: 97.5, 75, 81, 132.67, 95% on 5 L GENERAL: Sitting upon a chair, tired EYES: Pupils equal. Conjunctiva pale HEENT: External appearance of nose and ears normal, oral cavity dry. NECK: JVD unable to assess; masses not palpable. HEART: First and second heart sounds are normal; no edema. LUNGS: Respiratory rate increased, decreased breath sounds ABDOMEN: Soft, nontender, liver spleen not palpable, no masses palpable. PSYCH: Alert and oriented x3; mood and affect tired INVESTIGATIONS, reviewed in the clinical context: White count 17.4 hemoglobin 10.2 Chest m-hqh-tkucdgwkl effusions Previous tests Cardiac cath lpehom-etykhq-oaopve disease Admission labs 2-D echo-moderate global hypokinesia, EF 30-35% multiple wall motion abnormality, severe mitral regurgitation White count 13.6 hemoglobin 14.6 potassium 4.1 creatinine 0.84 Troponin 0.082, 0.078 ProBNP 4990 EKG tracing personally reviewed by me shows ST segment depression, PVC Chest x-ray film personally reviewed by me shows pulmonary edema and some cardiomegaly Assessment: -Status post coronary bypass -Acute congestive heart failure exacerbation, from systolic dysfunction EF 30- 35%, with some worsening -Moderate mitral regurgitation, nonrheumatic -COPD in an ex-smoker -Hyperlipidemia -Essential hypertension -Rheumatoid arthritis -Coronary artery disease -Persistent atrial fibrillation -Acute hypoxic respiratory failure from CHF Plan: Continue current medication. Plan. Patient did receive IV Lasix earlier. Patient remains in the ICU.
[2019-02-01 17:10] LABS: Glucose,Whole Blood 156 mg/dL (75-99)
[2019-02-01 18:07] LABS: Glucose,Whole Blood 128 mg/dL (75-99)
[2019-02-01 19:11] LABS: Glucose,Whole Blood 126 mg/dL (75-99)
--- NOTE | 2019-02-01 20:10 | PN ---
PROGRESS NOTE This gentleman underwent bypass surgery by Dr. Ames. He is doing well. He has been extubated, off the BiPAP, doing well. Blood pressure is slightly high. I am giving Norvasc 5 mg orally. He is in atrial fib. Rate control is good, hemodynamically stable. Vitals are stable. S1-S2 heard normally. Irregular rhythm noted. Short systolic murmur noted. Lungs reveal improved air entry. Abdomen and lower extremity exam is unchanged. MMODL / IJN: [id number] /
[2019-02-01] MEDS: SENNOSIDES-DOCUSATE SODIUM 1 EACH TAB PO SCH (20:41)
[2019-02-01 20:46] LABS: Glucose,Whole Blood 140 mg/dL (75-99)
[2019-02-01] MEDS ORDERED: METOPROLOL TARTRATE 50 MG TAB PO SCH (21:00)
[2019-02-01 21:27] LABS: Glucose,Whole Blood 149 mg/dL (75-99)
[2019-02-01 22:05] LABS: Glucose,Whole Blood 142 mg/dL (75-99)
[2019-02-01 23:11] LABS: Glucose,Whole Blood 132 mg/dL (75-99)
[2019-02-02 00:06] LABS: Glucose,Whole Blood 117 mg/dL (75-99)
[2019-02-02] MEDS: CLEVIDIPINE BUTYRATE 25 MG in EMPTY BAG 1 BAG IV SCH ×7 (00:07→23:43)
[2019-02-02 01:00] LABS: Glucose,Whole Blood 109 mg/dL (75-99)
[2019-02-02 02:02] LABS: Glucose,Whole Blood 128 mg/dL (75-99)
[2019-02-02] MEDS: INSULIN REGULAR 100 UNIT in SODIUM CHLORIDE 0.9% 100 ML IV SCH (02:06)
[2019-02-02 03:10] LABS: Glucose,Whole Blood 139 mg/dL (75-99)
[2019-02-02 03:57] LABS: Glucose,Whole Blood 124 mg/dL (75-99)
[2019-02-02 05:17] LABS: Glucose,Whole Blood 115 mg/dL (75-99)
[2019-02-02 05:44] LABS: Basophils # (A) 0.1 k/uL (0-0.2); Basophils % (A) 1 %; Eosinophils # (A) 0.5 k/uL (0-0.7); Eosinophils % (A) 3 %; Lymphocytes # (A) 1.1 k/uL (1.0-4.8); Lymphocytes % (A) 6 %; MCHC 34.3 g/dL (31.0-37.0); MCV 87.4 fL (80.0-100.0); Monocytes % (A) 6 %; Neutrophils # (A) 15.6 k/uL (1.3-7.7); Neutrophils % (A) 84 %; Platelet Count 274 k/uL (150-450); RBC 3.66 m/uL (4.30-5.90); RDW 13.5 % (11.5-15.5); WBC 18.6 k/uL (3.8-10.6)
[2019-02-02 06:09] LABS: ALT 32 U/L (21-72); AST 35 U/L (17-59); African American GFR (CKD) >90 (>60 ml/min/1.73 sqM); Albumin 3.2 g/dL (3.5-5.0); Alkaline Phosphatase 62 U/L (38-126); Anion Gap 9 mmol/L; Blood Urea Nitrogen 40 mg/dL (9-20); Calcium 9.3 mg/dL (8.4-10.2); Carbon Dioxide 23 mmol/L (22-30); Chloride 108 mmol/L (98-107); Glucose 108 mg/dL (74-99); Potassium 4.1 mmol/L (3.5-5.1); Sodium 140 mmol/L (137-145); Total Bilirubin 0.5 mg/dL (0.2-1.3); Total Protein 5.9 g/dL (6.3-8.2)
[2019-02-02 06:17] LABS: Glucose,Whole Blood 100 mg/dL (75-99)
[2019-02-02] MEDS: PANTOPRAZOLE 40 MG TABLET PO SCH ×3 (06:51→08:59)
[2019-02-02] MEDS: FERROUS SULFATE 325 MG TAB PO SCH ×2 (06:57→17:11)
[2019-02-02 06:58] LABS: Glucose,Whole Blood 99 mg/dL (75-99)
[2019-02-02] MEDS: ATORVASTATIN 40 MG TAB PO SCH (07:40)
[2019-02-02 07:45] LABS: ABG PO2 59 mmHg (83-108)
[2019-02-02] MEDS: ASPIRIN 325 MG TAB PO SCH (07:55)
[2019-02-02] MEDS: METOPROLOL TARTRATE 25 MG TAB PO SCH ×2 (07:56→21:07)
[2019-02-02] MEDS: CLOPIDOGREL 75 MG TAB PO SCH (07:57)
[2019-02-02] MEDS: amLODIPine 5 MG TAB PO SCH (07:57)
[2019-02-02] MEDS: AMIODARONE 200 MG TAB PO SCH ×2 (07:57→21:07)
[2019-02-02] MEDS: ACETAMINOPHEN TAB 500 MG TAB PO PRN ×2 (07:59→14:05)
[2019-02-02] MEDS: HEPARIN SODIUM,PORCINE 5,000 UNIT/ML 1 ML VIAL SQ SCH ×3 (08:02→23:49)
--- NOTE | 2019-02-02 08:02 | XR ---
EXAMINATION TYPE: XR chest 1V portable DATE OF EXAM: 02/02/2019 COMPARISON: 02/01/2019 HISTORY: Post CABG. Follow-up exam. TECHNIQUE: Single frontal view of the chest is obtained. FINDINGS: Left-sided thoracostomy tube is similar to the prior. There are small bilateral layering p leural effusions with associated bibasilar airspace disease. Cardiomediastinal silhouette is enlarged with post CABG change. No sizable pneumothorax. No acute osseous process. Findings are stable from t he prior of 02/01/2019. IMPRESSION: Unchanged degree of fluid overload in comparison to 02/01/2019. Small bilateral layering pleural effusions and bibasilar airspace disease, likely compressive atelectasis.
[2019-02-02] MEDS: hydrALAZINE HCL 25 MG TAB PO SCH ×3 (08:03→21:12)
[2019-02-02] MEDS: IPRATROPIUM-ALBUTEROL 3 ML NEB INHALATION SCH ×4 (08:20→20:21)
--- NOTE | 2019-02-02 09:07 | PN ---
PROGRESS NOTE PULMONARY/CRITICAL CARE PROGRESS NOTE DATE OF SERVICE: February 02, 2019. CRITICAL CARE TIME: 33 minutes. This is a 63-year-old male who is postop day #4, status post 4-vessel bypass grafting. The surgery was done by Dr. Jennings. He had surgery on January 29. He was initially admitted on January [address]-segment elevation myocardial infarction. Subsequently, on the , he had a cardiac catheterization which showed severe CAD. The patient is currently doing reasonably well. He is on O2 at 5 L by high-flow oxygen. He is getting lactated Ringer's at KVO. He has been on and off the insulin currently on hold and he is also on Cleviprex at 14 mg an hour for blood pressure control. The patient has a history of a number of medical problems including moderate to severe mitral regurgitation, ischemic cardiomyopathy with ejection fraction of about 30%, benign essential hypertension, rheumatoid arthritis, sleep apnea syndrome, remote tobacco dependence, COPD, which is moderate in severity with an FEV1 that is 68% of predicted, and a history of Serratia marcescens tracheobronchitis. Currently, as I mentioned, the patient seems to be doing reasonably well. He is trying to eat his breakfast. The patient still has a number of ongoing and significant issues as mentioned above. PHYSICAL EXAMINATION: VITAL SIGNS: Current vital signs are reviewed. Temperature 98.4, heart rate 89, respiratory rate 20, blood pressure 137/84, mean 101, saturations are 93% on 5 L high flow, CVP is at 5. GENERAL: Appears in no acute distress. He is sitting up at the bedside. Nasal O2 in place. No obvious respiratory distress or No wheezing. HEENT: Examination is grossly unremarkable. Nasal O2 noted. Mucous membranes are moist. NECK: Supple. Full range of motion. No adenopathy or thyromegaly. Neck veins are flat. CARDIOVASCULAR: Examination reveals regular rhythm and rate. S1, S2 normal. No S3, S4 or distinct murmur. Heart rate is in the high 80s, low 90s. LUNGS: Reveal a few scattered coarse rhonchi. No wheezes or crackles. Breath sounds are diminished. ABDOMEN: Soft. Bowel sounds are heard. EXTREMITIES: Are intact. No cyanosis, clubbing, or significant edema. SKIN: Without rash. NEUROLOGIC: Examination is brief but nonfocal. Chest x-ray on the 02 of February shows evidence of mild fluid overload. There are small bilateral pleural effusions. Mild cephalization. LAB DATA: Lab data reviewed. White count 18.6, hemoglobin 11, hematocrit 32.0, platelet count 274,000. Sodium and potassium normal. Chloride 108, CO2 of 23. Anion gap is 9. BUN and creatinine were 40 and 0.99. Albumin 3.2. Microbiology showing evidence of Serratia marcescens in the sputum from January 27. MEDICATIONS: Medications are reviewed. ASSESSMENT: 1. Postoperative day #4, status post 4-vessel bypass grafting. 2. Postoperative routine ventilator management, resolved. 3. History of non ST-segment elevation myocardial infarction on admission, January 22. 4. Status post cardiac catheterization on January 23. 5. History of moderate to severe mitral regurgitation. 6. History of ischemic cardiomyopathy with LV dysfunction and ejection fraction of 30%. 7. History of benign essential hypertension. 8. History of rheumatoid arthritis. 9. History of sleep apnea syndrome. 10.History of remote tobacco dependence. 11.Moderate chronic obstructive pulmonary disease with an FEV1 at 68% of predicted. 12.Serratia marcescens tracheobronchitis. PLAN: Currently, the patient will continue on his current medications. We recommend deep breathing, coughing, clearing of secretions and hourly use of incentive spirometer. He will remain on the cefepime for Serratia marcescens tracheobronchitis. We will continue to monitor his diabetes and use insulin where appropriate. The patient is currently on Cleviprex at 14 mg an hour for blood pressure support. His overall prognosis remains guarded. He has got a number of ongoing issues to resolve. Additional recommendations and suggestions are forthcoming. Critical care time is 33 minutes. MMODL / IJN: [id number] /
[2019-02-02] MEDS: CEFEPIME 1 GM in SODIUM CHLORIDE 0.9% 50 ML IVPB SCH ×2 (09:27→21:07)
--- NOTE | 2019-02-02 09:47 | P.PN ---
Subjective Progress Note Date: 02/02/19 Principal diagnosis: Severe calcific triple-vessel coronary artery disease, non-STEMI this admission with troponins as high as 0.082, acute systolic heart failure and cardiomyopathy with EF 30-35%, severe mitral regurgitation on transthoracic echocardiogram, preoperative tracheal bronchitis with culture showing Serratia marcescens. Previous medical history of hypertension, hyperlipidemia, TIA in 2007 without residual deficits, rheumatoid arthritis on Enbrel and methotrexate immunosuppressants, obstructive sleep apnea without CPAP use status post UP3 with residual occasional difficulty in swallowing, previous tobacco dependence, mild COPD with FEV1 68% of predicted. POD #4 coronary artery bypass grafting using the left internal mammary artery to the left anterior descending coronary artery, the left radial artery from the aorta to the first obtuse marginal coronary artery, a reverse greater saphenous vein graft from the aorta to the second obtuse marginal coronary artery, and a reverse greater saphenous vein graft from the aorta to the posterior descending coronary artery. Exclusion of the left atrial appendage using a 45 mm Atriclip. Endoscopic harvesting of the left greater saphenous vein, endoscopic harvesting of the left radial artery, intraoperative graft flow measurement using the ODIN system, intraoperative transesophageal echocardiogram and epi-aortic scanning. postoperative acute blood loss anemia, an expected outcome due to cardiopulmonar y bypass and hemodilution. Preoperative tracheobronchitis with positive sputum culture for Serratia marcescens. Postoperative paroxysmal atrial fibrillation, an unexpected outcome. The patient is sitting up to the bedside chair in the intensive care unit. He is in no acute distress. Denies any complaints of pain or shortness of breath at this time. Bedside telemetry showing atrial fibrillation heart rate 99. Oxygen saturations are 94% on 5 L nasal cannula. Achieving 1000 mL on his incentive spirometry with encouragement. Left pleural chest tube remains in place to low continuous wall suction -20 cm H2O. No air leak is present. Draining thin serosanguineous drainage. 20 mL output in the last 8 hours and 150 mL output in the last 24 hours. He is awake and alert and oriented 3. Complaining of generalized weakness. Ruiz catheter remains in place for some urinary retention and he was started on Flomax 0.4 mg daily. The patient remains on Cleviprex drip at 14 mg/h for some hypertension. He is afebrile last 24 hours. Lab results show a WBC count of 18.6, hemoglobin 11.0, hematocrit 32.0, platelets 274, BUN 40, creatinine 0.99. Objective - Vital Signs Vital signs: Vital Signs Temp 98.4 F 02/02/19 04:00 Pulse 90 02/02/19 08:36 Resp 19 02/02/19 07:00 BP 137/84 02/02/19 07:00 Pulse Ox 93 L 02/02/19 07:00 Intake & Output 02/01/19 02/02/19 02/02/19 18:59 06:59 18:59 Intake Total 440.700 762.817 88.200 Output Total 630 945 45 Balance -189.300 -182.183 43.200 Weight 93.1 kg Intake: IV 300 330 20 Cefepime 1 gm In Sodium 50 Chloride 0.9% 50 ml @ 100 mls/hr IVPB Q12HR [facility] Rx #:[id number] Lactated Ringers 1,000 ml 300 280 20 @ 20 mls/hr IV .Q24H [facility] Rx#:[id number] Intake, IV Titration 140.700 232.817 68.200 Amount Cefepime 1 gm In Sodium 50 Chloride 0.9% 50 ml @ 100 mls/hr IVPB Q12HR [facility] Rx #:[id number] Clevidipine Butyrate 25 22.467 186.800 68.200 mg In Empty Bag 1 bag @ 1 MG/HR 2 mls/hr IV .Q24H [facility] Rx#:[id number] Insulin Regular 100 unit 68.233 46.017 In Sodium Chloride 0.9% 100 ml @ Titrate IV .Q0M [facility] Rx#:[id number] Oral 200 Output: Chest Tube Drainage 120 30 0 Chest Tube Left Lateral 120 30 0 Chest Urine 510 915 45 Other: Voiding Method Indwelling Catheter Indwelling Catheter ABP, PAP, CO, CI - Last Documented Arterial Blood Pressure 168/66 Pulmonary Artery Pressure 33/13 Cardiac Output 6.4 Cardiac Index 3.2 - Constitutional General appearance: Present: cooperative, no acute distress, obese - Respiratory Details: Lung sounds with few scattered crackles to his bilateral bases. No wheezes or rhonchi present. Respirations are symmetrical and nonlabored. Oxygen saturation is 94% on 5 L nasal cannula. Achieving 1000 mL on his incentive spirometry. Left pleural chest tube remains in place to low continuous wall suction -20 cm H2O. No air leak is present. Draining thin serosanguineous drainage with 20 mL output last 8 hours, 150 mL output in the last 24 hours. - Cardiovascular Details: Regular rhythm and rate. S1 and S2 present, negative for S3, gallop or murmur. Sternum is stable. Bedside telemetry showing atrial fibrillation heart rate 99. Atrial epicardial pacemaker wires in place and grounded. No edema present. Knee-high GUILLE hose and sequential compression devices in place to his bilateral lower extremities. Heart hugger is in place and he is demonstrating appropriate use. - Gastrointestinal Gastrointestinal Comment(s): Abdomen is soft, nontender and nondistended. Active bowel sounds present in all 4 abdominal quadrants. No guarding or rigidity. No organomegaly appreciated. Tolerating oral intake. Bowel movement yesterday 02/01/2018. - Genitourinary Genitourinary Comment(s): Ruiz catheter for accurate I&O and urinary retention. Draining clear sima urine and 640 mL output in the last 8 hours. - Integumentary Integumentary Comment(s): Skin is warm and dry. No clubbing or cyanosis is present. No rash or abnormal pigmentation is present. Midline sternal incision is clean, dry and approximated. No drainage or redness present. Left arm radial artery harvest site is clean, dry and approximated. No drainage or redness present. Left lower extremity EVH harvest sites are clean, dry and approximated. - Neurologic Neurologic Comment(s): No focal deficits. Neurologic: Present: CNII-XII intact - Musculoskeletal Musculoskeletal: Present: generalized weakness, strength equal bilaterally - Psychiatric Psychiatric Comment(s): Flat affect. Psychiatric: Present: A&O x's 3, intact judgment & insight - Allied health notes Allied health notes reviewed: nursing - Labs CBC & Chem 7: 02/02/19 05:30 02/02/19 05:30 Labs: Abnormal Lab Results - Last 24 Hours (Table) 01/30/19 02/01/19 02/01/19 Range/Units 23:27 09:03 10:09 WBC (3.8-10.6) k/uL RBC (4.30-5.90) m/uL Hgb (13.0-17.5) gm/dL Hct (39.0-53.0) % Neutrophils # (1.3-7.7) k/uL ABG pO2 59 L* (83-108) mmHg Chloride (98-107) mmol/L BUN (9-20) mg/dL Glucose (74-99) mg/dL POC Glucose (mg/dL) 187 H 242 H (75-99) mg/dL Total Protein (6.3-8.2) g/dL Albumin (3.5-5.0) g/dL 02/01/19 02/01/19 02/01/19 Range/Units 11:03 11:55 13:04 WBC (3.8-10.6) k/uL RBC (4.30-5.90) m/uL Hgb (13.0-17.5) gm/dL Hct (39.0-53.0) % Neutrophils # (1.3-7.7) k/uL ABG pO2 (83-108) mmHg Chloride (98-107) mmol/L BUN (9-20) mg/dL Glucose (74-99) mg/dL POC Glucose (mg/dL) 218 H 183 H 176 H (75-99) mg/dL Total Protein (6.3-8.2) g/dL Albumin (3.5-5.0) g/dL 02/01/19 02/01/19 02/01/19 Range/Units 13:42 14:10 15:18 WBC 17.4 H (3.8-10.6) k/uL RBC 3.41 L (4.30-5.90) m/uL Hgb 10.2 L (13.0-17.5) gm/dL Hct 30.6 L (39.0-53.0) % Neutrophils # (1.3-7.7) k/uL ABG pO2 (83-108) mmHg Chloride (98-107) mmol/L BUN (9-20) mg/dL Glucose (74-99) mg/dL POC Glucose (mg/dL) 150 H 149 H (75-99) mg/dL Total Protein (6.3-8.2) g/dL Albumin (3.5-5.0) g/dL 02/01/19 02/01/19 02/01/19 Range/Units 16:22 17:07 18:04 WBC (3.8-10.6) k/uL RBC (4.30-5.90) m/uL Hgb (13.0-17.5) gm/dL Hct (39.0-53.0) % Neutrophils # (1.3-7.7) k/uL ABG pO2 (83-108) mmHg Chloride (98-107) mmol/L BUN (9-20) mg/dL Glucose (74-99) mg/dL POC Glucose (mg/dL) 164 H 156 H 128 H (75-99) mg/dL Total Protein (6.3-8.2) g/dL Albumin (3.5-5.0) g/dL 02/01/19 02/01/19 02/01/19 Range/Units 19:08 20:08 21:01 WBC (3.8-10.6) k/uL RBC (4.30-5.90) m/uL Hgb (13.0-17.5) gm/dL Hct (39.0-53.0) % Neutrophils # (1.3-7.7) k/uL ABG pO2 (83-108) mmHg Chloride (98-107) mmol/L BUN (9-20) mg/dL Glucose (74-99) mg/dL POC Glucose (mg/dL) 126 H 140 H 149 H (75-99) mg/dL Total Protein (6.3-8.2) g/dL Albumin (3.5-5.0) g/dL 02/01/19 02/01/19 02/02/19 Range/Units 22:02 23:08 00:04 WBC (3.8-10.6) k/uL RBC (4.30-5.90) m/uL Hgb (13.0-17.5) gm/dL Hct (39.0-53.0) % Neutrophils # (1.3-7.7) k/uL ABG pO2 (83-108) mmHg Chloride (98-107) mmol/L BUN (9-20) mg/dL Glucose (74-99) mg/dL POC Glucose (mg/dL) 142 H 132 H 117 H (75-99) mg/dL Total Protein (6.3-8.2) g/dL Albumin (3.5-5.0) g/dL 02/02/19 02/02/19 02/02/19 Range/Units 00:56 02:00 03:08 WBC (3.8-10.6) k/uL RBC (4.30-5.90) m/uL Hgb (13.0-17.5) gm/dL Hct (39.0-53.0) % Neutrophils # (1.3-7.7) k/uL ABG pO2 (83-108) mmHg Chloride (98-107) mmol/L BUN (9-20) mg/dL Glucose (74-99) mg/dL POC Glucose (mg/dL) 109 H 128 H 139 H (75-99) mg/dL Total Protein (6.3-8.2) g/dL Albumin (3.5-5.0) g/dL 02/02/19 02/02/19 02/02/19 Range/Units 03:55 05:02 05:30 WBC 18.6 H (3.8-10.6) k/uL RBC 3.66 L (4.30-5.90) m/uL Hgb 11.0 L (13.0-17.5) gm/dL Hct 32.0 L (39.0-53.0) % Neutrophils # 15.6 H (1.3-7.7) k/uL ABG pO2 (83-108) mmHg Chloride (98-107) mmol/L BUN (9-20) mg/dL Glucose (74-99) mg/dL POC Glucose (mg/dL) 124 H 115 H (75-99) mg/dL Total Protein (6.3-8.2) g/dL Albumin (3.5-5.0) g/dL 02/02/19 02/02/19 Range/Units 05:30 06:13 WBC (3.8-10.6) k/uL RBC (4.30-5.90) m/uL Hgb (13.0-17.5) gm/dL Hct (39.0-53.0) % Neutrophils # (1.3-7.7) k/uL ABG pO2 (83-108) mmHg Chloride 108 H (98-107) mmol/L BUN 40 H (9-20) mg/dL Glucose 108 H (74-99) mg/dL POC Glucose (mg/dL) 100 H (75-99) mg/dL Total Protein 5.9 L (6.3-8.2) g/dL Albumin 3.2 L (3.5-5.0) g/dL Microbiology - Last 24 Hours (Table) 01/30/19 18:15 Gram Stain - Preliminary Sputum Sputum Culture - Preliminary - Imaging and Cardiology Chest x-ray: report reviewed, image reviewed Assessment and Plan Assessment: 1. Severe calcific triple-vessel coronary artery disease, status post quadruple coronary artery bypass grafting surgery 2. Non-STEMI 3. Acute systolic heart failure, cardiomyopathy, EF 30-35% 4. Moderate to severe mitral regurgitation on transthoracic echocardiogram and transesophageal echocardiogram 5. Hypertension 6. Hyperlipidemia 7. TIA in 2007 without residual 8. Rheumatoid arthritis on Enbrel and methotrexate, currently on hold 9. Obstructive sleep apnea without CPAP use, status post UPPP with residual occasional difficulty in swallowing 10. Remote history of tobacco dependence, quit in 2003 11. Mild COPD with preoperative FEV1 68% 12. Preoperative tracheobronchitis with positive sputum culture showing Serratia marcescens 13. Postoperative acute blood loss anemia, an expected outcome 14. Postoperative paroxysmal atrial fibrillation, an unexpected outcome Plan: 1. Continue to maximize medical therapy with aspirin, Plavix, statin, beta kleber and Norvasc. We will increase his metoprolol tartrate to 75 mg by mouth twice a day. 2. Continue to hold Enbrel and methotrexate. 3. Encourage increase in activity. Physical therapy, occupational therapy and cardiac rehabilitation following. 4. Bronchodilators and antibiotic management per pulmonary critical care service. Wean oxygen as tolerated. 5. Continue pain management per current when necessary orders. Discontinue [place]. 6. Encourage use of his incentive spirometry every hour while awake. 7. continue GI and DVT prophylaxis. 8. Medical management, Insulin management and other comorbidities management per primary care service. 9. Start Cozaar 25 mg by mouth daily at noon, wean Cleviprex drip as tolerated. 10. Continue amiodarone 400 mg by mouth daily for atrial fibrillation prophylaxis. 11. No diuresis today. 12. Keep Ruiz catheter in place for accurate I&O and urinary retention. Continue Flomax 0.4 mg by mouth daily. 13. Consult Dr. Baeza for possible inpatient rehab placement. 14. Continue to monitor daily labs and chest x-rays. 15. Discontinue his left pleural chest tube. 16. More recommendations to follow based on patient's clinical course. Time with Patient: Greater than 30
[2019-02-02] MEDS: TAMSULOSIN 0.4 MG CAP.ER.24H PO SCH (10:12)
[2019-02-02] MEDS: ASCORBIC ACID 500 MG TAB PO SCH (11:03)
[2019-02-02 11:42] LABS: Glucose,Whole Blood 171 mg/dL (75-99)
[2019-02-02] MEDS ORDERED: LOSARTAN 25 MG TAB PO SCH (12:00)
[2019-02-02] MEDS: INSULIN ASPART (NovoLOG) 100 UNIT/ML VIAL SQ SCH ×3 (12:17→21:08)
--- NOTE | 2019-02-02 15:14 | CDI ---
Documentation Clarification Form Date: 02/02/2019 2:48:40 PM From: Rosenda Mccarty RN CCDS Admit Date: 01/22/2019 9:13:00 AM Patient Name: Finn Kong Visit Number: [id number] Discharge Date: ATTENTION: The Clinical Documentation Specialists (CDI) and [facility] Coding Staff appreciate your assistance in clarifying documentation. Please respond to the clarification below the line at the bottom and electronically sign. The CDI & [facility] Coding staff will review the response and follow-up if needed. Please note: Queries are made part of the Legal Health Record. If you have any questions, please contact the author of this message via ITS. Dr. Manuel Jennings Acute Hypoxic Respiratory Failure from CHF is documented in the Medical Management progress noted 02/01/2019 History/Risk Factors: 63-year-old male presented to the ED with shortness of breath for three days. Diagnosed with NSTEMI AND Acute Systolic Heart Failure Medical History, HTN; MARVEL without CPAP use. Clinical Indicators: CXR 02/01/2019 The heart is enlarged . There are bilateral effusions. ECHO 01/22/2019 Left Ventricular systolic function is moderately severely impaired with an EF between 30 35% ECHO 01/30/2019 Left Ventricular systolic function is low normal with, an EF between 50-55% Vital Signs: 02/01/2019 08:00 137/92 80 97.5 Axillary 20 93% 10L High Flow Oxygen Treatment: Lopressor 50mg 02/01 changed 02/02 to 75mb In your professional opinion, can you please clarify if The Congestive Heart Failure Congestive Heart Failure in the Post-Operative Period Ruled Out Congestive Heart Failure (specify type) in the Post-Operative Period Ruled IN Other, please specify Unable to determine (Last Revision: July 2017) CHF ruled out MTDD
--- NOTE | 2019-02-02 15:17 | P.CONS ---
History of Present Illness - Chief Complaint Cardiac debility - History of Present Illness I had the opportunity to see patient for inpatient rehab consultation with regard to cardiac debility. He was admitted to [facility] January 22 with shortness of breath with diagnosed CHF and non-STEMI for which is seen by Lizette Dunham and Kirill. Chest x-rays followed for CHF. PT reports two-person assist for functional mobility. Did ambulate in the hallway with cotreatment PT/OT. Previous functional history as elicited patient: 63-year-old right-handed white male who is lives and 2 floor home with . Both retired. uses four-wheel walker. Patient and parent cooking, laundry, driving, standing shower and gait without device. Dr. Vila is regular doctor. History smo ahmet but doesn't smoke or drink currently. Family history father was a smoker. Review of Systems Review of systems: ENT: Denies sneezes or discharge. Eyes: Denies discharge or photophobia. Cardiac: Mild sternal discomfort. Pulmonary: At least mild shortness of breath. Gastrointestinal: Denies nausea, emesis, constipation, diarrhea. Genitourinary: Denies discharge or frequency. Musculoskeletal: Denies muscle or bone aches. Neurologic: Mild to moderate generalized weakness. Endocrine: Denies shakes or sweats. Oncology: Denies cancers. Dermatologic: Denies rash, itching, pruritus. ALLERGY/immunology: Denies sneezes, rashes. Past Medical History Past Medical History: Coronary Artery Disease (CAD), Heart Failure, COPD, CVA/TI A, Hyperlipidemia, Hypertension, Myocardial Infarction ([place]), Rheumatoid Arthritis ([place]) Additional Past Medical History / Comment(s): TIA in 2007, vertigo, falls, vitamin D deficiency, obstructive sleep apnea without CPAP use History of Any Multi-Drug Resistant Organisms: None Reported Past Surgical History: Adenoidectomy, Hernia Repair, Tonsillectomy Additional Past Surgical History / Comment(s): Open kidney stone extraction, prostate biopsy and TURP, ventral hernia repair with mesh, UVPPP, colonoscopy, R knee arthroscopy, bilateral cataract removal/lens implants. Past Anesthesia/Blood Transfusion Reactions: No Reported Reaction Additional Past Anesthesia/Blood Transfusion Reaction / Comm: Clausterphobia Past Psychological History: No Psychological Hx Reported Smoking Status: Former smoker Past Alcohol Use History: Occasional Past Drug Use History: None Reported - Past Family History Mother Family Medical History: CVA/TIA, Hyperlipidemia, Hypertension, Osteoarthritis (OA) Father Additional Family Medical History / Comment(s): [place] disease-overgrowth of cells in lymphnodes Medications and Allergies Home Medications Medication Instructions Recorded Confirmed Type Atorvastatin [Lipitor] 20 mg PO HS 01/22/19 01/22/19 History Clopidogrel Bisulfate [Plavix] 75 mg PO Q48H 01/22/19 01/22/19 History Ergocalciferol (Vitamin D2) 50,000 unit PO SANTOS 01/22/19 01/22/19 History [Drisdol] Etanercept [Enbrel] 25 mg SQ SUWE 01/22/19 01/22/19 History Ferrous Sulfate [Feosol] 325 mg PO TID 01/22/19 01/22/19 History Folic Acid 1 mg PO DAILY 01/22/19 01/22/19 History Hydrocodone/Acetaminophen [[place] 1 tab PO Q6H PRN 01/22/19 01/22/19 History 10-325] Labetalol HCl [Trandate] 300 mg PO BID 01/22/19 01/22/19 History Losartan Potassium [Cozaar] 100 mg PO DAILY 01/22/19 01/22/19 History Meclizine [Antivert] 25 mg PO AC-TID PRN 01/22/19 01/22/19 History Methotrexate 25mg/Ml 25 mg SQ SANTOS 01/22/19 01/22/19 History amLODIPine [Norvasc] 10 mg PO DAILY 01/22/19 01/22/19 History traZODone HCL 150 mg PO HS 01/22/19 01/22/19 History Allergies Allergy/AdvReac Type Severity Reaction Status Date / Time epinephrine Allergy Unknown Verified 01/29/19 06:25 Physical Exam Vitals: Vital Signs Temp Pulse Resp BP Pulse Ox 02/02/19 13:00 79 18 118/79 96 02/02/19 12:00 98.5 F 75 11 L 120/73 94 L 02/02/19 11:48 73 02/02/19 11:37 76 02/02/19 11:00 75 19 119/76 96 02/02/19 10:00 65 17 125/85 89 L 02/02/19 09:00 70 29 H 134/103 93 L 10/07/19 08:36 90 02/02/19 08:21 98 02/02/19 08:00 98.4 F 103 H 19 143/79 94 L 02/02/19 07:00 92 19 137/84 93 L 02/02/19 06:00 89 20 137/81 96 02/02/19 05:00 90 24 131/78 96 02/02/19 04:00 98.4 F 87 13 96 02/02/19 03:00 89 16 131/81 97 02/02/19 02:00 87 14 134/76 93 L 02/02/19 01:00 89 14 124/74 93 L 02/02/19 00:38 93 L 02/02/19 00:11 89 21 124/74 92 L 02/02/19 00:00 98.3 F 82 19 112/71 92 L 02/01/19 23:00 80 14 127/72 91 L 02/01/19 22:00 90 16 124/71 94 L 02/01/19 21:00 93 16 128/81 90 L 02/01/19 20:18 96 02/01/19 20:05 93 02/01/19 20:04 92 L 02/01/19 20:00 97.6 F 99 18 142/83 90 L 02/01/19 19:00 89 15 91 L 02/01/19 18:00 89 20 94 L 02/01/19 17:00 80 21 94 L 02/01/19 16:00 98.1 F 77 15 95 Intake and Output 02/02/19 02/02/19 02/02/19 06:59 14:59 22:59 Intake Total 375.667 643.467 Output Total 660 415 Balance -284.333 228.467 Intake: IV 180 190 Cefepime 1 gm In Sodium 50 Chloride 0.9% 50 ml @ 100 mls/hr IVPB Q12HR [facility]IE Rx #:[id number] Lactated Ringers 1,000 ml 180 140 @ 20 mls/hr IV .Q24H [facility]IN[facility]IE Rx#:[id number] Intake, IV Titration 195.667 153.467 Amount Clevidipine Butyrate 25 159.400 143.467 mg In Empty Bag 1 bag @ 1 MG/HR 2 mls/hr IV .Q24H VINNIE Rx#:[id number] Insulin Regular 100 unit 36.267 In Sodium Chloride 0.9% 100 ml @ Titrate IV .Q0M [facility]IN[facility]IE Rx#:[id number] Lactated Ringers 1,000 ml 10 @ 20 mls/hr IV .Q24H VINNIE Rx#:[id number] Oral 300 Output: Chest Tube Drainage 20 0 Chest Tube Left Lateral 20 0 Chest Urine 640 415 Other: Voiding Method Indwelling Catheter Indwelling Catheter Weight 93.1 kg ABP, PAP, CO, CI - Last 8 Hours Arterial Blood Pressure 115/59 Arterial Blood Pressure 123/59 Arterial Blood Pressure 156/66 Skin: Good color, texture, turgor. General: Overweight build and comfortable appearance. Head: Normocephalic, atraumatic. Eyes: Symmetric. Pupils equal round. Ears: Symmetric. Hearing within normal limits. Mouth: Clear. Neck: Supple. Carotid without bruit. Cardiac: Regular rate and rhythm. Midline sternotomy scar well approximated, clean and dressed. [place]. Lungs: Clear anteriorly and posteriorly. Abdomen: Soft active nontender. Extremities: Normal tone. Neurological: Mental status: Alert, cooperative, pleasant. Cranial nerves: Symmetric facial tone and trapezius. Motor: Can actively elevate all 4 limbs. Sensation: Intact throughout. DTRs: Symmetric and equal throughout. Mobility: Requires physical assistance for functional memory, transfers, gait. Results CBC & Chem 7: 02/02/19 05:30 02/02/19 05:30 Labs: Abnormal Lab Results - Last 24 Hours (Table) 01/30/19 02/01/19 02/01/19 Range/Units 23:27 15:18 16:22 WBC (3.8-10.6) k/uL RBC (4.30-5.90) m/uL Hgb (13.0-17.5) gm/dL Hct (39.0-53.0) % Neutrophils # (1.3-7.7) k/uL ABG pO2 59 L* (83-108) mmHg Chloride (98-107) mmol/L BUN (9-20) mg/dL Glucose (74-99) mg/dL POC Glucose (mg/dL) 149 H 164 H (75-99) mg/dL Total Protein (6.3-8.2) g/dL Albumin (3.5-5.0) g/dL 02/01/19 02/01/19 02/01/19 Range/Units 17:07 18:04 19:08 WBC (3.8-10.6) k/uL RBC (4.30-5.90) m/uL Hgb (13.0-17.5) gm/dL Hct (39.0-53.0) % Neutrophils # (1.3-7.7) k/uL ABG pO2 (83-108) mmHg Chloride (98-107) mmol/L BUN (9-20) mg/dL Glucose (74-99) mg/dL POC Glucose (mg/dL) 156 H 128 H 126 H (75-99) mg/dL Total Protein (6.3-8.2) g/dL Albumin (3.5-5.0) g/dL 02/01/19 02/01/19 02/01/19 Range/Units 20:08 21:01 22:02 WBC (3.8-10.6) k/uL RBC (4.30-5.90) m/uL Hgb (13.0-17.5) gm/dL Hct (39.0-53.0) % Neutrophils # (1.3-7.7) k/uL ABG pO2 (83-108) mmHg Chloride (98-107) mmol/L BUN (9-20) mg/dL Glucose (74-99) mg/dL POC Glucose (mg/dL) 140 H 149 H 142 H (75-99) mg/dL Total Protein (6.3-8.2) g/dL Albumin (3.5-5.0) g/dL 02/01/19 02/02/19 02/02/19 Range/Units 23:08 00:04 00:56 WBC (3.8-10.6) k/uL RBC (4.30-5.90) m/uL Hgb (13.0-17.5) gm/dL Hct (39.0-53.0) % Neutrophils # (1.3-7.7) k/uL ABG pO2 (83-108) mmHg Chloride (98-107) mmol/L BUN (9-20) mg/dL Glucose (74-99) mg/dL POC Glucose (mg/dL) 132 H 117 H 109 H (75-99) mg/dL Total Protein (6.3-8.2) g/dL Albumin (3.5-5.0) g/dL 02/02/19 02/02/19 02/02/19 Range/Units 02:00 03:08 03:55 WBC (3.8-10.6) k/uL RBC (4.30-5.90) m/uL Hgb (13.0-17.5) gm/dL Hct (39.0-53.0) % Neutrophils # (1.3-7.7) k/uL ABG pO2 (83-108) mmHg Chloride (98-107) mmol/L BUN (9-20) mg/dL Glucose (74-99) mg/dL POC Glucose (mg/dL) 128 H 139 H 124 H (75-99) mg/dL Total Protein (6.3-8.2) g/dL Albumin (3.5-5.0) g/dL 02/02/19 02/02/19 02/02/19 Range/Units 05:02 05:30 05:30 WBC 18.6 H (3.8-10.6) k/uL RBC 3.66 L (4.30-5.90) m/uL Hgb 11.0 L (13.0-17.5) gm/dL Hct 32.0 L (39.0-53.0) % Neutrophils # 15.6 H (1.3-7.7) k/uL ABG pO2 (83-108) mmHg Chloride 108 H (98-107) mmol/L BUN 40 H (9-20) mg/dL Glucose 108 H (74-99) mg/dL POC Glucose (mg/dL) 115 H (75-99) mg/dL Total Protein 5.9 L (6.3-8.2) g/dL Albumin 3.2 L (3.5-5.0) g/dL 02/02/19 02/02/19 Range/Units 06:13 11:39 WBC (3.8-10.6) k/uL RBC (4.30-5.90) m/uL Hgb (13.0-17.5) gm/dL Hct (39.0-53.0) % Neutrophils # (1.3-7.7) k/uL ABG pO2 (83-108) mmHg Chloride (98-107) mmol/L BUN (9-20) mg/dL Glucose (74-99) mg/dL POC Glucose (mg/dL) 100 H 171 H (75-99) mg/dL Total Protein (6.3-8.2) g/dL Albumin (3.5-5.0) g/dL Microbiology - Last 24 Hours (Table) 01/30/19 18:15 Gram Stain - Final Sputum Sputum Culture - Final Assessment and Plan (1) NSTEMI (non-ST elevated myocardial infarction) Current Visit: Yes Status: Acute Code(s): I21.4 - NON-ST ELEVATION (NSTEMI) MYOCARDIAL INFARCTION SNOMED Code(s): 87022569 Plan: Impression: 1. Cardiac debility. 2. Non-STEMI, CAD, history of [place] with recent CABG four-vessel. 3. History of stroke. 4. Hypertension. 5. Rheumatoid arthritis. 6. COPD. Comments and plan: PT and OT are ongoing. We'll follow therapy progress with yourself. Have discussed possible inpatient rehab with patient and and both seem agreeable if necessary.
--- NOTE | 2019-02-02 16:13 | CDI ---
Documentation Clarification Form Date: 02/02/2019 1:15:00 PM From: Rosenda Mccarty RN CCDS Admit Date: 01/22/2019 9:13:00 AM Patient Name: Finn Kong Visit Number: [id number] Discharge Date: ATTENTION: The Clinical Documentation Specialists (CDI) and [facility] Coding Staff appreciate your assistance in clarifying documentation. Please respond to the clarification below the line at the bottom and electronically sign. The CDI & [facility] Coding staff will review the response and follow-up if needed. Please note: Queries are made part of the Legal Health Record. If you have any questions, please contact the author of this message via ITS. Dr. Manuel Jennings Acute Hypoxic Respiratory Failure from CHF is documented in the Medical Management progress note 02/01/2019 History/Risk Factors: 63-year-old male presents to the ED with shortness of breath for three days. Diagnosed with Nstemi and Congestive Heart Failure. Medical History COPD with preoperative FEV1 68%; MARVEL without CPAP use, Tobacco use: Remote history of tobacco dependence, quit in 2003 Clinical Indicators: Quadruple coronary artery bypass grafting surgery 01/29/2019 Pre-Operative Tracheobronchitis with Positive Sputum culture showing Serratia marcescens Starting on Your Progress notes dated 01/30/2019 CXR The heart is enlarged. There are bilateral effusions. There is bibasilar airspace disease Vital signs: 137/92 80 97.5 Axillary 20 93% 10L high flow oxygen Lung/Breathing assessment: Your Progress Note 02/01/2019 Lung sounds essentially clear throughout, few scattered crackles to his left lower lobe and diminished to his bilateral lobe. Left pleural chest tube remains in place to low continuous wall suction 20 cm H20. Treatment: Deep breathing and Incentive Spirometry Breathing Tx Duonebs scheduled qid and prn q 2hrs Oxygen 01/31/2019 0:600 94% bipap: 01/31/2019 12:00 99% 15L high flow; 02/01/2019 00:00 98% 12L High Flow; 02/01/2019 02:00 98% 8L High Flow; 02/01/2019 07:00 88% 10L High Flow; 02/01/2019 11:00 96% 5L High Flow oxygen; 02/01/2019 18:00 94% 3L High flow; 02/02/2019 14:40 96% 5L High Flow oxygen; In your professional opinion, can you please clarify if these findings signify one of the following conditions? * Acute hypoxic respiratory failure from CHF * Acute Hypoxic respiratory Failure due to * Acute Respiratory Failure due to surgery * Other Diagnosis, please specify * Unable to determine (Last Revision: July 2017) Multifactorial: fluid overload post-op , tracheobronchitis with serratia pre- op, LV dysfunction MTDD
--- NOTE | 2019-02-02 16:30 | P.PN ---
Progress Note - Text Progress Note Date: 02/02/19 Interval history: This is a pleasant [address] begum. Chronic stable medical conditi ons include hyperlipidemia, hypertension, rheumatoid arthritis COPD. For about 2 weeks patient is becoming increasingly short of breath. No edema no cough no fever no chills. Normally uses 2 or 3 pillows at night. Appetite has been fair. No bowel movements. No sputum production. Patient is felt to have CHF to started on IV Lasix. There is a question about pneumonia hence antibiotics were also started. Admitted for the same. Admitted with CHF exacerbation. Positive troponin. EKG changes. Cardiac catheterization on January 23 showed triple-vessel disease.PAMELA done showed severe MR. On January 29 underwent coronary bypass. Today-in the ICU. Up in a chair. Feels more comfortable. On IV Cleviprex. INSULIN drip. Had about 25% of his breakfast and about 75% of his lunch. Breathing a bit better. Ruiz catheter in place. Left pleural chest tube to be removed today. Review of systems: Was done for constitutional, cardiovascular, GI, pulmonary. relevant finding as above Active Medications Acetaminophen (Tylenol Tab) 1,000 mg PO Q6HR PRN PRN Reason: Fever and/ or Pain Last Admin: 02/02/19 14:05 Dose: 1,000 mg Documented by: Albuterol/Ipratropium (Duoneb 0.5 Mg-3 Mg/3 Ml Soln) 3 ml INHALATION RT-Q2H PRN PRN Reason: Shortness Of Breath Or Wheezing Last Admin: 01/31/19 03:21 Dose: 3 ml Documented by: Albuterol/Ipratropium (Duoneb 0.5 Mg-3 Mg/3 Ml Soln) 3 ml INHALATION RT-QID [facility] Last Admin: 02/02/19 15:38 Dose: 3 ml Documented by: Alprazolam (Xanax) 0.25 mg PO TID PRN PRN Reason: Anxiety Last Admin: 01/31/19 08:52 Dose: 0.25 mg Documented by: Amiodarone HCl (Cordarone) 400 mg PO BID [facility] Last Admin: 02/02/19 07:57 Dose: 400 mg Documented by: Amlodipine Besylate (Norvasc) 5 mg PO DAILY [facility] Last Admin: 02/02/19 07:57 Dose: 5 mg Documented by: Ascorbic Acid (Vitamin C) 500 mg PO 1200 [facility] Last Admin: 02/02/19 11:03 Dose: 500 mg Documented by: Aspirin (Aspirin) 325 mg PO DAILY [facility] Last Admin: 02/02/19 07:55 Dose: 325 mg Documented by: Atorvastatin Calcium (Lipitor) 40 mg PO DAILY [facility] Last Admin: 02/02/19 07:40 Dose: 40 mg Documented by: Benzocaine/Menthol (Cepacol Lozenge) 1 each MUCOUS MEM Q2H PRN PRN Reason: Sore Throat Bisacodyl (Dulcolax) 10 mg RECTAL DAILY PRN PRN Reason: Constipation Clopidogrel Bisulfate (Plavix) 75 mg PO DAILY [facility] Last Admin: 02/02/19 07:57 Dose: 75 mg Documented by: Ferrous Sulfate (Feosol) 325 mg PO BID-W/MEALS [facility] Last Admin: 02/02/19 06:57 Dose: 325 mg Documented by: Heparin Sodium (Porcine) (Heparin) 5,000 unit SQ Q8HR [facility] Last Admin: 02/02/19 15:18 Dose: 5,000 unit Documented by: Hydralazine HCl (Apresoline) 25 mg PO TID [facility] Last Admin: 02/02/19 15:18 Dose: 25 mg Documented by: Clevidipine 25 mg/ IV Solution 50 mls @ 2 mls/hr IV .Q24H [facility]; Protocol Last Titration: 02/02/19 13:17 Dose: 4 mg/hr, 8 mls/hr Documented by: Cefepime HCl 1 gm/ Sodium (Chloride) 50 mls @ 100 mls/hr IVPB Q12HR [facility] Last Admin: 02/02/19 09:27 Dose: 100 mls/hr Documented by: Insulin Aspart (Novolog) 0 unit SQ [id number] [facility]; Protocol Last Admin: 02/02/19 12:17 Dose: 2 unit Documented by: Losartan Potassium (Cozaar) 25 mg PO DAILY@1200 [facility] Last Admin: 02/02/19 11:04 Dose: 25 mg Documented by: Magnesium Hydroxide (Milk Of Magnesia) 2,400 mg PO BID PRN PRN Reason: Constipation Metoprolol Tartrate (Lopressor) 75 mg PO BID [facility] Last Admin: 02/02/19 07:56 Dose: 75 mg Documented by: Miscellaneous Information (Potassium Per Protocol) 1 each MISCELLANE DAILY PRN; Protocol PRN Reason: Per Protocol Miscellaneous Information (Magnesium Per Protocol) 1 each MISCELLANE DAILY PRN; Protocol PRN Reason: Per Protocol Miscellaneous Information (Phosphorus Per Protocol) 1 each MISCELLANE DAILY PRN; Protocol PRN Reason: Per Protocol Ondansetron HCl (Zofran) 4 mg IVP Q6HR PRN PRN Reason: Nausea And Vomiting Pantoprazole Sodium (Protonix) 40 mg PO DAILY [facility] Last Admin: 02/02/19 08:59 Dose: 40 mg Documented by: Senna/Docusate Sodium (Senokot-S) 2 each PO HS [facility] Last Admin: 02/01/19 20:41 Dose: 2 each Documented by: Sodium Chloride (Saline Flush) 10 ml IV BID [facility] Last Admin: 02/02/19 08:00 Dose: 10 ml Documented by: Tamsulosin HCl (Flomax) 0.4 mg PO PC-BRKFST [facility] Last Admin: 02/02/19 10:12 Dose: 0.4 mg Documented by: Physical examination: VITAL SIGNS: 98.5, 75, 18, 118-79, 96% on 5 L GENERAL: Sitting upon a chair, less tired EYES: Pupils equal. Conjunctiva pale HEENT: External appearance of nose and ears normal, oral cavity dry. NECK: JVD unable to assess; masses not palpable. HEART: First and second heart sounds are normal; no edema. LUNGS: Respiratory rate increased, decreased breath sounds, left pleural chest tube present ABDOMEN: Soft, nontender, liver spleen not palpable, no masses palpable. Ruiz catheter in place PSYCH: Alert and oriented x3; mood and affect tired INVESTIGATIONS, reviewed in the clinical context: White count 8.6 hemoglobin 11 creatinine 0.99 Chest l-euv-ygfhryqmb effusions Previous tests Cardiac cath bpqpbl-igqivm-ieenwh disease Admission labs 2-D echo-moderate global hypokinesia, EF 30-35% multiple wall motion abnormality, severe mitral regurgitation White count 13.6 hemoglobin 14.6 potassium 4.1 creatinine 0.84 Troponin 0.082, 0.078 ProBNP 4990 EKG tracing personally reviewed by me shows ST segment depression, PVC Chest x-ray film personally reviewed by me shows pulmonary edema and some cardiomegaly Assessment: -Status post coronary bypass -Acute congestive heart failure exacerbation, from systolic dysfunction EF 30- 35%, with clinical improvement -Moderate mitral regurgitation, nonrheumatic -Acute postop blood loss anemia as expected from surgery -COPD in an ex-smoker -Hyperlipidemia -Essential hypertension -Rheumatoid arthritis -Coronary artery disease -Persistent atrial fibrillation -Acute hypoxic respiratory failure from CHF Plan: Patient doing better. Continue current medication due to plan. Follow
[2019-02-02 16:41] LABS: Glucose,Whole Blood 147 mg/dL (75-99)
[2019-02-02 20:45] LABS: Glucose,Whole Blood 195 mg/dL (75-99)
--- NOTE | 2019-02-02 20:55 | PN ---
PROGRESS NOTE Mr. Kong is status post aortocoronary bypass surgery. This morning he is in actually sinus rhythm. He has converted back. He is hemodynamically stable, doing well, breathing easier. Vitals are stable. Blood pressure is slightly elevated. I am recommending that we add Norvasc also. Plan is to continue current medications. Vital signs are stable. S1, S2 heard normally. Short systolic murmur noted. Lungs reveal improved air entry. Abdomen and lower extremity exam is unchanged. Plan is to continue current medications, incentive spirometry and pulmonary toilet. MMODL / IJN: [id number] /
[2019-02-02] MEDS: SENNOSIDES-DOCUSATE SODIUM 1 EACH TAB PO SCH (21:07)
[2019-02-03] MEDS: INSULIN ASPART (NovoLOG) 100 UNIT/ML VIAL SQ SCH ×5 (04:30→20:20)
[2019-02-03] MEDS: CLEVIDIPINE BUTYRATE 25 MG in EMPTY BAG 1 BAG IV SCH ×4 (04:31→19:53)
[2019-02-03 06:22] LABS: Basophils # (A) 0.1 k/uL (0-0.2); Basophils % (A) 1 %; Eosinophils # (A) 0.6 k/uL (0-0.7); Eosinophils % (A) 4 %; HCT 32.3 % (39.0-53.0); HGB 10.4 gm/dL (13.0-17.5); Lymphocytes % (A) 7 %; MCH 29.3 pg (25.0-35.0); MCHC 32.1 g/dL (31.0-37.0); MCV 91.3 fL (80.0-100.0); Mean Platelet Volume 7.3; Monocytes # (A) 0.9 k/uL (0-1.0); Monocytes % (A) 6 %; Neutrophils # (A) 11.8 k/uL (1.3-7.7); Neutrophils % (A) 81 %; Platelet Count 256 k/uL (150-450); RBC 3.54 m/uL (4.30-5.90); RDW 13.4 % (11.5-15.5); WBC 14.6 k/uL (3.8-10.6)
[2019-02-03 06:23] LABS: ALT 35 U/L (21-72); AST 33 U/L (17-59); African American GFR (CKD) >90 (>60 ml/min/1.73 sqM); Albumin 3.3 g/dL (3.5-5.0); Alkaline Phosphatase 79 U/L (38-126); Anion Gap 9 mmol/L; Blood Urea Nitrogen 35 mg/dL (9-20); Calcium 9.1 mg/dL (8.4-10.2); Carbon Dioxide 21 mmol/L (22-30); Chloride 110 mmol/L (98-107); Glucose 153 mg/dL (74-99); Potassium 4.2 mmol/L (3.5-5.1); Sodium 140 mmol/L (137-145); Total Bilirubin 0.5 mg/dL (0.2-1.3); Total Protein 6.2 g/dL (6.3-8.2)
[2019-02-03 06:45] LABS: Glucose,Whole Blood 140 mg/dL (75-99)
[2019-02-03] MEDS: FERROUS SULFATE 325 MG TAB PO SCH ×2 (07:11→17:25)
[2019-02-03] MEDS: HEPARIN SODIUM,PORCINE 5,000 UNIT/ML 1 ML VIAL SQ SCH ×2 (07:54→16:20)
[2019-02-03] MEDS: TAMSULOSIN 0.4 MG CAP.ER.24H PO SCH (07:55)
[2019-02-03] MEDS: ASPIRIN 325 MG TAB PO SCH (08:01)
[2019-02-03] MEDS: CEFEPIME 1 GM in SODIUM CHLORIDE 0.9% 50 ML IVPB SCH ×2 (08:01→19:54)
[2019-02-03] MEDS: ATORVASTATIN 40 MG TAB PO SCH (08:02)
[2019-02-03] MEDS: hydrALAZINE HCL 25 MG TAB PO SCH ×3 (08:02→22:56)
[2019-02-03] MEDS: amLODIPine 5 MG TAB PO SCH (08:02)
[2019-02-03] MEDS: METOPROLOL TARTRATE 25 MG TAB PO SCH ×2 (08:02→19:51)
[2019-02-03] MEDS: AMIODARONE 200 MG TAB PO SCH ×2 (08:02→19:52)
[2019-02-03] MEDS: IPRATROPIUM-ALBUTEROL 3 ML NEB INHALATION SCH ×4 (08:10→20:40)
--- NOTE | 2019-02-03 08:23 | XR ---
EXAMINATION TYPE: XR chest 1V portable DATE OF EXAM: 02/03/2019 COMPARISON: 02/02/2019 HISTORY: Post CABG. TECHNIQUE: Single frontal view of the chest is obtained. FINDINGS: Right basilar airspace disease is similar with small layering right pleural effusion. Impr raman left pleural effusion, now trace with nearly resolved left basilar airspace disease. Pulmonary v ascular congestion is also nearly resolved. Cardiomediastinal silhouette is enlarged with post CABG c hanges. Osseous structures appear grossly intact. Curvilinear density may represent postsurgical pedroza ge or foreign body along the left axillary soft tissues. IMPRESSION: 1. Improving aeration with near complete resolution of left basilar airspace disease and left pleural effusion. Persistent right basilar airspace disease and small layering right pleural effusion. 2. Curvilinear radiopaque density in the left axillary soft tissues could represent radiopaque foreig n body or postsurgical change.
--- NOTE | 2019-02-03 08:33 | P.PN ---
Subjective Progress Note Date: 02/03/19 Principal diagnosis: Non-ST elevated myocardial infarction, acute systolic CHF, multivessel CAD, moderate mitral regurgitation This is a very pleasant 63-year-old gentleman who follows with Dr. Snider as his primary care physician. He has a history of hypertension, hyperlipidemia, vertigo, rheumatoid arthritis, smoking history Paty obstructive sleep apnea status post U PPP P. He presented here to the emergency room on 01/22/2019 with a three-day history of shortness of breath and chest discomfort. He was found to have a non-ST segment elevation myocardial infarction and acute congestive heart failure. Echocardiogram revealed moderate to severely impaired left ventricular systolic function with ejection fraction 30-35%. Severe mitral regurgitation. Today he had undergone cardiac catheterization which revealed critical lesion in the proximal LAD, mid diagonal and also distal circumflex. Moderate disease in the mid circumflex of the total occlusion of the second OM branch. He was recommended bypass surgery. We are consulted for the same. FEV1 value 60% of predicted. Carotid Dopplers revealed no significant stenosis. A CT revealed poor dentition. Degenerative changes of the cervical spine. He is currently awake and alert in no acute distress. He denies any chest pain currently. No worsening shortness of breath, cough or congestion. Initial jessica st x-ray revealed a right infrahilar opacity concerning for developing pneumonia versus confluent edema and mild fluid overload. He remains on a heparin drip. On 01/25/2019, the patient is stable. The patient is seeking cardiac surgery with bypass and valve replacement/repair. Will need a PAMELA. Otherwise is doing well. Creatinine is stable at 1.2. White cell count of 8.3. No other significant events overnight. On 01/26/2019 patient seen in follow-up on selective care unit, he has just re turned from transesophageal echocardiogram, he is awake and alert, he denies any acute distress, currently on 2 L of oxygen with a pulse ox of 93%, he was found to have moderately severe mitral regurgitation, no evidence of PFO, no intracardiac thrombus, he is awaiting coronary artery bypass grafting with the possibility of mitral valve repair, his FEV1 is at 60%, his breathing is stable, lung sounds reveal some minimal basilar crackles, no rhonchi, wheezing, no significant cough or congestion, his inspiratory effort is [id number] on the incentive spirometry today, he denies any chest pain. Vital signs have been stable, no fever or chills. On 01/27/2019 patient seen in follow-up on selective care unit, he is awake and alert, he is on room air, his pulse ox of 95%, denied any chest pain, he remains on heparin drip, he is awaiting his bypass surgery and mitral valve repair on by Dr. Jennings, no fever or chills, no acute events overnight, lung sounds are positive for some bibasilar crackles, he is working on incentive spirometer, he is achieving [address] chest has been reviewed showing some nonspecific patchy groundglass densities. Clinically remains stable. On 02/03/2019 patient seen in follow-up in the intensive care unit, this is postoperative day 5 status post 4 vessel bypass grafting, exclusion of the left atrial appendage. Patient is awake and alert, in no acute distress, currently on 5 L of oxygen per nasal cannula, IV normal saline at a rate of 20 ML per hour, clevidipine is infusing at a rate of 8 mg per hour, patient is also on oral Norvasc, losartan, metoprolol has been increased to 75 mg twice daily, and the goal is to wean off the club proximal today, denies any acute distress, chest tubes have been discontinued, is working Unasyn since per hour, achieving 1000 mL on the today, lung sounds reveal some basilar rales, no rhonchi, no wheezing. No acute events overnight, recent chest x-ray has been reviewed showing stable findings of bilateral pleural effusions and bibasilar airspace disease likely related to compressive atelectasis. No fever or chills. Labs have been reviewed, showing downtrending white blood cell count of 14.6, hemoglobin of 10.4, sodium of 140, potassium is 4.2, chloride is 110, CO2 is 21, BUN is 35 and creatinine 0.90 Objective - Vital Signs Vital signs: Vital Signs Temp 98.4 F 02/03/19 04:00 Pulse 90 02/03/19 08:16 Resp 18 02/03/19 07:00 BP 145/78 02/03/19 07:00 Pulse Ox 98 02/03/19 07:00 Intake & Output 02/02/19 02/03/19 02/03/19 18:59 06:59 18:59 Intake Total 1205.667 260.067 40 Output Total 639 1055 175 Balance 566.667 -794.933 -135 Weight 93.1 kg Intake: IV 270 210 40 Cefepime 1 gm In Sodium 50 50 Chloride 0.9% 50 ml @ 100 mls/hr IVPB Q12HR [facility] Rx #:[id number] Lactated Ringers 1,000 ml 220 @ 20 mls/hr IV .Q24H [facility] Rx#:[id number] kvo 160 40 Intake, IV Titration 185.667 50.067 Amount Clevidipine Butyrate 25 175.667 50.067 mg In Empty Bag 1 bag @ 1 MG/HR 2 mls/hr IV .Q24H [facility] Rx#:[id number] Lactated Ringers 1,000 ml 10 @ 20 mls/hr IV .Q24H [facility] Rx#:[id number] Oral 750 Output: Chest Tube Drainage 0 Chest Tube Left Lateral 0 Chest Urine 639 1055 175 Other: Voiding Method Indwelling Catheter Indwelling Catheter # Voids 1 # Bowel Movements 1 ABP, PAP, CO, CI - Last Documented Arterial Blood Pressure 115/59 Pulmonary Artery Pressure 33/13 Cardiac Output 6.4 Cardiac Index 3.2 - Exam GENERAL EXAM: Alert, pleasant, 63-year-old white male, 5 liters of oxygen, HEAD: Normocephalic/atraumatic. EYES: Normal reaction of pupils, equal size. Conjunctiva pink, sclera white. NOSE: Clear with pink turbinates. THROAT: No erythema or exudates. NECK: No masses, no JVD, no thyroid enlargement, no adenopathy. CHEST: No chest wall deformity. Symmetrical expansion. midSternal incision clean dry and intact, chest tube sites are clean dry and intact LUNGS: Equal air entry with minimal crackles at bilateral posterior bases, no wheeze, rhonchi or dullness. CVS: Regular rate and rhythm, normal S1 and S2, no gallops, no murmurs, no rubs ABDOMEN: Soft, nontender. No hepatosplenomegaly, normal bowel sounds, no guarding or rigidity. EXTREMITIES: No clubbing, no edema, no cyanosis, 2+ pulses and upper and lower extremities. MUSCULOSKELETAL: Muscle strength and tone normal. SPINE: No scoliosis or deformity SKIN: No rashes CENTRAL NERVOUS SYSTEM: Alert and oriented -3. No focal deficits, tone is normal in all 4 extremities. PSYCHIATRIC: Alert and oriented -3. Appropriate affect. Intact judgment and insight. - Labs CBC & Chem 7: 02/03/19 05:30 02/03/19 05:30 Labs: Abnormal Lab Results - Last 24 Hours (Table) 02/02/19 02/02/19 02/02/19 Range/Units 11:39 16:38 20:31 WBC (3.8-10.6) k/uL RBC (4.30-5.90) m/uL Hgb (13.0-17.5) gm/dL Hct (39.0-53.0) % Neutrophils # (1.3-7.7) k/uL Chloride (98-107) mmol/L Carbon Dioxide (22-30) mmol/L BUN (9-20) mg/dL Glucose (74-99) mg/dL POC Glucose (mg/dL) 171 H 147 H 195 H (75-99) mg/dL Total Protein (6.3-8.2) g/dL Albumin (3.5-5.0) g/dL 02/03/19 02/03/19 02/03/19 Range/Units 05:30 05:30 06:43 WBC 14.6 H (3.8-10.6) k/uL RBC 3.54 L (4.30-5.90) m/uL Hgb 10.4 L (13.0-17.5) gm/dL Hct 32.3 L (39.0-53.0) % Neutrophils # 11.8 H (1.3-7.7) k/uL Chloride 110 H (98-107) mmol/L Carbon Dioxide 21 L (22-30) mmol/L BUN 35 H (9-20) mg/dL Glucose 153 H (74-99) mg/dL POC Glucose (mg/dL) 140 H (75-99) mg/dL Total Protein 6.2 L (6.3-8.2) g/dL Albumin 3.3 L (3.5-5.0) g/dL Microbiology - Last 24 Hours (Table) 01/30/19 18:15 Gram Stain - Final Sputum Sputum Culture - Final Assessment and Plan Plan: Assessment: 1 severe triple-vessel coronary artery disease, status post quadruple coronary artery bypass grafting surgery postoperative day #5 2 non-ST elevation myocardial infarction 3 moderate to severe mitral regurgitation 4 ischemic cardiomyopathy and LV dysfunction with ejection fraction of 30-35% 5 hypertension 6 history of rheumatoid arthritis been treated with Enbrel and methotrexate. 7 history of obstructive sleep apnea syndrome 8 remote tobacco dependence quit in 2003 9 mild COPD FEV1 is 68% preoperatively. 10 Serratia marcescens tracheobronchitis based on the positive culture of the sputum, no evidence of pneumonia. Recommendation: Continue present treatment plan including aspirin and Plavix statin beta blockers. Continue to hold immunosuppressive therapy. Plan: Continue encouraging deep breathing and coughing, today's chest x-ray has been reviewed, showing stable findings of bilateral pleural effusions and adjacent atelectasis, encourage incentive spirometry use, increase activity, encourage ambulation. I am clevidipine, CT surgery is increasing patient's beta kleber, no other acute events overnight, vital signs are stable, we'll continue to follow I performed a history & physical examination of the patient and discussed their management with my nurse practitioner, Jannet Bower. I reviewed the nurse practitioner's note and agree with the documented findings and plan of care. Lung sounds are positive for minimal crackles at the posterior lower bases. The findings and the impression was discussed with the patient. I attest to the documentation by the nurse practitioner. Time with Patient: Less than 30
[2019-02-03] MEDS: CLOPIDOGREL 75 MG TAB PO SCH (09:28)
--- NOTE | 2019-02-03 10:05 | P.PN ---
Subjective Progress Note Date: 02/03/19 Principal diagnosis: Severe calcific triple-vessel coronary artery disease, non-STEMI this admission with troponins as high as 0.082, acute systolic heart failure and cardiomyopathy with EF 30-35%, severe mitral regurgitation on transthoracic echocardiogram, preoperative tracheal bronchitis with culture showing Serratia marcescens. Previous medical history of hypertension, hyperlipidemia, TIA in 2007 without residual deficits, rheumatoid arthritis on Enbrel and methotrexate immunosuppressants, obstructive sleep apnea without CPAP use status post UP3 with residual occasional difficulty in swallowing, previous tobacco dependence, mild COPD with FEV1 68% of predicted. POD #4 coronary artery bypass grafting using the left internal mammary artery to the left anterior descending coronary artery, the left radial artery from the aorta to the first obtuse marginal coronary artery, a reverse greater saphenous vein graft from the aorta to the second obtuse marginal coronary artery, and a reverse greater saphenous vein graft from the aorta to the posterior descending coronary artery. Exclusion of the left atrial appendage using a 45 mm Atriclip. Endoscopic harvesting of the left greater saphenous vein, endoscopic harvesting of the left radial artery, intraoperative graft flow measurement using the [employer] system, intraoperative transesophageal echocardiogram and epi-aortic scanning. postoperative acute blood loss anemia, an expected outcome due to cardiopulmonar y bypass and hemodilution. Preoperative tracheobronchitis with positive sputum culture for Serratia marcescens. Postoperative paroxysmal atrial fibrillation, an unexpected outcome. Postoperative urinary retention requiring placement of Ruiz catheter, an unexpected outcome The patient is sitting up to the bedside chair in the intensive care unit. Patient ambulated in the hallway today with the help of 2 nurses he walked approximately 125 feet. Tolerated well. He is in no acute distress. Denies any complaints of pain or shortness of breath at this time. Bedside telemetry showing atrial fibrillation heart rate 86. Oxygen saturations are 96% on 5 L nasal cannula. Achieving 1000 mL on his incentive spirometry with encouragement. He is awake and alert and oriented 3. Complaining of generalized weakness. Ruiz catheter remains in place for some urinary retention and he was started on Flomax 0.4 mg daily started on 01/31/2019. The patient remains on Cleviprex drip at 8 mg/h for some hypertension. Cozaar 25 mg by mouth daily was initiated yesterday. He is afebrile last 24 hours. Lab results show a WBC count of 14.6, hemoglobin 10.4, hematocrit 32.3, platelets 256, BUN 35, creatinine 0.90. Objective - Vital Signs Vital signs: Vital Signs Temp 98.1 F 02/03/19 08:00 Pulse 90 02/03/19 08:16 Resp 21 02/03/19 08:00 BP 145/100 02/03/19 08:00 Pulse Ox 98 02/03/19 08:00 Intake & Output 02/02/19 02/03/19 02/03/19 18:59 06:59 18:59 Intake Total 1205.667 260.067 78.133 Output Total 639 1055 175 Balance 566.667 -794.933 -96.867 Weight 93.1 kg Intake: IV 270 210 40 Cefepime 1 gm In Sodium 50 50 Chloride 0.9% 50 ml @ 100 mls/hr IVPB Q12HR [facility] Rx #:[id number] Lactated Ringers 1,000 ml 220 @ 20 mls/hr IV .Q24H [facility] Rx#:[id number] kvo 160 40 Intake, IV Titration 185.667 50.067 38.133 Amount Clevidipine Butyrate 25 175.667 50.067 38.133 mg In Empty Bag 1 bag @ 1 MG/HR 2 mls/hr IV .Q24H [facility] Rx#:[id number] Lactated Ringers 1,000 ml 10 @ 20 mls/hr IV .Q24H [facility] Rx#:[id number] Oral 750 Output: Chest Tube Drainage 0 Chest Tube Left Lateral 0 Chest Urine 639 1055 175 Other: Voiding Method Indwelling Catheter Indwelling Catheter # Voids 1 # Bowel Movements 1 ABP, PAP, CO, CI - Last Documented Arterial Blood Pressure 115/59 Pulmonary Artery Pressure 33/13 Cardiac Output 6.4 Cardiac Index 3.2 - Constitutional General appearance: Present: cooperative, no acute distress, obese - Neck Details: No JVD appreciated. - Respiratory Details: Lung sounds with bilateral posterior thigh and crackles in the bases. No wheezes or rhonchi present respirations are symmetrical and nonlabored. Oxygen saturation is 96% on 5 L nasal cannula. Achieving 1000 mL on his incentive spirometry. - Cardiovascular Details: Rhythm irregular controlled rate. S1 and S2 present, negative for S3, gallop, or murmur. Sternum is stable. Bedside telemetry showing atrial fibrillation heart rate 86. No edema present. Knee-high GUILLE hose and sequential compression devices in place to his bilateral lower extremities. Heart hugger is in place and he is demonstrating appropriate use. Atrial epicardial pacemaker wires in place and ground. Heart sounds: normal: S1, S2 - Gastrointestinal Gastrointestinal Comment(s): Abdomen is soft nontender and nondistended. Active bowel sounds present in all 4 quadrants. No guarding or rigidity. No other no organomegaly appreciated. Tolerating oral intake. Last bowel movement today 02/03/2019. General gastrointestinal: Present: normal bowel sounds - Genitourinary Genitourinary Comment(s): Ruiz catheter for accurate I's and O's and urinary retention. Draining cloudy sima urine. Urine output 975ml in the past 8 hours. - Integumentary Integumentary Comment(s): Skin is warm and dry. No clubbing or cyanosis is present. No rash or abnormal pigmentation is present. Midline sternal incision is clean, dry and approximated. No drainage or redness present. Left arm radial artery harvest site is clean, dry and approximated. No drainage or redness present. Left lower extremity EVH harvest sites are clean, dry and approximated - Neurologic Neurologic Comment(s): No focal deficits, flat affect. Neurologic: Present: CNII-XII intact - Musculoskeletal Musculoskeletal: Present: generalized weakness, strength equal bilaterally - Psychiatric Psychiatric: Present: A&O x's 3, intact judgment & insight - Allied health notes Allied health notes reviewed: nursing - Labs CBC & Chem 7: 02/03/19 05:30 02/03/19 05:30 Labs: Abnormal Lab Results - Last 24 Hours (Table) 02/02/19 02/02/19 02/02/19 Range/Units 11:39 16:38 20:31 WBC (3.8-10.6) k/uL RBC (4.30-5.90) m/uL Hgb (13.0-17.5) gm/dL Hct (39.0-53.0) % Neutrophils # (1.3-7.7) k/uL Chloride (98-107) mmol/L Carbon Dioxide (22-30) mmol/L BUN (9-20) mg/dL Glucose (74-99) mg/dL POC Glucose (mg/dL) 171 H 147 H 195 H (75-99) mg/dL Total Protein (6.3-8.2) g/dL Albumin (3.5-5.0) g/dL 02/03/19 02/03/19 02/03/19 Range/Units 05:30 05:30 06:43 WBC 14.6 H (3.8-10.6) k/uL RBC 3.54 L (4.30-5.90) m/uL Hgb 10.4 L (13.0-17.5) gm/dL Hct 32.3 L (39.0-53.0) % Neutrophils # 11.8 H (1.3-7.7) k/uL Chloride 110 H (98-107) mmol/L Carbon Dioxide 21 L (22-30) mmol/L BUN 35 H (9-20) mg/dL Glucose 153 H (74-99) mg/dL POC Glucose (mg/dL) 140 H (75-99) mg/dL Total Protein 6.2 L (6.3-8.2) g/dL Albumin 3.3 L (3.5-5.0) g/dL Microbiology - Last 24 Hours (Table) 01/30/19 18:15 Gram Stain - Final Sputum Sputum Culture - Final - Imaging and Cardiology Chest x-ray: report reviewed, image reviewed Assessment and Plan Assessment: 1. Severe calcific triple-vessel coronary artery disease, status post quadruple coronary artery bypass grafting surgery 2. Non-STEMI 3. Acute systolic heart failure, cardiomyopathy, EF 30-35% 4. Moderate to severe mitral regurgitation on transthoracic echocardiogram and transesophageal echocardiogram 5. Hypertension 6. Hyperlipidemia 7. TIA in 2007 without residual 8. Rheumatoid arthritis on Enbrel and methotrexate, currently on hold 9. Obstructive sleep apnea without CPAP use, status post UPPP with residual occasional difficulty in swallowing 10. Remote history of tobacco dependence, quit in 2003 11. Mild COPD with preoperative FEV1 68% 12. Preoperative tracheobronchitis with positive sputum culture showing Serratia marcescens 13. Postoperative acute blood loss anemia, an expected outcome 14. Postoperative paroxysmal atrial fibrillation, an unexpected outcome 15. Postoperative urinary retention, requiring Ruiz catheter placement, an unexpected outcome Plan: 1. Continue to maximize medical therapy with aspirin, Plavix, statin, beta kleber and Norvasc. We will increase his metoprolol tartrate as tolerated. 2. Continue to hold Enbrel and methotrexate. 3. Encourage increase in activity. Physical therapy, occupational therapy and cardiac rehabilitation following. 4. Bronchodilators and antibiotic management per pulmonary critical care service. Wean oxygen as tolerated. 5. Continue pain management per current when necessary orders. 6. Encourage use of his incentive spirometry every hour while awake. 7. Continue GI and DVT prophylaxis. 8. Medical management, Insulin management and other comorbidities management per primary care service. 9. Cozaar increased to 50 mg daily at noon, wean Cleviprex drip as tolerated. 10. Continue amiodarone 400 mg by mouth daily for atrial fibrillation prophyl axis. 11. No diuresis today. 12. Keep Ruiz catheter in place for accurate I&O and urinary retention. Continue Flomax 0.4 mg by mouth daily. 13. Dr. Baeza's consult noted and appreciated. 14. Continue to monitor daily labs and chest x-rays. 15. More recommendations to follow based on patient's clinical course. Time with Patient: Greater than 30
--- NOTE | 2019-02-03 10:11 | PN ---
PROGRESS NOTE This gentleman is status post bypass surgery. He is going in and out of atrial fib, rate control is fairly decent. He is doing well. Oxygenation is somewhat better. Vital signs are stable. S1, S2 heard normally. Short systolic murmur is audible. Lungs reveal diminished air entry over bases. Abdomen and lower extremity exam is unchanged. I am recommending that we continue current medications. Anticoagulation should be considered. I will leave this up to the surgeons. Continue incentive spirometry and pulmonary toilet. MMODL / IJN: [id number] /
[2019-02-03 11:13] VITALS: BMI 30.3
[2019-02-03] MEDS ORDERED: LOSARTAN 50 MG TAB PO SCH ×2 (12:00)
[2019-02-03 12:02] LABS: Glucose,Whole Blood 125 mg/dL (75-99)
[2019-02-03] MEDS: ASCORBIC ACID 500 MG TAB PO SCH (12:05)
[2019-02-03] MEDS: ACETAMINOPHEN TAB 500 MG TAB PO PRN (16:53)
[2019-02-03 16:55] LABS: Glucose,Whole Blood 179 mg/dL (75-99)
[2019-02-03] MEDS: SENNOSIDES-DOCUSATE SODIUM 1 EACH TAB PO SCH (19:52)
--- NOTE | 2019-02-03 20:15 | P.PN ---
Progress Note - Text Progress Note Date: 02/03/19 Interval history: This is a pleasant [address] begum. Chronic stable medical conditi ons include hyperlipidemia, hypertension, rheumatoid arthritis COPD. For about 2 weeks patient is becoming increasingly short of breath. No edema no cough no fever no chills. Normally uses 2 or 3 pillows at night. Appetite has been fair. No bowel movements. No sputum production. Patient is felt to have CHF to started on IV Lasix. There is a question about pneumonia hence antibiotics were also started. Admitted for the same. Admitted with CHF exacerbation. Positive troponin. EKG changes. Cardiac catheterization on January 23 showed triple-vessel disease.PAMELA done showed severe MR. On January 29 underwent coronary bypass. Intraoperatively was not found to have significant disease of the mitral regurgitation. Today-feeling better. Did walk about good 200 feet. Eating better. Still a bit short of breath. Being treated for tracheobronchitis. No pneumonia. Ruiz catheter in place. Review of systems: Was done for constitutional, cardiovascular, GI, pulmonary. relevant finding as above Active Medications Acetaminophen (Tylenol Tab) 1,000 mg PO Q6HR PRN PRN Reason: Fever and/ or Pain Last Admin: 02/03/19 16:53 Dose: 1,000 mg Documented by: Albuterol/Ipratropium (Duoneb 0.5 Mg-3 Mg/3 Ml Soln) 3 ml INHALATION RT-Q2H PRN PRN Reason: Shortness Of Breath Or Wheezing Last Admin: 01/31/19 03:21 Dose: 3 ml Documented by: Albuterol/Ipratropium (Duoneb 0.5 Mg-3 Mg/3 Ml Soln) 3 ml INHALATION RT-QID [facility] Last Admin: 02/03/19 16:20 Dose: 3 ml Documented by: Alprazolam (Xanax) 0.25 mg PO TID PRN PRN Reason: Anxiety Last Admin: 01/31/19 08:52 Dose: 0.25 mg Documented by: Amiodarone HCl (Cordarone) 400 mg PO BID [facility] Last Admin: 02/03/19 19:52 Dose: 400 mg Documented by: Amlodipine Besylate (Norvasc) 5 mg PO DAILY [facility] Last Admin: 02/03/19 08:02 Dose: 5 mg Documented by: Ascorbic Acid (Vitamin C) 500 mg PO 1200 [facility] Last Admin: 02/03/19 12:05 Dose: 500 mg Documented by: Aspirin (Aspirin) 325 mg PO DAILY [facility] Last Admin: 02/03/19 08:01 Dose: 325 mg Documented by: Atorvastatin Calcium (Lipitor) 40 mg PO DAILY [facility] Last Admin: 02/03/19 08:02 Dose: 40 mg Documented by: Benzocaine/Menthol (Cepacol Lozenge) 1 each MUCOUS MEM Q2H PRN PRN Reason: Sore Throat Bisacodyl (Dulcolax) 10 mg RECTAL DAILY PRN PRN Reason: Constipation Clopidogrel Bisulfate (Plavix) 75 mg PO DAILY [facility] Last Admin: 02/03/19 09:28 Dose: 75 mg Documented by: Ferrous Sulfate (Feosol) 325 mg PO BID-W/MEALS [facility] Last Admin: 02/03/19 17:25 Dose: 325 mg Documented by: Heparin Sodium (Porcine) (Heparin) 5,000 unit SQ Q8HR [facility] Last Admin: 02/03/19 16:20 Dose: 5,000 unit Documented by: Hydralazine HCl (Apresoline) 25 mg PO TID [facility] Last Admin: 02/03/19 16:15 Dose: 25 mg Documented by: Clevidipine 25 mg/ IV Solution 50 mls @ 2 mls/hr IV .Q24H [facility]; Protocol Last Admin: 02/03/19 19:53 Dose: 2 mg/hr, 4 mls/hr Documented by: Cefepime HCl 1 gm/ Sodium (Chloride) 50 mls @ 100 mls/hr IVPB Q12HR [facility] Last Admin: 02/03/19 19:54 Dose: 100 mls/hr Documented by: Insulin Aspart (Novolog) 0 unit SQ [id number] [facility]; Protocol Last Admin: 02/03/19 17:24 Dose: 2 unit Documented by: Losartan Potassium (Cozaar) 75 mg PO DAILY@1200 [facility] Last Admin: 02/03/19 12:17 Dose: 75 mg Documented by: Magnesium Hydroxide (Milk Of Magnesia) 2,400 mg PO BID PRN PRN Reason: Constipation Metoprolol Tartrate (Lopressor) 75 mg PO BID [facility] Last Admin: 02/03/19 19:51 Dose: 75 mg Documented by: Miscellaneous Information (Potassium Per Protocol) 1 each MISCELLANE DAILY PRN; Protocol PRN Reason: Per Protocol Miscellaneous Information (Magnesium Per Protocol) 1 each MISCELLANE DAILY PRN; Protocol PRN Reason: Per Protocol Miscellaneous Information (Phosphorus Per Protocol) 1 each MISCELLANE DAILY PRN; Protocol PRN Reason: Per Protocol Ondansetron HCl (Zofran) 4 mg IVP Q6HR PRN PRN Reason: Nausea And Vomiting Pantoprazole Sodium (Protonix) 40 mg PO DAILY [facility] Last Admin: 02/02/19 08:59 Dose: 40 mg Documented by: Senna/Docusate Sodium (Senokot-S) 2 each PO HS [facility] Last Admin: 02/03/19 19:52 Dose: 2 each Documented by: Sodium Chloride (Saline Flush) 10 ml IV BID [facility] Last Admin: 02/03/19 20:02 Dose: 10 ml Documented by: Tamsulosin HCl (Flomax) 0.4 mg PO PC-BRKFST [facility] Last Admin: 02/03/19 07:55 Dose: 0.4 mg Documented by: Physical examination: VITAL SIGNS: 98.2, 90, 14, 130/81, 98% on 4 L GENERAL: Sitting upon a chair, tired EYES: Pupils equal. Conjunctiva pale HEENT: External appearance of nose and ears normal, oral cavity dry. NECK: JVD unable to assess; masses not palpable. HEART: First and second heart sounds are normal; no edema. LUNGS: Respiratory rate increased, decreased breath sounds ABDOMEN: Soft, nontender, liver spleen not palpable, no masses palpable. PSYCH: Alert and oriented x3; mood and affect tired INVESTIGATIONS, reviewed in the clinical context: White count 14.6 hemoglobin 10.4 creatinine 0.9 Chest n-[id number]-[id number] effusions Previous tests Cardiac cath hhxsdo-uxwchk-ucqoan disease Admission labs 2-D echo-moderate global hypokinesia, EF 30-35% multiple wall motion abnormality, severe mitral regurgitation White count 13.6 hemoglobin 14.6 potassium 4.1 creatinine 0.84 Troponin 0.082, 0.078 ProBNP 4990 EKG tracing personally reviewed by me shows ST segment depression, PVC Chest x-ray film personally reviewed by me shows pulmonary edema and some cardiomegaly Assessment: -Status post coronary bypass -Acute congestive heart failure exacerbation, from systolic dysfunction EF 30- 35%, improving -Acute tracheobronchitis from Serratia marcescens. No pneumonia per pulmonary. -Moderate mitral regurgitation, nonrheumatic -COPD in an ex-smoker -Hyperlipidemia -Essential hypertension -Rheumatoid arthritis -Coronary artery disease -Persistent atrial fibrillation -Acute hypoxic respiratory failure from CHF Plan: Continues to improve greatly. Doing better. Current medications to continue. Antibiotic to continue.
[2019-02-03 20:17] LABS: Glucose,Whole Blood 147 mg/dL (75-99)
[2019-02-04] MEDS: HEPARIN SODIUM,PORCINE 5,000 UNIT/ML 1 ML VIAL SQ SCH ×5 (00:09→16:52)
[2019-02-04] MEDS: MUPIROCIN 2% OINT 22 GM TUBE NASAL SCH (01:03)
[2019-02-04] MEDS: ISOSORBIDE MONONITRATE ER 30 MG TAB.ER.24H PO SCH (01:03)
[2019-02-04] MEDS: amLODIPine 5 MG TAB PO SCH ×2 (01:03→07:42)
[2019-02-04] MEDS: LABETALOL 100 MG TAB PO SCH (01:03)
[2019-02-04] MEDS: ASPIRIN 81 MG PO SCH (01:03)
[2019-02-04] MEDS: KETOROLAC 30 MG/ML 1 ML VIAL IVP SCH (01:04)
[2019-02-04 01:47] LABS: Glucose,Whole Blood 123 mg/dL (75-99)
[2019-02-04] MEDS: INSULIN ASPART (NovoLOG) 100 UNIT/ML VIAL SQ SCH ×5 (01:49→21:12)
[2019-02-04 05:34] LABS: Basophils # (A) 0.1 k/uL (0-0.2); Basophils % (A) 1 %; Eosinophils # (A) 0.7 k/uL (0-0.7); Eosinophils % (A) 5 %; HCT 31.7 % (39.0-53.0); HGB 10.5 gm/dL (13.0-17.5); Lymphocytes % (A) 7 %; MCH 29.3 pg (25.0-35.0); MCHC 33.1 g/dL (31.0-37.0); MCV 88.8 fL (80.0-100.0); Mean Platelet Volume 7.3; Monocytes # (A) 0.9 k/uL (0-1.0); Monocytes % (A) 6 %; Neutrophils % (A) 80 %; Platelet Count 295 k/uL (150-450); RBC 3.57 m/uL (4.30-5.90); RDW 13.3 % (11.5-15.5); WBC 14.9 k/uL (3.8-10.6)
[2019-02-04 05:40] LABS: ALT 30 U/L (21-72); AST 31 U/L (17-59); African American GFR (CKD) >90 (>60 ml/min/1.73 sqM); Albumin 3.2 g/dL (3.5-5.0); Alkaline Phosphatase 69 U/L (38-126); Anion Gap 9 mmol/L; Blood Urea Nitrogen 30 mg/dL (9-20); Carbon Dioxide 21 mmol/L (22-30); Chloride 111 mmol/L (98-107); Glucose 119 mg/dL (74-99); Potassium 4.1 mmol/L (3.5-5.1); Sodium 141 mmol/L (137-145); Total Bilirubin 0.6 mg/dL (0.2-1.3)
[2019-02-04 06:38] LABS: Glucose,Whole Blood 102 mg/dL (75-99)
[2019-02-04] MEDS: FERROUS SULFATE 325 MG TAB PO SCH ×2 (06:47→16:58)
[2019-02-04] MEDS: IPRATROPIUM-ALBUTEROL 3 ML NEB INHALATION SCH ×4 (07:26→20:15)
[2019-02-04] MEDS: METOPROLOL TARTRATE 25 MG TAB PO SCH ×2 (07:31→20:59)
[2019-02-04] MEDS: ACETAMINOPHEN TAB 500 MG TAB PO PRN (07:32)
[2019-02-04] MEDS: TAMSULOSIN 0.4 MG CAP.ER.24H PO SCH (07:40)
[2019-02-04] MEDS: ASPIRIN 325 MG TAB PO SCH (07:40)
[2019-02-04] MEDS: AMIODARONE 200 MG TAB PO SCH ×2 (07:40→20:59)
[2019-02-04] MEDS: hydrALAZINE HCL 25 MG TAB PO SCH ×3 (07:42→20:59)
[2019-02-04] MEDS: PANTOPRAZOLE 40 MG TABLET PO SCH (07:42)
[2019-02-04] MEDS: CLOPIDOGREL 75 MG TAB PO SCH (07:42)
[2019-02-04] MEDS: ATORVASTATIN 40 MG TAB PO SCH (07:42)
[2019-02-04] MEDS: CEFEPIME 1 GM in SODIUM CHLORIDE 0.9% 50 ML IVPB SCH ×2 (07:57→21:00)
--- NOTE | 2019-02-04 08:25 | PN ---
PROGRESS NOTE This is a patient who is postop day #6, status post 4-vessel bypass grafting. The surgery was done by Dr. Jennings. He has severe triple-vessel disease. He also has a history of non ST-segment elevation myocardial infarction, moderate to severe mitral regurgitation, ischemic cardiomyopathy, hypertension, rheumatoid arthritis, obstructive sleep apnea syndrome, previous history of tobacco use, moderate COPD and Serratia marcescens tracheobronchitis. Currently, the patient is doing okay. He is postop day #6 as mentioned above. He is still on O2 of 4 L by nasal cannula. His IV is saline at 20 mL an hour. He is still having issues with elevated blood pressure, currently on Cleviprex at 4 mg an hour. The patient has no major complaints. Feels like he is improving. He denies any chest pain or chest discomfort, save for pain at the surgical site. He denies any shortness of breath, cough, wheezing, or phlegm production. Current vital signs are reviewed. Temperature is 97.8, heart rate 93, respiratory rate 18, blood pressure 133/93, and 4 L saturations 99%. Appears in no acute distress. HEENT: Examination is grossly unremarkable. Mucous membranes are moist. No oral lesions. NECK: Supple. Full range of motion. No adenopathy or thyromegaly. Neck veins are flat. CARDIOVASCULAR: Examination reveals regular rhythm and rate. S1, S2 normal. No S3, S4, murmur. Heart sounds are distant. LUNGS: Reveal mostly clear breath sounds. A few scattered rhonchi. No wheezes or crackles. ABDOMEN: Soft. Bowel sounds are heard. EXTREMITIES: Intact. No cyanosis, clubbing, or edema. SKIN: Without rash. NEUROLOGIC: Examination is brief but nonfocal. LABS: Reviewed. White count 14.9, hemoglobin 10.5, hematocrit 31.7, platelet count 395,000. Sodium. potassium normal,. chloride is 111, CO2 is 21, anion gap is 9. BUN and creatinine were 30 and 0.86. Microbiology from January 27 shows Serratia marcescens in his sputum. Chest x-ray shows some postsurgical changes and some bibasilar atelectasis, possibly small effusions. ASSESSMENT: 1. Postoperative day #6, status post 4-vessel bypass grafting, for severe triple- vessel coronary artery disease. 2. Routine postoperative ventilator management, resolved. 3. Non ST-segment elevation myocardial infarction. 4. Moderate to severe mitral regurgitation. 5. Ischemic cardiomyopathy with ejection fraction of 30-35 percent. 6. History of rheumatoid arthritis. 7. History of sleep apnea syndrome. 8. History of moderate chronic obstructive pulmonary disease with an FEV1 that is 68% predicted. 9. History of remote tobacco use. 10.Serratia marcescens tracheobronchitis. PLAN: Currently, the patient is doing well. Will continue to follow. Encourage deep breathing, coughing, clearing of secretions and hourly use of the incentive spirometer. The patient's infection is being treated. No additional recommendations are made. Prognosis is guarded. He still needs the Cleviprex for maintenance of normal blood pressure. MMODL / IJN: [id number] /
--- NOTE | 2019-02-04 08:36 | XR ---
EXAMINATION TYPE: XR chest 1V portable DATE OF EXAM: 02/04/2019 COMPARISON: 02/03/2019 HISTORY: Post CABG TECHNIQUE: Single frontal view of the chest is obtained. FINDINGS: Bibasilar opacities are seen right greater than left. Retrocardiac density is slightly wor sened from the prior. Post CABG changes the chest are noted. No acute osseous pathology. No sizable p neumothorax. IMPRESSION: Worsening retrocardiac opacity with stable trace pleural effusions and right basilar air space disease.
--- NOTE | 2019-02-04 09:34 | P.PN ---
Subjective Progress Note Date: 02/04/19 Principal diagnosis: Severe calcific triple-vessel coronary artery disease, non-STEMI this admission with troponins as high as 0.082, acute systolic heart failure and cardiomyopathy with EF 30-35%, severe mitral regurgitation on transthoracic echocardiogram, preoperative tracheal bronchitis with culture showing Serratia marcescens. Previous medical history of hypertension, hyperlipidemia, TIA in 2007 without residual deficits, rheumatoid arthritis on Enbrel and methotrexate immunosuppressants, obstructive sleep apnea without CPAP use status post UP3 with residual occasional difficulty in swallowing, previous tobacco dependence, mild COPD with FEV1 68% of predicted. POD #6 coronary artery bypass grafting using the left internal mammary artery to the left anterior descending coronary artery, the left radial artery from the aorta to the first obtuse marginal coronary artery, a reverse greater saphenous vein graft from the aorta to the second obtuse marginal coronary artery, and a reverse greater saphenous vein graft from the aorta to the posterior descending coronary artery. Exclusion of the left atrial appendage using a 45 mm Atriclip. Endoscopic harvesting of the left greater saphenous vein, endoscopic harvesting of the left radial artery, intraoperative graft flow measurement using the Easyaulastim system, intraoperative transesophageal echocardiogram and epi-aortic scanning. postoperative acute blood loss anemia, an expected outcome due to cardiopulmonar y bypass and hemodilution. Preoperative tracheobronchitis with positive sputum culture for Serratia marcescens. Postoperative paroxysmal atrial fibrillation, an unexpected outcome. Postoperative urinary retention requiring placement of Ruiz catheter, an unexpected outcome The patient is sitting up to the bedside chair in the intensive care unit. The patient ambulated in the hallway today with the help of 2 nurses he walked the anvik of the ICU 3 times yesterda, tolerated well. He is in no acute distress. Denies any complaints of pain or shortness of breath at this time. Bedside telemetry showing atrial fibrillation heart rate 124. Oxygen saturations are 96% on 4 L nasal cannula. Achieving 1500 mL on his incentive spirometry with encouragement. He is awake and alert and oriented 3. Continues to complain of generalized weakness. Ruiz catheter remains in place for some urinary retention and he was started on Flomax 0.4 mg daily started on 01/31/2019, his Ruiz catheter will be discontinued this morning. The patient remains on Cleviprex drip at 6 mg/h for some hypertension. He remains afebrile for last 24 hours. Lab results show a WBC count of 14.9, hemoglobin 10.5, hematocrit 31.7, platelets 295, BUN 30, creatinine 0.86. Objective - Vital Signs Vital signs: Vital Signs Temp 98.0 F 02/04/19 08:00 Pulse 92 02/04/19 08:00 Resp 21 02/04/19 08:00 BP 132/96 02/04/19 08:00 Pulse Ox 97 02/04/19 08:00 Intake & Output 02/03/19 02/04/19 02/04/19 18:59 06:59 18:59 Intake Total 364.400 584.367 131.2 Output Total 1085 795 150 Balance -720.600 -210.633 -18.8 Weight 93.1 kg 93.8 kg Intake: IV 270 310 120 Cefepime 1 gm In Sodium 50 50 100 Chloride 0.9% 50 ml @ 100 mls/hr IVPB Q12HR [facility] Rx #:[id number] kvo 220 260 20 Intake, IV Titration 94.400 74.367 11.2 Amount Clevidipine Butyrate 25 94.400 74.367 11.2 mg In Empty Bag 1 bag @ 1 MG/HR 2 mls/hr IV .Q24H [facility] Rx#:[id number] Oral 200 Output: Urine 1085 795 150 Other: Voiding Method Indwelling Catheter Indwelling Catheter # Bowel Movements 1 ABP, PAP, CO, CI - Last Documented Arterial Blood Pressure 115/59 Pulmonary Artery Pressure 33/13 Cardiac Output 6.4 Cardiac Index 3.2 - Constitutional General appearance: Present: cooperative, no acute distress, obese - Respiratory Details: Lungs sounds are essentially clear to his bilateral upper lobes, few scattered crackles to his bilateral bases. No wheezing or rhonchi appreciated. Respirations are symmetrical and nonlabored. Oxygen saturation are 96% on 4 L nasal cannula. Achieving 1500 mL on his incentive spirometry with encoura gement. - Cardiovascular Details: Irregular rhythm with a tachycardic rate consistent with atrial fibrillation. S1 and S2 present, negative for S3, gallop or murmur. Sternum is stable. Atrial epicardial pacemaker wires in place and rounded. Knee-high sequential compression devices and GUILLE hose in place to his bilateral lower extremities. Heart hugger is in place and he is demonstrating appropriate use. No edema present. - Gastrointestinal Gastrointestinal Comment(s): Abdomen is soft, nontender and nondistended. Active bowel sounds present all 4 abdominal quadrants. No guarding or rigidity. No organomegaly appreciated. Tolerating oral intake. - Genitourinary Genitourinary Comment(s): Ruiz catheter for accurate I&O and urinary retention. Draining clear sima urine. - Integumentary Integumentary Comment(s): Skin is warm and dry. No clubbing or cyanosis is present. No rash or abnormal pigmentation is present. Midline sternal incision is clean, dry and approximated. No drainage or redness is present. Left arm radial artery harvest sites clean, dry and approximated. No drainage or redness is present. Left lower extremity EVH sites clean, dry and approximated. - Neurologic Neurologic Comment(s): No focal deficits. Neurologic: Present: CNII-XII intact - Musculoskeletal Musculoskeletal: Present: gait normal, generalized weakness, strength equal bilaterally - Psychiatric Psychiatric Comment(s): Flat affect. Psychiatric: Present: A&O x's 3, intact judgment & insight - Allied health notes Allied health notes reviewed: nursing - Labs CBC & Chem 7: 02/04/19 04:59 02/04/19 04:57 Labs: Abnormal Lab Results - Last 24 Hours (Table) 02/03/19 02/03/19 02/03/19 Range/Units 11:58 16:54 20:16 WBC (3.8-10.6) k/uL RBC (4.30-5.90) m/uL Hgb (13.0-17.5) gm/dL Hct (39.0-53.0) % Neutrophils # (1.3-7.7) k/uL Chloride (98-107) mmol/L Carbon Dioxide (22-30) mmol/L BUN (9-20) mg/dL Glucose (74-99) mg/dL POC Glucose (mg/dL) 125 H 179 H 147 H (75-99) mg/dL Total Protein (6.3-8.2) g/dL Albumin (3.5-5.0) g/dL 02/04/19 02/04/19 02/04/19 Range/Units 01:45 04:57 04:59 WBC 14.9 H (3.8-10.6) k/uL RBC 3.57 L (4.30-5.90) m/uL Hgb 10.5 L (13.0-17.5) gm/dL Hct 31.7 L (39.0-53.0) % Neutrophils # 12.0 H (1.3-7.7) k/uL Chloride 111 H (98-107) mmol/L Carbon Dioxide 21 L (22-30) mmol/L BUN 30 H (9-20) mg/dL Glucose 119 H (74-99) mg/dL POC Glucose (mg/dL) 123 H (75-99) mg/dL Total Protein 6.0 L (6.3-8.2) g/dL Albumin 3.2 L (3.5-5.0) g/dL 02/04/19 Range/Units 06:37 WBC (3.8-10.6) k/uL RBC (4.30-5.90) m/uL Hgb (13.0-17.5) gm/dL Hct (39.0-53.0) % Neutrophils # (1.3-7.7) k/uL Chloride (98-107) mmol/L Carbon Dioxide (22-30) mmol/L BUN (9-20) mg/dL Glucose (74-99) mg/dL POC Glucose (mg/dL) 102 H (75-99) mg/dL Total Protein (6.3-8.2) g/dL Albumin (3.5-5.0) g/dL - Imaging and Cardiology Chest x-ray: report reviewed, image reviewed Assessment and Plan Assessment: 1. Severe calcific triple-vessel coronary artery disease, status post quadruple coronary artery bypass grafting surgery 2. Non-STEMI 3. Acute systolic heart failure, cardiomyopathy, EF 30-35% 4. Moderate to severe mitral regurgitation on transthoracic echocardiogram and transesophageal echocardiogram 5. Hypertension 6. Hyperlipidemia 7. TIA in 2007 without residual 8. Rheumatoid arthritis on Enbrel and methotrexate, currently on hold 9. Obstructive sleep apnea without CPAP use, status post UPPP with residual occasional difficulty in swallowing 10. Remote history of tobacco dependence, quit in 2003 11. Mild COPD with preoperative FEV1 68% 12. Preoperative tracheobronchitis with positive sputum culture showing Serratia marcescens 13. Postoperative acute blood loss anemia, an expected outcome 14. Postoperative paroxysmal atrial fibrillation, an unexpected outcome 15. Postoperative urinary retention, requiring Ruiz catheter placement, an unexpected outcome Plan: 1. Continue to maximize medical therapy with aspirin, Plavix, statin, beta kleber and Norvasc. We will increase his metoprolol tartrate as tolerated. 2. Continue to hold Enbrel and methotrexate. 3. Encourage increase in activity. Physical therapy, occupational therapy and cardiac rehabilitation following. 4. Bronchodilators and antibiotic management per pulmonary critical care service. Wean oxygen as tolerated. 5. Continue pain management per current when necessary orders. 6. Encourage use of his incentive spirometry every hour while awake. 7. Continue GI and DVT prophylaxis. 8. Medical management, Insulin management and other comorbidities management per primary care service. 9. Cozaar increased to 100 mg daily at noon, wean Cleviprex drip as tolerated. 10. Continue amiodarone 400 mg by mouth daily for atrial fibrillation prophylaxis. We will decrease to amiodarone 200 mg by mouth twice a day on . 11. No diuresis today. 12. Discontinue Ruiz catheter. Continue Flomax 0.4 mg by mouth daily. 13. Dr. Baeaz's consult noted and appreciated. Anticipate need for inpatient rehab upon discharge. 14. Continue to monitor daily labs and chest x-rays. 15. Atrial epicardial pacemaker wires were discontinued without incident this morning at 8:15 AM today. He will be on bed rest for 1 hour post pacemaker wire removal. 16. Keep Norvasc in place for radial artery spasm prophylaxis. Do not discontinue without checking with the cardiothoracic surgery service. 17. We will start Eliquis 5 mg by mouth twice a day today for anticoagulation as the patient is still having some paroxysmal atrial fibrillation. 18. More recommendations to follow based on patient's clinical course. Time with Patient: Greater than 30
--- NOTE | 2019-02-04 11:10 | PN ---
PROGRESS NOTE Mr. Kong is status post bypass surgery. He is in and out of atrial fibrillation. He is still on a small dose of Cleviprex and this is being weaned. I am recommending that we give him Norvasc today and help with the weaning process. Vitals are stable. S1, S2 heard normally, irregular rhythm noted, short systolic murmur noted. Lungs are clear or improved air entry. Abdomen and lower extremity exam is unchanged. MMODL / IJN: [id number] /
[2019-02-04 11:48] LABS: Glucose,Whole Blood 119 mg/dL (75-99)
[2019-02-04] MEDS: LOSARTAN 50 MG TAB PO SCH (12:06)
[2019-02-04] MEDS: ASCORBIC ACID 500 MG TAB PO SCH (12:06)
[2019-02-04] MEDS ORDERED: FUROSEMIDE 10 MG/ML 2 ML VIAL IV STA (16:08)
[2019-02-04 16:45] LABS: Glucose,Whole Blood 200 mg/dL (75-99)
[2019-02-04 16:49] LABS: Glucose,Whole Blood 149 mg/dL (75-99)
--- NOTE | 2019-02-04 20:55 | P.PN ---
Progress Note - Text Progress Note Date: 02/04/19 Interval history: This is a pleasant [address] begum. Chronic stable medical conditi ons include hyperlipidemia, hypertension, rheumatoid arthritis COPD. For about 2 weeks patient is becoming increasingly short of breath. No edema no cough no fever no chills. Normally uses 2 or 3 pillows at night. Appetite has been fair. No bowel movements. No sputum production. Patient is felt to have CHF to started on IV Lasix. There is a question about pneumonia hence antibiotics were also started. Admitted for the same. Admitted with CHF exacerbation. Positive troponin. EKG changes. Cardiac catheterization on January 23 showed triple-vessel disease.PAMELA done showed severe MR. On January 29 underwent coronary bypass. Intraoperatively was not found to have significant disease of the mitral regurgitation. Paroxysmal atrial fibrillation. Acute tracheobronchitis. Today-continues to feel better. Minimal cough. Appetite improving. Did walk out of the hallway. Breathing is better. at the bedside. Had a bowel movement. Paroxysmal A. fib. Being started eliquis. Review of systems: Was done for constitutional, cardiovascular, GI, pulmonary. relevant finding as above Active Medications Acetaminophen (Tylenol Tab) 1,000 mg PO Q6HR PRN PRN Reason: Fever and/ or Pain Last Admin: 02/04/19 07:32 Dose: 1,000 mg Documented by: Albuterol/Ipratropium (Duoneb 0.5 Mg-3 Mg/3 Ml Soln) 3 ml INHALATION RT-Q2H PRN PRN Reason: Shortness Of Breath Or Wheezing Last Admin: 01/31/19 03:21 Dose: 3 ml Documented by: Albuterol/Ipratropium (Duoneb 0.5 Mg-3 Mg/3 Ml Soln) 3 ml INHALATION RT-QID [facility] Last Admin: 02/04/19 20:15 Dose: 3 ml Documented by: Amiodarone HCl (Cordarone) 400 mg PO BID [facility] Last Admin: 02/04/19 07:40 Dose: 400 mg Documented by: Amlodipine Besylate (Norvasc) 5 mg PO DAILY [facility] Last Admin: 02/04/19 07:42 Dose: 5 mg Documented by: Apixaban (Eliquis) 5 mg PO BID [facility] Ascorbic Acid (Vitamin C) 500 mg PO 1200 [facility] Last Admin: 02/04/19 12:06 Dose: 500 mg Documented by: Aspirin (Aspirin) 81 mg PO DAILY [facility] Atorvastatin Calcium (Lipitor) 40 mg PO DAILY [facility] Last Admin: 02/04/19 07:42 Dose: 40 mg Documented by: Benzocaine/Menthol (Cepacol Lozenge) 1 each MUCOUS MEM Q2H PRN PRN Reason: Sore Throat Bisacodyl (Dulcolax) 10 mg RECTAL DAILY PRN PRN Reason: Constipation Ferrous Sulfate (Feosol) 325 mg PO BID-W/MEALS [facility] Last Admin: 02/04/19 16:58 Dose: 325 mg Documented by: Hydralazine HCl (Apresoline) 25 mg PO TID [facility] Last Admin: 02/04/19 16:52 Dose: 25 mg Documented by: Cefepime HCl 1 gm/ Sodium (Chloride) 50 mls @ 100 mls/hr IVPB Q12HR [facility] Last Admin: 02/04/19 07:57 Dose: 100 mls/hr Documented by: Insulin Aspart (Novolog) 0 unit SQ [id number] [facility]; Protocol Last Admin: 02/04/19 17:30 Dose: 1 unit Documented by: Losartan Potassium (Cozaar) 100 mg PO DAILY@1200 [facility] Last Admin: 02/04/19 12:06 Dose: 100 mg Documented by: Magnesium Hydroxide (Milk Of Magnesia) 2,400 mg PO BID PRN PRN Reason: Constipation Metoprolol Tartrate (Lopressor) 75 mg PO BID [facility] Last Admin: 02/04/19 07:31 Dose: 75 mg Documented by: Miscellaneous Information (Potassium Per Protocol) 1 each MISCELLANE DAILY PRN; Protocol PRN Reason: Per Protocol Miscellaneous Information (Magnesium Per Protocol) 1 each MISCELLANE DAILY PRN; Protocol PRN Reason: Per Protocol Miscellaneous Information (Phosphorus Per Protocol) 1 each MISCELLANE DAILY PRN; Protocol PRN Reason: Per Protocol Ondansetron HCl (Zofran) 4 mg IVP Q6HR PRN PRN Reason: Nausea And Vomiting Pantoprazole Sodium (Protonix) 40 mg PO DAILY [facility] Last Admin: 02/04/19 07:42 Dose: 40 mg Documented by: Senna/Docusate Sodium (Senokot-S) 2 each PO HS [facility] Last Admin: 02/03/19 19:52 Dose: 2 each Documented by: Sodium Chloride (Saline Flush) 10 ml IV BID [facility] Last Admin: 02/04/19 07:54 Dose: 10 ml Documented by: Tamsulosin HCl (Flomax) 0.4 mg PO PC-BRKFST [facility] Last Admin: 02/04/19 07:40 Dose: 0.4 mg Documented by: Physical examination: VITAL SIGNS: 98.2, 75, 27, 141/93, 95% on room air GENERAL: Sitting upon a chair, less tired EYES: Pupils equal. Conjunctiva pale HEENT: External appearance of nose and ears normal, oral cavity dry. NECK: JVD unable to assess; masses not palpable. HEART: First and second heart sounds are normal; no edema. LUNGS: Respiratory rate increased, decreased breath sounds ABDOMEN: Soft, nontender, liver spleen not palpable, no masses palpable. PSYCH: Alert and oriented x3; mood and affect tired INVESTIGATIONS, reviewed in the clinical context: White count [age]-year-old woman 10.5 creatinine 0.86 Previous tests Cardiac cath [id number] disease Admission labs 2-D echo-moderate global hypokinesia, EF 30-35% multiple wall motion abnormality, severe mitral regurgitation White count 13.6 hemoglobin 14.6 potassium 4.1 creatinine 0.84 Troponin 0.082, 0.078 ProBNP 4990 EKG tracing personally reviewed by me shows ST segment depression, PVC Chest x-ray film personally reviewed by me shows pulmonary edema and some cardiomegaly Assessment: -Status post coronary bypass -Acute congestive heart failure exacerbation, from systolic dysfunction EF 30- 35%, improving -Acute tracheobronchitis from Serratia marcescens. No pneumonia per pulmonary. -Moderate mitral regurgitation, nonrheumatic -COPD in an ex-smoker -Hyperlipidemia -Essential hypertension -Rheumatoid arthritis -Coronary artery disease -Persistent atrial fibrillation -Acute hypoxic respiratory failure from CHF - Plan: Continue current medication. Plan. Antibiotics per Dr. Arce. Patient overall is doing better.
[2019-02-04] MEDS: SENNOSIDES-DOCUSATE SODIUM 1 EACH TAB PO SCH (20:58)
[2019-02-04] MEDS: APIXABAN 5 MG TAB PO SCH (21:00)
[2019-02-04 21:08] LABS: Glucose,Whole Blood 167 mg/dL (75-99)
[2019-02-05] MEDS: INSULIN ASPART (NovoLOG) 100 UNIT/ML VIAL SQ SCH ×3 (03:13→11:36)
[2019-02-05] MEDS: FERROUS SULFATE 325 MG TAB PO SCH (05:30)
[2019-02-05 05:37] LABS: HCT 31.9 % (39.0-53.0); HGB 10.7 gm/dL (13.0-17.5); MCH 29.8 pg (25.0-35.0); MCHC 33.7 g/dL (31.0-37.0); MCV 88.5 fL (80.0-100.0); Mean Platelet Volume 7.1; Platelet Count 351 k/uL (150-450); RDW 13.3 % (11.5-15.5); WBC 15.5 k/uL (3.8-10.6)
[2019-02-05 05:55] LABS: African American GFR (CKD) >90 (>60 ml/min/1.73 sqM); Anion Gap 9 mmol/L; Blood Urea Nitrogen 27 mg/dL (9-20); Calcium 9.2 mg/dL (8.4-10.2); Carbon Dioxide 23 mmol/L (22-30); Chloride 109 mmol/L (98-107); Glucose 124 mg/dL (74-99); Potassium 3.9 mmol/L (3.5-5.1); Sodium 141 mmol/L (137-145)
[2019-02-05 06:42] LABS: Glucose,Whole Blood 143 mg/dL (75-99)
--- NOTE | 2019-02-05 07:18 | XR ---
EXAMINATION TYPE: XR chest 2V DATE OF EXAM: 02/05/2019 COMPARISON: Chest x-ray from yesterday and older studies. CT chest January 26, 2019. HISTORY: Post open cardiac surgery. TECHNIQUE: Frontal and lateral views of the chest are obtained. FINDINGS: Overlying sternal wires and mediastinal clips along with cardiac closure device superiorly are all redemonstrated. There is cardiomegaly with atherosclerotic and ectatic aorta. There are persi stent small to tiny bilateral pleural effusions and bibasilar opacities along with mild interstitial edema. Osseous structures are intact. IMPRESSION: Suspect fluid overload state or CHF exacerbation as there is persisting cardiomegaly with small to tiny bilateral pleural effusions and mild interstitial edema bilaterally are all redemonstr ated. There is associated patchy bibasilar atelectasis and/or infiltrate noted.
[2019-02-05] MEDS: IPRATROPIUM-ALBUTEROL 3 ML NEB INHALATION SCH ×3 (07:58→15:34)
[2019-02-05] MEDS: CEFEPIME 1 GM in SODIUM CHLORIDE 0.9% 50 ML IVPB SCH (08:23)
[2019-02-05] MEDS: hydrALAZINE HCL 25 MG TAB PO SCH ×2 (08:25→14:59)
--- NOTE | 2019-02-05 08:26 | PN ---
PROGRESS NOTE Mr. Kong is status post aortocoronary bypass surgery. He is doing better. Remains in atrial fib. Rate control is decent. Blood pressure control has improved. He is off the Cleviprex drip. Vital signs are stable. There is no JVD. S1, S2 heard normally. Short systolic murmur noted. Lungs are clear with improved air entry. Abdomen and lower extremity exam is unchanged. We will increase the Norvasc, increase activity and he can be moved to inpatient rehab at [facility]. MMODL / IJN: [id number] /
[2019-02-05] MEDS: ATORVASTATIN 40 MG TAB PO SCH (08:28)
[2019-02-05] MEDS: TAMSULOSIN 0.4 MG CAP.ER.24H PO SCH (08:28)
[2019-02-05] MEDS: PANTOPRAZOLE 40 MG TABLET PO SCH (08:28)
[2019-02-05] MEDS: APIXABAN 5 MG TAB PO SCH (08:28)
[2019-02-05] MEDS: AMIODARONE 200 MG TAB PO SCH (08:28)
[2019-02-05 08:50] VITALS: TEMP 98.4
--- NOTE | 2019-02-05 08:58 | P.PN ---
Subjective Progress Note Date: 02/05/19 Principal diagnosis: Diffuse triple-vessel coronary artery disease, moderate left ventricular dysfunction, mild mitral valve regurgitation, non-STEMI, acute systolic heart failure and cardiomyopathy with EF 30-35% on admission. Previous medical history of hypertension, hyperlipidemia, TIA in 2007 without residual deficits on chronic Plavix, rheumatoid arthritis on Enbrel and methotrexate, obstructive sleep apnea without CPAP use status post UP3 with residual occasional difficulty in swallowing, previous tobacco dependence, mild COPD with FEV1 68% of predicted. Preoperative tracheal bronchitis with culture growing Serratia marcescens. POD #7 quadruple coronary artery bypass grafting using the left internal mammary artery to the left anterior descending artery, the left radial artery from the aorta to the first obtuse marginal artery, reverse saphenous vein graft from the aorta to the second obtuse marginal artery, reverse saphenous vein graft from the aorta to the posterior descending artery. Exclusion of the left atrial appendage using a 45 mm after clip. Endoscopic harvesting of the left greater saphenous vein from the groin to above the ankle. Endoscopic harvesting of the left radial artery. Intraoperative graft flow measurements using the Readbug system. Intraoperative transesophageal echocardiogram and epi-aortic scanning. Postoperative acute blood loss anemia, expected outcome due to cardiopulmonary bypass and hemodilution Postoperative paroxysmal atrial fibrillation, unexpected but potential outcome of any cardiac surgery Postoperative urinary retention requiring replacement of Ruiz catheter, unexpected outcome. The patient's currently sitting up in a recliner in the intensive care unit in no acute distress. States pain is controlled on current medication regimen. Denies shortness of breath. Has been ambulatory in the hallway with physical and occupational therapy. Remains in atrial fibrillation, was started on anticoagulation yesterday. No new concerns. Objective - Vital Signs Vital signs: Vital Signs Temp 98.2 F 02/04/19 20:00 Pulse 102 H 02/05/19 07:00 Resp 13 02/05/19 07:00 BP 130/111 02/05/19 07:00 Pulse Ox 94 L 02/05/19 07:00 Intake & Output 02/04/19 02/05/19 02/05/19 18:59 06:59 18:59 Intake Total 159.1 310 Output Total 400 1650 0 Balance -240.9 -1340 0 Intake: IV 140 70 Cefepime 1 gm In Sodium 100 50 Chloride 0.9% 50 ml @ 100 mls/hr IVPB Q12HR [facility] Rx #:[id number] Lactated Ringers 1,000 ml 0 @ 20 mls/hr IV .Q24H [facility] Rx#:[id number] kvo 40 20 Intake, IV Titration 19.1 Amount Clevidipine Butyrate 25 19.1 mg In Empty Bag 1 bag @ 1 MG/HR 2 mls/hr IV .Q24H [facility]INNIE Rx#:[id number] Oral 240 Output: Urine 400 900 0 Post Void Residual 750 Other: Voiding Method Indwelling Catheter Urinal # Voids 1 1 # Bowel Movements 1 1 ABP, PAP, CO, CI - Last Documented Arterial Blood Pressure 115/59 Pulmonary Artery Pressure 33/13 Cardiac Output 6.4 Cardiac Index 3.2 - Constitutional General appearance: Present: cooperative, no acute distress - Respiratory Details: Lungs sounds diminished bilaterally. Respirations even, nonlabored. Currently on room air with oxygen saturation 95%. Able to achieve 1000 mL on his incentive spirometry. Strong cough. - Cardiovascular Details: S1, S2 present. Irregular rate and rhythm, controlled atrial fibrillation on telemetry. Sternum stable. Palpable peripheral pulses bilaterally. No edema present. No calf pain or tenderness noted. Heart hugger in place with patient demonstrating appropriate use. Antiembolism stockings, SCDs present. - Gastrointestinal Gastrointestinal Comment(s): Abdomen soft, nontender, nondistended. Active bowel sounds present 4 quadrants. Tolerating diet. Positive bowel movement this morning. - Genitourinary Genitourinary Comment(s): Ruiz discontinued yesterday, patient did require straight catheterization 1 last night, has voided since. - Integumentary Integumentary Comment(s): Skin is warm and dry with evidence of good perfusion. Into chest incision well approximated with Dermabond. Left arm and left lower extremity ecchymotic, expected, no redness or drainage from radial artery or endoscopic vein harvest sites. - Neurologic Neurologic: Present: CNII-XII intact - Musculoskeletal Musculoskeletal Comment(s): Left hand with full motion, denies numbness or tingling, adequate strength. Musculoskeletal: Present: gait normal, strength equal bilaterally - Psychiatric Psychiatric: Present: A&O x's 3, appropriate affect, intact judgment & insight - Allied health notes Allied health notes reviewed: nursing - Labs CBC & Chem 7: 02/05/19 05:15 02/05/19 05:15 Labs: Abnormal Lab Results - Last 24 Hours (Table) 02/04/19 02/04/19 02/04/19 Range/Units 11:47 16:43 16:48 WBC (3.8-10.6) k/uL RBC (4.30-5.90) m/uL Hgb (13.0-17.5) gm/dL Hct (39.0-53.0) % Chloride (98-107) mmol/L BUN (9-20) mg/dL Glucose (74-99) mg/dL POC Glucose (mg/dL) 119 H 200 H 149 H (75-99) mg/dL 02/04/19 02/05/19 02/05/19 Range/Units 20:56 05:15 05:15 WBC 15.5 H (3.8-10.6) k/uL RBC 3.60 L (4.30-5.90) m/uL Hgb 10.7 L (13.0-17.5) gm/dL Hct 31.9 L (39.0-53.0) % Chloride 109 H (98-107) mmol/L BUN 27 H (9-20) mg/dL Glucose 124 H (74-99) mg/dL POC Glucose (mg/dL) 167 H (75-99) mg/dL 02/05/19 Range/Units 06:40 WBC (3.8-10.6) k/uL RBC (4.30-5.90) m/uL Hgb (13.0-17.5) gm/dL Hct (39.0-53.0) % Chloride (98-107) mmol/L BUN (9-20) mg/dL Glucose (74-99) mg/dL POC Glucose (mg/dL) 143 H (75-99) mg/dL - Imaging and Cardiology Chest x-ray: image reviewed Assessment and Plan Assessment: 1. Diffuse calcific triple-vessel coronary artery disease, status post four- vessel CABG 2. Moderate left ventricular dysfunction 3. Mild mitral valve regurgitation 4. Non-STEMI this admission 5. Acute systolic heart failure, cardiomyopathy, EF 30-35% on admission with improvement post surgery 6. Hypertension 7. Hyperlipidemia 8. TIA in 2007 without residual deficits on chronic Plavix 9. Rheumatoid arthritis on Enbrel and methotrexate, currently on hold 10. Obstructive sleep apnea without CPAP use, status post UPPP with residual occasional difficulty in swallowing 11. Previous tobacco dependence 12. Mild COPD with preoperative FEV1 68% 13. Preoperative tracheobronchitis with culture growing Serratia marcescens, day #6 of antibiotics 14. Postoperative acute blood loss anemia 15. Postoperative paroxysmal atrial fibrillation 16. Postoperative urinary retention Plan: 1. Continue to maximize medical therapy with aspirin, statin, beta kleber, Cozaar, Norvasc, Apresoline. Will increase Lopressor to 100 mg twice daily, increase Norvasc to 5 mg twice daily. 2. Continue amiodarone for atrial fibrillation. Eliquis started yesterday for anticoagulation. 3. Encourage incentive spirometry use 10 times every hour while awake 4. Increase activity, ambulate in hallway. PT/OT/cardiac rehab following 5. Bronchodilators, antibiotics per pulmonology. 6. Will monitor daily labs and x-rays 7. Pain control with current medication regimen 8. Insulin management per primary care service 9. Continue Flomax for urinary retention 10. GI/DVT prophylaxis 11. Continue to hold Enbrel, methotrexate 12. Transfer orders placed yesterday for 3 self cardiac stepdown. May transfer when bed available 13. Anticipate need for inpatient rehab upon discharge due to need for continuous physician monitoring and lab work. Discharge pending in progress, will discharge to inpatient rehab once insurance authorization has been obtained and bed is available 14. More recommendations to follow Time with Patient: Greater than 30
[2019-02-05] MEDS ORDERED: ASPIRIN 81 MG PO SCH (09:00)
[2019-02-05] MEDS ORDERED: METOPROLOL TARTRATE 25 MG TAB PO SCH (09:00)
[2019-02-05] MEDS ORDERED: amLODIPine 5 MG TAB PO SCH (09:00)
--- NOTE | 2019-02-05 09:14 | PN ---
PROGRESS NOTE PULMONARY/CRITICAL CARE PROGRESS NOTE: DATE OF SERVICE: 02/05/2019 This is a very pleasant 64-year-old male, postop day #7 status post 4-vessel bypass grafting. The surgery was done by Dr. Jennings. Currently, he is not receiving any supplemental oxygen. He is not receiving any IV fluids. The patient has a history of non ST-segment elevation myocardial infarction, moderate to severe mitral regurgitation, ischemic cardiomyopathy, hypertension, rheumatoid arthritis, sleep apnea syndrome, previous history of tobacco use, moderate COPD, and Serratia marcescens tracheobronchitis. Currently, again, the patient is doing much better. He is doing much better on his incentive spirometer. The patient is off oxygen at this time. He denies any chest pain or chest discomfort. No difficulty breathing, coughing, or wheezing. Current vital signs are reviewed. His temperature is 98.2, heart rate is 89, respiratory rate 13, blood pressure 130/111. mean 117 with saturation 94%. Appears in no acute distress. HEENT: Examination is grossly unremarkable. Supplemental oxygen not noted. NECK: Supple. Full range of motion. No adenopathy. Neck veins are flat. CARDIOVASCULAR: Examination reveals a regular rhythm and rate. S1, S2 normal. No S3, S4, or murmur. LUNGS: Reveal diminished breath sounds. A few scattered rhonchi. No wheezes or crackles. ABDOMEN: Soft. Bowel sounds are heard. EXTREMITIES: Intact. No cyanosis, clubbing, or significant edema. SKIN: Without rash. NEUROLOGIC: Examination is brief but nonfocal. White count 15.5, hemoglobin 10.7, hematocrit 31.9, platelet count 351,000. Sodium 141, potassium 3.9, chloride is 109, CO2 is 23, anion gap is 9, BUN and creatinine were 27 and 0.88. A chest x-ray was done. It shows some mild fluid overload/CHF. There is some mild cardiomegaly. There is small effusions and some bibasilar atelectasis. Microbiology is only positive for the Serratia back on January 27. ASSESSMENT: 1. Postoperative day #7, status post 4-vessel bypass grafting, for severe triple- vessel coronary artery disease. 2. Routine postoperative ventilator management, resolved. 3. Non ST-segment elevation myocardial infarction. 4. Moderate to severe mitral regurgitation. 5. Ischemic cardiomyopathy with ejection fraction of 30%-35%. 6. History of rheumatoid arthritis. 7. History of sleep apnea syndrome. 8. History of moderate chronic obstructive pulmonary disease with an FEV1 that is 68% of predicted. 9. History of remote tobacco use. 10.Serratia marcescens tracheobronchitis. PLAN: Chest x-ray shows some mild fluid overload. The patient would benefit from a dose of Lasix. The patient continues to do well. He has been weaned off of oxygen. Not receiving any IV fluids. He is postop day #7. Will continue to follow. Prognosis is guarded. Again, we recommend ongoing hourly use of incentive spirometer with deep breathing, coughing, and clearing of secretions. MMODL / IJN: [id number] /
[2019-02-05 11:36] LABS: Glucose,Whole Blood 114 mg/dL (75-99)
[2019-02-05] MEDS: ASCORBIC ACID 500 MG TAB PO SCH (11:39)
[2019-02-05] MEDS: LOSARTAN 50 MG TAB PO SCH (11:39)
[2019-02-05 12:11] VITALS: BP 131/83; RESP 17
--- NOTE | 2019-02-05 14:03 | P.DS ---
Providers Date of admission: 01/22/19 09:13 Expected date of discharge: 02/05/19 Attending physician: Manuel Jennigns Consults: 01/22/19 09:26 Consult Physician Stat Consulting Provider: Roseanna Bauer Consult Reason/Comments: NSTEMI Do you want consulting provider notified?: Yes 01/23/19 15:30 Consult Physician Routine Consulting Provider: Marco Ames Consult Reason/Comments: triple vessel disease Do you want consulting provider notified?: Yes 01/24/19 10:08 Consult Physician Routine Consulting Provider: Eduarda Roy Consult Reason/Comments: preop cabg/mvr Do you want consulting provider notified?: Already Contacted 01/24/19 15:16 Consult Physician Routine Consulting Provider: Cris Nevarez Consult Reason/Comments: review panorex, possible mitral valve surgery Do you want consulting provider notified?: Yes, Notify in am 01/27/19 08:00 Consult to Anesthesia Routine Consulting Provider: Anesthesia,Services Consult Reason/Comments: Cardiac Surgery Pre-Op 02/02/19 12:01 Consult Physician Routine Consulting Provider: Man Baeza Consult Reason/Comments: Evaluation for inpatient rehab Do you want consulting provider notified?: Yes Primary care physician: Jono Snider Hospital Course: FINAL DIAGNOSIS: 1. Diffuse triple-vessel coronary artery disease 2. Moderate left ventricular dysfunction 3. Mild mitral valve regurgitation 4. Non-STEMI 5. Acute systolic heart failure and cardiomyopathy with a 35% on admission 6. Hypertension 7. Hyperlipidemia 8. TIA in 2007 without residual deficits on chronic Plavix 9. Rheumatoid arthritis on Enbrel and methotrexate, currently on hold 10. Obstructive sleep apnea without CPAP use, status post UP3 with residual occasional difficulty in swallowing 11. Previous tobacco dependence 12. Mild COPD with FEV1 68% of predicted 13. Preoperative tracheobronchitis with culture growing Serratia marcescens 14. Postoperative acute blood loss anemia 15. Postoperative paroxysmal atrial fibrillation 16. Postoperative urinary retention PRINCIPAL PROCEDURE: 1. Left heart catheterization 2. Urgent quadruple coronary artery bypass grafting using left internal mammary artery to the left anterior descending artery, the left radial artery from the aorta to the first obtuse marginal artery, reverse saphenous vein graft from the aorta to the second obtuse marginal artery, reverse saphenous vein graft from the aorta to the second obtuse marginal artery, reverse saphenous vein graft from the aorta to the posterior descending artery 3. Exclusion of the left atrial appendage using a 45 mm AtriClip 4. Endoscopic harvesting of the left greater saphenous vein from the groin to above the ankle 5. Endoscopic harvesting of the left radial artery 6. Intraoperative graft flow measurements using the Medistim system 7. Intraoperative transesophageal echocardiogram and epi-aortic scanning HISTORY OF PRESENT ILLNESS: This is a 63-year-old gentleman who follows on an outpatient basis with Dr. Snider. He presented to [facility] emergency room with complaints of significant progressive shortness of breath with occasional heartburn type chest pain, associated with occasional diaphoresis. Chest x-ray completed in the emergency room demonstrated right- sided infrahilar opacity representing possible pneumonia versus pulmonary vascular congestion. EKG was completed demonstrates sinus tachycardia with anterolateral T-wave abnormalities. Troponins were elevated and the patient was ruled in for non-STEMI. BNP was also elevated at 4990. He was admitted for evaluation and treatment with consultation placed to cardiology. Transthoracic echocardiogram was completed with moderate to severe. Left ventricular function and ejection fraction 30-35%, anteroapical hypokinesis, and severe mitral regurgitation. He was initiated on IV Lasix and Aldactone with some improvement in his breathing. He underwent heart catheterization demonstrating proximal and mid LAD stenosis 80-90%, mid diagonal stenosis 80%, mid circumflex stenosis 60%, distal RCA stenosis 90%, and diffuse PDA disease 80%. The patient was referred to Dr. Jennings from cardiothoracic surgery, who recommended transesophageal echocardiogram to evaluate mitral valve regurgitation after maximal medical therapy. His mitral valve regurgitation had improved, and the patient was recommended to undergo urgent coronary artery bypass graft surgery. The usual perioperative course was discussed in detail with the patient and his family, all risks and benefits were explained, all questions were answered, and consent was obtained to proceed with surgery. The patient was kept inpatient due to the nature of his disease process, and was taken to surgery at the earliest possible date. HOSPITAL COURSE: The patient was brought to the preoperative area on 01/29/2019, prepared in the usual fashion, and subsequently taken to the operating room where Dr. Jennings performed urgent quadruple coronary artery bypass grafting using left internal mammary artery to the left anterior descending artery, the left radial artery from the aorta to the first obtuse marginal artery, reverse saphenous vein graft from the aorta to the second obtuse marginal artery, reverse saphenous vein graft from the aorta to the second obtuse marginal artery, reverse saphenous vein graft from the aorta to the posterior descending artery, exclusion of the left atrial appendage using a 45 mm AtriClip, endoscopic harvesting of the left greater saphenous vein from the groin to above the ankle, endoscopic harvesting of the left radial artery, intraoperative graft flow measurements using the Medistim system, intraoperative transesophageal echocardiogram and epi-aortic scanning. Upon completion of surgery the patient was transferred to the cardiovascular intensive care unit where he was recovered, monitored hemodynamically, and where he progressed to cardiac rehabilitation phase 1. He was extubated, all lines, tubes, and drips were discontinued when appropriate, and transfer orders were placed for 3 S. cardiac stepdown unit, however there was no bed availability and the patient remained on ICU as a stepdown patient until discharge. He did experience postoperative paroxysmal atrial fibrillation and was initiated on amiodarone and Eliquis for anticoagulation. His oxygen was titrated down, he continued to work with physical and occupational therapy, he was tolerating oral diet, his pain was controlled, and he was ready to be discharged to [facility] inpatient rehab on postoperative day #7. He received written and verbal instruction regarding his medications, activity restrictions, signs and symptoms requiring physician notification, and follow-up appointments. COMPLICATIONS: The patient experienced postoperative complications acute blood loss anemia, paroxysmal atrial fibrillation, and acute urinary retention, all of which were treated accordingly. Patient Condition at Discharge: Stable Plan - Discharge Summary Discharge Rx Participant: No New Discharge Prescriptions: New hydrALAZINE HCL [Apresoline] 25 mg PO TID tab Aspirin 81 mg PO DAILY chew Sulfamethox-Tmp 800-160Mg [Bactrim DS 800-160 mg] 1 tab PO Q12HR 4 Days #8 tab Amiodarone [Cordarone] 200 mg PO BID tab Ipratropium-Albuterol Nebulize [Duoneb 0.5 mg-3 mg/3 ml Soln] 3 ml INHALATION RT-QID ampul.neb Ipratropium-Albuterol Nebulize [Duoneb 0.5 mg-3 mg/3 ml Soln] 3 ml INHALATION RT-Q2H PRN ampul.neb PRN Reason: Shortness Of Breath Or Wheezing Apixaban [Eliquis] 5 mg PO BID tab Tamsulosin [Flomax] 0.4 mg PO PC-BRKFST cap.er.24h Atorvastatin [Lipitor] 40 mg PO DAILY tab Metoprolol Tartrate [Lopressor] 100 mg PO BID tab Magnesium Hydroxide [Milk of Magnesia Concentrate] 2,400 mg PO BID PRN ml PRN Reason: Constipation amLODIPine [Norvasc] 5 mg PO BID tab Pantoprazole [Protonix] 40 mg PO DAILY tablet.dr Reis-Docusate Sodium [Senokot-S] 2 each PO HS PRN tab PRN Reason: Constipation Acetaminophen Tab [Tylenol] 1,000 mg PO Q6HR PRN tab PRN Reason: Fever And/ Or Pain Ascorbic Acid [Vitamin C] 500 mg PO 1200 tab Continue Folic Acid 1 mg PO DAILY Ferrous Sulfate [Iron (65 MG Elemental)] 325 mg PO TID Ergocalciferol (Vitamin D2) [Drisdol] 50,000 unit PO SANTOS Changed Losartan Potassium [Cozaar] 100 mg PO DAILY@1200 #0 Discontinued traZODone HCL 150 mg PO HS Meclizine [Antivert] 25 mg PO AC-TID PRN PRN Reason: Vertigo Labetalol HCl [Trandate] 300 mg PO BID Hydrocodone/Acetaminophen [Denton 10-325] 1 tab PO Q6H PRN PRN Reason: Pain amLODIPine [Norvasc] 10 mg PO DAILY Clopidogrel Bisulfate [Plavix] 75 mg PO Q48H Atorvastatin [Lipitor] 20 mg PO HS Methotrexate 25mg/Ml 25 mg SQ SANTOS Etanercept [Enbrel] 25 mg SQ SUWE Discharge Medication List Ergocalciferol (Vitamin D2) [Drisdol] 50,000 unit PO SANTOS 01/22/19 [History] Ferrous Sulfate [Iron (65 MG Elemental)] 325 mg PO TID 01/22/19 [History] Folic Acid 1 mg PO DAILY 01/22/19 [History] Acetaminophen Tab [Tylenol] 1,000 mg PO Q6HR PRN tab 02/05/19 [Rx] Amiodarone [Cordarone] 200 mg PO BID tab 02/05/19 [Rx] Apixaban [Eliquis] 5 mg PO BID tab 02/05/19 [Rx] Ascorbic Acid [Vitamin C] 500 mg PO 1200 tab 02/05/19 [Rx] Aspirin 81 mg PO DAILY chew 02/05/19 [Rx] Atorvastatin [Lipitor] 40 mg PO DAILY tab 02/05/19 [Rx] Ipratropium-Albuterol Nebulize [Duoneb 0.5 mg-3 mg/3 ml Soln] 3 ml INHALATION RT-Q2H PRN ampul.neb 02/05/19 [Rx] Ipratropium-Albuterol Nebulize [Duoneb 0.5 mg-3 mg/3 ml Soln] 3 ml INHALATION RT-QID ampul.neb 02/05/19 [Rx] Losartan Potassium [Cozaar] 100 mg PO DAILY@1200 #0 02/05/19 [Rx] Magnesium Hydroxide [Milk of Magnesia Concentrate] 2,400 mg PO BID PRN ml 02/05/19 [Rx] Metoprolol Tartrate [Lopressor] 100 mg PO BID tab 02/05/19 [Rx] Pantoprazole [Protonix] 40 mg PO DAILY tablet.dr 02/05/19 [Rx] Sennosides-Docusate Sodium [Senokot-S] 2 each PO HS PRN tab 02/05/19 [Rx] Sulfamethox-Tmp 800-160Mg [Bactrim DS 800-160 mg] 1 tab PO Q12HR 4 Days #8 tab 02/05/19 [Rx] Tamsulosin [Flomax] 0.4 mg PO PC-BRKFST cap.er.24h 02/05/19 [Rx] amLODIPine [Norvasc] 5 mg PO BID tab 02/05/19 [Rx] hydrALAZINE HCL [Apresoline] 25 mg PO TID tab 02/05/19 [Rx] Follow up Appointment(s)/Referral(s): Manuel Jennings MD [STAFF PHYSICIAN] - 02/27/19 10:30 am Jono Snider MD [Primary Care Provider] - 1 Week (Please call to make follow-up appointment upon discharge from [facility]) Roseanna Bauer MD [STAFF PHYSICIAN] - 1 Week (Please call to make follow-up appointment upon discharge from [facility]) Eduarda Roy MD [STAFF PHYSICIAN] - 1 Week (Please call to make follow-up appointment upon discharge from [facility]) Activity/Diet/Wound Care/Special Instructions: Consultations for [facility] inpatient rehab: 1. Dr. Bauer for cardiology 2. Dr. Roy for pulmonology DISCHARGE INSTRUCTIONS: 1. No driving for 4 weeks, or until physician gives their ok. 2. The patient should sleep in their own bed, no medical bed needed. 3. Stairs are not an issue. If the bedroom is upstairs, it is advised that the patient go up at night and down in the morning for the first week. Go slowly, using handrail and take 1 step at a time. 4. GUILLE hose are to be worn for 30 days or until physician discontinues. 5. Heart hugger is to be worn 100% of the time until physician discontinues.(except when showering) 6. No lifting, pushing, or pulling more than 10 pounds for 12 weeks. The physician will advise of any restriction changes. 7. The patient is expected to continue the prescribed walking program. 8. Continue pain control per as needed orders. 9. Continue with incentive spirometry and splinting/heart hugger until otherwise directed by the physician. 10. Must shower daily using liquid antibacterial soap and a separate white washcloth for each individual incision. 11. Routine sternal incision care. No powders, lotions, ointments on incisions. 12. Please call surgeon/RADIO STATION OPERATOR for temp greater than 101 F or purulent drainage from incisions. 13. All prescriptions given by surgeon for 30 days. Refills need to be filled through hydro operator/primary care physician. 14. A Red armband has been placed on the patient. It should be worn for 30 days post surgery and will be removed by the cardiac surgeons. If an ER visit is necessary, please make sure the number on the Red armband is called. REHAB/HOME HEALTH SERVICES TO PROVIDE: RN SKILLED HOME CARE SERVICES FOR POST-OP SURGICAL PATIENTS WITH THE FOLLOWING: Coronary Artery Bypass Surgery (CABG), Mitral Valve Replacement/Repair ( MVR), Aortic Valve Replacement/Repair (AVR) RN TO CONTINUE EDUCATION FROM ``ROAD TO A HEALTH HEART PATIENT EDUCATION MANUAL (GIVEN TO PATIENT IN THE HOSPITAL) MEDICATION RECONCILIATION WITH EDUCATION NEEDED ON FIRST HOME VISIT EMPHASIZE IMPORTANCE OF WEARING BREAST SUPPORT/HEART HUGGER ENCOURAGE USE OF INCENTIVE SPIROMETER 10 X EVERY HOUR WHILE AWAKE ENCOURAGE UTILIZATION OF LOWER EXTREMITY COMPRESSION STOCKINGS/GUILLE HOSE and ELEVATE LEGS ABOVE LEVEL OF HEART WHILE AT REST. ENCOURAGE AMBULATION 3-5x/day INCREASING TOLERATES, WHILE AVOID EXTREMES IN TEMPERATURE FREQUENCY: RN TO OPEN THE PATIENT WITHIN 24 HOURS OF DISCHARGE FROM REHAB WITH TELEHEALTH INSTALLED AT [facility] [place], RN TO VISIT 2-3 X A WEEK FOR 4 WEEKS ESTABLISHED BY PATIENT NEEDS. LABORATORY: CBC, CMP TO BE DRAWN PER REHAB PROTOCOL, (RAN STAT) FAX RESULTS TO [phone]. TELEHEALTH PARAMETERS: WEIGHT: NOTIFY MD OF WEIGHT GAIN OF 2 LBS IN 24 HOURS OR 5 LBS IN ONE WEEK HR: NOTIFY MD OF HR <55 BPM OR HR>100 BPM BP: NOTIFY MD IF BP <90/55 OR BP>140/100 O2 SAT: NOTIFY MD IF PO2<93% ON ROOM AIR SEND TELEHEALTH REPORT TO PHOTOGRAPHIC EQUIPMENT MECHANIC AND CARDIOVASCULAR SURGEON THE FIRST WEEK OF CARE AND THEN BI-WEEKLY. PLEASE ADDITIONALLY COMMUNICATE ANY ABNORMALS AND NEW FINDINGS TO THE SURGEONS OFFICE. Discharge Disposition: DC/TRNS INTERMEDIATE CARE FAC
[2019-02-05 15:46] VITALS: PULSE 88
--- NOTE | 2019-02-06 21:35 | P.PN ---
Progress Note - Text Progress Note Date: 02/05/19 Interval history: This is a pleasant [address] begum. Chronic stable medical conditi ons include hyperlipidemia, hypertension, rheumatoid arthritis COPD. For about 2 weeks patient is becoming increasingly short of breath. No edema no cough no fever no chills. Normally uses 2 or 3 pillows at night. Appetite has been fair. No bowel movements. No sputum production. Patient is felt to have CHF to started on IV Lasix. There is a question about pneumonia hence antibiotics were also started. Admitted for the same. Admitted with CHF exacerbation. Positive troponin. EKG changes. Cardiac catheterization on January 23 showed triple-vessel disease.PAMELA done showed severe MR. On January 29 underwent coronary bypass. Intraoperatively was not found to have significant disease of the mitral regurgitation. Paroxysmal atrial fibrillation. Acute tracheobronchitis. Today-improving. Eating better. Ambulating more. Breathing is improved. Family present. s. Review of systems: Was done for constitutional, cardiovascular, GI, pulmonary. relevant finding as above Current medication of today's electronic records reviewed Physical examination: VITAL SIGNS: 98.4, 97, 17, 146/87, 95% GENERAL: Sitting upon a chair, comfortable EYES: Pupils equal. Conjunctiva pale HEENT: External appearance of nose and ears normal, oral cavity dry. NECK: JVD unable to assess; masses not palpable. HEART: First and second heart sounds are normal; no edema. LUNGS: Respiratory rate increased, decreased breath sounds ABDOMEN: Soft, nontender, liver spleen not palpable, no masses palpable. PSYCH: Alert and oriented x3; mood and affect tired INVESTIGATIONS, reviewed in the clinical context: White count 15.5 hemoglobin 10.7 creatinine 0.88 Previous tests Cardiac cath [id number] disease Admission labs 2-D echo-moderate global hypokinesia, EF 30-35% multiple wall motion abnormality, severe mitral regurgitation White count 13.6 hemoglobin 14.6 potassium 4.1 creatinine 0.84 Troponin 0.082, 0.078 ProBNP 4990 EKG tracing personally reviewed by me shows ST segment depression, PVC Chest x-ray film personally reviewed by me shows pulmonary edema and some cardiomegaly Assessment: -Status post coronary bypass -Acute congestive heart failure exacerbation, from systolic dysfunction EF 30- 35%, improving -Acute tracheobronchitis from Serratia marcescens. No pneumonia per pulmonary. -Moderate mitral regurgitation, nonrheumatic -COPD in an ex-smoker -Hyperlipidemia -Essential hypertension -Rheumatoid arthritis -Coronary artery disease -Persistent atrial fibrillation -Acute hypoxic respiratory failure from CHF - Plan: Care was discussed with the patient. Stable. Continue current medication treatment plan.
== END 2019-02-05 17:03 | DRG 233 ==
LOC: EC 06:53 → 3SCARD 09:13 → 2SICU 01-29 07:35
PROVIDERS: ADMIT Surgery; ATTEND Surgery
PROC: 4A023N7 Measurement of Cardiac Sampling and Pressure, Left Heart, Percutaneous Approach (ICD-10-PCS; 2019-01-23)
PROC: B44HZZZ Ultrasonography of Bilateral Lower Extremity Arteries (ICD-10-PCS; 2019-01-23)
PROC: B2111ZZ Fluoroscopy of Multiple Coronary Arteries using Low Osmolar Contrast (ICD-10-PCS; 2019-01-23)
PROC: B24BZZ4 Ultrasonography of Heart with Aorta, Transesophageal (ICD-10-PCS; 2019-01-26)
PROC: 03B Upper Arteries, Excision (ICD-10-PCS; 2019-01-29)
PROC: 5A1221Z Performance of Cardiac Output, Continuous (ICD-10-PCS; 2019-01-29)
PROC: 4A033BC Measurement of Arterial Pressure, Coronary, Percutaneous Approach (ICD-10-PCS; 2019-01-29)
PROC: 02L70CK Occlusion of Left Atrial Appendage with Extraluminal Device, Open Approach (ICD-10-PCS; 2019-01-29)
PROC: B24BZZ4 Ultrasonography of Heart with Aorta, Transesophageal (ICD-10-PCS; 2019-01-29)
PROC: 02100Z9 Bypass Coronary Artery, One Artery from Left Internal Mammary, Open Approach (ICD-10-PCS; principal; 2019-01-29 08:00)
PROC: 02100AW Bypass Coronary Artery, One Artery from Aorta with Autologous Arterial Tissue, Open Approach (ICD-10-PCS; 2019-01-29 08:00)
PROC: 021109W Bypass Coronary Artery, Two Arteries from Aorta with Autologous Venous Tissue, Open Approach (ICD-10-PCS; 2019-01-29 08:00)
PROC: 06BQ4ZZ Excision of Left Saphenous Vein, Percutaneous Endoscopic Approach (ICD-10-PCS; 2019-01-29 08:00)
PROC: 5A09457 Assistance with Respiratory Ventilation, 24-96 Consecutive Hours, Continuous Positive Airway Pressure (ICD-10-PCS; 2019-01-30)
DX: I21.4 Non-ST elevation (NSTEMI) myocardial infarction (principal); I50.21 Acute systolic (congestive) heart failure; J96.01 Acute respiratory failure with hypoxia; I97.190 Other postprocedural cardiac functional disturbances following cardiac surgery; E87.2 Acidosis; J44.0 Chronic obstructive pulmonary disease with (acute) lower respiratory infection; J98.11 Atelectasis; I25.5 Ischemic cardiomyopathy; N99.89 Other postprocedural complications and disorders of genitourinary system; I11.0 Hypertensive heart disease with heart failure; I48.0 Paroxysmal atrial fibrillation; I25.10 Atherosclerotic heart disease of native coronary artery without angina pectoris; I25.2 Old myocardial infarction; I34.0 Nonrheumatic mitral (valve) insufficiency; G47.33 Obstructive sleep apnea (adult) (pediatric); R33.8 Other retention of urine; E78.5 Hyperlipidemia, unspecified; J20.9 Acute bronchitis, unspecified; M06.9 Rheumatoid arthritis, unspecified; E55.9 Vitamin D deficiency, unspecified; B96.89 Other specified bacterial agents as the cause of diseases classified elsewhere; R53.81 Other malaise; E66.9 Obesity, unspecified; Z68.30 Body mass index [BMI] 30.0-30.9, adult; Z79.02 Long term (current) use of antithrombotics/antiplatelets; Z79.899 Other long term (current) drug therapy; Z87.891 Personal history of nicotine dependence; Z88.8 Allergy status to other drugs, medicaments and biological substances; Z87.442 Personal history of urinary calculi; Z86.73 Personal history of transient ischemic attack (TIA), and cerebral infarction without residual deficits; Z90.79 Acquired absence of other genital organ(s); Z91.81 History of falling; Z98.42 Cataract extraction status, left eye; Z98.41 Cataract extraction status, right eye; Z96.1 Presence of intraocular lens; Z82.49 Family history of ischemic heart disease and other diseases of the circulatory system; Z82.3 Family history of stroke; Z82.61 Family history of arthritis; Y83.2 Surgical operation with anastomosis, bypass or graft as the cause of abnormal reaction of the patient, or of later complication, without mention of misadventure at the time of the procedure
CPT/HCPCS: 36415; 70486; 71045; 71046; 71250; 80048; 80053; 80061; 80074; 81001; 81003; 82272; 82330; 82805; 83036; 83735; 83880; 84100; 84132; 84145; 84443; 84484; 85025; 85027; 85520; 85610; 85730; 86850; 86891; 86900; 86901; 86920; 87040; 87070; 87077; 87186; 87205; 93005; 93306; 93308; 93312; 93320; 93325; 93458; 93880; 93970; 94002; 94003; 94150; 94640; 94660; 94760; 96361; 96374; 99285